=== PATIENT | female | born 1960 | race Caucasian/White ===

== ENCOUNTER 2017-10-31 16:35 | Emergency (ER) | payer BC, SELFPAY ==
[2017-10-31 16:35] VITALS: BP 159/87; PULSE 67; RESP 14; TEMP 36.4; O2SAT 95; BMI 31.0
--- NOTE | 2017-10-31 17:03 | EKG12_ITS ---
Test Reason : ILLNESS Blood Pressure : / mmHG Vent. Rate : 064 BPM Atrial Rate : 064 BPM P-R Int : 212 ms QRS Dur : 082 ms QT Int : 388 ms P-R-T Axes : 030 007 066 degrees QTc Int : 400 ms Sinus rhythm with 1st degree A-V block Otherwise normal ECG Confirmed by JODY MARTI ([id number]), editor sound TERE SMART ([id number]) on 11/02/2017 2:18:09 PM Referred By: FÉLIX Confirmed By:JODY MARTI
--- NOTE | 2017-10-31 17:06 | ED.VISSUMM ---
- ER Visit Summary Date of Service: 10/31/17 Chief Complaint: Abdominal pain and fatigue History of Present Illness: The patient is a 57 F is A. fib on Coumadin. Complaining of fatigue and abdominal discomfort. Denies vomiting or diarrhea. No constipation or dysuria. No fever. No chest pain shortness of breath. States it has been going on for approximate 4 days. Denies any melena or hematemesis. No dysuria. No bruising. Physical Examination: Well-appearing middle-age female. Vital signs are stable afebrile. Pulse ox 95% on room air no signs of hypoxia. H EENT exam unremarkable moist wheeze membranes. Neck nontender no lymphadenopathy. Lungs clear to auscultation bilaterally. Heart regular rate and rhythm no murmur. Abdomen is soft umbilical tenderness no rebound or guarding no rigidity. No hernias or masses. Test Results: CBC normal. BMP normal. Liver enzymes normal. Lipase 65 normal. INR is 1. UA negative. EKG sinus rhythm rate is 64 no acute signs of ID or ischemia. Emergency Department Course and Treatment: To undergo a abdominal pain workup. She has had recent CAT scan of the abdomen I do not feel she needs any imaging at this time. Treatment Plan: Repeat exam patient is doing well at 1930. Abdomen is benign. I did review to recent CAT scan of the abdomen pelvis that she had were basically unremarkable and incidental findings of possible gallstones. She will be discharged home with outpatient follow-up. Disposition: Discharge Impression: Acute abdominal pain and fatigue of uncertain etiology This note was generated with [employer] dictation software. It may contain incorrect words, spelling, and punctuation that were not noted in review of the chart prior to signing ED Disposition - Plan for ED Patient: Chief Complaint: Abd Pain Referrals: Addis Prather MD [Primary Care Provider] -
--- NOTE | 2017-10-31 17:12 | ED.DCSUM_ITS ---
- ER Visit Summary Date of Service: 10/31/17 Chief Complaint: Abdominal pain and fatigue History of Present Illness: The patient is a 57 F is A. fib on Coumadin. Complaining of fatigue and abdominal discomfort. Denies vomiting or diarrhea. No constipation or dysuria. No fever. No chest pain shortness of breath. States it has been going on for approximate 4 days. Denies any melena or hematemesis. No dysuria. No bruising. Physical Examination: Well-appearing middle-age female. Vital signs are stable afebrile. Pulse ox 95% on room air no signs of hypoxia. H EENT exam unremarkable moist wheeze membranes. Neck nontender no lymphadenopathy. Lungs clear to auscultation bilaterally. Heart regular rate and rhythm no murmur. Abdomen is soft umbilical tenderness no rebound or guarding no rigidity. No hernias or masses. Test Results: CBC normal. BMP normal. Liver enzymes normal. Lipase 65 normal. INR is 1. UA negative. EKG sinus rhythm rate is 64 no acute signs of DE or ischemia. Emergency Department Course and Treatment: To undergo a abdominal pain workup. She has had recent CAT scan of the abdomen I do not feel she needs any imaging at this time. Treatment Plan: Repeat exam patient is doing well at 1930. Abdomen is benign. I did review to recent CAT scan of the abdomen pelvis that she had were basically unremarkable and incidental findings of possible gallstones. She will be discharged home with outpatient follow-up. Disposition: Discharge Impression: Acute abdominal pain and fatigue of uncertain etiology This note was generated with [employer] dictation software. It may contain incorrect words, spelling, and punctuation that were not noted in review of the chart prior to signing ED Disposition - Plan for ED Patient: Chief Complaint: Abd Pain Referrals: Addis Prather MD [Primary Care Provider] -
[2017-10-31] MEDS: 0.9% Normal Saline 1,000 ML 1000 ML IV (17:23)
[2017-10-31 17:33] LABS: Mucous, Urine 0 SEEN /hpf (<or=2+); Red Blood Cells-Urine 0 SEEN /hpf (0-5)
[2017-10-31 17:37] LABS: Absolute Lymphocyte Count 2.34 X10^3/ul (0.83-4.51); Absolute Neutrophil Count 6.4 X10^3/uL (2.0-7.7); Basophil# 0.03 X10^3/uL; Basophil% 0.3 % (0-1); Hematocrit 47.7 % (37-47); Hemoglobin 15.5 g/dl (12.0-15.0); Lymphocyte # 2.34 X10^3/ul (4.0); Mean Corp Hgb Conc 32.5 g/gl (32-36); Mean Corpuscular Hgb 30.2 pg (27.0-32.0); Mean Platelet Vol. 13.3 fl (6.2-12.0); Monocyte# 0.82 X10^3/uL; Monocyte% 8.4 % (0-10); Neutrophil # 6.43 X10^3/uL (2.7-7.7); Neutrophil % 66.1 % (47-70); POSITIVE COUNT NO; POSITIVE DIFFERENTIAL NO; POSITIVE MORPHOLOGY NO; Platelet Count 166 K/mm3 (150-450); RBC Distribution Width SD 46.1 fl (35.1-43.9); Red Blood Count 5.13 M/mm3 (4.2-5.4); White Blood Count 9.7 K/mm3 (4.4-11.0)
[2017-10-31 17:39] LABS: Color, Urine Yellow (Yellow); Glucose, Dipstick Normal (Normal); Ketone-Dipstick Negative (Negative); Leukocyte Esterase-Dipstick 25 /ul (Negative); Nitrite-Dipstick Negative (Negative); Occult Blood-Urine Negative /ul (Negative); Protein-Dipstick Negative (Negative); Specific Gravity, Urine 1.015 (1.002-1.030); Urine Bilirubin Dipstick Negative (Negative); Urine Clarity Cloudy (Clear); Urine Urobilinogen 4 mg/dl (Normal)
[2017-10-31 17:51] LABS: Amorphous Sediment 1+; Squamous Epithelial Cells - UA 0-5 SEEN /hpf (5-10); White Blood Cells 0-5 SEEN /hpf (0-5)
[2017-10-31 17:51] LABS: Prothrombin Time (Protime)PT. 12.9 SECONDS (11.7-14.9)
[2017-10-31 17:52] LABS: Bacteria RARE /hpf (None Seen)
[2017-10-31 18:14] LABS: AST(SGOT) 17 U/L (15-37); Alanine Aminotransfer ALT/SGPT 39 U/L (13-56); Albumin, Serum 3.7 g/dL (3.2-5.0); Alkaline Phosphatase 112 U/L (45-117); Anion Gap 7 (5-15); BUN 16 mg/dL (7-18); BUN/Creat Ratio 20.5 RATIO (10-20); Bilirubin, Direct 0.09 mg/dL (0.00-0.30); Calcium,Total 9.3 mg/dL (8.5-10.1); Chloride 106 mmol/L (98-107); Creatinine, Serum 0.78 mg/dL (0.55-1.02); EST Glomerular Filtration Rate 80 mL/min (>60); Est Glom Filt Rate - Afr Amer 97 mL/min (>60); Estimated Creatinine Clearance 81.16 ml/min; Globulin 3.9 g/dL (2.2-4.2); Glucose 124 mg/dL (74-106); Lipase 65 U/L (73-393); Potassium 3.9 mmol/L (3.5-5.1); Protein, Total 7.6 g/dL (6.4-8.2); Sodium Level 143 mmol/L (136-145)
[2017-10-31 19:01] VITALS: BP 140/102; PULSE 61; RESP 18
--- NOTE | 2017-10-31 19:37 | ED.DEP ---
ED Disposition - Plan for ED Patient: Disposition: Home or Assisted Living Chief Complaint: Abd Pain Instructions: ED Abdominal Pain Unkn Cause Referrals: Addis Prather MD [Primary Care Provider] - 3-5 Days if not improving Additional Instructions: All your labs and EKG were unremarkable today. I did review your recent CAT scans and they show gallstones that may or may not be the cause your pain. Call follow-up your primary care physician for additional testing. Return to the ER if increasing pain, fever or intractable vomiting.
[2017-10-31 19:47] VITALS: BP 146/87; PULSE 83; RESP 18; O2SAT 95
== END 2017-10-31 19:47 | disposition home or self-care (01) ==
PROVIDERS: Emergency Provider Emergency Medicine; Family Provider Internal Medicine; PCP Internal Medicine
DX: R10.815 Periumbilic abdominal tenderness (principal); R53.83 Other fatigue; E11.9 Type 2 diabetes mellitus without complications; I48.91 Unspecified atrial fibrillation; Z90.710 Acquired absence of both cervix and uterus; Z79.84 Long term (current) use of oral hypoglycemic drugs; Z79.01 Long term (current) use of anticoagulants; Z79.899 Other long term (current) drug therapy
CPT/HCPCS: 80048; 80076; 81001; 83690; 85025; 85610; 93005; 96360; 96361; 99283; J7030; A4216

== ENCOUNTER 2018-05-21 12:04 | Emergency (ER) | payer BC, SELFPAY ==
[2018-05-21 12:05] VITALS: BP 146/77; PULSE 67; RESP 15; TEMP 36.4; O2SAT 95; BMI 35.7
--- NOTE | 2018-05-21 12:59 | CT_ITS ---
STUDY: CT ABDOMEN AND PELVIS WITH CONTRAST REASON FOR EXAM: Female, 57 years old. Right lower quadrant pain. The patient as a history of uterine carcinoma. RADIATION DOSAGE (If Supplied By Facility): CTDIvol = ( 18.72 ) mGy, DLP = ( 1397.22 ) mGycm TECHNIQUE: Transaxial images were obtained from the dome of the diaphragm to the symphysis pubis with oral contrast. 100 ml of Isovue 300 contrast was administered. Sagittal and coronal images were reconstructed. Individualized dose optimization techniques were used for this CT. COMPARISON: Comparison is made with prior examination dated July 26, 2016. FINDINGS: Stable mild increased markings at the lung bases suggestive of atelectasis and/or scarring. The visualized portions of the heart are within normal limits. There is decreased attenuation of the liver consistent with steatosis. Normal gallbladder and extrahepatic biliary system. Normal spleen. Normal pancreas. Normal bilateral adrenal glands. Normal right kidney. Normal left kidney. There is a small hiatal hernia. Normal small intestine. There are scattered colonic diverticula consistent with diverticulosis. The appendix is visualized and appears normal. There is scattered atherosclerotic calcification of the abdominal aorta, without a demonstrated aneurysm. Normal inferior vena cava. There is borderline retroperitoneal lymphadenopathy with enlarged nodes no greater than 10mm in the short axis diameter. Normal urinary bladder. There is absence of the uterus consistent with a prior hysterectomy. Normal abdominal wall. Normal osseous structures. CT/Abdomen/Pelvis WITH Contrast IMPRESSION: Scattered sigmoid diverticula. Fatty infiltration of the liver. Electronically Signed: Jerry Bunch MD at 15:24 EST Tel [phone], Service support ,
[2018-05-21 13:29] LABS: Absolute Lymphocyte Count 2.17 X10^3/ul (0.83-4.51); Absolute Neutrophil Count 4.9 X10^3/uL (2.0-7.7); Basophil# 0.02 X10^3/uL; Basophil% 0.3 % (0-1); Eosinophil# 0.08 X10^3/uL; Hematocrit 48.7 % (37-47); Hemoglobin 15.7 g/dl (12.0-15.0); Lymphocyte # 2.17 X10^3/ul (4.0); Lymphocyte % 27.6 % (19-41); Mean Corp Hgb Conc 32.2 g/gl (32-36); Mean Corpuscular Hgb 29.7 pg (27.0-32.0); Mean Corpuscular Volume 92.2 fL (81-99); Mean Platelet Vol. 13.8 fl (6.2-12.0); Monocyte% 8.9 % (0-10); Neutrophil # 4.88 X10^3/uL (2.7-7.7); Neutrophil % 62.1 % (47-70); Platelet Count 149 K/mm3 (150-450); RBC Distribution Width CV 14.1 % (11.6-14.6); RBC Distribution Width SD 46.8 fl (35.1-43.9); Red Blood Count 5.28 M/mm3 (4.2-5.4); White Blood Count 7.9 K/mm3 (4.4-11.0)
[2018-05-21 13:30] LABS: POSITIVE COUNT NO; POSITIVE DIFFERENTIAL NO; POSITIVE MORPHOLOGY NO
[2018-05-21] MEDS: Ondansetron 4 MG/2 ML Vial IV (13:39)
[2018-05-21] MEDS: 0.9% Normal Saline 1,000 ML 125 ML IV (13:39)
[2018-05-21] MEDS: Morphine 4 MG/ML Syringe IV (13:39)
[2018-05-21 13:42] LABS: Anion Gap 7 (5-15); BUN 14 mg/dL (7-18); BUN/Creat Ratio 23.1 RATIO (10-20); Calcium,Total 9.2 mg/dL (8.5-10.1); Chloride 108 mmol/L (98-107); EST Glomerular Filtration Rate 108 mL/min (>60); Est Glom Filt Rate - Afr Amer 130 mL/min (>60); Estimated Creatinine Clearance 105.51 ml/min; Glucose 115 mg/dL (74-106); Potassium 3.9 mmol/L (3.5-5.1); Sodium Level 141 mmol/L (136-145)
[2018-05-21 14:04] LABS: Lactic Acid 0.8 mmol/L (0.4-2.0)
--- NOTE | 2018-05-21 15:47 | ED.VISSUMM ---
- ER Visit Summary Date of Service: 05/21/18 Chief Complaint: [Abdominal pain] History of Present Illness: The patient is a 57 F [since the emergency department complaint of abdominal pain that started 3 days ago. Patient describes it as right lower quadrant to right lower pelvis. Patient had some sweats. Patient states pain worse with certain movements. She denies any fever. She denies any vomiting. She denies any blood in her stool or black tarry stool. She denies any urinary symptoms. Patient denies any trauma to her abdomen.] Physical Examination: [HEENT-PERRLA, EOMI. Cranial nerves II through XII grossly intact. TMs clear. Mucous membranes moist. No adenopathy. Cardiovascular-regular rate and rhythm without murmur or ectopy Lungs-clear to auscultation, chest wall stable without crepitus or subcu emphysema Abdomen-normoactive bowel sounds, soft. Patient does have some tenderness over the right lower suprapubic region lateral to the pubic mons with some subtle fullness noted. There is no rebound, rigidity, or perineal signs. There is no discoloration of the skin. Extremities-intact ?4, normal range of motion, normal pulses, atraumatic] Test Results: [CBC with differential obtained showed a white count 7.9, hemoglobin 15.7, hematocrit 49, platelets 149. Chemistries unremarkable. Lactate was normal at 0.8. CT scan of the abdomen pelvis with IV and p.o. contrast was unremarkable. No evidence of hernias. I discussed with radiologist also in he reiterates that he does not see any evidence for hernia. Analysis unremarkable.] Emergency Department Course and Treatment: [Patient was medicated with morphine and Zofran had good pain relief.] Treatment Plan: [Patient will be given a prescription for [place] for pain and will be given a referral to general surgeon for follow-up of her symptoms persist.] Disposition: Discharged home in stable condition [] Impression: [Abdominal pain-etiology uncertain] This note was generated with [employer] dictation software. It may contain incorrect words, spelling, and punctuation that were not noted in review of the chart prior to signing ED Disposition - Plan for ED Patient: Chief Complaint: Other, Pain/Inj Referrals: Addis Prather MD [Primary Care Provider] -
--- NOTE | 2018-05-21 15:50 | ED.DEP ---
ED Disposition - Plan for ED Patient: Chief Complaint: Other, Pain/Inj Instructions: ED Abdominal Pain Unkn Cause Prescriptions: Hydrocodone Bitart/Apap 5-325 [[place] 5MG-325MG] 1 tab PO Q4H PRN PRN 2 Days #10 tab PRN Reason: Pain Referrals: Addis Prather MD [Primary Care Provider] -
[2018-05-21 15:54] LABS: Bacteria 0 SEEN /hpf (None Seen); Mucous, Urine 0 SEEN /hpf (<or=2+); Red Blood Cells-Urine 0 SEEN /hpf (0-5); White Blood Cells 0 SEEN /hpf (0-5)
--- NOTE | 2018-05-21 15:54 | DCINST.ED_ITS ---
ED Disposition - Plan for ED Patient: Chief Complaint: Other, Pain/Inj Instructions: ED Abdominal Pain Unkn Cause Prescriptions: Hydrocodone Bitart/Apap 5-325 [[place] 5MG-325MG] 1 tab PO Q4H PRN PRN 2 Days #10 tab PRN Reason: Pain Referrals: Addis Prather MD [Primary Care Provider] -
[2018-05-21 15:58] LABS: Color, Urine Yellow (Yellow); Glucose, Dipstick Normal (Normal); Ketone-Dipstick Negative (Negative); Leukocyte Esterase-Dipstick Negative /ul (Negative); Nitrite-Dipstick Negative (Negative); Occult Blood-Urine Negative /ul (Negative); Protein-Dipstick Negative (Negative); Urine Bilirubin Dipstick Negative (Negative); Urine Clarity Clear (Clear); Urine Urobilinogen Normal (Normal); Urine pH 6.5 (5.0 - 8.0)
[2018-05-21 16:10] LABS: Squamous Epithelial Cells - UA 0-5 SEEN /hpf (5-10)
[2018-05-21 16:33] VITALS: BP 115/71; PULSE 63; RESP 18; O2SAT 90
== END 2018-05-21 16:38 | disposition home or self-care (01) ==
LOC: ED 13:01
PROVIDERS: Emergency Provider Emergency Medicine; Family Provider Internal Medicine; PCP Internal Medicine
DX: R10.31 Right lower quadrant pain (principal); R61 Generalized hyperhidrosis; I25.10 Atherosclerotic heart disease of native coronary artery without angina pectoris; E11.9 Type 2 diabetes mellitus without complications; E78.00 Pure hypercholesterolemia, unspecified; I48.91 Unspecified atrial fibrillation; Z79.01 Long term (current) use of anticoagulants; Z79.84 Long term (current) use of oral hypoglycemic drugs; Z79.899 Other long term (current) drug therapy
CPT/HCPCS: 74177; 80048; 81001; 83605; 85025; 90471; 96361; 96374; 96375; 99284; J7030; Q9967; A4216; J2405

== ENCOUNTER 2018-12-16 21:28 | Observation (INO) | payer BC, SELFPAY ==
[2018-12-16 21:29] VITALS: BP 162/111; PULSE 67; RESP 18; TEMP 36.6; O2SAT 98; BMI 36.0
--- NOTE | 2018-12-16 21:40 | EKG12_ITS ---
Test Reason : CP Blood Pressure : / mmHG Vent. Rate : 064 BPM Atrial Rate : 064 BPM P-R Int : 204 ms QRS Dur : 088 ms QT Int : 402 ms P-R-T Axes : 040 024 095 degrees QTc Int : 414 ms Normal sinus rhythm Low voltage QRS Cannot rule out Anterior infarct , age undetermined Abnormal ECG Confirmed by LALO HARMON, WILFREDO ([id number]), features editor TERE SMART ([id number]) on 12/17/2018 11:52:54 AM Referred By: AMY Confirmed By:WILFREDO MAY MD
--- NOTE | 2018-12-16 21:45 | RAD_ITS ---
STUDY: X-RAY CHEST REASON FOR EXAM: Female, 58 years old. Chest pain TECHNIQUE: Single frontal view COMPARISON: July 11, 2016 FINDINGS: The lungs are clear and expanded. There is no demonstrated pleural abnormality. Normal size heart. Normal mediastinum and dave. Normal visualized pulmonary arteries. Normal visualized aortic arch and descending thoracic aorta. Mild degenerative changes of the visualized thoracic spine. Normal visualized ribs, clavicles, and shoulders. There is no demonstrated abnormality of the visualized soft tissue structures of the upper abdomen. RAD/Chest 1 View (Portable) IMPRESSION: Normal x-ray examination of the chest. Electronically Signed: Kade Mcadams DO at 22:07 EDT Tel [phone], Service support ,
[2018-12-16] MEDS: Aspirin 81 MG TAB.CHEW 324 MG PO (21:50)
[2018-12-16] MEDS: Morphine 4 MG/ML Syringe IV (21:51)
[2018-12-16] MEDS: Ondansetron 4 MG/2 ML Vial IV (21:51)
[2018-12-16 21:57] LABS: Absolute Lymphocyte Count 2.94 X10^3/ul (0.83-4.51); Absolute Neutrophil Count 4.6 X10^3/uL (2.0-7.7); Basophil# 0.03 X10^3/uL; Basophil% 0.4 % (0-1); Eosinophil# 0.14 X10^3/uL; Eosinophils% 1.7 % (0-5); Hematocrit 48.4 % (37-47); Hemoglobin 16.1 g/dl (12.0-15.0); Lymphocyte # 2.94 X10^3/ul (4.0); Mean Corp Hgb Conc 33.3 g/gl (32-36); Mean Corpuscular Hgb 30.4 pg (27.0-32.0); Mean Corpuscular Volume 91.3 fL (81-99); Mean Platelet Vol. 14.4 fl (6.2-12.0); Monocyte# 0.46 X10^3/uL; Monocyte% 5.6 % (0-10); Neutrophil # 4.58 X10^3/uL (2.7-7.7); Neutrophil % 56.2 % (47-70); POSITIVE COUNT NO; POSITIVE DIFFERENTIAL NO; POSITIVE MORPHOLOGY NO; Platelet Count 143 K/mm3 (150-450); RBC Distribution Width CV 13.9 % (11.6-14.6); RBC Distribution Width SD 46.4 fl (35.1-43.9); White Blood Count 8.2 K/mm3 (4.4-11.0)
[2018-12-16 22:00] LABS: Prothrombin Time (Protime)PT. 36.5 SECONDS (11.7-14.9)
[2018-12-16 22:08] LABS: Anion Gap 6 (5-15); BUN 11 mg/dL (7-18); BUN/Creat Ratio 14.7 RATIO (10-20); Calcium,Total 8.5 mg/dL (8.5-10.1); Chloride 108 mmol/L (98-107); Creatinine, Serum 0.75 mg/dL (0.55-1.02); EST Glomerular Filtration Rate 84 mL/min (>60); Est Glom Filt Rate - Afr Amer 102 mL/min (>60); Estimated Creatinine Clearance 83.36 ml/min; Glucose 136 mg/dL (74-106); Potassium 3.6 mmol/L (3.5-5.1); Sodium Level 143 mmol/L (136-145)
[2018-12-16 22:17] LABS: International Normalized Ratio 3.6
[2018-12-16 22:30] VITALS: BP 129/71; PULSE 55; RESP 17; O2SAT 96
[2018-12-16 23:30] VITALS: BP 179/85; PULSE 65; RESP 19; O2SAT 98
--- NOTE | 2018-12-16 23:34 | ED.VISSUMM ---
- ER Visit Summary Date of Service: 12/16/18 Chief Complaint: Chest pain History of Present Illness: The patient is a 58 F presenting with intermittent chest pain. She states this started today. She has pain in her mid chest that radiates to her left arm. She has associated diaphoresis. She denies shortness of breath. Denies fever. She states this feels similar to her previous [place]. She has a history of CAD, diabetes, A. fib. She is on Coumadin. Physical Examination: Vitals are stable. Patient is afebrile. Alert no acute distress. HEENT exam is unremarkable. Neck is supple. Lungs are clear and equal bilaterally. Heart is regular rate and rhythm. Abdomen is soft nontender nondistended. Extremities are unremarkable. Skin is warm and dry. No focal neurologic deficit. Remainder of exam is unremarkable. Emergency Department Course and Treatment: EKG is sinus rate of 64 unchanged from previous. Chest x-ray shows no acute process. CBC unremarkable other than platelets 143. Chemistries normal except for glucose 136. INR 3.6. Troponin 0.026. Patient given aspirin, morphine, Zofran on arrival. On reevaluation her pain is resolved. Discussed with the hospitalist for observation. Disposition: Observation Impression: Chest pain This note was generated with [employer] dictation software. It may contain incorrect words, spelling, and punctuation that were not noted in review of the chart prior to signing ED Disposition - Plan for ED Patient: Referrals: Addis Prather MD [Primary Care Provider] -
--- NOTE | 2018-12-16 23:37 | ED.DCSUM_ITS ---
- ER Visit Summary Date of Service: 12/16/18 Chief Complaint: Chest pain History of Present Illness: The patient is a 58 F presenting with intermittent chest pain. She states this started today. She has pain in her mid chest that radiates to her left arm. She has associated diaphoresis. She denies shortness of breath. Denies fever. She states this feels similar to her previous [place]. She has a history of CAD, diabetes, A. fib. She is on Coumadin. Physical Examination: Vitals are stable. Patient is afebrile. Alert no acute distress. HEENT exam is unremarkable. Neck is supple. Lungs are clear and equal bilaterally. Heart is regular rate and rhythm. Abdomen is soft nontender nondistended. Extremities are unremarkable. Skin is warm and dry. No focal neurologic deficit. Remainder of exam is unremarkable. Emergency Department Course and Treatment: EKG is sinus rate of 64 unchanged from previous. Chest x-ray shows no acute process. CBC unremarkable other than platelets 143. Chemistries normal except for glucose 136. INR 3.6. Troponin 0.026. Patient given aspirin, morphine, Zofran on arrival. On reevaluation her pain is resolved. Discussed with the hospitalist for observation. Disposition: Observation Impression: Chest pain This note was generated with [employer] dictation software. It may contain incorrect words, spelling, and punctuation that were not noted in review of the chart prior to signing ED Disposition - Plan for ED Patient: Referrals: Addis Prather MD [Primary Care Provider] -
--- NOTE | 2018-12-16 23:40 | PCM.HP.STD ---
Problem List (1) Chest pain at rest Status: Acute (2) Diabetes Status: Chronic History of Present Illness Date of Admission: 12/16/18 Chief Complaint: chest pain The patient is a 58 year old F with a significant history of diabetes mellitus; atrial fibrillation; bilateral leg swelling who presented to the emergency department with 1 week history of progressively worsening left-sided excruciating sharp chest pain that radiated to her left. She describes her left arm pain as numbness and tingling. At the time of examination her left chest pain was about 6 out of 10 and she described it as heaviness. She denies any ameliorating or aggravating factors. On the day of presentation her chest pain actually woke her from her sleep. In the past week patient has had abdominal pain and diarrhea. She is taking Imodium which is helping her diarrhea. Further she reports of back pain that has been going on for about 1 week. Reportedly she was diagnosed with a kidney stones about an month ago. Also she reports of cyst at the right kidney. She reports that she had myocardial infarction about 3 years ago. Reportedly she was sent from doctor's office to emergency department where she was treated and discharged on the same day for her myocardial infarction. Past Medical History Past Medical History (Chronic Problems): Chronic Problems HTN (hypertension) (Chronic) Diabetes (Chronic) Allergies No Known Allergies Allergy (Verified 12/16/18 21:31) Home Medications: Ambulatory Orders Medication Instructions Recorded metFORMIN (XR) [Glucophage Xr] 1,000 mg PO BID 12/15/13 Sertraline HCl [Zoloft] 50 mg PO DAILY 05/31/15 Lisinopril [Zestril] 5 mg PO DAILY 02/04/16 Cholecalciferol (Vitamin D3) 2,000 unit PO DAILY 10/31/17 [Vitamin D3] Warfarin Sodium 10 mg PO SUTUTHSA 10/31/17 Warfarin Sodium 15 mg PO MOWEFR 10/31/17 Atorvastatin Calcium [Lipitor] 40 mg PO QHS 12/16/18 Furosemide [Lasix] 20 mg PO DAILY 12/16/18 Loperamide HCl [Anti-Diarrheal] 2 mg PO DAILY PRN 12/16/18 Surgical History: hysterectomy, - - Scar tissue was removed from her abdomen. Lives: Spouse/ Significant Other Smoking Status: Never smoker Tobacco Use: Non-smoker Alcohol: None - *Family History Maternal History Items: Heart Disease - Her grandmother had a heart attack. Patient does not know the age that her grandmother had the heart attack. Paternal History Items: Heart Disease - Her father had a heart attack when he was in his 60s to 70s. Review of Systems Constitutional: Reports: Chills. Denies: Fever, Weight Change HEENT: Denies: Head Aches, Sinus Congestion, Sinus Drainage Cardiovascular: Reports: Chest Pain, Heaviness, Palpitations Respiratory: Denies: Cough, Shortness of breath at rest, Sputum production Gastrointestinal: Denies: Abdominal Pain, Nausea, Vomiting Genitourinary: Denies: Dysuria Musculoskeletal: Denies: Joint Pain, Joint Tenderness Skin: Denies: Rash, Wounds Neurological: Denies: Numbness, Tingling, Focal weakness Psychiatric: Denies: Homicidal Ideations, Suicidal Ideations Hematologic/ Lymphatic: Denies: Easy Bruising, Easy Bleeding VTE Information - Inpt Only VTE Present on Admission: No VTE Mechan Device Prophylaxis: SCD's VTE Pharm Prophylaxis ordered?: No Patient Problems: Active and Suspected Problems Chest pain at rest (Acute) - Physical Exam General: Alert, Oriented x3, Cooperative HEENT: Atraumatic, PERRLA, EOMI, Normocephalic Neck: Supple, No JVD, Negative Carotid Bruits Lungs: Clear to auscultation, Normal air movement Cardiovascular: No murmurs, Bradycardic, - - Tender left-sided chest. Abdomen: Bowel Sounds Present, Soft, Non Tender Extremities: No edema, Capillary Refill Less than 3 Seconds Skin: No rashes, No breakdown Musculoskeletal: No Tenderness to Palpation of Joints or Extremities Neurological: Neuro grossly intact Psych/Mental Status: Normal Affect, Appropriate Vital Signs Temp Pulse Resp BP Pulse Ox 97.9 F 65 19 H 179/85 H 98 12/16/18 21:29 12/16/18 23:30 12/16/18 23:30 12/16/18 23:30 12/16/18 23:30 Oxygen Flow Rate (L/min) 2 Oxygen Delivery Method Nasal Cannula Weight: 110.6 kg Body Mass Index (BMI) 36.0 Laboratory Tests Past 24 Hrs 12/16/18 12/16/18 12/16/18 21:40 21:40 21:40 WBC 8.2 RBC 5.30 Hgb 16.1 H Hct 48.4 H MCV 91.3 MCH 30.4 MCHC 33.3 RDW 13.9 RDW Differential 46.4 H Plt Count 143 L MPV 14.4 H Immature Gran % (Auto) 0.100 Neut % (Auto) 56.2 Lymph % (Auto) 36.0 [place] % (Auto) 5.6 Eos % (Auto) 1.7 Baso % (Auto) 0.4 Absolute Neuts (auto) 4.6 Absolute Lymphs (auto) 2.94 Total Counted Not Reportable PT 36.5 H INR 3.6 H* Sodium 143 Potassium 3.6 Chloride 108 H Carbon Dioxide 29.0 Anion Gap 6 BUN 11 Creatinine 0.75 Estim Creat Clear Calc 83.36 Est GFR (MDRD) Af Amer 102 Est GFR (MDRD) Non-Af 84 BUN/Creatinine Ratio 14.7 Glucose 136 H Calcium 8.5 Troponin I 0.026 Assessment/Plan All Active Problems Chest pain at rest (Acute) The patient is a 58 year old F with a significant history of diabetes mellitus; atrial fibrillation; bilateral leg swelling who presented to the emergency department with 1 week history of progressively worsening left-sided excruciating sharp chest pain that radiated to her left arm and found to have rising troponin level consistent with probable non-ST elevation DE. Non-ST elevation DE Heart score of 4 points; moderate score. History is moderately suspicious; EKG normal; age 45-64; risk factors more equal to 3 risk factors (hypertension, diabetes mellitus, obesity) initial troponin normal limits. However her troponin began to rise. CHAVA score about 3 points (more equal to 3 cardiac risk factors; severe angina( more equal to 2 episodes in 24 hours); positive cardiac marker Admit to a monitored bed on PCU CXR independently reviewed confirms no acute cardiopulmonary process. EKG independently reviewed confirms sinus bradycardia with first-degree AV block Q WAVES IN leads III; V1 to V3. 31 October 2017: Old records reviewed showed unchanged EKG. ASA 81 mg p.o. daily Morphine as needed for pain We will check lipid panel. High intensity statin continued Serial cardiac enzymes Stat EKG as needed for chest pain Keep n.p.o. except meds for now. Lisinopril continued Since her troponin is trending up Cardiology will be consulted Diabetes mellitus On presentation her blood glucose was within goal Hold home metformin. Correction scale insulin ordered. Hypertension She takes home lisinopril but she denies hypertension. She denies know why she takes lisinopril.. It could be that she takes it renal protection and occasional diabetes. Indicates on presentation her blood pressure was not within goal. Lisinopril continued Trend blood pressure and adjust blood pressure medication. Acute gastroenteritis Imodium as needed continued. History of A. fib On presentation patient was sinus bradycardia. Hold Coumadin in the setting of elevated INR. Consider resuming home Coumadin at the lesser dose if no cardiac intervention is done. We will repeat INR in a.m. History of bilateral leg swelling Lasix continued. DVT prophylaxis Patient with subtherapeutic INR. In any case SCD was ordered. Code Visit OBSV E&M: 31897 Initial observation care L3
[2018-12-17] VITALS (17 sets, daily range): BP systolic 121–160; BP diastolic 66–87; PULSE 54–67; RESP 16–18; TEMP 36.4–36.7; O2SAT 90–96; BMI 35.3; BMI 35.4
[2018-12-17] MEDS: Morphine 4 MG/ML Syringe IV (00:52)
--- NOTE | 2018-12-17 01:14 | EKG12_ITS ---
Test Reason : CP ADMISSION Blood Pressure : / mmHG Vent. Rate : 056 BPM Atrial Rate : 056 BPM P-R Int : 220 ms QRS Dur : 090 ms QT Int : 420 ms P-R-T Axes : 046 026 073 degrees QTc Int : 405 ms Sinus bradycardia with 1st degree A-V block Low voltage QRS Cannot rule out Anterior infarct , age undetermined Abnormal ECG Confirmed by PAULA HARMON, TEODORA ([id number]), society editor TERE SMART ([id number]) on 12/21/2018 7:01:56 AM Referred By: VINNIE Confirmed By:TEODORA MITCHELL MD
[2018-12-17 02:16] LABS: Bedside Glucose 142 mg/dL (70-110)
[2018-12-17 05:50] LABS: Anion Gap 8 (5-15); BUN 10 mg/dL (7-18); BUN/Creat Ratio 16.2 RATIO (10-20); Calcium,Total 8.4 mg/dL (8.5-10.1); Chloride 109 mmol/L (98-107); Cholesterol 116 mg/dL (200); Creatinine, Serum 0.62 mg/dL (0.55-1.02); EST Glomerular Filtration Rate 105 mL/min (>60); Est Glom Filt Rate - Afr Amer 126 mL/min (>60); Estimated Creatinine Clearance 100.84 ml/min; Glucose 130 mg/dL (74-106); High Density Lipoprotein 39 mg/dL; Potassium 3.9 mmol/L (3.5-5.1); Sodium Level 144 mmol/L (136-145); Triglycerides 110 mg/dL; Very Low Density Lipoprotein 22 mg/dL (5-40)
[2018-12-17 05:53] LABS: Prothrombin Time (Protime)PT. 31.6 SECONDS (11.7-14.9)
[2018-12-17] MEDS: Morphine 2 MG/ML Syringe IV ×3 (05:53→22:13)
[2018-12-17 05:54] LABS: Partial Thromboplast Time 42.8 Seconds (24.1-36.2)
[2018-12-17] MEDS: 0.9% NaCl Peripheral Flush Adult/Peds IV ×3 (05:54→22:13)
[2018-12-17 05:57] LABS: Hematocrit 46.9 % (37-47); Hemoglobin 15.4 g/dl (12.0-15.0); Mean Corp Hgb Conc 32.8 g/gl (32-36); Mean Corpuscular Hgb 30.1 pg (27.0-32.0); Mean Corpuscular Volume 91.8 fL (81-99); Mean Platelet Vol. 14.2 fl (6.2-12.0); Platelet Count 132 K/mm3 (150-450); RBC Distribution Width CV 13.9 % (11.6-14.6); RBC Distribution Width SD 46.6 fl (35.1-43.9); Red Blood Count 5.11 M/mm3 (4.2-5.4)
[2018-12-17 06:00] LABS: Scan Indicated on CBC? Y/N NO
[2018-12-17 06:45] LABS: Bedside Glucose 133 mg/dL (70-110)
[2018-12-17] MEDS: Lisinopril 5 MG Tablet PO (09:09)
[2018-12-17] MEDS: Aspirin E.C. 81 MG Tablet PO (09:09)
[2018-12-17 12:36] LABS: Bedside Glucose 127 mg/dL (70-110)
[2018-12-17] MEDS: Furosemide 20 MG Tablet PO ×2 (13:19→18:41)
[2018-12-17] MEDS: Atorvastatin Calcium 40 MG Tablet PO (13:20)
[2018-12-17] MEDS: Sertraline 50 MG Tablet PO (13:20)
[2018-12-17] MEDS: Glucerna Shake 120 ML LIQUID PO (13:24)
--- NOTE | 2018-12-17 13:56 | EKG12_ITS ---
Test Reason : CP Blood Pressure : / mmHG Vent. Rate : 056 BPM Atrial Rate : 056 BPM P-R Int : 218 ms QRS Dur : 094 ms QT Int : 442 ms P-R-T Axes : 061 031 058 degrees QTc Int : 426 ms Sinus bradycardia with 1st degree A-V block Low voltage QRS Borderline ECG Confirmed by PAULA HARMON, TEODORA ([id number]), editor house organ TERE SMART ([id number]) on 12/21/2018 7:05:33 AM Referred By: LISETTE Confirmed By:TEODORA MITCHELL MD
--- NOTE | 2018-12-17 14:10 | PCM.PROGNOTE ---
Patient Problems: Active and Suspected Problems Chest pain at rest (Acute) Subjective: Pt has ongoing 7/10 chest heaviness with associated pain in the left arm, numbness in the left fingers, and some pain in her neck. Her initial chest pain was described as sharp in quality and was relieved with nitro, and later this AM when it recurred it was relieved with morphine. She has no LH/Dizziness. She is not SOB currently. She states that she had an MN 3 years ago and was treated by Dr. Vaughn, however that she never had a heart cath. - Physical Exam General: Alert, Oriented x3, Cooperative HEENT: Atraumatic, PERRLA, EOMI, Normocephalic Neck: Supple, No JVD, Negative Carotid Bruits Lungs: Clear to auscultation, Normal air movement Cardiovascular: Regular rate, No murmurs Abdomen: Bowel Sounds Present, Soft, Non Tender Extremities: No edema, Capillary Refill Less than 3 Seconds Skin: No rashes, No breakdown Musculoskeletal: No Tenderness to Palpation of Joints or Extremities Neurological: Cranial nerves II-XII grossly intact Psych/Mental Status: Normal Affect, Appropriate, Alert and oriented to time, place, person, mood and affect Vital Signs Temp Pulse Resp BP Pulse Ox 97.7 F L 56 L 16 131/73 H 92 12/17/18 08:56 12/17/18 11:05 12/17/18 08:56 12/17/18 08:56 12/17/18 08:57 Oxygen Flow Rate (L/min) 2 Oxygen Delivery Method Room Air Weight: 239 lb 6.752 oz Body Mass Index (BMI) 35.3 Laboratory Tests Past 24 Hrs 12/16/18 12/16/18 12/16/18 21:40 21:40 21:40 WBC 8.2 RBC 5.30 Hgb 16.1 H Hct 48.4 H MCV 91.3 MCH 30.4 MCHC 33.3 RDW 13.9 RDW Differential 46.4 H Plt Count 143 L MPV 14.4 H Immature Gran % (Auto) 0.100 Neut % (Auto) 56.2 Lymph % (Auto) 36.0 [place] % (Auto) 5.6 Eos % (Auto) 1.7 Baso % (Auto) 0.4 Absolute Neuts (auto) 4.6 Absolute Lymphs (auto) 2.94 Total Counted Not Reportable PT 36.5 H INR 3.6 H* APTT Sodium 143 Potassium 3.6 Chloride 108 H Carbon Dioxide 29.0 Anion Gap 6 BUN 11 Creatinine 0.75 Estim Creat Clear Calc 83.36 Est GFR (MDRD) Af Amer 102 Est GFR (MDRD) Non-Af 84 BUN/Creatinine Ratio 14.7 Glucose 136 H Calcium 8.5 Troponin I 0.026 Triglycerides Cholesterol LDL Cholesterol VLDL Cholesterol HDL Cholesterol 12/17/18 12/17/18 12/17/18 01:29 04:48 04:48 WBC RBC Hgb Hct MCV MCH MCHC RDW RDW Differential Plt Count MPV Immature Gran % (Auto) Neut % (Auto) Lymph % (Auto) [place] % (Auto) Eos % (Auto) Baso % (Auto) Absolute Neuts (auto) Absolute Lymphs (auto) Total Counted PT 31.6 H INR 3.0 APTT 42.8 H Sodium 144 Potassium 3.9 Chloride 109 H Carbon Dioxide 27.0 Anion Gap 8 BUN 10 Creatinine 0.62 Estim Creat Clear Calc 100.84 Est GFR (MDRD) Af Amer 126 Est GFR (MDRD) Non-Af 105 BUN/Creatinine Ratio 16.2 Glucose 130 H Calcium 8.4 L Troponin I 0.062 H 0.105 H Triglycerides 110 Cholesterol 116 LDL Cholesterol 55 VLDL Cholesterol 22 HDL Cholesterol 39 L 12/17/18 12/17/18 12/17/18 04:48 04:48 07:58 WBC 8.0 RBC 5.11 Hgb 15.4 H Hct 46.9 MCV 91.8 MCH 30.1 MCHC 32.8 RDW 13.9 RDW Differential 46.6 H Plt Count 132 L MPV 14.2 H Immature Gran % (Auto) Neut % (Auto) Lymph % (Auto) [place] % (Auto) Eos % (Auto) Baso % (Auto) Absolute Neuts (auto) Absolute Lymphs (auto) Total Counted PT INR APTT Sodium Potassium Chloride Carbon Dioxide Anion Gap BUN Creatinine Estim Creat Clear Calc Est GFR (MDRD) Af Amer Est GFR (MDRD) Non-Af BUN/Creatinine Ratio Glucose Calcium Troponin I 0.099 H Triglycerides Cancelled Cholesterol Cancelled LDL Cholesterol Cancelled VLDL Cholesterol Cancelled HDL Cholesterol Cancelled POC Glucose 12/17/18 12/17/18 12/17/18 12:30 05:57 02:08 POC Glucose 127 H 133 H 142 H Medical Necessity - Tobacco Use Smoking Status: Never smoker Tobacco Use: Non-smoker Assessment/Plan All Active Problems Chest pain at rest (Acute) 1. Chest pain - cardiology is consulted. Troponins initially went up then slightly down peaked at 0.105. She states she had an MN 3 years ago but was never cath'd. Followed with Dr. Vaughn. Currently still having chest heaviness 7/10 with left shoulder/neck/arm/hand sensations.Initially this was a sharp pain relieved with nitro. EKG with no acute change, 1st degree av block, mild sinus marco on the monitor. CXR negative. On asa/statin/johnathan. 2. T2DM with obesity - SSI, hold orals. 3. HTN - stable. 4. Gastroenteritis - prn immodium 5. pAfib - on coumadin - therapeutic INR at 3.0 hold tonights dose. 6. BL LE edema - on lasix. Denies overt CHF. 7. Depression - zoloft DVT ppx: inr 3.0, scds DC planning: pending plan for further cardiac intervention This patient was seen by Quincy Abraham PA-C under the supervision of Dr. Lacy
--- NOTE | 2018-12-17 14:32 | PCM.CONS.C ---
Reason for Consult Date of Consultation: 12/17/18 Reason for Consultation: Chest pain and abnormal cardiac enzymes History of Present Illness: The patient is a 58 year old F with a previous cardiac history consisting of hypertension as well as atrial fibrillation who presented to the emergency room over the weekend with chest discomfort. She describes this as sharp and going down her left arm. She had no dizziness or diaphoresis no near syncope or syncope. She has been compliant with all her medications. She was admitted through the telemetry unit. Her EKG did not demonstrate any changes at rest. Cardiac enzymes were however obtained and noted to be mildly abnormal. She has had intermittent chest discomfort while on admission. She is on Coumadin for atrial fibrillation. She denies any dizziness or diaphoresis near syncope or syncope. [] Past Medical History Allergies/Adverse Reactions: Allergies No Known Allergies Allergy (Verified 12/16/18 21:31) Home Medications: Ambulatory Orders Medication Instructions Recorded metFORMIN (XR) [Glucophage Xr] 1,000 mg PO BID 12/15/13 Sertraline HCl [Zoloft] 50 mg PO DAILY 05/31/15 Lisinopril [Zestril] 5 mg PO DAILY 02/04/16 Cholecalciferol (Vitamin D3) 2,000 unit PO DAILY 10/31/17 [Vitamin D3] Warfarin Sodium 10 mg PO SUTUTHSA 10/31/17 Warfarin Sodium 15 mg PO MOWEFR 10/31/17 Atorvastatin Calcium [Lipitor] 40 mg PO QHS 12/16/18 Furosemide [Lasix] 20 mg PO DAILY 12/16/18 Loperamide HCl [Anti-Diarrheal] 2 mg PO DAILY PRN 12/16/18 Past Medical History (Chronic Problems): Chronic Problems HTN (hypertension) (Chronic) Diabetes (Chronic) Surgical History: hysterectomy, - - Scar tissue was removed from her abdomen. - *Family History Maternal History Items: Heart Disease - Her grandmother had a heart attack. Patient does not know the age that her grandmother had the heart attack. Paternal History Items: Heart Disease - Her father had a heart attack when he was in his 60s to 70s. Lives: Spouse/ Significant Other Smoking Status: Never smoker Tobacco Use: Non-smoker Alcohol: None Drugs: None Review of Systems - Review of Systems General: Denies: Fever, Night Sweats, Fatigue HEENT: Denies: Vision Change Cardiovascular: Reports: Chest Discomfort, Chest Discomfort at Rest. Denies: Shortness of Breath, Orthopnea, PND, Peripheral Edema, Palpitations, Lightheadedness, Dizziness, Near Syncope, Syncope Respiratory: Denies: Cough, Sputum Production, Hemoptysis Gastrointestinal: Denies: Hematemesis, Hematochezia, Melena Genitourinary: Denies: Dysuria, Hematuria Muscoloskeletal: Denies: Myalgias Skin: Denies: Rash Neurological: Denies: Dizziness Psychiatric: Denies: Anxiety Endocrine: Denies: Unexplained Weight Loss Hematologic/ Lymphatic: Denies: Anemia Subjectve: Pleasant lady in no apparent distress Objective: Vital Signs Temp Pulse Resp BP Pulse Ox 97.7 F L 56 L 16 131/73 H 92 12/17/18 08:56 12/17/18 11:05 12/17/18 08:56 12/17/18 08:56 12/17/18 08:57 Oxygen Flow Rate (L/min) 2 Oxygen Delivery Method Room Air Weight: 239 lb 6.752 oz Body Mass Index (BMI) 35.3 General: Awake, Alert, Oriented x 3 HEENT: PERRL, EOMI, Sclera Non Icteric Neck: Supple, Good ROM, No Lymph Node Enlargement Lungs: Clear to auscultation Cardiovascular: Regular Rhythm, Normal S1, Normal S2, No Murmurs, No Rubs, No Gallops Vascular: No Carotid Bruits, Normal Femoral Pulses, Normal Radial Pulses, Normal Dorsalis Pedal Pulse, Normal Posterior Tibial Pulses Abdomen: Bowel Sounds Present, Soft, Non Tender, No HSM, No Organomegaly Extremities: No Cyanosis, No Clubbing, No edema Musculoskeletal: No Erythema Skin: No Rashes Lymphatic: No Lymph Node Enlargement Neurological: No Focal Motor or Sensory Deficit Psych/Mental Status: Appropriate 12/16/18 21:40: WBC 8.2, RBC 5.30, Hgb 16.1 H, Hct 48.4 H, MCV 91.3, MCH 30.4, MCHC 33.3, RDW 13.9, RDW Differential 46.4 H, Plt Count 143 L, MPV 14.4 H, Immature Gran % (Auto) 0.100, Neut % (Auto) 56.2, Lymph % (Auto) 36.0, [place] % (Auto) 5.6, Eos % (Auto) 1.7, Baso % (Auto) 0.4, Absolute Neuts (auto) 4.6, Total Counted Not Reportable 12/16/18 21:40: Sodium 143, Potassium 3.6, Chloride 108 H, Carbon Dioxide 29.0, Anion Gap 6, BUN 11, Creatinine 0.75, Est GFR (MDRD) Af Amer 102, Est GFR (MDRD) Non-Af 84, BUN/Creatinine Ratio 14.7, Glucose 136 H, Calcium 8.5, Troponin I 0.026 12/16/18 21:40: PT 36.5 H, INR 3.6 H* 12/17/18 01:29: Troponin I 0.062 H 12/17/18 04:48: PT 31.6 H, INR 3.0, APTT 42.8 H 12/17/18 04:48: Sodium 144, Potassium 3.9, Chloride 109 H, Carbon Dioxide 27.0, Anion Gap 8, BUN 10, Creatinine 0.62, Est GFR (MDRD) Af Amer 126, Est GFR (MDRD) Non-Af 105, BUN/Creatinine Ratio 16.2, Glucose 130 H, Calcium 8.4 L, Troponin I 0.105 H, Triglycerides 110, Cholesterol 116, LDL Cholesterol 55, VLDL Cholesterol 22, HDL Cholesterol 39 L 12/17/18 04:48: WBC 8.0, RBC 5.11, Hgb 15.4 H, Hct 46.9, MCV 91.8, MCH 30.1, MCHC 32.8, RDW 13.9, RDW Differential 46.6 H, Plt Count 132 L, MPV 14.2 H 12/17/18 04:48: Triglycerides Cancelled, Cholesterol Cancelled, LDL Cholesterol Cancelled, VLDL Cholesterol Cancelled, HDL Cholesterol Cancelled 12/17/18 07:58: Troponin I 0.099 H Rhythm: EKG: Normal sinus rhythm with no acute changes rate of 56 bpm. Assessment/Plan 1. Chest pain Patient presents with chest pain which is somewhat atypical. She however has mild cardiac enzyme abnormality noted. The etiology of the above is unclear. But due to her risk factors it may be prudent for us to proceed with a cardiac catheterization. At this time she is therapeutically anticoagulated and I will prefer to have her INR to drift downwards to below 2 before performing the cardiac catheterization. 2. Hypertension Blood pressure appears to be under good control on the current medical therapy no major changes will be made. 3. Paroxysmal atrial fibrillation Patient appears to have paroxysmal atrial fibrillation but currently is maintaining sinus rhythm. She has been therapeutically anticoagulated for the above. We will continue this after the invasive procedures have been performed. Thank you for allowing me to participate in the care of your patient. Please don't hesitate to call if any issues arise
--- NOTE | 2018-12-17 14:38 | CON.PCM_ITS ---
Reason for Consult Date of Consultation: 12/17/18 Reason for Consultation: Chest pain and abnormal cardiac enzymes History of Present Illness: The patient is a 58 year old F with a previous cardiac history consisting of hypertension as well as atrial fibrillation who presented to the emergency room over the weekend with chest discomfort. She describes this as sharp and going down her left arm. She had no dizziness or diaphoresis no near syncope or syncope. She has been compliant with all her medications. She was admitted through the telemetry unit. Her EKG did not demonstrate any changes at rest. Cardiac enzymes were however obtained and noted to be mildly abnormal. She has had intermittent chest discomfort while on admission. She is on Coumadin for atrial fibrillation. She denies any dizziness or diaphoresis near syncope or syncope. [] Past Medical History Allergies/Adverse Reactions: Allergies No Known Allergies Allergy (Verified 12/16/18 21:31) Home Medications: Ambulatory Orders Medication Instructions Recorded metFORMIN (XR) [Glucophage Xr] 1,000 mg PO BID 12/15/13 Sertraline HCl [Zoloft] 50 mg PO DAILY 05/31/15 Lisinopril [Zestril] 5 mg PO DAILY 02/04/16 Cholecalciferol (Vitamin D3) 2,000 unit PO DAILY 10/31/17 [Vitamin D3] Warfarin Sodium 10 mg PO SUTUTHSA 10/31/17 Warfarin Sodium 15 mg PO MOWEFR 10/31/17 Atorvastatin Calcium [Lipitor] 40 mg PO QHS 12/16/18 Furosemide [Lasix] 20 mg PO DAILY 12/16/18 Loperamide HCl [Anti-Diarrheal] 2 mg PO DAILY PRN 12/16/18 Past Medical History (Chronic Problems): Chronic Problems HTN (hypertension) (Chronic) Diabetes (Chronic) Surgical History: hysterectomy, - - Scar tissue was removed from her abdomen. - *Family History Maternal History Items: Heart Disease - Her grandmother had a heart attack. Patient does not know the age that her grandmother had the heart attack. Paternal History Items: Heart Disease - Her father had a heart attack when he was in his 60s to 70s. Lives: Spouse/ Significant Other Smoking Status: Never smoker Tobacco Use: Non-smoker Alcohol: None Drugs: None Review of Systems - Review of Systems General: Denies: Fever, Night Sweats, Fatigue HEENT: Denies: Vision Change Cardiovascular: Reports: Chest Discomfort, Chest Discomfort at Rest. Denies: Shortness of Breath, Orthopnea, PND, Peripheral Edema, Palpitations, Lightheadedness, Dizziness, Near Syncope, Syncope Respiratory: Denies: Cough, Sputum Production, Hemoptysis Gastrointestinal: Denies: Hematemesis, Hematochezia, Melena Genitourinary: Denies: Dysuria, Hematuria Muscoloskeletal: Denies: Myalgias Skin: Denies: Rash Neurological: Denies: Dizziness Psychiatric: Denies: Anxiety Endocrine: Denies: Unexplained Weight Loss Hematologic/ Lymphatic: Denies: Anemia Subjectve: Pleasant lady in no apparent distress Objective: Vital Signs Temp Pulse Resp BP Pulse Ox 97.7 F L 56 L 16 131/73 H 92 12/17/18 08:56 12/17/18 11:05 12/17/18 08:56 12/17/18 08:56 12/17/18 08:57 Oxygen Flow Rate (L/min) 2 Oxygen Delivery Method Room Air Weight: 239 lb 6.752 oz Body Mass Index (BMI) 35.3 General: Awake, Alert, Oriented x 3 HEENT: PERRL, EOMI, Sclera Non Icteric Neck: Supple, Good ROM, No Lymph Node Enlargement Lungs: Clear to auscultation Cardiovascular: Regular Rhythm, Normal S1, Normal S2, No Murmurs, No Rubs, No Gallops Vascular: No Carotid Bruits, Normal Femoral Pulses, Normal Radial Pulses, Normal Dorsalis Pedal Pulse, Normal Posterior Tibial Pulses Abdomen: Bowel Sounds Present, Soft, Non Tender, No HSM, No Organomegaly Extremities: No Cyanosis, No Clubbing, No edema Musculoskeletal: No Erythema Skin: No Rashes Lymphatic: No Lymph Node Enlargement Neurological: No Focal Motor or Sensory Deficit Psych/Mental Status: Appropriate 12/16/18 21:40: WBC 8.2, RBC 5.30, Hgb 16.1 H, Hct 48.4 H, MCV 91.3, MCH 30.4, MCHC 33.3, RDW 13.9, RDW Differential 46.4 H, Plt Count 143 L, MPV 14.4 H, Immature Gran % (Auto) 0.100, Neut % (Auto) 56.2, Lymph % (Auto) 36.0, [place] % (Auto) 5.6, Eos % (Auto) 1.7, Baso % (Auto) 0.4, Absolute Neuts (auto) 4.6, Total Counted Not Reportable 12/16/18 21:40: Sodium 143, Potassium 3.6, Chloride 108 H, Carbon Dioxide 29.0, Anion Gap 6, BUN 11, Creatinine 0.75, Est GFR (MDRD) Af Amer 102, Est GFR (MDRD) Non-Af 84, BUN/Creatinine Ratio 14.7, Glucose 136 H, Calcium 8.5, Troponin I 0.026 12/16/18 21:40: PT 36.5 H, INR 3.6 H* 12/17/18 01:29: Troponin I 0.062 H 12/17/18 04:48: PT 31.6 H, INR 3.0, APTT 42.8 H 12/17/18 04:48: Sodium 144, Potassium 3.9, Chloride 109 H, Carbon Dioxide 27.0, Anion Gap 8, BUN 10, Creatinine 0.62, Est GFR (MDRD) Af Amer 126, Est GFR (MDRD) Non-Af 105, BUN/Creatinine Ratio 16.2, Glucose 130 H, Calcium 8.4 L, Troponin I 0.105 H, Triglycerides 110, Cholesterol 116, LDL Cholesterol 55, VLDL Cholesterol 22, HDL Cholesterol 39 L 12/17/18 04:48: WBC 8.0, RBC 5.11, Hgb 15.4 H, Hct 46.9, MCV 91.8, MCH 30.1, MCHC 32.8, RDW 13.9, RDW Differential 46.6 H, Plt Count 132 L, MPV 14.2 H 12/17/18 04:48: Triglycerides Cancelled, Cholesterol Cancelled, LDL Cholesterol Cancelled, VLDL Cholesterol Cancelled, HDL Cholesterol Cancelled 12/17/18 07:58: Troponin I 0.099 H Rhythm: EKG: Normal sinus rhythm with no acute changes rate of 56 bpm. Assessment/Plan 1. Chest pain * Patient presents with chest pain which is somewhat atypical. She however has mild cardiac enzyme abnormality noted. The etiology of the above is unclear. But due to her risk factors it may be prudent for us to proceed with a cardiac catheterization. At this time she is therapeutically anticoagulated and I will prefer to have her INR to drift downwards to below 2 before performing the cardiac catheterization. * 2. Hypertension * Blood pressure appears to be under good control on the current medical therapy no major changes will be made. * 3. Paroxysmal atrial fibrillation * Patient appears to have paroxysmal atrial fibrillation but currently is maintaining sinus rhythm. She has been therapeutically anticoagulated for the above. We will continue this after the invasive procedures have been performed. * * Thank you for allowing me to participate in the care of your patient. Please don't hesitate to call if any issues arise
--- NOTE | 2018-12-17 14:42 | CHAPLAIN ---
Type of Pastoral Visit _x__ Initial Visit ___ Follow-up Visit ___ On-call Visit ___ General Patient Visit ___ Spiritual Assessment ___ Family Conference ___ Bereavement ___ Rapid Response ___ Code Blue ___ Other (describe below) Pastoral Care Referral From _x__ Patient ___ Family ___ Nurse ___ Physician ___ Perforator Typist ___ [employer] Advanced Operator Maintainer ___ Other (describe below) Sacrament/Intervention _x__ Active listening ___ Anointing ___ Yazdanism ___ Bereavement ___ Communion ___ Svetlana exploration ___ ___ Life review _x__ Prayer ___ Reconciliation ___ Sacrament of Sick _x__ Supportive presence ___ Wedding ___ Other (describe below) Pastoral Comments
--- NOTE | 2018-12-17 15:24 | CASEMGMT ---
Patient has a Healthcare Living Will and she is aware it is not on file. Patient does not have a Healthcare POA. Jackie HER MSW
--- NOTE | 2018-12-17 17:07 | ECHOD_ITS ---
Reason For Study: CHEST PAIN Procedure This was a 2D Doppler, Color Flow transthoracic echocardiogram. The exam was of adequate technical quality. Exam performed portable in patient room. Left Ventricle Normal LV size. Left ventricular systolic function is normal. The estimated ejection fraction is 65 %. No evidence for diastolic dysfunction. No regional wall motion abnormalities noted. Right Ventricle Normal RV size. Normal systolic function. Atria Normal left atrium. Normal right atrium. No doppler evidence for ASD. Mitral Valve There is no mitral annular calcification. Normal mitral valve. Trivial mitral valve insufficiency. Tricuspid Valve Normal tricuspid valve. Mild tricuspid valve insufficiency. Right ventricular systolic pressure estimated to be 25 mmHg. Aortic Valve The aortic valve is not well visualized. Pulmonic Valve The pulmonic valve is not well visualized. Trivial pulmonic valve insufficiency. Great Vessels Normal sized aortic root. Pericardium/Pleural No pericardial effusion. MMode/2D Measurements & Calculations LVIDd: 5.1 cm IVSd: 1.0 cm Ao root diam: 3.2 cm LVIDs: 3.2 cm LVPWd: 0.94 cm RVDd: 3.0 cm FS: 38.1 % LAV(MOD-bp): 41.9 ml LA A4 area: 14.4 cm2 LA dimension(2D): 3.2 cm LAV(MOD-bp) Indexed: 18.8 ml/m2 LAV(MOD-sp2): 39.4 ml LAV(MOD-sp4): 32.3 ml RA A4 area: 12.5 cm2 Time Measurements MV dec time: 0.26 sec Doppler Measurements & Calculations MV E max michael: 74.4 cm/sec Lat Peak E' Michael: 10.5 cm/sec Med Peak E' Michael: 8.3 cm/sec MV A max michael: 78.9 cm/sec E/E' lat: 7.1 E/E' med: 9.0 MV E/A: 0.94 Ao V2 max: 126.1 cm/sec LV V1 max: 99.4 cm/sec PA V2 max: 93.1 cm/sec Ao max P.4 mmHg LV V1 max P.0 mmHg TR max michael: 236.0 cm/sec TR max P.3 mmHg Interpretation Summary Left ventricular systolic function is normal. The estimated ejection fraction is 65 %. Trivial mitral valve insufficiency. Mild tricuspid valve insufficiency. Trivial pulmonic valve insufficiency. Right ventricular systolic pressure estimated to be 25 mmHg. No evidence for diastolic dysfunction. Ordering Physician: Alissa Lacy Referring Physician: Addis Prather Performed By: Danette Mcclendon, NITISH, RVT
[2018-12-17 17:10] LABS: Bedside Glucose 140 mg/dL (70-110)
[2018-12-17 18:17] LABS: Magnesium 1.8 mg/dL (1.6-2.6); Thyroid Stim Hormone (TSH) 3.36 uIU/mL (0.358-3.74)
[2018-12-17] MEDS: Insulin Lispro 100 UNIT/ML INSULN.PEN SQ (22:09)
[2018-12-17 22:56] LABS: Bedside Glucose 152 mg/dL (70-110)
[2018-12-18] VITALS (16 sets, daily range): BP systolic 111–147; BP diastolic 61–86; PULSE 48–70; RESP 16–20; TEMP 36.7–36.8; O2SAT 90–95
[2018-12-18 00:11] LABS: Bacteria 0 SEEN /hpf (None Seen); Mucous, Urine 0 SEEN /hpf (<or=2+); Red Blood Cells-Urine 0 SEEN /hpf (0-5); Squamous Epithelial Cells - UA 0 SEEN /hpf (5-10); White Blood Cells 0 SEEN /hpf (0-5)
[2018-12-18 00:33] LABS: Color, Urine Yellow (Yellow); Glucose, Dipstick Normal (Normal); Ketone-Dipstick Negative (Negative); Leukocyte Esterase-Dipstick Negative /ul (Negative); Nitrite-Dipstick Negative (Negative); Occult Blood-Urine Negative /ul (Negative); Protein-Dipstick Negative (Negative); Specific Gravity, Urine 1.015 (1.002-1.030); Urine Bilirubin Dipstick Negative (Negative); Urine Clarity Clear (Clear); Urine Urobilinogen Normal (Normal)
[2018-12-18 05:49] LABS: International Normalized Ratio 1.9; Prothrombin Time (Protime)PT. 22.1 SECONDS (11.7-14.9)
[2018-12-18 05:50] LABS: Partial Thromboplast Time 33.7 Seconds (24.1-36.2)
[2018-12-18 05:54] LABS: ALB/GLOB Ratio 0.9 RATIO (0.9-2.4); AST(SGOT) 35 U/L (15-37); Alanine Aminotransfer ALT/SGPT 59 U/L (13-56); Alkaline Phosphatase 103 U/L (45-117); Anion Gap 8 (5-15); BUN 17 mg/dL (7-18); BUN/Creat Ratio 24.5 RATIO (10-20); Calcium,Total 8.3 mg/dL (8.5-10.1); Chloride 104 mmol/L (98-107); EST Glomerular Filtration Rate 91 mL/min (>60); Est Glom Filt Rate - Afr Amer 111 mL/min (>60); Estimated Creatinine Clearance 89.32 ml/min; Globulin 3.4 g/dL (2.2-4.2); Glucose 128 mg/dL (74-106); Potassium 3.7 mmol/L (3.5-5.1); Protein, Total 6.4 g/dL (6.4-8.2); Sodium Level 141 mmol/L (136-145)
--- NOTE | 2018-12-18 05:55 | EKG12_ITS ---
Test Reason : AM EKG Blood Pressure : / mmHG Vent. Rate : 059 BPM Atrial Rate : 059 BPM P-R Int : 208 ms QRS Dur : 092 ms QT Int : 410 ms P-R-T Axes : 011 014 055 degrees QTc Int : 405 ms Sinus bradycardia Low voltage QRS Cannot rule out Anterior infarct , age undetermined Abnormal ECG Confirmed by PAULA HARMON, TEODORA ([id number]), multimedia editor TERE SMART ([id number]) on 12/21/2018 7:08:22 AM Referred By: DR KNOX Confirmed By:TEODORA MITCHELL MD
[2018-12-18 06:02] LABS: Absolute Lymphocyte Count 2.31 X10^3/ul (0.83-4.51); Absolute Neutrophil Count 3.9 X10^3/uL (2.0-7.7); Basophil# 0.01 X10^3/uL; Basophil% 0.1 % (0-1); Eosinophil# 0.07 X10^3/uL; Hemoglobin 14.9 g/dl (12.0-15.0); Lymphocyte # 2.31 X10^3/ul (4.0); Mean Corp Hgb Conc 32.4 g/gl (32-36); Mean Corpuscular Hgb 29.9 pg (27.0-32.0); Mean Corpuscular Volume 92.4 fL (81-99); Mean Platelet Vol. 13.7 fl (6.2-12.0); Monocyte# 0.49 X10^3/uL; Monocyte% 7.2 % (0-10); Neutrophil % 57.6 % (47-70); Platelet Count 125 K/mm3 (150-450); RBC Distribution Width CV 13.9 % (11.6-14.6); RBC Distribution Width SD 46.6 fl (35.1-43.9); Red Blood Count 4.98 M/mm3 (4.2-5.4); White Blood Count 6.8 K/mm3 (4.4-11.0)
[2018-12-18 06:07] LABS: POSITIVE COUNT NO; POSITIVE DIFFERENTIAL NO; POSITIVE MORPHOLOGY NO
[2018-12-18] MEDS: Lisinopril 5 MG Tablet PO (06:13)
[2018-12-18] MEDS: Aspirin E.C. 81 MG Tablet PO (06:13)
[2018-12-18 06:45] LABS: Bedside Glucose 128 mg/dL (70-110)
--- NOTE | 2018-12-18 07:40 | CASEMGMT ---
According to the [facility] website, the following are in-network tertiary facilities: [facility], [facility], [facility], [facility], [facility], [facility], [facility], [place], [facility], and . Stephanie BENNETT CM
--- NOTE | 2018-12-18 08:29 | CL.D_ITS ---
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 no other obstructive disease noted. RECOMMENDATIONS Medical therapy DESCRIPTION OF PROCEDURE The patient arrived to the procedure lab. The risks and benefits of the procedure as well as a full d escription of our services here and current unavailability of surgical backup were fully explained to the patient and/or their significant other prior to the catheterization. The Timeout was completed, verifying the correct patient and procedure. The patient's procedural site was prepped and draped in the usual fashion. Local anesthetic was given subcutaneously to right radial region with Lidocaine 2% . Using a modified Seldinger technique, arterial access was obtained via the right radial artery, a 6 Fr sheath was inserted. Left Coronary Artery selective angiography was performed in multiple views u sing a 5 Fr. 4.0 [place] catheter. Right Coronary Artery selective angiography was then performed in mu ltiple views using a 5 Fr. 4.0 [place] catheter. Left Ventriculography was performed in [place] projection using a 5 Fr. [place] catheter. LV to AO pullback pressures were then recorded.The arterial sheath was pulled and a TR Band was applied for hemostasis CORONARY ANGIOGRAPHY DOMINANCE: Right Dominant LEFT HEART ASSESSMENT Left Ventricular Ejection Fraction: by LV Gram 55 % Normal Left Ventricular systolic function LEFT MAIN: Angiographically normal LEFT ANTERIOR DESCENDING ARTERY: No significant disease noted DIAGONAL 1: Proximal - 70 small vessel % Stenosis CIRCUMFLEX ARTERY: No significant disease noted RIGHT CORONARY ARTERY: Angiographically normal OSTIAL RCA: Arises from left coronary cusp COMPLICATIONS No Complications PROCEDURE MEDICATIONS Fentanyl 50 mcg IV Versed 1 mg IV Oxygen: 2 L/min via nasal cannula Plavix 300 mg PO 12/18/2018 07:50:46 SUMMARY OF HEMODYNAMIC DATA Time AIR REST ECG 07:48:24 AO 107/66 (84) SA 08:08:16 LV 108/2, 6 08:19:15 LV 121/3, 9 08:19:23 LV 120/-6, 13 08:20:06 LV 124/-7, 13 08:20:13 LVp 120/-7, 13 08:20:19 AOp 117/55 (80) 08:20:24 Signed By David Eli MD On 12/18/2018 8:28:23 AM David Eli MD
--- NOTE | 2018-12-18 08:35 | PN.CARD_ITS ---
Subjectve: Patient underwent cardiac catheterization today. Objective: Vital Signs Temp Pulse Resp BP Pulse Ox 98.1 F 65 16 125/63 H 95 12/18/18 06:10 12/18/18 07:13 12/18/18 06:10 12/18/18 06:10 12/18/18 06:10 Oxygen Flow Rate (L/min) 0 Oxygen Delivery Method Room Air Weight: 239 lb 6.752 oz Body Mass Index (BMI) 35.3 Intake and Output for Last 24 Hours 12/16/18 12/17/18 12/18/18 23:59 23:59 23:59 Intake Total 490 / 490 Balance 490 / 490 General: Awake, Alert, Oriented x 3 HEENT: PERRL, EOMI, Sclera Non Icteric Neck: Supple, Good ROM, No Lymph Node Enlargement Lungs: Clear to auscultation Cardiovascular: Regular Rhythm, Normal S1, Normal S2, No Murmurs, No Rubs, No Gallops Vascular: No Carotid Bruits, Normal Femoral Pulses, Normal Radial Pulses, Normal Dorsalis Pedal Pulse, Normal Posterior Tibial Pulses Abdomen: Bowel Sounds Present, Soft, Non Tender, No HSM, No Organomegaly Extremities: No Cyanosis, No Clubbing, No edema Neurological: No Focal Motor or Sensory Deficit Psych/Mental Status: Appropriate 12/17/18 07:58: Troponin I 0.099 H 12/17/18 07:58: Magnesium 1.8 12/18/18 00:03: Urine Color Yellow, Urine Clarity Clear, Urine pH 6.0, Ur Specific [place] 1.015, Urine Protein Negative, Urine Glucose (UA) Normal, Urine Ketones Negative, Urine Occult Blood Negative, Urine Nitrite Negative, Urine Bilirubin Negative, Urine Urobilinogen Normal, Ur Leukocyte Esterase Negative, Urine RBC 0 SEEN, Urine WBC 0 SEEN 12/18/18 05:10: PT 22.1 H, INR 1.9, APTT 33.7 12/18/18 05:10: Sodium 141, Potassium 3.7, Chloride 104, Carbon Dioxide 29.0, Anion Gap 8, BUN 17, Creatinine 0.70, Est GFR (MDRD) Af Amer 111, Est GFR (MDRD) Non-Af 91, BUN/Creatinine Ratio 24.5 H, Glucose 128 H, Calcium 8.3 L, Total Bilirubin 1.20 H 12/18/18 05:10: WBC 6.8, RBC 4.98, Hgb 14.9, Hct 46.0, MCV 92.4, MCH 29.9, MCHC 32.4, RDW 13.9, RDW Differential 46.6 H, Plt Count 125 L, MPV 13.7 H, Immature Gran % (Auto) 0.100, Neut % (Auto) 57.6, Lymph % (Auto) 34.0, [place] % (Auto) 7.2, Eos % (Auto) 1.0, Baso % (Auto) 0.1, Absolute Neuts (auto) 3.9, Total Counted Not Reportable Rhythm: EKG: Normal sinus rhythm Medical Necessity - Tobacco Use Smoking Status: Never smoker Tobacco Use: Non-smoker Assessment/Plan 1. Chest pain * Patient presents with chest pain which is somewhat atypical. Cardiac catheterization today demonstrated no significant obstructive coronary artery other than a small diagonal vessel with mild disease. She had abnormal takeoff of the right coronary artery from the left coronary cusp. This however would not explain any of her chest discomfort symptoms. 2. Hypertension * Blood pressure appears to be under good control on the current medical therapy no major changes will be made. * 3. Paroxysmal atrial fibrillation * Patient appears to have paroxysmal atrial fibrillation but currently is maintaining sinus rhythm. She has been therapeutically anticoagulated for the above. * Thank you for allowing me to participate in the care of your patient. Please don't hesitate to call if any issues arise * Patient can be discharged for outpatient follow-up.
[2018-12-18] MEDS: Furosemide 20 MG Tablet PO (10:55)
[2018-12-18] MEDS: Sertraline 50 MG Tablet PO (10:55)
[2018-12-18] MEDS: Atorvastatin Calcium 40 MG Tablet PO (10:55)
--- NOTE | 2018-12-18 11:51 | DCINST_ITS ---
- Discharge Diagnoses Current Active Problems: Current Active and Chronic Problems Chest pain at rest (Acute) HTN (hypertension) (Chronic) Diabetes (Chronic) You will use the following diet at home:: Cardiac - 2500 mg sodium daily Your food should be the consistency of: Regular Your liquids should be the consistency of: Regular/Thin Discharge Activity: Return to Normal Activity Allergies/Adverse Reactions: Allergies No Known Allergies Allergy (Verified 12/16/18 21:31) Medications to take at Discharge metFORMIN (XR) [Glucophage Xr] 1,000 mg PO BID 12/15/13 Sertraline HCl [Zoloft] 50 mg PO DAILY 05/31/15 Lisinopril [Zestril] 5 mg PO DAILY 02/04/16 Cholecalciferol (Vitamin D3) [Vitamin D3] 2,000 unit PO DAILY 10/31/17 Warfarin Sodium 10 mg PO SUTUTHSA 10/31/17 Warfarin Sodium 15 mg PO MOWEFR 10/31/17 Atorvastatin Calcium [Lipitor] 40 mg PO QHS 12/16/18 Loperamide HCl [Anti-Diarrheal] 2 mg PO DAILY PRN 12/16/18 Acetaminophen [Tylenol Tablet] 650 mg PO Q6H PRN PRN tablet 12/18/18 Aspirin E.C. [Ecotrin] 81 mg PO DAILY@0800 tablet 12/18/18 Furosemide [Lasix] 20 mg PO BIDLX #60 tab 12/18/18 The following prescriptions were given: Furosemide [Lasix] 20 mg PO BIDLX #60 tab Primary Care Physician: Addis Prather MD [Primary Care Provider] - Please follow up with your Primary Care Physician in: 1-2 weeks Test Results: Test results from this visit will be discussed in further detail at your follow- up appointment, if applicable. Please Follow Up With: David Eli MD When: as directed Proposed Discharge Date: 12/18/18
--- NOTE | 2018-12-18 13:30 | CASEMGMT ---
Addendum entered by Maribel Oro 12/18/18 14:42: F2[facility] faxed at this time. Stephanie BENNETT CM Original Note: Addendum entered by Maribel Oro 12/18/18 13:44: [place] [facility] [place] voices understanding. Stephanie BENNETT CM Original Note: Pt qualified for nocturnal home oxygen from trending pulse ox last pm. Pt states no preference for DME company at this time and [place] [facility] [place] along with qualifying documentation. [place] [facility] [place], voices understanding. Pt awaiting dispo. Stephanie BENNETT CM
--- NOTE | 2018-12-18 14:22 | DS.PCM_ITS ---
Discharge Date and Diagnosis - Problem List Patient Problems: Active and Suspected Problems Chest pain at rest (Acute) Date of Admission: 12/16/18 Date of Discharge: 12/18/18 - Primary Discharge Diagnosis Active and Suspected Problems Chest pain - musculoskeletal Mild CAD Chronic diastolic CHF pAfib T2DM with obesity Sleep disordered breathing, suspect RYAN Gastroenteritis, unclear etiology, resolved. Depression - Secondary Discharge Diagnosis Chronic Problems HTN (hypertension) (Chronic) Diabetes (Chronic) Hospital Course and Treatment Imaging Results: RAD/Chest 1 View (Portable) IMPRESSION: Normal x-ray examination of the chest. Echo: Interpretation Summary Left ventricular systolic function is normal. The estimated ejection fraction is 65 %. Trivial mitral valve insufficiency. Mild tricuspid valve insufficiency. Trivial pulmonic valve insufficiency. Right ventricular systolic pressure estimated to be 25 mmHg. No evidence for diastolic dysfunction. Left Heart cath: CONCLUSIONS Disease noted in a small diagonal vessel and RCA arising from Left cusp. no other obstructive disease noted. RECOMMENDATIONS Medical therapy Consults: Sreedhar/Siria - Cardiology Operations: None Procedures: Cardiac catheterization Summary of Care Provided: Hospital Course: The patient is a 58 year old F with pmhx of DMt2, HTN, pAfib on warfarin, depresstion, and reportedly that she had an [place] 3 years prior that no cath was done for at the time, who presented to the ER with c/o chest pain. EKG showed mild marco with 1st degree AV block, first troponin was normal, and CXR was without acute process, INR was supratherapeutic. She was admitted to the PCU for chest pain work up. 2nd troponin went up and her CP continued. She also had increased LE edema - was placed on IV lasix. Cardiology evaluated the patient and decided to take her for a heart cath once her INR drifted down. She was taken for a heart cath and found to have minor CAD with a small diagonal vessel with mild disease. She required no intervention. It was felt that her chest pain was not due to cardiac etiology, rather a musculoskeltal etiology. She was discharged on lasix, lisinopril, lipitor, and aspirin in stable condition to home. She will need follow up with her PCP in 1-2 weeks and to follow with cardiology as directed. She will need to resume coumadin and routine INR checks. Lastly, as she has multiple risk factors for sleep apnea, an overnight trending pulse ox was performed and she was found to have multiple apneic episodes and about 19 minutes of sleep where she was <88% O2. She qualified for home O2 at night and this was arranged for her. I recommend follow up with pulmonology in 2 weeks and for a sleep study as an outpatient. This patient was seen by Quincy Abraham PA-C under the supervision of Dr. Lacy. [] Patient Problems: Active and Suspected Problems Chest pain at rest (Acute) - Physical Exam General: Alert, Oriented x3, Cooperative HEENT: Atraumatic, PERRLA, EOMI, Normocephalic Neck: Supple, No JVD, Negative Carotid Bruits Lungs: Clear to auscultation, Normal air movement Cardiovascular: Regular rate, No murmurs Abdomen: Bowel Sounds Present, Soft, Non Tender, Obese Extremities: Capillary Refill Less than 3 Seconds, Edema - trace Skin: No rashes, No breakdown Musculoskeletal: No Tenderness to Palpation of Joints or Extremities Neurological: Cranial nerves II-XII grossly intact Psych/Mental Status: Normal Affect, Appropriate, Alert and oriented to time, place, person, mood and affect Vital Signs Temp Pulse Resp BP Pulse Ox 98.1 F 60 18 120/70 95 12/18/18 10:55 12/18/18 10:55 12/18/18 10:55 12/18/18 10:55 12/18/18 13:26 Oxygen Flow Rate (L/min) 1 Oxygen Delivery Method Room Air Weight: 239 lb 6.752 oz Body Mass Index (BMI) 35.3 Intake and Output for Last 24 Hours 12/16/18 12/17/18 12/18/18 23:59 23:59 23:59 Intake Total 490 / 490 480 / 480 Balance 490 / 490 480 / 480 Laboratory Tests Past 24 Hrs 12/17/18 12/18/18 12/18/18 07:58 00:03 05:10 WBC RBC Hgb Hct MCV MCH MCHC RDW RDW Differential Plt Count MPV Immature Gran % (Auto) Neut % (Auto) Lymph % (Auto) [place] % (Auto) Eos % (Auto) Baso % (Auto) Absolute Neuts (auto) Absolute Lymphs (auto) Total Counted PT 22.1 H INR 1.9 APTT 33.7 Sodium Potassium Chloride Carbon Dioxide Anion Gap BUN Creatinine Estim Creat Clear Calc Est GFR (MDRD) Af Amer Est GFR (MDRD) Non-Af BUN/Creatinine Ratio Glucose Calcium Magnesium 1.8 Total Bilirubin AST ALT Alkaline Phosphatase Total Protein Albumin Globulin Albumin/Globulin Ratio TSH 3.36 Urine Color Yellow Urine Clarity Clear Urine pH 6.0 Ur Specific [place] 1.015 Urine Protein Negative Urine Glucose (UA) Normal Urine Ketones Negative Urine Occult Blood Negative Urine Nitrite Negative Urine Bilirubin Negative Urine Urobilinogen Normal Ur Leukocyte Esterase Negative Urine RBC 0 SEEN Urine WBC 0 SEEN Ur Squamous Epith Cells 0 SEEN Urine Bacteria 0 SEEN Urine Mucus 0 SEEN 12/18/18 12/18/18 05:10 05:10 WBC 6.8 RBC 4.98 Hgb 14.9 Hct 46.0 MCV 92.4 MCH 29.9 MCHC 32.4 RDW 13.9 RDW Differential 46.6 H Plt Count 125 L MPV 13.7 H Immature Gran % (Auto) 0.100 Neut % (Auto) 57.6 Lymph % (Auto) 34.0 [place] % (Auto) 7.2 Eos % (Auto) 1.0 Baso % (Auto) 0.1 Absolute Neuts (auto) 3.9 Absolute Lymphs (auto) 2.31 Total Counted Not Reportable PT INR APTT Sodium 141 Potassium 3.7 Chloride 104 Carbon Dioxide 29.0 Anion Gap 8 BUN 17 Creatinine 0.70 Estim Creat Clear Calc 89.32 Est GFR (MDRD) Af Amer 111 Est GFR (MDRD) Non-Af 91 BUN/Creatinine Ratio 24.5 H Glucose 128 H Calcium 8.3 L Magnesium Total Bilirubin 1.20 H AST 35 ALT 59 H Alkaline Phosphatase 103 Total Protein 6.4 Albumin 3.0 L Globulin 3.4 Albumin/Globulin Ratio 0.9 TSH Urine Color Urine Clarity Urine pH Ur Specific [place] Urine Protein Urine Glucose (UA) Urine Ketones Urine Occult Blood Urine Nitrite Urine Bilirubin Urine Urobilinogen Ur Leukocyte Esterase Urine RBC Urine WBC Ur Squamous Epith Cells Urine Bacteria Urine Mucus POC Glucose 12/18/18 12/17/18 12/17/18 06:12 21:15 16:33 POC Glucose 128 H 152 H 140 H Discharge Diet: Low fat/ Low Cholesterol, 2000 mg Sodium Diet Discharge Activity: Return to Normal Activity Home Medications: Medications to take at Discharge metFORMIN (XR) [Glucophage Xr] 1,000 mg PO BID 12/15/13 Sertraline HCl [Zoloft] 50 mg PO DAILY 05/31/15 Lisinopril [Zestril] 5 mg PO DAILY 02/04/16 Cholecalciferol (Vitamin D3) [Vitamin D3] 2,000 unit PO DAILY 10/31/17 Warfarin Sodium 10 mg PO SUTUTHSA 10/31/17 Warfarin Sodium 15 mg PO MOWEFR 10/31/17 Atorvastatin Calcium [Lipitor] 40 mg PO QHS 12/16/18 Loperamide HCl [Anti-Diarrheal] 2 mg PO DAILY PRN 12/16/18 Acetaminophen [Tylenol Tablet] 650 mg PO Q6H PRN PRN tablet 12/18/18 Aspirin E.C. [Ecotrin] 81 mg PO DAILY@0800 tablet 12/18/18 Furosemide [Lasix] 20 mg PO BIDLX #60 tab 12/18/18 Following Prescrptions Were Given to Patient: Furosemide [Lasix] 20 mg PO BIDLX #60 tab Primary Care Physician: Addis Prather MD [Primary Care Provider] - Please follow up with your Primary Care Physician in: 1-2 weeks Please Follow Up With: David Eli MD When: as directed Please Follow Up With: Donnell Chamberlain DO When: 2 weeks Disposition: Home Minutes spent on discharge:: 35 Patient Condition:: Stable Medical Necessity - Tobacco Use Smoking Status: Never smoker Tobacco Use: Non-smoker Meaningful Use Info Meaningful Use Diagnoses (Choose all that apply): None applicable
== END 2018-12-18 11:50 | disposition home or self-care (01) ==
LOC: ED 21:52 → PCU 12-17 00:51
PROVIDERS: Physician Assistant; Admitting Provider Hospitalist; Emergency Provider Emergency Medicine; Family Provider Internal Medicine; PCP Internal Medicine; Visit Provider Internal Medicine
DX: R07.89 Other chest pain (principal); I25.10 Atherosclerotic heart disease of native coronary artery without angina pectoris; E11.9 Type 2 diabetes mellitus without complications; Z79.01 Long term (current) use of anticoagulants; I25.2 Old myocardial infarction; Z79.84 Long term (current) use of oral hypoglycemic drugs; Z79.899 Other long term (current) drug therapy; E66.01 Morbid (severe) obesity due to excess calories; Z68.35 Body mass index [BMI] 35.0-35.9, adult; Z71.3 Dietary counseling and surveillance; F32.9 Major depressive disorder, single episode, unspecified; R60.0 Localized edema; I48.0 Paroxysmal atrial fibrillation; I11.0 Hypertensive heart disease with heart failure; I50.32 Chronic diastolic (congestive) heart failure; I08.1 Rheumatic disorders of both mitral and tricuspid valves
CPT/HCPCS: 36415; 71045; 80048; 80053; 80061; 81001; 82962; 83735; 84443; 84484; 85025; 85027; 85610; 85730; 93005; 93306; 93458; 94762; 96374; 96375; 96376; 97161; 97165; 97802; 99152; 99153; 99218; 99285; A4216; C1769; C1894; G0378; J2405; Q9967

== ENCOUNTER → 2018-12-31 | Outpatient (CLI) | payer BC, SELFPAY ==
[2018-12-24 11:03] VITALS: BMI 35.0
[2018-12-31 13:28] LABS: International Normalized Ratio 2.9; Prothrombin Time (Protime)PT. 30.1 SECONDS (11.7-14.9)
== END | disposition home or self-care (01) ==
LOC: LABSPEC 12:56
PROVIDERS: Family Provider Internal Medicine; PCP Internal Medicine; Referring Provider Internal Medicine; Visit Provider Internal Medicine
DX: I48.2 Chronic atrial fibrillation (principal)
CPT/HCPCS: 85610

== ENCOUNTER 2019-01-04 12:54 | Emergency (ER) | payer BC, SELFPAY ==
[2018-12-24 11:03] VITALS: BMI 35.0
[2019-01-04 12:55] VITALS: BP 158/88; PULSE 65; RESP 16; TEMP 36.6; O2SAT 96; BMI 33.7
[2019-01-04 13:24] VITALS: BP 150/90; PULSE 85; RESP 18; O2SAT 97
--- NOTE | 2019-01-04 13:42 | EKG12_ITS ---
Test Reason : CP Blood Pressure : / mmHG Vent. Rate : 061 BPM Atrial Rate : 061 BPM P-R Int : 208 ms QRS Dur : 094 ms QT Int : 404 ms P-R-T Axes : 056 050 062 degrees QTc Int : 406 ms Normal sinus rhythm Low voltage QRS Borderline ECG Confirmed by JODY MARTI ([id number]), offline editor TUTU SHERIDAN ([id number]) on 01/09/2019 2:10:59 PM Referred By: Confirmed By:JODY MARTI
[2019-01-04 13:44] VITALS: O2SAT 96
--- NOTE | 2019-01-04 13:45 | RAD_ITS ---
STUDY: X-RAY CHEST REASON FOR EXAM: Female, 58 years old. TECHNIQUE: 1 view portable AP upright COMPARISON: December 16, 2018 FINDINGS: The heart is not enlarged the lung hinton and costophrenic angles are clear the visualized bony structures are intact. The trachea is in the midline. RAD/Chest 1 View (Portable) IMPRESSION: Negative chest unchanged since December 16, 2018. Electronically Signed: Bolivar Cisse, at 14:48 EDT Tel , Service support ,
[2019-01-04 14:13] LABS: Absolute Lymphocyte Count 2.21 X10^3/ul (0.83-4.51); Absolute Neutrophil Count 4.6 X10^3/uL (2.0-7.7); Basophil# 0.02 X10^3/uL; Basophil% 0.3 % (0-1); Eosinophil# 0.09 X10^3/uL; Eosinophils% 1.2 % (0-5); Hematocrit 47.8 % (37-47); Hemoglobin 15.8 g/dl (12.0-15.0); Lymphocyte # 2.21 X10^3/ul (4.0); Lymphocyte % 29.2 % (19-41); Mean Corp Hgb Conc 33.1 g/gl (32-36); Mean Corpuscular Hgb 30.2 pg (27.0-32.0); Mean Corpuscular Volume 91.2 fL (81-99); Monocyte# 0.67 X10^3/uL; Monocyte% 8.9 % (0-10); Neutrophil # 4.57 X10^3/uL (2.7-7.7); Neutrophil % 60.3 % (47-70); Platelet Count 140 K/mm3 (150-450); RBC Distribution Width CV 13.7 % (11.6-14.6); RBC Distribution Width SD 45.4 fl (35.1-43.9); Red Blood Count 5.24 M/mm3 (4.2-5.4); White Blood Count 7.6 K/mm3 (4.4-11.0)
[2019-01-04 14:14] LABS: Differential Indicated SCAN CRITERIA MET; POSITIVE COUNT NO; POSITIVE DIFFERENTIAL NO; POSITIVE MORPHOLOGY YES
[2019-01-04 14:18] LABS: Anion Gap 5 (5-15); BUN 18 mg/dL (7-18); BUN/Creat Ratio 22.8 RATIO (10-20); Calcium,Total 9.5 mg/dL (8.5-10.1); Chloride 108 mmol/L (98-107); Creatinine, Serum 0.79 mg/dL (0.55-1.02); EST Glomerular Filtration Rate 79 mL/min (>60); Est Glom Filt Rate - Afr Amer 96 mL/min (>60); Estimated Creatinine Clearance 81.89 ml/min; Glucose 118 mg/dL (74-106); Potassium 3.9 mmol/L (3.5-5.1); Sodium Level 141 mmol/L (136-145)
[2019-01-04 14:34] VITALS: BP 130/78; PULSE 63; RESP 20; O2SAT 96
--- NOTE | 2019-01-04 15:32 | ED.VISSUMM ---
- ER Visit Summary Date of Service: 01/04/19 Chief Complaint: Chest pain History of Present Illness: The patient is a 58 F who presents with left-sided chest pain going into her left arm. Patient states that she is intimately had any symptoms since the beginning a month. Patient was admitted to the hospital the beginning of December and had indeterminant cardiac enzymes around 0.1. Patient ended having a heart catheterization that showed a 70% proximal diagonal vessel that was very small off the LAD. Patient states that since being discharged she is continued to have the pain intermittently. She states she feels very weak. She saw her primary care physician this week on Monday. She did not want to take disability so she tried to work on Monday but could not. Patient also has a history of paroxysmal atrial fibrillation (on Coumadin) as well as diabetes hypertension high cholesterol. Physical Examination: Afebrile vital signs stable heart rate in the low 60s Gen: Well-nourished well-developed Head: Normocephalic atraumatic Eyes: Perrl EOMI ENT: TMs clear no rhinorrhea moist mucous membranes Neck: Supple no lymphadenopathy no JVD nontender CVS: Regular rate rhythm no murmurs normal S1-S2 Respiratory: No distress clear to auscultation bilaterally chest nontender Abdomen: Soft nontender nondistended normal bowel sounds no masses Back: Nontender Extremity: Nontender no edema Skin: Normal color no rash Neuro: alert orientated ?3 CN II-XII intact normal strength sensation reflexes gait cerebellar Psych: Tearful at times and anxious appearing Test Results: EKG shows sinus rhythm at a rate of 61 troponin 0 0.026. INR therapeutic at 3. Glucose 118. Normal creatinine chest x-ray negative for acute Emergency Department Course and Treatment: Patient's troponin is within the normal range which is important as the patient has had constant symptoms since yesterday. I spoke with cardiology place her on Imdur 30 mg once a day. She has an appointment in [address] Eli from cardiology. She will return if worsening Impression: 1. Chest pain This note was generated with [email or web address] dictation software. It may contain incorrect words, spelling, and punctuation that were not noted in review of the chart prior to signing ED Disposition - Plan for ED Patient: Disposition: Home or Assisted Living Instructions: CHEST PAIN, Uncertain Cause Prescriptions: Isosorbide Mononitrate [Imdur] 30 mg PO DAILY #30 tab Prescription Printed Referrals: David Eli MD [STAFF PHYSICIAN] - 1 Week
[2019-01-04 15:33] VITALS: BP 119/62; PULSE 59; RESP 17; O2SAT 94
[2019-01-04 16:05] VITALS: PULSE 61; RESP 17; O2SAT 95
== END 2019-01-04 16:05 | disposition home or self-care (01) ==
PROVIDERS: Emergency Provider Emergency Medicine; Family Provider Internal Medicine; PCP Internal Medicine
DX: R07.9 Chest pain, unspecified (principal); I48.0 Paroxysmal atrial fibrillation; E11.9 Type 2 diabetes mellitus without complications; I11.0 Hypertensive heart disease with heart failure; I50.9 Heart failure, unspecified; E78.00 Pure hypercholesterolemia, unspecified; E66.9 Obesity, unspecified; Z79.01 Long term (current) use of anticoagulants; Z79.82 Long term (current) use of aspirin; Z79.84 Long term (current) use of oral hypoglycemic drugs; Z79.899 Other long term (current) drug therapy
CPT/HCPCS: 71045; 80048; 84484; 85025; 85610; 93005; 99285; A4216

== ENCOUNTER → 2019-01-21 | Outpatient (CLI) | payer BC, SELFPAY ==
[2018-12-24 11:03] VITALS: BMI 35.0
== END | disposition home or self-care (01) ==
LOC: SL 20:07
PROVIDERS: Family Provider Internal Medicine; PCP Internal Medicine; Referring Provider Nurse Practitioner Acute Care; Visit Provider Nurse Practitioner Acute Care
DX: G47.30 Sleep apnea, unspecified (principal)
CPT/HCPCS: 95811

== ENCOUNTER → 2019-01-21 | Outpatient (CLI) | payer BC, SELFPAY ==
[2019-01-11 13:45] VITALS: BMI 34.7
[2019-01-21 11:57] LABS: International Normalized Ratio 2.9; Prothrombin Time (Protime)PT. 30.8 SECONDS (11.7-14.9)
== END | disposition home or self-care (01) ==
LOC: LABSPEC 11:22
PROVIDERS: Family Provider Internal Medicine; PCP Internal Medicine; Referring Provider Nurse Practitioner Primary Care; Visit Provider Nurse Practitioner Primary Care
DX: I48.2 Chronic atrial fibrillation (principal); Z79.01 Long term (current) use of anticoagulants
CPT/HCPCS: 85610

== ENCOUNTER → 2019-02-04 | Outpatient (CLI) | payer BC, SELFPAY ==
[2019-01-11 13:45] VITALS: BMI 34.7
[2019-02-04 16:02] LABS: International Normalized Ratio 1.2; Prothrombin Time (Protime)PT. 15.2 SECONDS (11.7-14.9)
== END | disposition home or self-care (01) ==
PROVIDERS: Family Provider Internal Medicine; PCP Internal Medicine; Referring Provider Nurse Practitioner Primary Care; Visit Provider Nurse Practitioner Primary Care
DX: I48.2 Chronic atrial fibrillation (principal); Z79.01 Long term (current) use of anticoagulants
CPT/HCPCS: 85610

== ENCOUNTER → 2019-02-18 | Outpatient (CLI) | payer BC, SELFPAY ==
[2019-01-11 13:45] VITALS: BMI 34.7
[2019-02-18 13:35] LABS: International Normalized Ratio 1.5; Prothrombin Time (Protime)PT. 18.1 SECONDS (11.7-14.9)
== END | disposition home or self-care (01) ==
PROVIDERS: Family Provider Internal Medicine; PCP Internal Medicine; Referring Provider Nurse Practitioner Acute Care; Visit Provider Nurse Practitioner Acute Care
DX: I48.2 Chronic atrial fibrillation (principal)
CPT/HCPCS: 85610

== ENCOUNTER → 2019-02-26 | Outpatient (CLI) | payer MEDICAID, SELFPAY ==
[2019-01-11 13:45] VITALS: BMI 34.7
[2019-02-26 13:08] LABS: International Normalized Ratio 1.5
== END | disposition home or self-care (01) ==
LOC: LABSPEC 12:58
PROVIDERS: Family Provider Internal Medicine; PCP Internal Medicine; Referring Provider Internal Medicine; Visit Provider Internal Medicine
DX: I48.2 Chronic atrial fibrillation (principal)
CPT/HCPCS: 85610

== ENCOUNTER → 2019-03-26 12:35 | Outpatient (CLI) | payer MEDICAID, SELFPAY ==
[2019-01-11 13:45] VITALS: BMI 34.7
[2019-03-26 12:59] LABS: International Normalized Ratio 1.2; Prothrombin Time (Protime)PT. 14.7 SECONDS (11.7-14.9)
== END ==
PROVIDERS: Family Provider Internal Medicine; PCP Internal Medicine; Referring Provider Internal Medicine; Visit Provider Internal Medicine
DX: I48.2 Chronic atrial fibrillation (principal)
CPT/HCPCS: 85610

== ENCOUNTER → 2019-04-01 14:12 | Outpatient (CLI) | payer MEDICAID, SELFPAY ==
[2019-01-11 13:45] VITALS: BMI 34.7
[2019-04-01 14:34] LABS: International Normalized Ratio 1.5; Prothrombin Time (Protime)PT. 18.4 SECONDS (11.7-14.9)
== END ==
PROVIDERS: Family Provider Internal Medicine; PCP Internal Medicine; Referring Provider Family Medicine; Visit Provider Family Medicine
DX: I48.2 Chronic atrial fibrillation (principal)
CPT/HCPCS: 85610

== ENCOUNTER → 2019-04-08 10:47 | Outpatient (CLI) | payer MEDICAID, SELFPAY ==
[2018-12-24 11:03] VITALS: BMI 35.0
[2019-01-11 13:45] VITALS: BMI 34.7
[2019-04-08 11:05] VITALS: PULSE 66; PULSE 69; PULSE 82; PULSE 83; PULSE 84; PULSE 86; PULSE 95; O2SAT 95; O2SAT 96; O2SAT 97
--- NOTE | 2019-04-09 10:55 | PCM.PSN.6M ---
PSN 6 Minute Walk Test - 6 Minute Walk Test 6 Minute Walk Test: 6 Minute Walk Test PSN:6-Minute Walk Test Start: 04/08/19 11:05 Freq: Status: Active Protocol: [id number].6MINW Document 04/08/19 11:05 SMAlley (Rec: 04/08/19 11:07 B [id number]) 6 Minute Walk Test Date Performed 04/08/19 Time Performed 10:53 Height 5 ft 9 in Weight: 214 lb Weight in Pounds 214.[address]: Shiela Mendoza Assistive device used: None Pre-test Oxygen Delivery Method Room Air Pulse Ox (%) 96 Pulse Rate (60-100 beats/min) 66 Dyspnea Елена Scale (0-10) 0 Exertion Елена Scale (6-20) 12 1st minute Oxygen Delivery Method Room Air Pulse Ox (%) 96 Pulse Rate (60-100 beats/min) 86 2nd minute Oxygen Delivery Method Room Air Pulse Ox (%) 96 Pulse Rate (60-100 beats/min) 82 3rd minute Oxygen Delivery Method Room Air Pulse Ox (%) 95 Pulse Rate (60-100 beats/min) 95 4th minute Oxygen Delivery Method Room Air Pulse Ox (%) 96 Pulse Rate (60-100 beats/min) 86 5th minute Oxygen Delivery Method Room Air Pulse Ox (%) 95 Pulse Rate (60-100 beats/min) 83 6th minute Oxygen Delivery Method Room Air Pulse Ox (%) 95 Pulse Rate (60-100 beats/min) 84 Post-test Oxygen Delivery Method Room Air Pulse Ox (%) 97 Pulse Rate (60-100 beats/min) 69 Dyspnea Елена Scale (0-10) 0 Exertion Елена Scale (6-20) 14 Full Laps Walked 18 Partial Lap, Number of Tiles Walked 18 Total Distance Walked (ft) 1080 - Interpretation Interpretation: The patient ambulated 1080 feet over the course of 6 minutes beginning on room air without assistive devices or breaks. Pretesting oxygen saturation was noted to be 96% on room air. With ambulation, the milli oxygen saturation was 95%. There was no significant exertional oxygen desaturation. - Recommendations Recommendations: There is no indication for the use of supplemental oxygen at this time.
== END ==
PROVIDERS: Family Provider Internal Medicine; PCP Internal Medicine; Referring Provider Nurse Practitioner Acute Care; Visit Provider Nurse Practitioner Acute Care
DX: R06.09 Other forms of dyspnea (principal)
CPT/HCPCS: 94618

== ENCOUNTER → 2019-04-09 08:52 | Outpatient (CLI) | payer MEDICAID, SELFPAY ==
[2018-12-24 11:03] VITALS: BMI 35.0
[2019-01-11 13:45] VITALS: BMI 34.7
--- NOTE | 2019-04-09 17:17 | PFT ---
INTRODUCTION: The patient is a 58-year-old female that presents for pulmonary function studies secondary to a diagnosis of dyspnea. Respiratory therapy reports that DLCO maneuvers were attempted on several occasions on 2 different machines but were exceedingly inaccurate due to patient effort. INTERPRETATION: Forced expiration spirometry demonstrates no evidence of a large airways obstructive ventilatory defect. The perceived bronchodilator response appears to be due to discrepancies in patient effort. Spirograms are of poor quality and terminate prior to 6 seconds, likely underestimating FVC. Body plethysmography was performed and reveals a total lung capacity at the lower limits of normal. Diffusing capacity results are not able to be accurately interpreted. IMPRESSION: Suboptimal pulmonary function studies. Results should be reviewed with caution. Spirometry and lung volumes show a nonspecific pattern with spirometry suggestive of restriction with a normal total lung capacity.
== END ==
PROVIDERS: Family Provider Internal Medicine; PCP Internal Medicine; Referring Provider Nurse Practitioner Acute Care; Visit Provider Nurse Practitioner Acute Care
DX: R06.09 Other forms of dyspnea (principal)
CPT/HCPCS: 94060; 94726; 94729

== ENCOUNTER → 2019-07-08 12:31 | Outpatient (CLI) | payer MEDICAID, SELFPAY ==
[2019-04-15 11:34] VITALS: BMI 34.7
[2019-07-08 12:59] LABS: International Normalized Ratio 2.3; Prothrombin Time (Protime)PT. 25.4 SECONDS (11.7-14.9)
== END ==
PROVIDERS: Family Provider Internal Medicine; PCP Internal Medicine; Referring Provider Internal Medicine; Visit Provider Internal Medicine
DX: I48.20 Chronic atrial fibrillation, unspecified (principal)
CPT/HCPCS: 85610

== ENCOUNTER → 2019-09-02 | Outpatient (CLI) | payer MEDICAID, SELFPAY ==
[2019-08-09 11:07] VITALS: BMI 35.9
[2019-09-02 16:01] LABS: International Normalized Ratio 2.5; Prothrombin Time (Protime)PT. 27.2 SECONDS (11.7-14.9)
== END | disposition home or self-care (01) ==
PROVIDERS: PCP Internal Medicine; Referring Provider Internal Medicine; Visit Provider Internal Medicine
DX: I48.20 Chronic atrial fibrillation, unspecified (principal)
CPT/HCPCS: 85610

== ENCOUNTER → 2019-09-17 14:59 | Outpatient (CLI) | payer MEDICAID, SELFPAY ==
[2019-08-09 11:07] VITALS: BMI 35.9
[2019-09-17 15:23] LABS: International Normalized Ratio 1.4; Prothrombin Time (Protime)PT. 16.6 SECONDS (11.7-14.9)
== END ==
PROVIDERS: PCP Internal Medicine; Referring Provider Internal Medicine; Visit Provider Internal Medicine
DX: I48.20 Chronic atrial fibrillation, unspecified (principal)
CPT/HCPCS: 85610

== ENCOUNTER → 2019-10-01 16:02 | Outpatient (CLI) | payer MEDICAID, SELFPAY ==
[2019-08-09 11:07] VITALS: BMI 35.9
[2019-10-01 16:43] LABS: Prothrombin Time (Protime)PT. 13.1 SECONDS (11.7-14.9)
== END ==
PROVIDERS: PCP Internal Medicine; Referring Provider Internal Medicine; Visit Provider Internal Medicine
DX: I48.20 Chronic atrial fibrillation, unspecified (principal)
CPT/HCPCS: 85610

== ENCOUNTER → 2019-10-24 | Outpatient (CLI) | payer MEDICAID, SELFPAY ==
[2019-08-09 11:07] VITALS: BMI 35.9
[2019-10-24 15:27] LABS: International Normalized Ratio 2.2; Prothrombin Time (Protime)PT. 23.5 SECONDS (11.7-14.9)
== END | disposition home or self-care (01) ==
LOC: LABSPEC 15:09
PROVIDERS: PCP Internal Medicine; Referring Provider Internal Medicine; Visit Provider Internal Medicine
DX: I48.20 Chronic atrial fibrillation, unspecified (principal)
CPT/HCPCS: 85610

== ENCOUNTER 2019-11-10 17:00 | Emergency (ER) | payer MEDICAID, SELFPAY ==
[2019-08-09 11:07] VITALS: BMI 35.9
[2019-11-10 17:01] VITALS: BP 153/95; PULSE 81; RESP 15; TEMP 36.6; O2SAT 94; BMI 36.0
--- NOTE | 2019-11-10 17:13 | ED.VIS.GI ---
History of Present Illness Chief Complaint: Abd Pain Narrative: Patient presenting for evaluation secondary to dysuria. Patient reports that she has had a 3-day history of dysuria and suprapubic pain. She reports that occasionally she has some pain in the lower portion of the middle of her back, but no flank pain. She denies any fevers nausea vomiting or diarrhea. She states that she has had symptoms similar to this in the past, and it was a urinary tract infection in the past. Patient denies any other symptoms at this time. Past Medical History - Allergies and Home Meds Allergies/Adverse Reactions: Allergies potassium chloride Allergy (Verified 11/10/19 17:05) diarrhea diarrhea Primary Care Physician: Addis Prather MD [Primary Care Provider] - Surgical History: hysterectomy, - - Scar tissue was removed from her abdomen. - Family History Maternal Family History: Family History (Last Reviewed 08/09/19 @ 11:23 by DONNELL Mast) Grandmother Diabetes Breast cancer Sister Breast cancer Family History: Reports: Heart Disease - Her grandmother had a heart attack. Patient does not know the age that her grandmother had the heart attack. Paternal Family History: Family History (Last Reviewed 08/09/19 @ 11:23 by DONNELL Mast) Grandmother Diabetes Breast cancer Sister Breast cancer Family History: Reports: Heart Disease - Her father had a heart attack when he was in his 60s to 70s. Review of Systems All systems negative except as indicated General: Denies: Chills, Fever, Sweats Eyes: Denies: Visual changes - bilaterally, Diplopia ENT: Denies: Rhinorrhea, Sore throat Cardiovascular: Denies: Chest pain, Palpitations Respiratory: Denies: Dyspnea, Cough, Dyspnea on exertion Gastrointestinal: Denies: Abdominal pain, Nausea, Vomiting, Diarrhea, Melena, Hematochezia Genitourinary: Reports: Dysuria Musculoskeletal: Denies: Back pain, Extremity Pain Skin: Denies: Rash, Wounds Neurological: Denies: Headache, Weakness, Numbness Physical Exam Vital Signs/Narrative: Vital Signs Temp Pulse Resp BP Pulse Ox 11/10/19 17:01 97.8 F 81 15 153/95 H 94 General: Well nourished, Well developed, Obese Head: Normocephalic, Atraumatic Eyes: Perrl, EOMI ENT: Moist mucous membranes, No rhinorrhea Neck: Supple, Nontender Cardiovascular: Regular rate, Regular rhythm, No murmurs Respiratory: No distress, CTA bilaterally, Chest nontender Abdomen: Soft, Nondistended, Normal bowel sounds, Tender - Minimal suprapubic tenderness to palpation. Negative for: Guarding, Rebound tenderness Back: Nontender, Normal Inspection Extremities: Nontender, No edema Skin: Normal color, No rash Neurological: Alert, Oriented x3, Cranial nerves II-XII grossly intact, Normal Strength, Normal Sensation Psychological: Normal affect, Normal Mood Diagnostic/Tx/Re-eval Laboratory Data 11/10/19 17:10 Urine Color Yellow Urine Clarity Sl. Cloudy Urine pH 6.5 Ur Specific [place] 1.015 Urine Protein 30 H Urine Glucose (UA) Normal Urine Ketones Negative Urine Occult Blood 150 H Urine Nitrite Positive H Urine Bilirubin Negative Urine Urobilinogen Normal Ur Leukocyte Esterase 500 H Urine RBC 0-5 SEEN Urine WBC >100 SEEN Ur Squamous Epith Cells 0-5 SEEN Urine Bacteria 1+ Urine Mucus 0 SEEN - Medical Decision Making Patient presented secondary to dysuria. She is benign physical exam, no abdominal rigidity or any evidence of surgical abdomen I do not feel that imaging is indicated. She has stable vital signs I do not feel that IV is indicated. Urinalysis confirms urinary tract infection. Culture was sent, patient will be placed on a course of Keflex. She will follow-up with primary care. Disposition: Home ED Disposition - Plan for ED Patient: Disposition: Home or Assisted Living Diagnosis: Cystitis Instructions: ED CYSTITIS Female Adult Prescriptions: Cephalexin [Keflex] 500 mg PO Q12 #13 cap Prescription Printed Referrals: Addis Prather MD [Primary Care Provider] - 1 Week
[2019-11-10 17:22] LABS: Mucous, Urine 0 SEEN /hpf (<or=2+)
[2019-11-10 17:32] LABS: Color, Urine Yellow (Yellow); Glucose, Dipstick Normal (Normal); Ketone-Dipstick Negative (Negative); Leukocyte Esterase-Dipstick 500 /ul (Negative); Nitrite-Dipstick Positive (Negative); Occult Blood-Urine 150 /ul (Negative); Protein-Dipstick 30 mg/dl (Negative); Specific Gravity, Urine 1.015 (1.002-1.030); Urine Bilirubin Dipstick Negative (Negative); Urine Clarity Sl. Cloudy (Clear); Urine Urobilinogen Normal (Normal); Urine pH 6.5 (5.0 - 8.0)
[2019-11-10 17:45] LABS: Bacteria 1+ /hpf (None Seen); Red Blood Cells-Urine 0-5 SEEN /hpf (0-5); Squamous Epithelial Cells - UA 0-5 SEEN /hpf (5-10); White Blood Cells >100 SEEN /hpf (0-5)
[2019-11-10] MEDS: Cephalexin 250 MG Capsule 500 MG PO (18:07)
[2019-11-10 18:08] VITALS: RESP 15
== END 2019-11-10 18:09 | disposition home or self-care (01) ==
PROVIDERS: Emergency Provider Emergency Medicine; PCP Internal Medicine
DX: N30.90 Cystitis, unspecified without hematuria (principal); E66.9 Obesity, unspecified; Z79.01 Long term (current) use of anticoagulants; Z79.899 Other long term (current) drug therapy; Z87.440 Personal history of urinary (tract) infections; Z90.710 Acquired absence of both cervix and uterus
CPT/HCPCS: 81001; 87077; 87086; 87088; 87186; 99282

== ENCOUNTER → 2019-11-15 | Outpatient (CLI) | payer MEDICAID, SELFPAY ==
[2019-11-10 17:01] VITALS: BMI 36.0
[2019-11-15 13:44] LABS: International Normalized Ratio 1.2; Prothrombin Time (Protime)PT. 14.3 SECONDS (11.7-14.9)
== END | disposition home or self-care (01) ==
PROVIDERS: PCP Internal Medicine; Referring Provider Internal Medicine; Visit Provider Internal Medicine
DX: I48.20 Chronic atrial fibrillation, unspecified (principal)
CPT/HCPCS: 85610

== ENCOUNTER → 2019-11-25 15:27 | Outpatient (CLI) | payer MEDICAID, SELFPAY ==
[2019-11-10 17:01] VITALS: BMI 36.0
[2019-11-25 16:09] LABS: International Normalized Ratio 2.1; Prothrombin Time (Protime)PT. 22.8 SECONDS (11.7-14.9)
== END ==
PROVIDERS: PCP Internal Medicine; Referring Provider Nurse Practitioner Primary Care; Visit Provider Nurse Practitioner Primary Care
DX: I48.20 Chronic atrial fibrillation, unspecified (principal)
CPT/HCPCS: 85610

== ENCOUNTER → 2019-12-03 | Outpatient (CLI) | payer MEDICAID, SELFPAY ==
[2019-11-10 17:01] VITALS: BMI 36.0
[2019-12-03 13:18] LABS: Prothrombin Time (Protime)PT. 12.7 SECONDS (11.7-14.9)
== END | disposition home or self-care (01) ==
PROVIDERS: PCP Internal Medicine; Referring Provider Internal Medicine; Visit Provider Internal Medicine
DX: I48.20 Chronic atrial fibrillation, unspecified (principal)
CPT/HCPCS: 85610

== ENCOUNTER → 2019-12-23 17:20 | Outpatient (CLI) | payer MEDICAID, SELFPAY ==
[2019-12-23 17:48] LABS: International Normalized Ratio 1.7; Prothrombin Time (Protime)PT. 19.7 SECONDS (11.7-14.9)
== END ==
PROVIDERS: PCP Internal Medicine; Referring Provider Internal Medicine; Visit Provider Internal Medicine
DX: I48.20 Chronic atrial fibrillation, unspecified (principal)
CPT/HCPCS: 85610

== ENCOUNTER → 2020-01-20 | Outpatient (CLI) | payer MEDICAID, SELFPAY ==
[2020-01-20 11:51] LABS: International Normalized Ratio 1.6; Prothrombin Time (Protime)PT. 18.4 SECONDS (11.7-14.9)
== END | disposition home or self-care (01) ==
LOC: LABSPEC 11:25
PROVIDERS: PCP Internal Medicine; Referring Provider Internal Medicine; Visit Provider Internal Medicine
DX: I48.20 Chronic atrial fibrillation, unspecified (principal)
CPT/HCPCS: 85610

== ENCOUNTER → 2020-01-28 | Outpatient (CLI) | payer MEDICAID, SELFPAY ==
[2020-01-28 12:05] LABS: Prothrombin Time (Protime)PT. 12.8 SECONDS (11.7-14.9)
== END | disposition home or self-care (01) ==
LOC: LABSPEC 11:10
PROVIDERS: PCP Internal Medicine; Referring Provider Internal Medicine; Visit Provider Internal Medicine
DX: I48.20 Chronic atrial fibrillation, unspecified (principal)
CPT/HCPCS: 85610

== ENCOUNTER 2020-02-02 12:32 | Emergency (ER) | payer MEDICAID, SELFPAY ==
[2020-02-02 12:33] VITALS: BP 140/76; PULSE 63; RESP 18; TEMP 36.6; O2SAT 96; BMI 35.4
--- NOTE | 2020-02-02 12:41 | RAD_ITS ---
STUDY: X-RAY CHEST REASON FOR EXAM: Female, 59 years old. chest pain started yesterday, left arm numbness TECHNIQUE: Single AP portable view of the chest. COMPARISON: January 04, 2019. FINDINGS: There are monitoring devices. There is left lower lung linear scarring or atelectasis. There is no demonstrated pleural abnormality. Normal size heart. Normal mediastinum and dave. Normal visualized pulmonary arteries. Normal visualized aortic arch and descending thoracic aorta. There is demineralization of the osseous structures. Normal visualized ribs, clavicles, and shoulders. There is no demonstrated abnormality of the visualized soft tissue structures of the upper abdomen. RAD/Chest 1 View (Portable) IMPRESSION: Degenerative changes, as described above. No demonstrated acute cardiopulmonary process. Electronically Signed: John Jerome MD at 13:52 EDT , Service support ,
--- NOTE | 2020-02-02 12:41 | EKG12_ITS ---
Test Reason : Blood Pressure : / mmHG Vent. Rate : 060 BPM Atrial Rate : 060 BPM P-R Int : 216 ms QRS Dur : 086 ms QT Int : 416 ms P-R-T Axes : 048 011 056 degrees QTc Int : 416 ms Sinus rhythm with 1st degree A-V block Possible Anterior infarct , age undetermined Abnormal ECG Confirmed by LALO HARMON, WILFREDO ([id number]), editor in chief MIRI HERRERA ([id number]) on 02/05/2020 9:03:30 AM Referred By: JUDITH Confirmed By:WILFREDO MAY MD
--- NOTE | 2020-02-02 12:50 | ED.DCSUM_ITS ---
- ER Visit Summary Date of Service: 02/02/20 Chief Complaint: Chest pain History of Present Illness: The patient is a [address] of A. fib, ID without any stents or bypass., Noncemented diabetes and prior cervical cancer with hysterectomy. Her last heart cath was December of last year. Heart cath was report edly unremarkable. With no need for any stents. No significant coronary artery disease nor stenosis. She is on Coumadin due to A. fib. Patient states she has had chest discomfort which started yesterday. Can like a pressure. It is been constant. Nothing particular makes it better or worse. She denies dyspnea. No history of DVT or PE. No hemoptysis. No leg pain or swelling. Physical Examination: Older female no acute distress vital signs are stable afebrile. Pulse ox 96% on room air no signs hypoxia. HEENT exam unremarkable. Neck nontender no JVD. Lungs clear to auscultation bilaterally. Heart regular rate and rhythm rate about 60 no murmur. Chest wall nontender. Abdomen soft nontender. Normal bowel sounds no peritoneal signs. Patient moving all 4 e xtremities. Calves are nontender without edema or cords. Equal symmetrical radial pulses. Normal communications agent strength. Neurologically she is awake and alert with no focal motor deficits. Test Results: EKG shows sinus rhythm rate of 60 with a first-degree AV block with a DC interval of 216. This EKG today is unchanged from 1 from last year in December 2018. No acute signs of ID or ischemia. CBC white count of 7. Hemoglobin 15. Chemistries normal normal creatinine gap. INR 1.8 subtherapeutic with her being on Coumadin. Chest x-ray portable 1 view shows no acute abnormality normal cardiac silhouette mediastinum read by myself and the radiologist. Troponin slightly elevated 0.048. She is had elevated troponins before. Since she is had 24 hours of pain I will do a 3-hour troponin if it is going up she will need to be admitted. If it is normalized I will send her home. Patient be turned over to the afternoon physician coming in. Emergency Department Course and Treatment: Patient with atypical chest pain. Will undergo cardiac work-up. I did review her old records she had a cardiac catheterization 1 year ago in 2019 which is basically unremarkable. No significant coronary disease. Treatment Plan: Repeat exam patient is doing well at 1530 p.m. Repeat troponin is being drawn. She has been checked out to the afternoon physician Dr. Manjit Falcon. Following the patient check her 3-hour troponin. If it is decreasing and she is doing well discharged home. If it is elevated she will be admitted for further evaluation. Disposition: Impression: Acute chest pain of uncertain etiology Abnormal troponin History of prior ID History of [id number] diabetes. History of A. fib on Coumadin This note was generated with [employer] dictation software. It may contain incorrect words, spelling, and punctuation that were not noted in review of the chart prior to signing ED Disposition - Plan for ED Patient: Referrals: Addis Prather MD [Primary Care Provider] -
[2020-02-02 12:51] LABS: Absolute Lymphocyte Count 2.12 X10^3/uL (0.83-4.51); Absolute Neutrophil Count 4.5 X10^3/uL (2.0-7.7); Basophil# 0.03 X10^3/uL; Basophil% 0.4 % (0-1); Eosinophil# 0.06 X10^3/uL; Eosinophils% 0.8 % (0-5); Hematocrit 48.8 % (37-47); Hemoglobin 15.6 g/dL (12.0-15.0); Lymphocyte # 2.12 X10^3/ul (4.0); Lymphocyte % 29.2 % (19-41); Mean Corpuscular Hgb 30.1 pg (27.0-32.0); Mean Corpuscular Volume 94.2 fL (81-99); Mean Platelet Vol. 13.1 fl (6.2-12.0); Monocyte# 0.55 X10^3/uL; Monocyte% 7.6 % (0-10); NRBC Flagged by Analyzer 0 % (0-5); Neutrophil % 61.9 % (47-70); Platelet Count 179 K/mm3 (150-450); RBC Distribution Width CV 13.4 % (11.6-14.6); RBC Distribution Width SD 46.6 fl (35.1-43.9); Red Blood Count 5.18 M/mm3 (4.2-5.4); White Blood Count 7.3 K/mm3 (4.4-11.0)
[2020-02-02 12:55] LABS: International Normalized Ratio 1.8; Prothrombin Time (Protime)PT. 20.7 SECONDS (11.7-14.9)
[2020-02-02 13:04] LABS: Anion Gap 5 (5-15); BUN 18 mg/dL (7-18); BUN/Creat Ratio 22.4 RATIO (10-20); Calcium,Total 9.2 mg/dL (8.5-10.1); Chloride 107 mmol/L (98-107); EST Glomerular Filtration Rate 77 mL/min (>60); Est Glom Filt Rate - Afr Amer 93 mL/min (>60); Estimated Creatinine Clearance 77.18 ml/min; Glucose 131 mg/dL (74-106); Potassium 4.1 mmol/L (3.5-5.1); Sodium Level 142 mmol/L (136-145)
[2020-02-02 14:34] VITALS: BP 151/81; PULSE 55; RESP 17; O2SAT 94
[2020-02-02 16:01] VITALS: BP 135/65; PULSE 54; RESP 14; O2SAT 96
[2020-02-02] MEDS: Mag Hydrox/Al Hydrox/Simeth 30 ML UDC PO (16:25)
--- NOTE | 2020-02-02 16:49 | ED.DEP ---
ED Disposition - Plan for ED Patient: Disposition: Home or Assisted Living Diagnosis: Chest pain, unspecified, Chronic atrial fibrillation, Fatigue Instructions: ED Chest Pain NonCardiac, ED Weakness [facility] Referrals: Addis Prather MD [Primary Care Provider] - Keep Daryn appointment
[2020-02-02 17:02] VITALS: BP 126/81; PULSE 59; RESP 17; O2SAT 94
== END 2020-02-02 17:03 | disposition home or self-care (01) ==
PROVIDERS: Emergency Provider Emergency Medicine; PCP Internal Medicine
DX: R07.89 Other chest pain (principal); R79.89 Other specified abnormal findings of blood chemistry; I48.91 Unspecified atrial fibrillation; E11.9 Type 2 diabetes mellitus without complications; Z79.01 Long term (current) use of anticoagulants; Z79.84 Long term (current) use of oral hypoglycemic drugs; Z79.899 Other long term (current) drug therapy; I25.2 Old myocardial infarction; Z85.41 Personal history of malignant neoplasm of cervix uteri
CPT/HCPCS: 71045; 80048; 84484; 85025; 85610; 93005; 99285; A4216

== ENCOUNTER → 2020-02-12 | Outpatient (CLI) | payer MEDICAID, SELFPAY ==
[2020-02-02 12:33] VITALS: BMI 35.4
[2020-02-12 17:27] LABS: Prothrombin Time (Protime)PT. 42.2 SECONDS (11.7-14.9)
[2020-02-12 20:13] LABS: International Normalized Ratio 4.4
== END | disposition home or self-care (01) ==
LOC: LABSPEC 16:48
PROVIDERS: PCP Internal Medicine; Referring Provider Internal Medicine; Visit Provider Internal Medicine
DX: I48.20 Chronic atrial fibrillation, unspecified (principal)
CPT/HCPCS: 85610

== ENCOUNTER → 2020-02-17 | Outpatient (CLI) | payer MEDICAID, SELFPAY ==
[2020-02-02 12:33] VITALS: BMI 35.4
[2020-02-17 12:35] LABS: International Normalized Ratio 1.3; Prothrombin Time (Protime)PT. 15.3 SECONDS (11.7-14.9)
== END | disposition home or self-care (01) ==
LOC: LABSPEC 12:04
PROVIDERS: PCP Internal Medicine; Referring Provider Internal Medicine; Visit Provider Internal Medicine
DX: I48.20 Chronic atrial fibrillation, unspecified (principal)
CPT/HCPCS: 85610

== ENCOUNTER 2020-03-31 12:26 | Emergency (ER) | payer MEDICAID, SELFPAY ==
[2020-03-09 09:21] VITALS: BMI 36.7
[2020-03-31 12:27] VITALS: BP 154/78; PULSE 65; RESP 18; TEMP 36.6; O2SAT 98; BMI 35.4
--- NOTE | 2020-03-31 12:46 | CT_ITS ---
STUDY: CT ABDOMEN AND PELVIS WITHOUT CONTRAST REASON FOR EXAM: Female, 59 years old. DIFFUSE ABD PAIN/TENDER UPPER ABD PAIN AND MCBURNEY RADIATION DOSAGE (If Supplied By Facility): CTDIvol = ( 21.66 ) mGy, DLP = ( 1498.14 ) mGycm TECHNIQUE: Transaxial images were obtained from the dome of the diaphragm to the symphysis pubis without oral contrast, and without intravenous contrast. Sagittal and coronal images were reconstructed. Individualized dose optimization techniques were used for this CT. COMPARISON: Comparison is made with prior study dated 05/21/2018. FINDINGS: Stable minimal increased markings at the lung bases suggestive of atelectasis/scarring. The visualized portions of the heart are within normal limits. There is decreased attenuation of the liver consistent with steatosis. Normal gallbladder and extrahepatic biliary system. Normal spleen. Normal pancreas. Normal bilateral adrenal glands. 8 mm cyst in the anterior aspect of the right kidney. Tiny cyst in the medial posterior aspect of the right kidney. 1 cm cyst in the posterior aspect of the left kidney. Normal left kidney. Normal visualized stomach. Normal small intestine. There are scattered colonic diverticula consistent with diverticulosis. There is non-visualization of the appendix. Normal abdominal aorta. Normal inferior vena cava. Normal retroperitoneum. Normal urinary bladder. There is absence of the uterus consistent with a prior hysterectomy. Normal abdominal wall. Normal osseous structures. CT/Abdomen/Pelvis W IV Cont ONLY IMPRESSION: Scattered sigmoid diverticula. Stable small bilateral renal cysts. Electronically Signed: Jerry Bunch, at 14:19 EDT , Service support ,
--- NOTE | 2020-03-31 12:47 | EKG12_ITS ---
Test Reason : ABD PAIN Blood Pressure : / mmHG Vent. Rate : 058 BPM Atrial Rate : 058 BPM P-R Int : 224 ms QRS Dur : 094 ms QT Int : 434 ms P-R-T Axes : 043 036 069 degrees QTc Int : 426 ms Sinus bradycardia with 1st degree A-V block Low voltage QRS Borderline ECG Confirmed by JEFFERSON HARMON, ZULAY ([id number]), editor house organ MIRI HERRERA ([id number]) on 04/06/2020 1:14:36 PM Referred By: ED PHYS Confirmed By:EJ PAULINO MD
--- NOTE | 2020-03-31 12:47 | ED.VIS.GI ---
History of Present Illness Chief Complaint: Abd Pain Informant: Patient - Abdominal Pain/Flank Pain Onset: Days - 2-3 Context: Gradual Onset Timing: Continuous, Waxes and wanes Quality: Aching Location: - - Periumbilical Current Severity: Mild Maximum Severity: Moderate Worsened by: Nothing. Not Worsened By: Food Relieved by: Nothing - Nausea/Vomiting/Emesis GI Symptom: Nausea. Negative for: Vomiting - Diarrhea/Melena/Hematochezia GI Symptom: Diarrhea - 2-3 days ago, but since resolved. Negative for: Melena, Hematochezia Associated Symptoms: Negative for: Dysuria, Frequency, Hematuria, Urgency Narrative: Decreased appetite. Patient presenting with diffuse abdominal aching, fatigue, chills, malaise. No definite fevers but she did not measure her temperature. She denies any cough, shortness of breath, chest discomfort but yesterday she had palpitations for 10 or 15 minutes that felt like her heart was racing and skipping, consistent with episodes of paroxysmal atrial fibrillation for which he takes Eliquis. None of that today. This was not associated with any lightheadedness or syncope. Patient presents during the national coronavirus emergency declaration/pandemic. She denies any known contact with anyone infected with COVID-19. She denies traveling out of the immediate area recently. 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 (3) Atherosclerosis of coronary artery of [place] heart without angina pectoris Status: Chronic (4) Chronic diastolic CHF (congestive heart failure) Status: Chronic (5) Depression Status: Chronic (6) Essential (primary) hypertension Status: Chronic (7) Hyperlipidemia Status: Chronic (8) Paroxysmal A-fib Status: Chronic (9) Sleep apnea Status: Chronic (10) Type 2 diabetes mellitus Status: Chronic Past Medical History - Allergies and Home Meds Allergies/Adverse Reactions: Allergies potassium chloride Adverse Reaction (Verified 03/31/20 12:30) diarrhea diarrhea Primary Care Physician: Addis Prather MD [Primary Care Provider] - Surgical History: hysterectomy, - - Scar tissue was removed from her abdomen. Smoking Status: Never smoker Alcohol: None - Family History Maternal Family History: Family History (Last Reviewed 08/09/19 @ 11:23 by Shiela Mendoza FAMILY WELFARE SOCIAL WORK PROFESSOR, FAMILY WELFARE SOCIAL WORK PROFESSOR-C) Grandmother Diabetes Breast cancer Sister Breast cancer Family History: Reports: Heart Disease - Her grandmother had a heart attack. Patient does not know the age that her grandmother had the heart attack. Paternal Family History: Family History (Last Reviewed 08/09/19 @ 11:23 by Shiela Mendoza NP, FAMILY WELFARE SOCIAL WORK PROFESSOR-C) Grandmother Diabetes Breast cancer Sister Breast cancer Family History: Reports: Heart Disease - Her father had a heart attack when he was in his 60s to 70s. Review of Systems General: Reports: Chills, Malaise. Denies: Fever, Sweats Eyes: Denies: Visual changes - bilaterally, Diplopia ENT: Denies: Bilateral ear pain, Rhinorrhea, Sore throat Cardiovascular: Reports: Palpitations - Yesterday. Resolved.. Denies: Chest pain Respiratory: Denies: Dyspnea, Cough, Dyspnea on exertion Gastrointestinal: Reports: Abdominal pain, Nausea, Diarrhea - Resolved.. Denies: Vomiting, Melena, Hematochezia Genitourinary: Denies: Dysuria, Hematuria, Frequency Musculoskeletal: Reports: Swelling - Chronic in both feet, waxes and wanes, improved today compared with usual since she has been laying around. Denies: Neck pain, Back pain, Extremity Pain Skin: Denies: Rash, Wounds Neurological: Denies: Headache, Weakness, Numbness Physical Exam Vital Signs/Narrative: Vital Signs Temp Pulse Resp BP Pulse Ox 03/31/20 12:27 97.9 F 65 18 154/78 H 98 General: Well nourished, Well developed, Obese, No Acute Distress Head: Normocephalic, Atraumatic Eyes: Perrl, EOMI ENT: Moist mucous membranes, No rhinorrhea Neck: Supple, Nontender Cardiovascular: Regular rate, Regular rhythm, No murmurs. Negative for: Tachycardia Respiratory: No distress, CTA bilaterally, Chest nontender Abdomen: Soft, Nondistended, Normal bowel sounds, Tender - Mild periumbilical, right upper quadrant, epigastric, right lower quadrant McBurney's point. Otherwise, nontender.. Negative for: Guarding, Rebound tenderness, Pulsatile mass Back: Nontender, Normal Inspection Extremities: Nontender, No edema. Negative for: Calf Tenderness Skin: Normal color, No rash, No Trauma Neurological: Alert, Oriented x3, Cranial nerves II-XII grossly intact, Normal Strength, Normal Sensation, Normal Gait Psychological: Normal affect, Normal Mood Diagnostic/Tx/Re-eval Impressions Abdomen/Pelvis CT 03/31/20 12:46 IMPRESSION: Scattered sigmoid diverticula. Stable small bilateral renal cysts. Electronically Signed: Jerry Bunch, at 14:19 EDT , Service support , 03/31/20 12:46 Abdomen/Pelvis W IV Cont ONLY [CT] Stat Laboratory Results 03/31/20 03/31/20 03/31/20 12:40 12:40 14:10 WBC 7.2 RBC 4.85 Hgb 14.7 Hct 44.7 MCV 92.2 MCH 30.3 MCHC 32.9 RDW Std Deviation 43.5 RDW Coeff of Shae 12.8 Plt Count 171 MPV 13.0 H Immature Gran % (Auto) 0.300 Neut % (Auto) 62.4 Lymph % (Auto) 28.8 [place] % (Auto) 7.1 Eos % (Auto) 1.1 Baso % (Auto) 0.3 Absolute Neuts (auto) 4.5 Absolute Lymphs (auto) 2.08 Nucleated RBC % 0 Sodium 141 Potassium 3.5 Chloride 107 Carbon Dioxide 30.0 Anion Gap 4 L BUN 9 Creatinine 0.71 Estim Creat Clear Calc 86.96 Est GFR (MDRD) Af Amer 108 Est GFR (MDRD) Non-Af 89 BUN/Creatinine Ratio 12.7 Glucose 125 H Calcium 8.9 Total Bilirubin 0.70 AST 12 L ALT 21 Alkaline Phosphatase 107 Troponin I 0.054 H Total Protein 7.1 Albumin 3.3 Globulin 3.8 Albumin/Globulin Ratio 0.9 Lipase 26 L Urine Color Straw Urine Clarity Sl. Cloudy Urine pH 6.5 Ur Specific [place] 1.010 Urine Protein Negative Urine Glucose (UA) Normal Urine Ketones Negative Urine Occult Blood Negative Urine Nitrite Negative Urine Bilirubin Negative Urine Urobilinogen Normal Ur Leukocyte Esterase Negative - Rhythm Strip Rhythm Strip: Sinus Rhythm Rate: 60 Ectopy: None - EKG Initial EKG Interpretation: Sinus Rhythm, No Acute Injury Pattern, AV Block - 1st deg Prior: Unchanged - Medical Decision Making Patient was treated with IV fluids, Zofran, Bentyl orally. She feels better. All of her basic labs are normal, urinalysis shows no infection, CT of the abdomen and pelvis shows no appendicitis and nothing acute going on. Differential includes viral syndrome, dyspepsia, other functional GI disorders. Her troponin is just a little abnormal, nonspecifically elevated. She has had this multiple times in the past. I am at a low suspicion that she is having a cardiac process acutely manifesting as abdominal discomfort and fatigue. Mainly, this is because her EKG is normal and unchanged without signs of acute ischemia. Also she is been having no chest symptoms except for the palpitations she had yesterday which she has had in the past consistent with paroxysmal atrial fibrillation, which she is anticoagulated for. I am repeating her troponin, it will be a 2-hour repeat level. If trending up, I think it would be reasonable to admit her to observation, she does have a documented history of coronary disease in a diagonal. If trending down I think it would be reasonable to send her home to follow-up closely as an outpatient with prescriptions for dicyclomine/Zofran to use as needed; she is already on a PPI. Discussed with patient and she is comfortable with that plan. Repeat troponin checked out to oncoming emergency physician. ED Disposition - Plan for ED Patient: Disposition: Home or Assisted Living Diagnosis: Diffuse abdominal pain Instructions: ED Abdominal Pain Unkn Cause Fem Prescriptions: Dicyclomine HCl 20 mg PO Q6H PRN #16 tab PRN Reason: abdominal pain [facility] Ondansetron [Zofran Odt] 8 mg PO Q8H PRN PRN #20 tab PRN Reason: Nausea Transmission Status: [facility] Referrals: Addis Prather MD [Primary Care Provider] - 3-5 Days if not improving
[2020-03-31 13:07] LABS: Absolute Lymphocyte Count 2.08 X10^3/uL (0.83-4.51); Absolute Neutrophil Count 4.5 X10^3/uL (2.0-7.7); Basophil# 0.02 X10^3/uL; Basophil% 0.3 % (0-1); Eosinophil# 0.08 X10^3/uL; Eosinophils% 1.1 % (0-5); Hematocrit 44.7 % (37-47); Hemoglobin 14.7 g/dL (12.0-15.0); Lymphocyte # 2.08 X10^3/ul (4.0); Lymphocyte % 28.8 % (19-41); Mean Corp Hgb Conc 32.9 g/dL (32-36); Mean Corpuscular Hgb 30.3 pg (27.0-32.0); Mean Corpuscular Volume 92.2 fL (81-99); Monocyte# 0.51 X10^3/uL; Monocyte% 7.1 % (0-10); NRBC Flagged by Analyzer 0 % (0-5); Neutrophil # 4.51 X10^3/uL (2.7-7.7); Neutrophil % 62.4 % (47-70); Platelet Count 171 K/mm3 (150-450); RBC Distribution Width CV 12.8 % (11.6-14.6); RBC Distribution Width SD 43.5 fl (35.1-43.9); Red Blood Count 4.85 M/mm3 (4.2-5.4); White Blood Count 7.2 K/mm3 (4.4-11.0)
[2020-03-31] MEDS: Dicyclomine 10 MG Capsule 20 MG PO (13:24)
[2020-03-31] MEDS: Ondansetron 4 MG/2 ML Vial IV (13:24)
[2020-03-31] MEDS: 0.9% Normal Saline 1,000 ML 125 ML IV (13:25)
[2020-03-31 13:37] LABS: ALB/GLOB Ratio 0.9 RATIO (0.9-2.4); AST(SGOT) 12 U/L (15-37); Alanine Aminotransfer ALT/SGPT 21 U/L (13-56); Albumin, Serum 3.3 g/dL (3.2-5.0); Alkaline Phosphatase 107 U/L (45-117); Anion Gap 4 (5-15); BUN 9 mg/dL (7-18); BUN/Creat Ratio 12.7 RATIO (10-20); Calcium,Total 8.9 mg/dL (8.5-10.1); Chloride 107 mmol/L (98-107); Creatinine, Serum 0.71 mg/dL (0.55-1.02); EST Glomerular Filtration Rate 89 mL/min (>60); Est Glom Filt Rate - Afr Amer 108 mL/min (>60); Estimated Creatinine Clearance 86.96 ml/min; Globulin 3.8 g/dL (2.2-4.2); Glucose 125 mg/dL (74-106); Lipase 26 U/L (73-393); Potassium 3.5 mmol/L (3.5-5.1); Protein, Total 7.1 g/dL (6.4-8.2); Sodium Level 141 mmol/L (136-145)
[2020-03-31 14:17] LABS: Mucous, Urine 0 SEEN /hpf (<or=2+); Red Blood Cells-Urine 0 SEEN /hpf (0-5); Squamous Epithelial Cells - UA 0 SEEN /hpf (5-10); White Blood Cells 0 SEEN /hpf (0-5)
[2020-03-31 14:25] LABS: Color, Urine Straw (Yellow); Glucose, Dipstick Normal (Normal); Ketone-Dipstick Negative (Negative); Leukocyte Esterase-Dipstick Negative /ul (Negative); Nitrite-Dipstick Negative (Negative); Occult Blood-Urine Negative /ul (Negative); Protein-Dipstick Negative (Negative); Urine Bilirubin Dipstick Negative (Negative); Urine Clarity Sl. Cloudy (Clear); Urine Urobilinogen Normal (Normal); Urine pH 6.5 (5.0 - 8.0)
[2020-03-31 14:39] VITALS: RESP 18
[2020-03-31 14:46] LABS: Calcium Oxalate Crystals Ur 1+ /hpf (<or=2+)
[2020-03-31 14:47] LABS: Bacteria RARE /hpf (None Seen)
[2020-03-31 16:31] VITALS: BP 126/73; PULSE 58; RESP 15; O2SAT 98
== END 2020-03-31 16:37 | disposition home or self-care (01) ==
PROVIDERS: Emergency Provider Emergency Medicine; PCP Internal Medicine
DX: R10.84 Generalized abdominal pain (principal); R11.0 Nausea; I48.0 Paroxysmal atrial fibrillation; I25.10 Atherosclerotic heart disease of native coronary artery without angina pectoris; I11.0 Hypertensive heart disease with heart failure; I50.32 Chronic diastolic (congestive) heart failure; E11.9 Type 2 diabetes mellitus without complications; E78.5 Hyperlipidemia, unspecified; G47.30 Sleep apnea, unspecified; F32.9 Major depressive disorder, single episode, unspecified; E66.9 Obesity, unspecified; Z79.01 Long term (current) use of anticoagulants; Z79.899 Other long term (current) drug therapy
CPT/HCPCS: 74177; 80053; 81001; 83690; 84484; 85025; 93005; 96361; 96374; 99283; J7030; Q9967; A4216; J2405

== ENCOUNTER 2020-06-11 15:00 | Inpatient (IN) | payer MEDICAID, SELFPAY ==
[2020-06-11 15:04] VITALS: BP 179/90; PULSE 68; RESP 20; TEMP 36.5; O2SAT 97; BMI 38.1
--- NOTE | 2020-06-11 15:19 | EKG12_ITS ---
Test Reason : CP Blood Pressure : / mmHG Vent. Rate : 063 BPM Atrial Rate : 063 BPM P-R Int : 216 ms QRS Dur : 082 ms QT Int : 410 ms P-R-T Axes : 078 033 095 degrees QTc Int : 419 ms Sinus rhythm with 1st degree A-V block Low voltage QRS Cannot rule out Anterior infarct , age undetermined Abnormal ECG Confirmed by LALO HARMON, WILFREDO ([id number]), newspaper or periodical editor MIRI HERRERA ([id number]) on 06/12/2020 11:19:57 AM Referred By: BB Confirmed By:WILFREDO MAY MD
--- NOTE | 2020-06-11 15:21 | ED.VIS.CHEST ---
History of Present Illness Chief Complaint: Chest Pain Informant: Patient Onset: Days - 3 Activity at onset: Unknown Timing: Continuous Quality: Aching Location: Substernal Current Severity: Moderate Maximum Severity: Moderate Worsened By: Movement of Torso, Breathing - sometimes. Not Worsened By: Exertion, Eating Relieved By: Rest, Remaining Still Associated Symptoms: Palpitations - beating fast. Negative for: Nausea, Vomiting, Diaphoresis, Dyspnea, Cough, Fever, Lightheadedness Narrative: Patient presenting with 3 days of constant symptoms, discomfort in her chest, mid back, and periumbilical abdominal area. Some diarrhea, cold chills, severe malaise, myalgias. No cough or dyspnea. She states when she changes positions sometimes she feels her heart race, but with resting it resolves. She cannot tell if this is recurrence of her atrial fibrillation or not, she is chronically anticoagulated with Eliquis for that. The tachycardia does not coincide with any other symptoms such as lightheadedness, dyspnea, changes in her chest discomfort. 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 - Past Medical History (1) Atherosclerosis of coronary artery of [place] heart without angina pectoris Status: Chronic (2) Chronic diastolic CHF (congestive heart failure) Status: Chronic (3) Depression Status: Chronic (4) Essential (primary) hypertension Status: Chronic (5) Hyperlipidemia Status: Chronic (6) Paroxysmal A-fib Status: Chronic (7) Sleep apnea Status: Chronic (8) Type 2 diabetes mellitus Status: Chronic Past Medical History - Allergies and Home Meds Allergies/Adverse Reactions: Allergies potassium chloride Adverse Reaction (Verified 06/11/20 15:21) diarrhea diarrhea Primary Care Physician: Addis Prather MD [Primary Care Provider] - Surgical History: hysterectomy, - - Scar tissue was removed from her abdomen. Lives: Spouse/ Significant Other Smoking Status: Never smoker - Family History Maternal Family History: Family History (Last Reviewed 08/09/19 @ 11:23 by Shiela Mendoza INTERVENTIONAL NEURORADIOLOGIST, INTERVENTIONAL NEURORADIOLOGIST-C) Grandmother Diabetes Breast cancer Sister Breast cancer Family History: Reports: Heart Disease - Her grandmother had a heart attack. Patient does not know the age that her grandmother had the heart attack. Paternal Family History: Family History (Last Reviewed 08/09/19 @ 11:23 by Shiela Mendoza NP, INTERVENTIONAL NEURORADIOLOGIST-C) Grandmother Diabetes Breast cancer Sister Breast cancer Family History: Reports: Heart Disease - Her father had a heart attack when he was in his 60s to 70s. Review of Systems General: Reports: Chills, Malaise, Subjective. Denies: Fever, Sweats Eyes: Denies: Visual changes - bilaterally, Diplopia ENT: Denies: Bilateral ear pain, Rhinorrhea, Sore throat Cardiovascular: Reports: Chest pain, Palpitations Respiratory: Denies: Dyspnea, Cough, Dyspnea on exertion, Orthopnea Gastrointestinal: Reports: Abdominal pain, Diarrhea. Denies: Nausea, Vomiting, Melena, Hematochezia Genitourinary: Denies: Dysuria, Hematuria, Frequency Musculoskeletal: Reports: Myalgias, Back pain, Swelling - BLE chronic, unchanged. Denies: Neck pain, Extremity Pain Skin: Denies: Rash, Wounds Neurological: Reports: Headache - mild, off and on. Denies: Weakness, Numbness Physical Exam Vital Signs/Narrative: Vital Signs Temp Pulse Resp BP Pulse Ox 06/11/20 15:04 97.7 F L 68 20 H 179/90 H 97 Inital Vital Signs reviewed: Yes General: Well nourished, Well developed, Obese, No Acute Distress Head: Normocephalic, Atraumatic Eyes: Perrl, EOMI ENT: Moist mucous membranes, No rhinorrhea Neck: Supple, Nontender, No lymphadenopathy Cardiovascular: Regular rate, Regular rhythm, No murmurs. Negative for: Tachycardia Respiratory: No distress, CTA bilaterally, Chest tenderness - mild, central Abdomen: Soft, Nontender, Nondistended, Normal bowel sounds Back: Nontender, Normal Inspection. Negative for: CVA tenderness Extremities: Nontender, Edema - 1+ BLE symmetric mid-shins. Negative for: Calf Tenderness Skin: Normal color, No rash, No Trauma Neurological: Alert, Oriented x3, Cranial nerves II-XII grossly intact, Normal Strength, Normal Sensation, Normal Gait Psychological: Normal affect, Normal Mood Diagnostic/Tx/Re-eval Impressions Chest X-Ray 06/11/20 15:47 IMPRESSION: Stable, nonacute portable x-ray examination of the chest. Electronically Signed: Reji Barcenas MD ([place]) at 16:12 EST , Service support , 06/11/20 15:47 Chest 1 View (Portable) [RAD] Stat 06/11/20 17:15 Mucosa - Nose SARS-CoV-2 Antigen (Rapid) - Final Laboratory Results 06/11/20 06/11/20 06/11/20 15:20 15:20 15:29 WBC 7.3 RBC 5.12 Hgb 15.2 H Hct 48.4 H MCV 94.5 MCH 29.7 MCHC 31.4 L RDW Std Deviation 45.5 H RDW Coeff of Shae 13.0 Plt Count 172 MPV 13.0 H Immature Gran % (Auto) 0.100 Neut % (Auto) 61.0 Lymph % (Auto) 29.7 [place] % (Auto) 7.6 Eos % (Auto) 1.2 Baso % (Auto) 0.4 Absolute Neuts (auto) 4.5 Absolute Lymphs (auto) 2.18 Nucleated RBC % 0 Sodium 142 Potassium 3.8 Chloride 109 H Carbon Dioxide 31.0 Anion Gap 2 L BUN 17 Creatinine 0.88 Estim Creat Clear Calc 70.16 Est GFR (MDRD) Af Amer 84 Est GFR (MDRD) Non-Af 70 BUN/Creatinine Ratio 19.4 Glucose 149 H Calcium 9.5 Troponin I 0.065 H Urine Color Urine Clarity Urine pH Ur Specific [place] Urine Protein Urine Glucose (UA) Urine Ketones Urine Occult Blood Urine Nitrite Urine Bilirubin Urine Urobilinogen Ur Leukocyte Esterase Urine RBC Urine WBC Ur Squamous Epith Cells Urine Bacteria Urine Mucus COVID-19 (LORENZO) Cancelled 06/11/20 06/11/20 15:41 18:20 WBC RBC Hgb Hct MCV MCH MCHC RDW Std Deviation RDW Coeff of Shae Plt Count MPV Immature Gran % (Auto) Neut % (Auto) Lymph % (Auto) [place] % (Auto) Eos % (Auto) Baso % (Auto) Absolute Neuts (auto) Absolute Lymphs (auto) Nucleated RBC % Sodium Potassium Chloride Carbon Dioxide Anion Gap BUN Creatinine Estim Creat Clear Calc Est GFR (MDRD) Af Amer Est GFR (MDRD) Non-Af BUN/Creatinine Ratio Glucose Calcium Troponin I 0.075 H Urine Color Straw Urine Clarity Cloudy Urine pH 7.0 Ur Specific [place] 1.015 Urine Protein 15 H Urine Glucose (UA) Normal Urine Ketones Negative Urine Occult Blood 250 H Urine Nitrite Negative Urine Bilirubin Negative Urine Urobilinogen 1 H Ur Leukocyte Esterase 25 H Urine RBC 25-50 SEEN Urine WBC 0-5 SEEN Ur Squamous Epith Cells 0-5 SEEN Urine Bacteria 3+ Urine Mucus 0 SEEN COVID-19 (LORENZO) - Rhythm Strip Rhythm Strip: Sinus Rhythm Rate: 65 Ectopy: None - EKG Initial EKG Interpretation: Sinus Rhythm, No Acute Injury Pattern, AV Block - 1st deg Prior: Unchanged Treatment: GI Cocktail - With improvement in abdominal pain - Medical Decision Making Patient troponin is nonspecifically elevated in context of normal renal function. Her x-ray is unremarkable, she is not hypoxic, she does have a history of coronary disease and congestive heart failure, and given all this I think it would be most reasonable to admit her for further evaluation and possible treatment. Therefore I am changing her outpatient COVID-19 test to a stat antigen test. Her antigen test returned negative. However my pretest probability is extremely high. We will place her in isolation, her troponin came back elevated still when we repeated it, and after discussion with hospitalist will place her in the cohort unit. ED Disposition - Plan for ED Patient: Disposition: Acute Care Hospital [facility] Diagnosis: Chest pain, Elevated troponin, Suspected COVID-19 virus infection Referrals: Addis Prather MD [Primary Care Provider] -
[2020-06-11] MEDS: Mag Hydrox/Al Hydrox/Simeth 30 ML UDC PO (15:33)
[2020-06-11] MEDS: Acetaminophen 500 MG Tablet 1000 MG PO (15:33)
[2020-06-11 15:39] LABS: Absolute Lymphocyte Count 2.18 X10^3/uL (0.83-4.51); Absolute Neutrophil Count 4.5 X10^3/uL (2.0-7.7); Basophil# 0.03 X10^3/uL; Basophil% 0.4 % (0-1); Eosinophil# 0.09 X10^3/uL; Eosinophils% 1.2 % (0-5); Hematocrit 48.4 % (37-47); Hemoglobin 15.2 g/dL (12.0-15.0); Lymphocyte # 2.18 X10^3/ul (4.0); Lymphocyte % 29.7 % (19-41); Mean Corp Hgb Conc 31.4 g/dL (32-36); Mean Corpuscular Hgb 29.7 pg (27.0-32.0); Mean Corpuscular Volume 94.5 fL (81-99); Monocyte# 0.56 X10^3/uL; Monocyte% 7.6 % (0-10); NRBC Flagged by Analyzer 0 % (0-5); Neutrophil # 4.47 X10^3/uL (2.7-7.7); Platelet Count 172 K/mm3 (150-450); RBC Distribution Width SD 45.5 fl (35.1-43.9); Red Blood Count 5.12 M/mm3 (4.2-5.4); White Blood Count 7.3 K/mm3 (4.4-11.0)
--- NOTE | 2020-06-11 15:47 | RAD_ITS ---
STUDY: X-RAY CHEST REASON FOR EXAM: Female, 59 years old. CHEST PAIN, PALPITATIONS, DIARRHEA AND CHILLS x3 DAYS TECHNIQUE: AP COMPARISON: 02/02/2020 FINDINGS: EKG leads project over the chest. Linear fibrotic scarring in the left lung base is stable. No acute airspace disease. There is no demonstrated pleural abnormality. Normal size heart. Normal mediastinum and dave. Normal visualized pulmonary arteries. Normal visualized aortic arch and descending thoracic aorta. There is a dextroscoliosis of the thoracic spine. Normal visualized ribs, clavicles, and shoulders. There is no demonstrated abnormality of the visualized soft tissue structures of the upper abdomen. RAD/Chest 1 View (Portable) IMPRESSION: Stable, nonacute portable x-ray examination of the chest. Electronically Signed: Reji Barcenas MD (Brooks) at 16:12 EST , Service support ,
[2020-06-11 15:50] LABS: Mucous, Urine 0 SEEN /hpf (<or=2+)
[2020-06-11 15:50] LABS: Anion Gap 2 (5-15); BUN 17 mg/dL (7-18); BUN/Creat Ratio 19.4 RATIO (10-20); Calcium,Total 9.5 mg/dL (8.5-10.1); Chloride 109 mmol/L (98-107); Creatinine, Serum 0.88 mg/dL (0.55-1.02); EST Glomerular Filtration Rate 70 mL/min (>60); Est Glom Filt Rate - Afr Amer 84 mL/min (>60); Estimated Creatinine Clearance 70.16 ml/min; Glucose 149 mg/dL (74-106); Potassium 3.8 mmol/L (3.5-5.1); Sodium Level 142 mmol/L (136-145)
[2020-06-11 15:52] LABS: Color, Urine Straw (Yellow); Glucose, Dipstick Normal (Normal); Ketone-Dipstick Negative (Negative); Leukocyte Esterase-Dipstick 25 /ul (Negative); Nitrite-Dipstick Negative (Negative); Occult Blood-Urine 250 /ul (Negative); Protein-Dipstick 15 mg/dl (Negative); Specific Gravity, Urine 1.015 (1.002-1.030); Urine Bilirubin Dipstick Negative (Negative); Urine Clarity Cloudy (Clear); Urine Urobilinogen 1 mg/dl (Normal)
[2020-06-11 15:58] LABS: Red Blood Cells-Urine 25-50 SEEN /hpf (0-5); Squamous Epithelial Cells - UA 0-5 SEEN /hpf (5-10); White Blood Cells 0-5 SEEN /hpf (0-5)
[2020-06-11 15:59] LABS: Bacteria 3+ /hpf (None Seen)
[2020-06-11 17:28] VITALS: BP 158/71; PULSE 76; RESP 16; O2SAT 96
[2020-06-11 18:20] VITALS: BP 149/81; PULSE 63; RESP 18; O2SAT 94
[2020-06-11 19:43] VITALS: BP 132/63; PULSE 65; RESP 14; O2SAT 97
--- NOTE | 2020-06-11 19:53 | HP.PCM_ITS ---
History of Present Illness Date of Admission: 06/11/20 Chief Complaint: Chest pain, diarrhea and chills The patient is a 59 year old F with PMH as below who presents to the hospital with 3-day history of chills, diarrhea, chest pain. She states that the chest pain is similar to the pain she had about a year ago when she had a heart cath. She says at that time she was found to have a small vessel that was occluded and they could not stent. She denies any lightheadedness or dizziness though she does have chills as well as diarrhea for the last 3 days. 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 In the ER the EKG was unremarkable however she had a troponin of 0.065 which elevated to 0.075. She is not requiring any oxygen and denies any cough or fevers at this time, and the initial antigen test was negative however given the fact that symptom onset was 1 to 3 days ago this is not necessarily unremarkable therefore will admit to the Covid cohort unit and obtain PCR. Past Medical History Past Medical History (Chronic Problems): Chronic Problems (Last Reviewed 08/09/19 @ 11:23 by Shiela Mendoza SMOKING TOBACCO PACKER HAND, SMOKING TOBACCO PACKER HAND-C) Type 2 diabetes mellitus (Chronic) Depression (Chronic) History of lipoma (Chronic) Obesity (BMI 30-39.9) (Chronic) Essential (primary) hypertension (Chronic) Atherosclerosis of coronary artery of lummi heart without angina pectoris (Chronic) Anomalous coronary artery origin (Chronic) Paroxysmal A-fib (Chronic) Chronic diastolic CHF (congestive heart failure) (Chronic) Essential (primary) hypertension (Chronic) Hyperlipidemia (Chronic) Sleep apnea (Chronic) Chronic anticoagulation (Chronic) Sleep disorder breathing (Chronic) Medical History: Medical History (Last Reviewed 08/09/19 @ 11:23 by Shiela Mendoza SMOKING TOBACCO PACKER HAND, SMOKING TOBACCO PACKER HAND-C) Type 2 diabetes mellitus (Chronic) E11.9 Depression (Chronic) F32.9 History of lipoma (Chronic) Z86.018 Obesity (BMI 30-39.9) (Chronic) E66.9 Essential (primary) hypertension (Chronic) I10 Atherosclerosis of coronary artery of lummi heart without angina pectoris (Chronic) I25.10 Anomalous coronary artery origin (Chronic) Q24.5 Paroxysmal A-fib (Chronic) I48.0 Chronic diastolic CHF (congestive heart failure) (Chronic) I50.32 Essential (primary) hypertension (Chronic) I10 Hyperlipidemia (Chronic) E78.5 Sleep apnea (Chronic) G47.30 Chronic anticoagulation (Chronic) Z79.01 Sleep disorder breathing (Chronic) G47.30 Allergies potassium chloride Adverse Reaction (Verified 06/11/20 15:21) diarrhea diarrhea Home Medications: Ambulatory Orders Medication Instructions Recorded metFORMIN (XR) [Glucophage Xr] 1,000 mg PO BID 12/15/13 Sertraline HCl [Zoloft] 100 mg PO DAILY 05/31/15 Lisinopril [Zestril] 5 mg PO DAILY 02/04/16 Atorvastatin Calcium [Lipitor] 40 mg PO QHS 12/16/18 Furosemide [Lasix] 20 mg PO BID 11/10/19 amlodipine 5 mg tablet 5 mg PO DAILY #90 tab 01/29/20 apixaban 5 mg tablet 5 mg PO BID 03/09/20 metoprolol succinate 50 mg 25 mg PO DAILY tab 03/09/20 tablet,extended release 24 hr Lactobacillus Acidophilus 2 ea PO DAILY 03/31/20 [Acidophilus] Pantoprazole Sodium 20 mg PO DAILY 03/31/20 Surgical History: Surgical History (Last Reviewed 08/09/19 @ 11:23 by Shiela Mendoza SMOKING TOBACCO PACKER HAND, SMOKING TOBACCO PACKER HAND-C) H/O: hysterectomy (Resolved) Z90.710 History of tonsillectomy (Resolved) Z90.89 H/O right heart catheterization (Resolved) Z98.890 12/18/2018 Dr. Eli History of left heart catheterization (Resolved) Onset Date: 12/18/18 Z98.890 Surgical History: hysterectomy, - - Scar tissue was removed from her abdomen. Lives: Spouse/ Significant Other Smoking Status: Never smoker Alcohol: None Drugs: None - *Family History Maternal Family History: Family History (Last Reviewed 08/09/19 @ 11:23 by Shiela Mendoza NP, SMOKING TOBACCO PACKER HAND-C) Grandmother Diabetes Breast cancer Sister Breast cancer History Items: Heart Disease - Her grandmother had a heart attack. Patient does not know the age that her grandmother had the heart attack. Paternal Family History: Family History (Last Reviewed 08/09/19 @ 11:23 by Shiela Mendoza NP, SMOKING TOBACCO PACKER HAND-C) Grandmother Diabetes Breast cancer Sister Breast cancer History Items: Heart Disease - Her father had a heart attack when he was in his 60s to 70s. Review of Systems Constitutional: Reports: Chills. Denies: Fever HEENT: Denies: Head Aches, Sinus Congestion, Sinus Drainage Cardiovascular: Reports: Chest Pain. Denies: Palpitations Respiratory: Denies: Cough, Shortness of breath at rest, Sputum production Gastrointestinal: Reports: Diarrhea. Denies: Abdominal Pain, Nausea, Vomiting Genitourinary: Denies: Dysuria Musculoskeletal: Denies: Joint Pain, Joint Tenderness Skin: Denies: Rash, Wounds Neurological: Denies: Numbness, Tingling, Focal weakness Psychiatric: Denies: Anxiety, Depression Hematologic/ Lymphatic: Denies: Easy Bruising, Easy Bleeding VTE Information - Inpt Only VTE Present on Admission: No Patient Problems: Active and Suspected Problems (Last Reviewed 08/09/19 @ 11:23 by Shiela Mendoza SMOKING TOBACCO PACKER HAND, SMOKING TOBACCO PACKER HAND-C) Chest pain (Acute) Elevated troponin (Acute) Suspected COVID-19 virus infection (Acute) - Physical Exam Vitals/I&O's: Vital Signs Temp Pulse Resp BP Pulse Ox 97.7 F L 65 14 132/63 H 97 06/11/20 15:04 06/11/20 19:43 06/11/20 19:43 06/11/20 19:43 06/11/20 19:43 Oxygen Delivery Method Room Air Weight: 258 lb 2.581 oz Body Mass Index (BMI) 38.1 General: Alert, Oriented x3, Cooperative, No apparent distress HEENT: Atraumatic, PERRLA, EOMI, Normocephalic Oral: Moist Mucosa Neck: Supple, No JVD Lungs: Clear to auscultation, Normal air movement, No rhonchi, No wheeze, No rales Cardiovascular: Regular rate, Regular Rhythm, Normal S1, Normal S2, No murmurs Abdomen: Soft, Non Tender, Non-Distended, No Hepato-splenomegaly Extremities: No edema, Capillary Refill Less than 3 Seconds Skin: No rashes, No breakdown Neurological: Neuro grossly intact, Sensory exam intact to light touch and pain Psych/Mental Status: Normal Affect, Appropriate Microbiology Past 72 Hours 06/11/20 17:15 Mucosa - Nose SARS-CoV-2 Antigen (Rapid) - Final Laboratory Results 06/11/20 15:20: WBC 7.3, RBC 5.12, Hgb 15.2 H, Hct 48.4 H, MCV 94.5, MCH 29.7, MCHC 31.4 L, RDW Std Deviation 45.5 H, RDW Coeff of Shae 13.0, Plt Count 172, MPV 13.0 H, Immature Gran % (Auto) 0.100, Neut % (Auto) 61.0, Lymph % (Auto) 29.7, [place] % (Auto) 7.6, Eos % (Auto) 1.2, Baso % (Auto) 0.4, Absolute Neuts (auto) 4.5, Absolute Lymphs (auto) 2.18, Nucleated RBC % 0 06/11/20 15:20: Sodium 142, Potassium 3.8, Chloride 109 H, Carbon Dioxide 31.0, Anion Gap 2 L, BUN 17, Creatinine 0.88, Estim Creat Clear Calc 70.16, Est GFR (MDRD) Af Amer 84, Est GFR (MDRD) Non-Af 70, BUN/Creatinine Ratio 19.4, Glucose 149 H, Calcium 9.5, Troponin I 0.065 H 06/11/20 15:29: COVID-19 (LORENZO) Cancelled 06/11/20 15:29: COVID-19 (LORENZO) Pending 06/11/20 15:41: Urine Color Straw, Urine Clarity Cloudy, Urine pH 7.0, Ur Specific [place] 1.015, Urine Protein 15 H, Urine Glucose (UA) Normal, Urine Ketones Negative, Urine Occult Blood 250 H, Urine Nitrite Negative, Urine Bilirubin Negative, Urine Urobilinogen 1 H, Ur Leukocyte Esterase 25 H, Urine RBC 25-50 SEEN, Urine WBC 0-5 SEEN, Ur Squamous Epith Cells 0-5 SEEN, Urine Bacteria 3+, Urine Mucus 0 SEEN 06/11/20 18:20: Troponin I 0.075 H Assessment/Plan All Active Problems (Last Reviewed 08/09/19 @ 11:23 by Shiela Mendoza SMOKING TOBACCO PACKER HAND, SMOKING TOBACCO PACKER HAND- C) Chest pain (Acute) Elevated troponin (Acute) Suspected COVID-19 virus infection (Acute) H/O: hysterectomy (Resolved) History of tonsillectomy (Resolved) H/O right heart catheterization (Resolved) History of left heart catheterization (Resolved 12/18/18) Rapid palpitations (Acute) 1. Chest pain/CAD status post cath 2019/chronic diastolic CHF/HTN/HLD/pa roxysmal A. fib/possible Covid/diarrhea -We will obtain serial troponins given the rise in her troponin -We will give her dose of full dose aspirin and start her on a heparin drip and discontinue her Eliquis -We will consult cardiology given her possible Covid status unlikely that any direct intervention will be done however would appreciate an opinion on medical optimization. She does have chest wall pain however she denies any trauma, or increased activity or coughing and she states it is a similar pain she had the last time she underwent a heart cath. -We will continue with her metoprolol, lisinopril, Lipitor, Norvasc -Given her issues with diarrhea we will hold her Lasix and provide her a little bit of IV fluids -Her antigen test was negative how however symptoms are concerning for COVID-19 infection secondary to diarrhea and chills given the fact that she does work in [facility] and interacts with people on a daily basis at the [employer], PCR test is pending 2. DM 2 -We will hold her metformin and place her on a sliding scale insulin -Accu-Cheks AC at bedtime 3. GERD -Stable -Continue PPI 4. Anxiety/depression -Stable -Continue Zoloft DVT: Heparin drip, resume Eliquis on discharge OBSV E&M: [id number] Initial observation care L3
[2020-06-11 21:12] LABS: Cholesterol 230 mg/dL (200); High Density Lipoprotein 39 mg/dL; Triglycerides 168 mg/dL; Very Low Density Lipoprotein 34 mg/dL (5-40)
[2020-06-11 21:40] VITALS: BMI 37.0
[2020-06-11 21:43] VITALS: BMI 37.1
[2020-06-11] MEDS: Aspirin 325 MG Tablet PO (21:53)
[2020-06-11] MEDS: 0.9% Normal Saline 1,000 ML 75 ML IV (21:53)
[2020-06-11 22:01] VITALS: BP 159/60; PULSE 66; RESP 20; TEMP 36.6; O2SAT 95
[2020-06-11 22:33] LABS: International Normalized Ratio 1.1; Prothrombin Time (Protime)PT. 13.6 SECONDS (11.7-14.9)
[2020-06-11 22:34] LABS: Partial Thromboplast Time 29.9 Seconds (24.1-36.2)
[2020-06-11 22:36] VITALS: PULSE 73
[2020-06-12] VITALS (16 sets, daily range): BP systolic 120–152; BP diastolic 71–81; PULSE 61–70; RESP 16–18; TEMP 36.4–36.7; O2SAT 92–97
[2020-06-12] MEDS: HEPARIN/D5w 25,000 UNITS 25,000 UNITS/250 ML IV.SOLN. 10 UNITS IV (00:06)
[2020-06-12] MEDS: Heparin Injection (Vial) 5,000 UNIT/ML VIAL 4000 UNIT IV (00:07)
--- NOTE | 2020-06-12 00:17 | NURSING ---
HEPARIN DRIP HUNG AND VERIFIED WITH SABRINA LANG
--- NOTE | 2020-06-12 06:35 | NURSING ---
CALLED LAB TO REMIND THEM THAT PTT WAS ORDERD FOR 605 FOR HEPARIN DRIP
[2020-06-12 07:34] LABS: Absolute Lymphocyte Count 2.52 X10^3/uL (0.83-4.51); Absolute Neutrophil Count 4.6 X10^3/uL (2.0-7.7); Basophil# 0.03 X10^3/uL; Basophil% 0.4 % (0-1); Eosinophil# 0.09 X10^3/uL; Eosinophils% 1.1 % (0-5); Hematocrit 46.3 % (37-47); Hemoglobin 14.7 g/dL (12.0-15.0); Lymphocyte # 2.52 X10^3/ul (4.0); Lymphocyte % 32.1 % (19-41); Mean Corp Hgb Conc 31.7 g/dL (32-36); Mean Corpuscular Hgb 30.3 pg (27.0-32.0); Mean Corpuscular Volume 95.5 fL (81-99); Mean Platelet Vol. 13.1 fl (6.2-12.0); Monocyte# 0.57 X10^3/uL; Monocyte% 7.3 % (0-10); NRBC Flagged by Analyzer 0 % (0-5); Neutrophil # 4.61 X10^3/uL (2.7-7.7); Neutrophil % 58.8 % (47-70); Platelet Count 144 K/mm3 (150-450); RBC Distribution Width CV 13.1 % (11.6-14.6); RBC Distribution Width SD 46.1 fl (35.1-43.9); Red Blood Count 4.85 M/mm3 (4.2-5.4); White Blood Count 7.8 K/mm3 (4.4-11.0)
[2020-06-12 07:57] LABS: Anion Gap 3 (5-15); BUN 16 mg/dL (7-18); BUN/Creat Ratio 21.4 RATIO (10-20); Calcium,Total 8.7 mg/dL (8.5-10.1); Chloride 109 mmol/L (98-107); Creatinine, Serum 0.75 mg/dL (0.55-1.02); EST Glomerular Filtration Rate 84 mL/min (>60); Est Glom Filt Rate - Afr Amer 101 mL/min (>60); Estimated Creatinine Clearance 82.32 ml/min; Glucose 129 mg/dL (74-106); Sodium Level 141 mmol/L (136-145)
[2020-06-12] MEDS: Nystatin Powder 15gm Bottle 1 APPLIC TOPICAL ×2 (08:29→21:09)
[2020-06-12 09:05] LABS: Partial Thromboplast Time 50.9 Seconds (24.1-36.2)
--- NOTE | 2020-06-12 09:10 | CT_ITS ---
STUDY: CT ABDOMEN AND PELVIS WITH CONTRAST REASON FOR EXAM: Female, 59 years old. Right lower quadrant pain. HTN, A-FIB, CHF. NV, DB, prior hysterectomy for uterine carcinoma. RADIATION DOSAGE (If Supplied By Facility): CTDIvol = ( 17.06 ) mGy, DLP = ( 1350.74 ) mGycm TECHNIQUE: Transaxial images were obtained from the dome of the diaphragm to the symphysis pubis with oral contrast. 100 mL of IV ISOVUE-300 was administered. Sagittal and coronal images were reconstructed. Individualized dose optimization techniques were used for this CT. COMPARISON: CT abdomen and pelvis with intravenous contrast 03/31/2020. FINDINGS: The visualized lung bases are unremarkable. The visualized portions of the heart are within normal limits. Normal liver. Normal gallbladder and extrahepatic biliary system. Normal spleen. Normal pancreas. Normal bilateral adrenal glands. Right kidney: Small nonenhancing hypodense cyst. No stones or hydronephrosis. Left kidney: 2 small nonenhancing renal cysts. No stones or hydronephrosis. Normal visualized stomach. Normal small intestine. A few small diverticula in the sigmoid colon without diverticulitis. The appendix is not visualized. Normal abdominal aorta. Normal inferior vena cava. Normal retroperitoneum. Normal urinary bladder. Postsurgical absence of the uterus. Normal abdominal wall. Prominent posterior annular bulging disc at L4-L5 disc space level with suspicious pronounced central canal stenosis. The AP canal diameter is 4.5 mm. No acute osseous abnormality. CT/Abdomen/Pelvis WITH Contrast IMPRESSION: 1. Nonvisualization of the appendix but no inflammatory changes of the fat around the cecum and terminal ileum. This is unchanged. 2. A few small diverticula in the sigmoid colon without diverticulitis. 3. No suspicious mass or lymphadenopathy in the abdomen and pelvis. 4. Small nonenhancing hypodense cyst in the right kidney and 2 small nonenhancing hypodense cysts in the left kidney. 5. Prominent L4-L5 posterior annular bulging disc with suspicious pronounced central canal stenosis. The AP canal diameter is 4.5 mm. 6. No interval change when compared to 03/31/2020. Electronically Signed: Joao Owen MD at 12:59 EST , Service support ,
[2020-06-12] MEDS: 0.9% Normal Saline 1,000 ML 75 ML IV (11:09)
--- NOTE | 2020-06-12 12:24 | PCM.PN.HOSP ---
Patient Problems: Active and Suspected Problems (Last Reviewed 08/09/19 @ 11:23 by Shiela Mendoza GRADUATE NURSE, GRADUATE NURSE-C) Chest pain (Acute) Elevated troponin (Acute) Suspected COVID-19 virus infection (Acute) Reason for Visit: chest pain Subjective: No further chest pain. Still with RUQ abdominal pain. Vitals/I&O's: Vital Signs Temp Pulse Resp BP Pulse Ox 36.6 C 64 18 131/77 H 97 06/12/20 08:32 06/12/20 09:20 06/12/20 08:32 06/12/20 08:32 06/12/20 08:32 Oxygen Delivery Method Room Air Weight: 113.852 kg Body Mass Index (BMI) 37.0 Intake and Output for Last 24 Hours 06/10/20 06/11/20 06/12/20 23:59 23:59 23:59 Intake Total 2318 / 2318 Output Total 200 / 200 Balance 8 / 2118 General: Alert, No apparent distress HEENT: Atraumatic, Normocephalic Oral: Moist Mucosa, No Gingival or Mucosal Lesions/ Ulcerations Neck: No Nodes, Thyroid Normal Size and Texture Lungs: Clear to auscultation, Normal air movement, No rhonchi, No wheeze Cardiovascular: Regular rate, Regular Rhythm, Normal S1, Normal S2, No murmurs Abdomen: Bowel Sounds Present, Soft, Non Tender, Non-Distended Psych/Mental Status: Normal Affect, Appropriate Microbiology Past 72 Hours 06/12/20 09:15 Stool C. difficile DNA Amplification - Final 06/12/20 09:15 Stool Stool Lactoferrin - Final 06/11/20 17:15 Mucosa - Nose SARS-CoV-2 Antigen (Rapid) - Final Laboratory Results 06/11/20 15:20: WBC 7.3, RBC 5.12, Hgb 15.2 H, Hct 48.4 H, MCV 94.5, MCH 29.7, MCHC 31.4 L, RDW Std Deviation 45.5 H, RDW Coeff of Shae 13.0, Plt Count 172, MPV 13.0 H, Immature Gran % (Auto) 0.100, Neut % (Auto) 61.0, Lymph % (Auto) 29.7, [place] % (Auto) 7.6, Eos % (Auto) 1.2, Baso % (Auto) 0.4, Absolute Neuts (auto) 4.5, Absolute Lymphs (auto) 2.18, Nucleated RBC % 0 06/11/20 15:20: Sodium 142, Potassium 3.8, Chloride 109 H, Carbon Dioxide 31.0, Anion Gap 2 L, BUN 17, Creatinine 0.88, Estim Creat Clear Calc 70.16, Est GFR (MDRD) Af Amer 84, Est GFR (MDRD) Non-Af 70, BUN/Creatinine Ratio 19.4, Glucose 149 H, Calcium 9.5, Troponin I 0.065 H 06/11/20 15:29: COVID-19 (LORENZO) Cancelled 06/11/20 15:29: COVID-19 (LORENZO) Not Detected 06/11/20 15:41: Urine Color Straw, Urine Clarity Cloudy, Urine pH 7.0, Ur Specific [place] 1.015, Urine Protein 15 H, Urine Glucose (UA) Normal, Urine Ketones Negative, Urine Occult Blood 250 H, Urine Nitrite Negative, Urine Bilirubin Negative, Urine Urobilinogen 1 H, Ur Leukocyte Esterase 25 H, Urine RBC 25-50 SEEN, Urine WBC 0-5 SEEN, Ur Squamous Epith Cells 0-5 SEEN, Urine Bacteria 3+, Urine Mucus 0 SEEN 06/11/20 18:20: Troponin I 0.075 H 06/11/20 18:20: Triglycerides 168, Cholesterol 230 H, LDL Cholesterol 157 H, VLDL Cholesterol 34, HDL Cholesterol 39 L 06/11/20 22:04: Troponin I 0.073 H 06/11/20 22:04: PT 13.6, INR 1.1, APTT 29.9 06/12/20 07:10: WBC 7.8, RBC 4.85, Hgb 14.7, Hct 46.3, MCV 95.5, MCH 30.3, MCHC 31.7 L, RDW Std Deviation 46.1 H, RDW Coeff of Shae 13.1, Plt Count 144 L, MPV 13.1 H, Immature Gran % (Auto) 0.300, Neut % (Auto) 58.8, Lymph % (Auto) 32.1, [place] % (Auto) 7.3, Eos % (Auto) 1.1, Baso % (Auto) 0.4, Absolute Neuts (auto) 4.6, Absolute Lymphs (auto) 2.52, Nucleated RBC % 0 06/12/20 07:10: Sodium 141, Potassium 4.0, Chloride 109 H, Carbon Dioxide 29.0, Anion Gap 3 L, BUN 16, Creatinine 0.75, Estim Creat Clear Calc 82.32, Est GFR (MDRD) Af Amer 101, Est GFR (MDRD) Non-Af 84, BUN/Creatinine Ratio 21.4 H, Glucose 129 H, Calcium 8.7 06/12/20 07:10: APTT 50.9 H Current Medications Acetaminophen (Acetaminophen 325 Mg Tablet) 650 mg PO Q6H PRN PRN PRN Reason: Pain Score 1-10/Temp > 100.7 F Heparin Sodium (Porcine) (Heparin Injection (Vial) 5,000 Unit/Ml Vial) 0 unit IV UD PRN; Protocol PRN Reason: dose adjustment Sodium Chloride () 1,000 mls @ 75 mls/hr IV .[id number] [facility] Last Admin: 06/12/20 11:09 Dose: 75 mls/hr Documented by: Heparin Sodium/Dextrose () 25,000 units in 250 mls @ 10 mls/hr IV .Q25H [facility]; Protocol Last Titration: 06/12/20 09:06 Dose: 1,100 units/hr, 11 mls/hr Documented by: Sodium Chloride () 250 mls @ 15 mls/hr IV .[id number] PRN PRN Reason: Saline Flush Melatonin (Melatonin 3 Mg Tablet) 3 mg PO QHS PRN PRN PRN Reason: INSOMNIA Nitroglycerin (Nitroglycerin (Inpatient Use) 0.4 Mg Tab.Subl) 0.4 mg SUBLINGUAL Q5M PRN PRN Reason: CARDIAC/CHEST PAIN Nystatin (Nystatin Powder 15gm Bottle) 1 applic TOPICAL BID [facility]; Protocol Last Admin: 06/12/20 08:29 Dose: 1 applicatio Documented by: Ondansetron HCl (Ondansetron 4 Mg/2 Ml Vial) 4 mg IV Q8H PRN PRN PRN Reason: NAUSEA/VOMITING Sodium Chloride (0.9% Saline Lock 10 Ml Syringe) 10 - 40 ml IV UD PRN PRN Reason: SALINE FLUSH STROKE Vital Signs/Narrative: Vital Signs Temp Pulse Resp BP Pulse Ox 06/12/20 09:20 64 06/12/20 08:32 36.6 C 61 18 131/77 H 97 Medical Necessity - Tobacco Use Smoking Status: Never smoker Assessment/Plan All Active Problems (Last Reviewed 08/09/19 @ 11:23 by Shiela Mendoza GRADUATE NURSE, GRADUATE NURSE-C) Chest pain (Acute) Elevated troponin (Acute) Suspected COVID-19 virus infection (Acute) H/O: hysterectomy (Resolved) History of tonsillectomy (Resolved) H/O right heart catheterization (Resolved) History of left heart catheterization (Resolved 12/18/18) Rapid palpitations (Acute) 1. chest pain: minimal elevation of troponin. on heparin gtt. cardiology on consult 2. RLQ abdominal pain: CT ab/pelvis 3. VTE proph: anticoagulated Inpatient E&M: 04124 Subs Hosp L2
--- NOTE | 2020-06-12 13:23 | CON.PCM_ITS ---
Problem List (1) Elevated troponin Status: Acute Reason for Consult Date of Consultation: 06/12/20 Reason for Consultation: Non-STEMI History of Present Illness: The patient is a 59 year old F for the last 3 days has been having exertional chest discomfort relieved by resting. This could also triggered by tachycardia of the heart. Also at the meantime patient had lower abdominal cramps with diarrhea. The chest pain admission was similar that the pain he had in December 2018. December of last year, patient had a non-STEMI, cardiac catheterization showed ostial diagonal disease and diffusely diseased small right coronary artery. She was treated medically. She is known to have hypertension, type 2 diabetes and hyperlipidemia. Her LDL on admission was 159. She is a non-smoker nondrinker. Enzymes were elevated. EKG shows sinus rhythm with ST depression seen in anterolateral leads suggestive of ischemia. Since admission, IV heparin was started and the patient's chest pain has not returned. [] Past Medical History Allergies/Adverse Reactions: Allergies potassium chloride Adverse Reaction (Verified 06/11/20 15:21) diarrhea diarrhea Home Medications: Ambulatory Orders Medication Instructions Recorded metFORMIN (XR) [Glucophage Xr] 1,000 mg PO BID 12/15/13 Sertraline HCl [Zoloft] 100 mg PO DAILY 05/31/15 Lisinopril [Zestril] 5 mg PO DAILY 02/04/16 Atorvastatin Calcium [Lipitor] 40 mg PO QHS 12/16/18 Furosemide [Lasix] 20 mg PO BID 11/10/19 amlodipine 5 mg tablet 5 mg PO DAILY #90 tab 01/29/20 apixaban 5 mg tablet 5 mg PO BID 03/09/20 metoprolol succinate 50 mg 25 mg PO DAILY tab 03/09/20 tablet,extended release 24 hr Lactobacillus Acidophilus 2 ea PO DAILY 03/31/20 [Acidophilus] Pantoprazole Sodium 20 mg PO DAILY 03/31/20 Past Medical History (Chronic Problems): Chronic Problems (Last Reviewed 08/09/19 @ 11:23 by Shiela Mendoza EQUAL EMPLOYMENT OPPORTUNITY OFFICER, EQUAL EMPLOYMENT OPPORTUNITY OFFICER-C) Type 2 diabetes mellitus (Chronic) Depression (Chronic) History of lipoma (Chronic) Obesity (BMI 30-39.9) (Chronic) Essential (primary) hypertension (Chronic) Atherosclerosis of coronary artery of [place] heart without angina pectoris (Chronic) Anomalous coronary artery origin (Chronic) Paroxysmal A-fib (Chronic) Chronic diastolic CHF (congestive heart failure) (Chronic) Essential (primary) hypertension (Chronic) Hyperlipidemia (Chronic) Sleep apnea (Chronic) Chronic anticoagulation (Chronic) Sleep disorder breathing (Chronic) Surgical History: hysterectomy, - - Scar tissue was removed from her abdomen. - *Family History Maternal Family History: Family History (Last Reviewed 08/09/19 @ 11:23 by Shiela Mendoza NP, EQUAL EMPLOYMENT OPPORTUNITY OFFICER-C) Grandmother Diabetes Breast cancer Sister Breast cancer History Items: Heart Disease - Her grandmother had a heart attack. Patient does not know the age that her grandmother had the heart attack. Paternal Family History: Family History (Last Reviewed 08/09/19 @ 11:23 by Shiela Mendoza NP, EQUAL EMPLOYMENT OPPORTUNITY OFFICER-C) Grandmother Diabetes Breast cancer Sister Breast cancer History Items: Heart Disease - Her father had a heart attack when he was in his 60s to 70s. Lives: Spouse/ Significant Other Smoking Status: Never smoker Alcohol: None Drugs: None Review of Systems - Review of Systems General: Reports: Fatigue, Weakness Cardiovascular: Reports: Chest Discomfort, Shortness of Breath Gastrointestinal: Reports: Abdominal Discomfort, Diarrhea Genitourinary: Denies: Dysuria, Hematuria Neurological: Reports: Weakness Objective: Vital Signs Temp Pulse Resp BP Pulse Ox 97.8 F 64 18 131/77 H 97 06/12/20 08:32 06/12/20 09:20 06/12/20 08:32 06/12/20 08:32 06/12/20 08:32 Oxygen Delivery Method Room Air Weight: 251 lb Body Mass Index (BMI) 37.0 Intake and Output for Last 24 Hours 06/10/20 06/11/20 06/12/20 23:59 23:59 23:59 Intake Total 2318 / 2318 Output Total 200 / 200 Balance 2117 / 2117 General: Awake, Alert, Oriented x 3, Cooperative Neck: Supple Lungs: Clear to auscultation Cardiovascular: Regular Rhythm, Normal S1, Normal S2, No Murmurs, No Rubs, No Gallops Vascular: No Carotid Bruits, Normal Femoral Pulses, Normal Radial Pulses, Normal Dorsalis Pedal Pulse, Normal Posterior Tibial Pulses Abdomen: Bowel Sounds Present, Soft, Non Tender - Tenderness on palpation of the right lower quadrant, No HSM, No Organomegaly Psych/Mental Status: Appropriate, Normal Affect 06/11/20 15:20: WBC 7.3, RBC 5.12, Hgb 15.2 H, Hct 48.4 H, MCV 94.5, MCH 29.7, MCHC 31.4 L, Plt Count 172, MPV 13.0 H, Immature Gran % (Auto) 0.100, Neut % (Auto) 61.0, Lymph % (Auto) 29.7, [place] % (Auto) 7.6, Eos % (Auto) 1.2, Baso % (Auto) 0.4, Absolute Neuts (auto) 4.5, Nucleated RBC % 0 06/11/20 15:20: Sodium 142, Potassium 3.8, Chloride 109 H, Carbon Dioxide 31.0, Anion Gap 2 L, BUN 17, Creatinine 0.88, Est GFR (MDRD) Af Amer 84, Est GFR (MDRD) Non-Af 70, BUN/Creatinine Ratio 19.4, Glucose 149 H, Calcium 9.5, Troponin I 0.065 H 06/11/20 15:41: Urine Color Straw, Urine Clarity Cloudy, Urine pH 7.0, Ur Specific [place] 1.015, Urine Protein 15 H, Urine Glucose (UA) Normal, Urine Ketones Negative, Urine Occult Blood 250 H, Urine Nitrite Negative, Urine Bilirubin Negative, Urine Urobilinogen 1 H, Ur Leukocyte Esterase 25 H, Urine RBC 25-50 SEEN, Urine WBC 0-5 SEEN 06/11/20 18:20: Troponin I 0.075 H 06/11/20 18:20: Triglycerides 168, Cholesterol 230 H, LDL Cholesterol 157 H, VLDL Cholesterol 34, HDL Cholesterol 39 L 06/11/20 22:04: Troponin I 0.073 H 06/11/20 22:04: PT 13.6, INR 1.1, APTT 29.9 06/12/20 07:10: WBC 7.8, RBC 4.85, Hgb 14.7, Hct 46.3, MCV 95.5, MCH 30.3, MCHC 31.7 L, Plt Count 144 L, MPV 13.1 H, Immature Gran % (Auto) 0.300, Neut % (Auto) 58.8, Lymph % (Auto) 32.1, [place] % (Auto) 7.3, Eos % (Auto) 1.1, Baso % (Auto) 0.4, Absolute Neuts (auto) 4.6, Nucleated RBC % 0 06/12/20 07:10: Sodium 141, Potassium 4.0, Chloride 109 H, Carbon Dioxide 29.0, Anion Gap 3 L, BUN 16, Creatinine 0.75, Est GFR (MDRD) Af Amer 101, Est GFR (MDRD) Non-Af 84, BUN/Creatinine Ratio 21.4 H, Glucose 129 H, Calcium 8.7 06/12/20 07:10: APTT 50.9 H Rhythm: EKG: ECHO: Stress Test: Cardiac Cath: PCI: CT Surgery: Holter monitor: EPS: PPM: CXR: Chest CT Scan: Assessment/Plan #1 non-STEMI with functional class III angina. Troponin was elevated. EKG showed ST depression seen in anterolateral leads. We will proceed with cardiac catheterization. Patient has given the consent #2 colitis with low abdominal pain and diarrhea. C. difficile test was negative 3 known history of diagonal branch disease and small diseased right coronary artery which, all of the left coronary cusp #4 hypertension, diabetes and hyperlipidemia
--- NOTE | 2020-06-12 13:49 | CASEMGMT ---
Insurance review for hospitals In-network with [facility] Insurance if transfer is recommended is as follows: [facility], [facility], [facility], [facility], [facility], [facility], [facility] ([facility]), and . Anne BOOKERN RN CM
[2020-06-12] MEDS: Aspirin 81 MG TAB.CHEW PO (13:56)
--- NOTE | 2020-06-12 14:07 | NURSING ---
Gave report to Porter BENNETT in [employer]
--- NOTE | 2020-06-12 14:30 | CASEMGMT ---
RN CM NOTE: To room to complete initial RN CM assessment. Pt is out of room at this time. RN CM to attempt at a later time. Anne BSN RN CM
--- NOTE | 2020-06-12 14:58 | PCM.OP.PRO ---
Problem List (1) Elevated troponin Status: Acute Comment: 59-year-old white female with exertional angina and elevated troponin Procedure Report Date of Procedure: 06/12/20 Procedure: Left heart cardiac catheterization and coronary arteriography Clinical history: 59-year-old white female with severe hyperlipidemia, exertional angina and elevated enzymes Indication: Angina and elevated enzymes Heart failure: None Stress/imaging: None CAD presentation: As stated above Summary: #1 50% proximal diagonal branch stenoses #2 patient is chest pain is unlikely due to cardiac ischemia and can be treated medically #3 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 Lipitor will be increased to 80 mg daily together with Zetia 10 mg daily Procedure Details The risks, benefits, complications, treatment options, and expected outcomes were discussed with the patient. The patient and/or family concurred with the proposed plan, giving informed consent. Patient was brought to the pharmaceutical laboratory technician after IV hydration . Patient was further sedated with IV conscious sedation. Subject was prepped and draped in the usual manner. Using the modified Seldinger access technique, a 6 [place] sheath was placed in the right radial. Standard diagnostic catheters were used. Exchanges were performed over J-wire. At the end of the procedures, all catheters and sheaths were removed and bleeding was stopped with closure device using TR band Findings: Left ventriculogram: Not performed Moderate Sedation: Conscious sedation was administered under my supervision with cardiorespiratory monitoring performed by independent and qualified nursing personnel. Medications and dosages are recorded separately in the electronic medical record. Hemodynamics: 80 bpm, 140/70 Coronary Anatomy: Right dominant Left Main : Normal LAD: Left anterior descending was normal in caliber, wraps around the apex and free of significant disease Diagonals : The first major diagonal branch is narrowed 50% proximally over a short segment otherwise it was free of significant disease Circumflex : Left circumflex was normal sized vessel and supplied to obtuse marginal branches. They were normal Major Obtuse Marginals : As stated above Right Coronary Artery: Right coronary artery arises from the left coronary cusp and free of significant disease Estimated Blood Loss: Minimal} Complications: None Disposition condition: Stable
[2020-06-12] MEDS: Atorvastatin Calcium 80 MG Tablet PO (21:08)
[2020-06-12] MEDS: 0.9% Normal Saline 1,000 ML 100 ML IV (23:41)
[2020-06-13 03:00] VITALS: PULSE 65
[2020-06-13 03:15] VITALS: BP 138/81; PULSE 65; RESP 16; TEMP 37.2; O2SAT 93
[2020-06-13 07:00] VITALS: PULSE 66
[2020-06-13] MEDS: Aspirin 81 MG TAB.CHEW PO (08:21)
[2020-06-13] MEDS: Nystatin Powder 15gm Bottle 1 APPLIC TOPICAL (08:22)
[2020-06-13] MEDS: Ezetimibe 10 MG Tablet PO (08:22)
[2020-06-13] MEDS: 0.9% Normal Saline 1,000 ML 100 ML IV (08:25)
[2020-06-13 08:27] VITALS: BP 116/66; PULSE 68; RESP 18; TEMP 36.4; O2SAT 95
--- NOTE | 2020-06-13 09:09 | PCM.DC ---
- Discharge Diagnoses Current Active Problems: Current Active and Chronic Problems (Last Reviewed 08/09/19 @ 11:23 by Shiela Mendoza AGRONOMY RESEARCH MANAGER, AGRONOMY RESEARCH MANAGER-C) Chest pain (Acute) Elevated troponin (Acute) 59-year-old white female with exertional angina and elevated troponin Suspected COVID-19 virus infection (Acute) Type 2 diabetes mellitus (Chronic) Depression (Chronic) Essential (primary) hypertension (Chronic) Atherosclerosis of coronary artery of [place] heart without angina pectoris (Chronic) Paroxysmal A-fib (Chronic) Chronic diastolic CHF (congestive heart failure) (Chronic) Hyperlipidemia (Chronic) Sleep apnea (Chronic) You will use the following diet at home:: Calorie/Carbohydrate Controlled (specify 1200, 1400, etc) - 1800 kcal/day, Cardiac Your food should be the consistency of: Regular Your liquids should be the consistency of: Regular/Thin Call your doctor if you observe: Fever of 101 or Higher, Shortness of breath, - - worsening abdominal pain Allergies/Adverse Reactions: Allergies potassium chloride Adverse Reaction (Verified 06/11/20 15:21) diarrhea diarrhea Medications to take at Discharge Sertraline HCl [Zoloft] 100 mg PO DAILY 05/31/15 Lisinopril [Zestril] 5 mg PO DAILY 02/04/16 Furosemide [Lasix] 20 mg PO BID 11/10/19 amlodipine 5 mg tablet 5 mg PO DAILY #90 tab 01/29/20 apixaban 5 mg tablet 5 mg PO BID 03/09/20 metoprolol succinate 50 mg tablet,extended release 24 hr 25 mg PO DAILY tab 03/09/20 Lactobacillus Acidophilus [Acidophilus] 2 ea PO DAILY 03/31/20 Pantoprazole Sodium 20 mg PO DAILY 03/31/20 Aspirin [Aspirin, Baby] 81 mg PO DAILY@0800 tab.chew 06/13/20 Atorvastatin Calcium [Lipitor] 80 mg PO QHS #30 tab 06/13/20 Ezetimibe [Zetia] 10 mg PO DAILY #30 tab 06/13/20 metFORMIN (XR) [Glucophage Xr] 1,000 mg PO BID #0 06/13/20 The following prescriptions were given: Atorvastatin Calcium [Lipitor] 80 mg PO QHS #30 tab Transmission Status: Pending to [facility] Ezetimibe [Zetia] 10 mg PO DAILY #30 tab Transmission Status: Pending to [facility] Primary Care Physician: Addis Prather MD [Primary Care Provider] - Within 2 Weeks Test Results: Test results from this visit will be discussed in further detail at your follow-up appointment, if applicable. Please Follow Up With: David Eli MD When: 1-2 months Proposed Discharge Date: 06/13/20
--- NOTE | 2020-06-13 09:11 | PCM.DC.SUM ---
Discharge Date and Diagnosis - Problem List Patient Problems: Active and Suspected Problems (Last Reviewed 08/09/19 @ 11:23 by Shiela Mendoza CONTINUOUS MINING OPERATOR, CONTINUOUS MINING OPERATOR-C) Chest pain (Acute) Elevated troponin (Acute) 59-year-old white female with exertional angina and elevated troponin Date of Admission: 06/11/20 Date of Discharge: 06/13/20 - Primary Discharge Diagnosis Acute Problems: Active Problems (Last Reviewed 08/09/19 @ 11:23 by Shiela Mendoza CONTINUOUS MINING OPERATOR, CONTINUOUS MINING OPERATOR-C) Chest pain (Acute) Elevated troponin (Acute) 59-year-old white female with exertional angina and elevated troponin Suspected COVID-19 virus infection (Acute) - Secondary Discharge Diagnosis Chronic Problems: Chronic Problems (Last Reviewed 08/09/19 @ 11:23 by Shiela Mendoza CONTINUOUS MINING OPERATOR, CONTINUOUS MINING OPERATOR-C) Type 2 diabetes mellitus (Chronic) Depression (Chronic) History of lipoma (Chronic) Obesity (BMI 30-39.9) (Chronic) Essential (primary) hypertension (Chronic) Atherosclerosis of coronary artery of [place] heart without angina pectoris (Chronic) Anomalous coronary artery origin (Chronic) Paroxysmal A-fib (Chronic) Chronic diastolic CHF (congestive heart failure) (Chronic) Essential (primary) hypertension (Chronic) Hyperlipidemia (Chronic) Sleep apnea (Chronic) Chronic anticoagulation (Chronic) Sleep disorder breathing (Chronic) Hospital Course and Treatment Imaging Results: Clinical Impression(s) from Imaging Studies Chest X-Ray 06/11/20 15:47 IMPRESSION: Stable, nonacute portable x-ray examination of the chest. Electronically Signed: Reji Barcenas MD (Bro[place]) at 16:12 EST , Service support , Abdomen/Pelvis CT 06/12/20 09:10 IMPRESSION: 1. Nonvisualization of the appendix but no inflammatory changes of the fat around the cecum and terminal ileum. This is unchanged. 2. A few small diverticula in the sigmoid colon without diverticulitis. 3. No suspicious mass or lymphadenopathy in the abdomen and pelvis. 4. Small nonenhancing hypodense cyst in the right kidney and 2 small nonenhancing hypodense cysts in the left kidney. 5. Prominent L4-L5 posterior annular bulging disc with suspicious pronounced central canal stenosis. The AP canal diameter is 4.5 mm. 6. No interval change when compared to 03/31/2020. 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 Lipitor will be increased to 80 mg daily together with Zetia 10 mg daily Ty Lo: cardiology Operations: None Procedures: Cardiac catheterization Summary of Care Provided: The patient is a 59 year old F presents with chest pain, diarrhea and chills. Patient had some minimal elevation in troponins and was seen by cardiology who performed a left heart catheterization. Patient was found to have 50% proximal diagonal branch stenosis but no obvious etiology of chest pain from a cardiac standpoint was identified. Patient did have abdominal pain and it was in the right lower quadrant. Patient did have a CAT scan of her abdomen pelvis. CAT scan was unremarkable. Patient did have stool studies for enteric pathogen's as well as C. difficile which were negative. Patient may have had a gastroenteritis that may have precipitated her symptoms. With the fevers, patient was checked for Covid antigen which was negative. To confirm is true negative a PCR was performed and that itself was negative. Today, the patient is feeling much better. Cardiology made recommendation of increasing the patient's atorvastatin to 80mg and also adding Zetia. Patient will be discharged home in stable condition. [] Patient Problems: Active and Suspected Problems (Last Reviewed 08/09/19 @ 11:23 by Shiela Mendoza CONTINUOUS MINING OPERATOR, CONTINUOUS MINING OPERATOR-C) Chest pain (Acute) Elevated troponin (Acute) 59-year-old white female with exertional angina and elevated troponin - Physical Exam Vitals/I&O's: Vital Signs Temp Pulse Resp BP Pulse Ox 36.4 C L 68 18 116/66 95 06/13/20 08:27 06/13/20 08:27 06/13/20 08:27 06/13/20 08:27 06/13/20 08:27 Oxygen Delivery Method Room Air Weight: 113.852 kg Body Mass Index (BMI) 37.0 Intake and Output for Last 24 Hours 06/11/20 06/12/20 06/13/20 23:59 23:59 23:59 Intake Total 3588.42 / 3888.42 1273.33 / 1273.33 Output Total 200 / 200 Balance 3388.42 / 3688.42 1273.33 / 1273.33 General: Alert, No apparent distress HEENT: Atraumatic, Normocephalic Oral: Moist Mucosa, No Gingival or Mucosal Lesions/ Ulcerations Neck: No Nodes, Thyroid Normal Size and Texture Lungs: Clear to auscultation, Normal air movement, No rhonchi, No wheeze Cardiovascular: Regular rate, Regular Rhythm, Normal S1, Normal S2 Abdomen: Bowel Sounds Present, Soft, Non Tender, Non-Distended, No Hepato-splenomegaly Microbiology Past 72 Hours 06/12/20 09:15 Stool Stool Lactoferrin - Final 06/12/20 09:15 Stool Enteric Bacteriology - Final 06/12/20 09:15 Stool C. difficile DNA Amplification - Final 06/11/20 17:15 Mucosa - Nose SARS-CoV-2 Antigen (Rapid) - Final Laboratory Results 06/12/20 15:17: APTT 76.0 H Current Medications Acetaminophen (Acetaminophen 325 Mg Tablet) 650 mg PO Q6H PRN PRN PRN Reason: Pain Score 1-10/Temp > 100.7 F Aspirin (Aspirin 81 Mg Tab.Chew) 81 mg PO DAILY@0800 [facility] Last Admin: 06/13/20 08:21 Dose: 81 mg Documented by: Atorvastatin Calcium (Atorvastatin Calcium 80 Mg Tablet) 80 mg PO QHS [facility] Last Admin: 06/12/20 21:08 Dose: 80 mg Documented by: Ezetimibe (Ezetimibe 10 Mg Tablet) 10 mg PO DAILY [facility] Last Admin: 06/13/20 08:22 Dose: 10 mg Documented by: Sodium Chloride () 1,000 mls @ 100 mls/hr IV .Q10H [facility] Last Admin: 06/13/20 08:25 Dose: 100 mls/hr Documented by: Heparin Sodium/Dextrose () 25,000 units in 250 mls @ 10 mls/hr IV .Q25H [facility]; Protocol Last Admin: 06/12/20 16:23 Dose: Not Given Documented by: Sodium Chloride () 250 mls @ 15 mls/hr IV .[id number] PRN PRN Reason: Saline Flush Sodium Chloride () 1,000 mls @ 0 mls/hr IV .Q0M CYRIL Melatonin (Melatonin 3 Mg Tablet) 3 mg PO QHS PRN PRN PRN Reason: INSOMNIA Nitroglycerin (Nitroglycerin (Inpatient Use) 0.4 Mg Tab.Subl) 0.4 mg SUBLINGUAL Q5M PRN PRN Reason: CARDIAC/CHEST PAIN Nystatin (Nystatin Powder 15gm Bottle) 1 applic TOPICAL BID [facility]; Protocol Last Admin: 06/13/20 08:22 Dose: 1 applicatio Documented by: Ondansetron HCl (Ondansetron 4 Mg/2 Ml Vial) 4 mg IV Q8H PRN PRN PRN Reason: NAUSEA/VOMITING Sodium Chloride (0.9% Saline Lock 10 Ml Syringe) 10 - 40 ml IV UD PRN PRN Reason: SALINE FLUSH Discharge Diet: Low fat/ Low Cholesterol, 1999 Calorie Control Diet Discharge Activity: Return to Normal Activity Call your doctor if you observe: Fever of 101 or Higher, Shortness of breath, - - worsening abdominal pain Home Medications: Medications to take at Discharge Sertraline HCl [Zoloft] 100 mg PO DAILY 05/31/15 Lisinopril [Zestril] 5 mg PO DAILY 02/04/16 Furosemide [Lasix] 20 mg PO BID 11/10/19 amlodipine 5 mg tablet 5 mg PO DAILY #90 tab 01/29/20 apixaban 5 mg tablet 5 mg PO BID 03/09/20 metoprolol succinate 50 mg tablet,extended release 24 hr 25 mg PO DAILY tab 03/09/20 Lactobacillus Acidophilus [Acidophilus] 2 ea PO DAILY 03/31/20 Pantoprazole Sodium 20 mg PO DAILY 03/31/20 Aspirin [Aspirin, Baby] 81 mg PO DAILY@0800 tab.chew 06/13/20 Atorvastatin Calcium [Lipitor] 80 mg PO QHS #30 tab 06/13/20 Ezetimibe [Zetia] 10 mg PO DAILY #30 tab 06/13/20 metFORMIN (XR) [Glucophage Xr] 1,000 mg PO BID #0 06/13/20 Following Prescriptions Were Given to Patient: Atorvastatin Calcium [Lipitor] 80 mg PO QHS #30 tab Transmission Status: Pending to [facility] Ezetimibe [Zetia] 10 mg PO DAILY #30 tab Transmission Status: Pending to [facility] Primary Care Physician: Addis Prather MD [Primary Care Provider] - Within 2 Weeks Please Follow Up With: David Eli MD When: 1-2 months Disposition: Home Minutes spent on discharge:: 32 Patient Condition:: Good Medical Necessity - Tobacco Use Smoking Status: Never smoker Meaningful Use Info Meaningful Use Diagnoses (Choose all that apply): None applicable Inpatient E&M: [id number] [facility]
--- NOTE | 2020-06-13 10:00 | CASEMGMT ---
RN CM Face to Face with patient for initial transition planning/care coordination assessment. RN CM introduced self and role at [facility]. Patient lying in bed, alert and oriented. Patient willing to participate in assessment and is able to answer all questions appropriately. Care providers, pharmacy, and demographics verified. Patient wishes to discharge home, denies need for home health at this time. Patient states he has no further needs or concerns at this time. CM to follow for discharge planning needs that may arise. PCP: [facility] Specialists: [employer] 1 thru 5 teacher [facility]erred [facility] Insurance: [employer] Prescription Benefit: yes Living Will/HPOA: none LNOK: Living Arrangements: Patient lives with in a first floor apartment with no steps. Patient states she is independent at home. Transportation: self/ DME/HHC: patient has cpap and home oxygen 2lpm at through [employer]. Patient denies previous HHC Disposition Plan: Patient to discharge home with family support and follow-up plans in place. Maribel BOOKERN, RN, CM
--- NOTE | 2020-06-13 10:04 | PCM.PN.CARD ---
Subjectve: No recurrence of chest pain. Abdominal cramping has improved. No diarrhea today. Cardiac catheterization done yesterday showed only 50% stenosis of the proximal major diagonal branch. There was preserved left ventricular systolic wall motion. Objective: Vital Signs Temp Pulse Resp BP Pulse Ox 97.5 F L 68 18 116/66 95 06/13/20 08:27 06/13/20 08:27 06/13/20 08:27 06/13/20 08:27 06/13/20 08:27 Oxygen Delivery Method Room Air Weight: 251 lb Body Mass Index (BMI) 37.0 Intake and Output for Last 24 Hours 06/11/20 06/12/20 06/13/20 23:59 23:59 23:59 Intake Total 3588.42 / 3888.42 1273.33 / 1273.33 Output Total 200 / 200 Balance 3388.42 / 3688.42 1273.33 / 1273.33 General: Healthy Appearing, No Acute Distress Neck: Supple Lungs: Clear to auscultation Cardiovascular: Regular Rhythm, Normal S1, Normal S2, No Murmurs, No Rubs, No Gallops Vascular: - - Right radial pulse is normal Abdomen: Bowel Sounds Present, Soft, Non Tender, No HSM, No Organomegaly Neurological: No Focal Motor or Sensory Deficit 06/12/20 15:17: APTT 76.0 H Rhythm: EKG: ECHO: Stress Test: Cardiac Cath: PCI: CT Surgery: Holter monitor: EPS: PPM: CXR: Chest CT Scan: Medical Necessity - Tobacco Use Smoking Status: Never smoker Assessment/Plan #1 Despite blood work suggestive of non-STEMI with functional class III angina, cardiac catheterization showed insignificant coronary artery disease. Hemodynamically stable. From cardiac standpoint patient can be discharged and to be followed with Dr Eli in 1 month #2 colitis with low abdominal pain and diarrhea. C. difficile test was negative 3 known history of diagonal branch disease and small diseased right coronary artery which, all of the left coronary cusp #4 hypertension, diabetes and hyperlipidemia
--- NOTE | 2020-06-15 13:40 | CASEMGMT ---
[facility] DC PHONE CALL DC DATE: 06/13/2020 DC DISPOSITION: Home DC DIAGNOSIS: Chest pain, elevated troponin LACE/STRATA: 05/19 F/U APPTS MADE PRIOR TO DC: no (weekend dc) Attempted call to phone. No answer and no messaging with name identifier. Aldo BOOKERN RN AC
== END 2020-06-13 11:15 | disposition home or self-care (01) | DRG 190 ==
LOC: ED 19:18 → MS2 19:54 → PCU 06-12 09:51
PROVIDERS: Admitting Provider Family Medicine; Emergency Provider Emergency Medicine; PCP Internal Medicine
DX: I21.4 Non-ST elevation (NSTEMI) myocardial infarction (principal); I25.118 Atherosclerotic heart disease of native coronary artery with other forms of angina pectoris; I48.0 Paroxysmal atrial fibrillation; I25.2 Old myocardial infarction; I11.0 Hypertensive heart disease with heart failure; I50.32 Chronic diastolic (congestive) heart failure; F32.9 Major depressive disorder, single episode, unspecified; F41.9 Anxiety disorder, unspecified; E11.9 Type 2 diabetes mellitus without complications; E78.49 Other hyperlipidemia; E66.9 Obesity, unspecified; G47.30 Sleep apnea, unspecified; K52.9 Noninfective gastroenteritis and colitis, unspecified; K21.9 Gastro-esophageal reflux disease without esophagitis; Z68.38 Body mass index [BMI] 38.0-38.9, adult; Z90.710 Acquired absence of both cervix and uterus; Z79.84 Long term (current) use of oral hypoglycemic drugs; Z79.01 Long term (current) use of anticoagulants; Z79.899 Other long term (current) drug therapy
CPT/HCPCS: 36415; 71045; 74177; 80048; 80061; 81001; 83630; 84484; 85025; 85610; 85730; 87426; 87493; 87506; 87635; 93005; 93454; 99283; J7030; Q9967; A4216; C1769; C1894; U0002; U0003

== ENCOUNTER 2020-07-06 16:29 | Emergency (ER) | payer MEDICAID, SELFPAY ==
[2020-07-06 16:30] VITALS: BP 131/79; PULSE 90; RESP 16; TEMP 37.3; O2SAT 96; BMI 36.1
--- NOTE | 2020-07-06 17:24 | ED.VIS.GEN ---
History of Present Illness Chief Complaint: General Illness Informant: Patient Onset: Days Context: Gradual Onset Timing: Continuous Current Severity: Moderate Maximum Severity: Moderate Narrative: The patient is a 59-year-old female who presents to the emergency department with multiple complaints. She states for the past 2 days, she has had chills, myalgias, scant cough, and diarrhea. She states she is had some diffuse abdominal cramping. She is also been nauseated and has had lack of appetite. She is unsure if she is had fever. She denies orthopnea. She denies any exertional dyspnea. She states that she just feels generally weak. She has been compliant with her medications. She denies any blood in the emesis or in her diarrhea. She denies any recent sick contacts. She states that she was tested for Covid last month and was negative. Prior similar symptoms: No Recent Illness/Hospitalization: No Past Medical History - Allergies and Home Meds Allergies/Adverse Reactions: Allergies potassium chloride Adverse Reaction (Verified 06/11/20 15:21) diarrhea diarrhea Primary Care Physician: Addis Prather MD [Primary Care Provider] - Prior records reviewed: Yes Past Medical History: - - Hypertension, hyperlipidemia Surgical History: hysterectomy, - - Scar tissue was removed from her abdomen. Smoking Status: Never smoker - Family History Maternal Family History: Family History (Last Reviewed 08/09/19 @ 11:23 by Shiela Mendoza NP, TECHNICAL MAINTENANCE SPECIALIST-C) Grandmother Diabetes Breast cancer Sister Breast cancer Family History: Reports: Heart Disease - Her grandmother had a heart attack. Patient does not know the age that her grandmother had the heart attack. Paternal Family History: Family History (Last Reviewed 08/09/19 @ 11:23 by Shiela Mendoza NP, TECHNICAL MAINTENANCE SPECIALIST-C) Grandmother Diabetes Breast cancer Sister Breast cancer Family History: Reports: Heart Disease - Her father had a heart attack when he was in his 60s to 70s. Review of Systems General: Reports: Malaise. Denies: Chills, Fever, Sweats Eyes: Denies: Visual changes - bilaterally, Diplopia ENT: Denies: Rhinorrhea, Sore throat Cardiovascular: Denies: Chest pain, Palpitations Respiratory: Denies: Dyspnea, Cough, Dyspnea on exertion Gastrointestinal: Reports: Nausea, Vomiting, Diarrhea. Denies: Abdominal pain, Melena, Hematochezia Genitourinary: Denies: Dysuria, Hematuria, Frequency Musculoskeletal: Denies: Back pain, Extremity Pain Skin: Denies: Rash, Wounds Neurological: Denies: Headache, Weakness, Numbness Physical Exam Vital Signs/Narrative: Vital Signs Temp Pulse Resp BP Pulse Ox 07/06/20 16:30 99.1 F 90 16 131/79 H 96 Inital Vital Signs reviewed: Yes General: Well nourished, Well developed, No Acute Distress Head: Normocephalic, Atraumatic Eyes: Perrl, EOMI ENT: Moist mucous membranes, No rhinorrhea Neck: Supple, Nontender Cardiovascular: Regular rate, Regular rhythm, No murmurs Respiratory: No distress, CTA bilaterally, Chest nontender Abdomen: Soft, Nontender, Nondistended, Normal bowel sounds Back: Nontender, Normal Inspection Extremities: Nontender, No edema Skin: Normal color, No rash Neurological: Alert, Oriented x3, Cranial nerves II-XII grossly intact, Normal Strength, Normal Sensation Psychological: Normal affect, Normal Mood Diagnostic/Tx/Re-eval Clinical Impression(s) from Imaging Studies Chest X-Ray 07/06/20 18:25 IMPRESSION: Left midlung zone opacity, possibly pneumonia. Refer to confirmatory imaging. Electronically Signed: Davide Vaishnaviary, at 19:12 EST Tel , Service support , Abnormal Lab Results 07/06/20 07/06/20 17:50 17:50 WBC 6.1 RBC 4.96 Hgb 15.8 H Hct 45.4 MCV 91.5 MCH 31.9 MCHC 34.8 RDW Std Deviation 43.3 RDW Coeff of Shae 13.2 Plt Count 116 L MPV 13.5 H Immature Gran % (Auto) 0.300 Neut % (Auto) 74.6 H Lymph % (Auto) 16.2 L [place] % (Auto) 8.6 Eos % (Auto) 0.0 Baso % (Auto) 0.3 Absolute Neuts (auto) 4.5 Absolute Lymphs (auto) 0.98 Nucleated RBC % 0 Sodium 137 Potassium 3.0 L Chloride 104 Carbon Dioxide 28.0 Anion Gap 5 BUN 14 Creatinine 0.81 Estim Creat Clear Calc 76.22 Est GFR (MDRD) Af Amer 92 Est GFR (MDRD) Non-Af 76 BUN/Creatinine Ratio 17.2 Glucose 170 H Calcium 9.0 Total Bilirubin 0.50 AST 26 ALT 48 Alkaline Phosphatase 108 Total Protein 7.1 Albumin 3.4 Globulin 3.7 Albumin/Globulin Ratio 0.9 - Medical Decision Making Patient presents with nausea and generalized malaise. She is not hypoxic or tachypneic. Her symptoms do seem consistent with Covid. Metabolic work-up was pursued. She is hypokalemic, but refuses replacement because she states gives me diarrhea. X-ray reviewed by myself and the radiologist demonstrates patchy infiltrate in the left side consistent with Covid pneumonia. There is no effusion or pneumothorax. Patient's Covid test was positive. Again, she has not been hypoxic. Her symptoms are controlled. I do feel that she is safe for outpatient follow-up. I will start her on Decadron and Zofran. She will be discharged home. Impression 1. COVID-19 2. Hypokalemia ED Disposition - Plan for ED Patient: Instructions: Coronavirus Disease 2019 (COVID-19): Overview Prescriptions: Dexamethasone [Decadron] 6 mg PO DAILY 5 Days #5 tab Prescription Printed Ondansetron [Zofran Odt] 4 mg PO Q8H PRN PRN #10 tab PRN Reason: Nausea Prescription Printed Referrals: Addis Prather MD [Primary Care Provider] -
[2020-07-06] MEDS: 0.9% Normal Saline 1,000 ML 125 ML IV (18:09)
[2020-07-06] MEDS: Ondansetron 4 MG/2 ML Vial IV (18:09)
[2020-07-06 18:13] VITALS: BP 134/66; PULSE 78; RESP 16; O2SAT 91
[2020-07-06 18:19] LABS: Absolute Lymphocyte Count 0.98 X10^3/uL (0.83-4.51); Absolute Neutrophil Count 4.5 X10^3/uL (2.0-7.7); Basophil# 0.02 X10^3/uL; Basophil% 0.3 % (0-1); Hematocrit 45.4 % (37-47); Hemoglobin 15.8 g/dL (12.0-15.0); Lymphocyte # 0.98 X10^3/ul (4.0); Lymphocyte % 16.2 % (19-41); Mean Corp Hgb Conc 34.8 g/dL (32-36); Mean Corpuscular Hgb 31.9 pg (27.0-32.0); Mean Corpuscular Volume 91.5 fL (81-99); Mean Platelet Vol. 13.5 fl (6.2-12.0); Monocyte# 0.52 X10^3/uL; Monocyte% 8.6 % (0-10); NRBC Flagged by Analyzer 0 % (0-5); Neutrophil # 4.52 X10^3/uL (2.7-7.7); Neutrophil % 74.6 % (47-70); Platelet Count 116 K/mm3 (150-450); RBC Distribution Width CV 13.2 % (11.6-14.6); RBC Distribution Width SD 43.3 fl (35.1-43.9); Red Blood Count 4.96 M/mm3 (4.2-5.4); White Blood Count 6.1 K/mm3 (4.4-11.0)
--- NOTE | 2020-07-06 18:25 | RAD_ITS ---
STUDY: X-RAY CHEST REASON FOR EXAM: Female, 59 years old. BODY ACHES AND DIZZINESS X 3 DAYS. HEADACHE. CHILLS. TECHNIQUE: Frontal view of the chest COMPARISON: 11 June 2020 FINDINGS: There is an ill-defined left perihilar and mid lung zone opacity. There is no pneumothorax, pulmonary edema, cardiac megaly or pleural effusions. Osseous structures are intact. RAD/Chest 1 View (Portable) IMPRESSION: Left midlung zone opacity, possibly pneumonia. Refer to confirmatory imaging. Electronically Signed: Davide You, at 19:12 EST Tel , Service support ,
[2020-07-06 18:27] LABS: ALB/GLOB Ratio 0.9 RATIO (0.9-2.4); AST(SGOT) 26 U/L (15-37); Alanine Aminotransfer ALT/SGPT 48 U/L (13-56); Albumin, Serum 3.4 g/dL (3.2-5.0); Alkaline Phosphatase 108 U/L (45-117); Anion Gap 5 (5-15); BUN 14 mg/dL (7-18); BUN/Creat Ratio 17.2 RATIO (10-20); Chloride 104 mmol/L (98-107); Creatinine, Serum 0.81 mg/dL (0.55-1.02); EST Glomerular Filtration Rate 76 mL/min (>60); Est Glom Filt Rate - Afr Amer 92 mL/min (>60); Estimated Creatinine Clearance 76.22 ml/min; Globulin 3.7 g/dL (2.2-4.2); Glucose 170 mg/dL (74-106); Protein, Total 7.1 g/dL (6.4-8.2); Sodium Level 137 mmol/L (136-145)
[2020-07-06 19:00] VITALS: BP 142/68; PULSE 81; RESP 21; TEMP 36.9; O2SAT 93
[2020-07-06 19:50] VITALS: BP 142/68; PULSE 83; RESP 21; O2SAT 94
== END 2020-07-06 19:51 | disposition home or self-care (01) ==
LOC: ED 17:27
PROVIDERS: Emergency Provider Emergency Medicine; PCP Internal Medicine
DX: U07.1 COVID-19 (principal); E87.6 Hypokalemia; R10.9 Unspecified abdominal pain; R11.2 Nausea with vomiting, unspecified; R19.7 Diarrhea, unspecified; I10 Essential (primary) hypertension; E78.5 Hyperlipidemia, unspecified; Z79.01 Long term (current) use of anticoagulants; Z79.84 Long term (current) use of oral hypoglycemic drugs; Z79.82 Long term (current) use of aspirin; Z79.899 Other long term (current) drug therapy
CPT/HCPCS: 71045; 80053; 85025; 87040; 87426; 96361; 96374; 99285; J7030; J2405

== ENCOUNTER 2020-07-11 13:40 | Emergency (ER) | payer MEDICAID, SELFPAY ==
[2020-07-11 13:41] VITALS: BP 133/79; PULSE 87; RESP 16; TEMP 35.8; O2SAT 97; BMI 36.1
[2020-07-11 13:43] VITALS: BP 133/79; PULSE 87; RESP 16; TEMP 35.8; O2SAT 97
--- NOTE | 2020-07-11 14:01 | RAD_ITS ---
STUDY: X-RAY CHEST REASON FOR EXAM: Female, 59 years old. DX COVID 07/06, COUGH TECHNIQUE: Single AP portable view of the chest. COMPARISON: Chest x-ray 5 days prior FINDINGS: Again noted is subtle patchy airspace disease in both lung bases, not definitely changed since prior exam. There is no demonstrated pleural abnormality. Normal size heart. Normal mediastinum and dave. Normal visualized pulmonary arteries. Normal visualized aortic arch and descending thoracic aorta. Normal visualized thoracic spine. Normal visualized ribs, clavicles, and shoulders. There is no demonstrated abnormality of the visualized soft tissue structures of the upper abdomen. RAD/Chest 1 View (Portable) IMPRESSION: Unchanged subtle patchy infiltrate in both lung bases. Electronically Signed: Adrian Chavis DO at 15:18 EST Tel , Service support ,
--- NOTE | 2020-07-11 14:26 | EKG12_ITS ---
Test Reason : Blood Pressure : / mmHG Vent. Rate : 075 BPM Atrial Rate : 075 BPM P-R Int : 176 ms QRS Dur : 094 ms QT Int : 390 ms P-R-T Axes : 018 009 057 degrees QTc Int : 435 ms Normal sinus rhythm Cannot rule out Anterior infarct , age undetermined Abnormal ECG Confirmed by JEFFERSON HARMON, ZULAY ([id number]), sports editor MIRI HERRERA ([id number]) on 07/16/2020 10:11:33 AM Referred By: SITA Confirmed By:EJ PAULINO MD
[2020-07-11] MEDS: 0.9% Normal Saline 1,000 ML 999 ML IV (14:31)
[2020-07-11] MEDS: Ondansetron 4 MG/2 ML Vial IV (14:31)
[2020-07-11 14:52] LABS: Basophil# 0.01 X10^3/uL; Basophil% 0.2 % (0-1); Hematocrit 47.1 % (37-47); Hemoglobin 15.4 g/dL (12.0-15.0); Mean Corp Hgb Conc 32.7 g/dL (32-36); Mean Corpuscular Hgb 28.9 pg (27.0-32.0); Mean Corpuscular Volume 88.4 fL (81-99); Mean Platelet Vol. 13.2 fl (6.2-12.0); Monocyte# 0.41 X10^3/uL; NRBC Flagged by Analyzer 0 % (0-5); Neutrophil # 3.04 X10^3/uL (2.7-7.7); Neutrophil % 66.4 % (47-70); Platelet Count 124 K/mm3 (150-450); RBC Distribution Width CV 12.6 % (11.6-14.6); RBC Distribution Width SD 40.8 fl (35.1-43.9); Red Blood Count 5.33 M/mm3 (4.2-5.4); White Blood Count 4.6 K/mm3 (4.4-11.0)
[2020-07-11 15:39] LABS: ALB/GLOB Ratio 0.9 RATIO (0.9-2.4); AST(SGOT) 38 U/L (15-37); Alanine Aminotransfer ALT/SGPT 50 U/L (13-56); Alkaline Phosphatase 83 U/L (45-117); Anion Gap 7 (5-15); BUN 18 mg/dL (7-18); BUN/Creat Ratio 25.2 RATIO (10-20); Calcium,Total 8.3 mg/dL (8.5-10.1); Chloride 99 mmol/L (98-107); Creatinine, Serum 0.71 mg/dL (0.55-1.02); EST Glomerular Filtration Rate 88 mL/min (>60); Est Glom Filt Rate - Afr Amer 107 mL/min (>60); Estimated Creatinine Clearance 86.96 ml/min; Globulin 3.5 g/dL (2.2-4.2); Glucose 117 mg/dL (74-106); Lipase 48 U/L (73-393); Potassium 3.1 mmol/L (3.5-5.1); Protein, Total 6.5 g/dL (6.4-8.2); Sodium Level 134 mmol/L (136-145)
--- NOTE | 2020-07-11 15:46 | ED.VIS.GEN ---
History of Present Illness Informant: Patient Onset: Weeks - 1 week Context: Gradual Onset Timing: Continuous Quality: fatigue Location: generalized Current Severity: Severe Maximum Severity: Severe Worsened by: movement Relieved by: nothing Associated Symptoms: diarrhea, cough, fever, myalgias Narrative: 59-year-old female history of hypertension hyperlipidemia type 2 diabetes and sleep apnea presents to the emergency department with weakness and fatigue. She had a positive test for COVID-19 5 days ago. Her symptoms began 7 days ago. She feels tired she has not had much of an appetite she has not been eating or drinking very much. She has a nonproductive cough. She has not had a fever for 2 days. She has no vomiting but has 2-3 episodes of loose stools per day. No chest pain or shortness of breath. She is not lightheaded or dizzy. No leg pain or swelling. No hemoptysis. Prior similar symptoms: Yes Recent Illness/Hospitalization: Yes <Hayden Patel - Last Filed: 07/11/20 16:08> <Ty Guerin - Last Filed: 07/11/20 17:08> Chief Complaint: General Illness Past Medical History Prior records reviewed: Yes Past Medical History: - - Hypertension hyperlipidemia type 2 diabetes mellitus sleep apnea Surgical History: hysterectomy, - - Scar tissue was removed from her abdomen. Lives: With Family Smoking Status: Never smoker Alcohol: None Drugs: None - Family History Maternal Family History: Family History (Last Reviewed 08/09/19 @ 11:23 by Shiela Mendoza NP, DIRECTOR HOME-C) Grandmother Diabetes Breast cancer Sister Breast cancer Family History: Reports: Heart Disease - Her grandmother had a heart attack. Patient does not know the age that her grandmother had the heart attack. Paternal Family History: Family History (Last Reviewed 08/09/19 @ 11:23 by Shiela Mendoza NP, DIRECTOR HOME-C) Grandmother Diabetes Breast cancer Sister Breast cancer Family History: Reports: Heart Disease - Her father had a heart attack when he was in his 60s to 70s. <Hayden Patel - Last Filed: 07/11/20 16:08> - Family History Maternal Family History: Family History (Last Reviewed 08/09/19 @ 11:23 by Shiela Mendoza NP, DIRECTOR HOME-C) Grandmother Diabetes Breast cancer Sister Breast cancer Paternal Family History: Family History (Last Reviewed 08/09/19 @ 11:23 by Shiela Mendoza DIRECTOR HOME, DIRECTOR HOME-C) Grandmother Diabetes Breast cancer Sister Breast cancer <Ty Guerin - Last Filed: 07/11/20 17:08> - Allergies and Home Meds Allergies/Adverse Reactions: Allergies potassium chloride Adverse Reaction (Verified 07/11/20 13:40) diarrhea diarrhea Primary Care Physician: Addis Prather MD [Primary Care Provider] - 2 Days Review of Systems All systems negative except as indicated General: Reports: Malaise. Denies: Chills, Fever, Sweats Eyes: Denies: Visual changes - bilaterally, Diplopia ENT: Denies: Rhinorrhea, Sore throat Cardiovascular: Denies: Chest pain, Palpitations, Heart racing Respiratory: Reports: Cough. Denies: Dyspnea, Sputum, Dyspnea on exertion, Orthopnea, Paroxysmal nocturnal dyspnea Gastrointestinal: Reports: Diarrhea. Denies: Abdominal pain, Nausea, Vomiting, Constipation, Melena, Hematochezia Genitourinary: Denies: Dysuria, Hematuria, Frequency Musculoskeletal: Reports: Myalgias. Denies: Back pain, Extremity Pain Skin: Denies: Rash, Abscess, Abrasions, Wounds Neurological: Denies: Headache, Weakness, Numbness <Hayden Patel - Last Filed: 07/11/20 16:08> Physical Exam Vital Signs/Narrative: Vital Signs Temp Pulse Resp BP Pulse Ox 07/11/20 13:43 96.5 F L 87 16 133/79 H 97 07/11/20 13:41 96.5 F L 87 16 133/79 H 97 Inital Vital Signs reviewed: Yes General: Well nourished, Well developed, No Acute Distress Head: Normocephalic, Atraumatic Eyes: Perrl, EOMI ENT: Moist mucous membranes, No rhinorrhea Neck: Supple, Nontender Cardiovascular: Regular rate, Regular rhythm, No murmurs Respiratory: No distress, CTA bilaterally, Chest nontender Abdomen: Soft, Nontender, Nondistended, Normal bowel sounds Back: Nontender, Normal Inspection Extremities: Nontender, No edema Skin: Normal color, No rash Neurological: Alert, Oriented x3, Cranial nerves II-XII grossly intact, Normal Strength, Normal Sensation Psychological: Normal affect, Normal Mood <Hayden Patel - Last Filed: 07/11/20 16:08> Vital Signs/Narrative: Vital Signs Temp Pulse Resp BP Pulse Ox 07/11/20 13:43 96.5 F L 87 16 133/79 H 97 07/11/20 13:41 96.5 F L 87 16 133/79 H 97 <Ty Guerin - Last Filed: 07/11/20 17:08> Diagnostic/Tx/Re-eval Chest X-Ray - ED: 1 View, Read by ED Physician, Read by Radiologist, Right Infiltrate, Left Infiltrate Impressions Chest X-Ray 07/11/20 14:01 IMPRESSION: Unchanged subtle patchy infiltrate in both lung bases. Electronically Signed: Adrian DO Partha at 15:18 EST Tel , Service support , 07/11/20 14:01 Chest 1 View (Portable) [RAD] Stat Laboratory Results 07/11/20 07/11/20 14:30 14:30 WBC 4.6 RBC 5.33 Hgb 15.4 H Hct 47.1 H MCV 88.4 MCH 28.9 MCHC 32.7 D RDW Std Deviation 40.8 RDW Coeff of Shae 12.6 Plt Count 124 L MPV 13.2 H Immature Gran % (Auto) 0.400 Neut % (Auto) 66.4 Lymph % (Auto) 24.0 [place] % (Auto) 9.0 Eos % (Auto) 0.0 Baso % (Auto) 0.2 Absolute Neuts (auto) 3.0 Absolute Lymphs (auto) 1.10 Nucleated RBC % 0 Sodium 134 L Potassium 3.1 L Chloride 99 Carbon Dioxide 28.0 Anion Gap 7 BUN 18 Creatinine 0.71 Estim Creat Clear Calc 86.96 Est GFR (MDRD) Af Amer 107 Est GFR (MDRD) Non-Af 88 BUN/Creatinine Ratio 25.2 H Glucose 117 H Calcium 8.3 L Total Bilirubin 0.60 AST 38 H ALT 50 Alkaline Phosphatase 83 Troponin I 0.122 H Total Protein 6.5 Albumin 3.0 L Globulin 3.5 Albumin/Globulin Ratio 0.9 Lipase 48 L - Rhythm Strip Rhythm Strip: Sinus Rhythm Rate: 75 Ectopy: None - EKG Initial EKG Interpretation: Sinus Rhythm, No Acute Injury Pattern Prior: Unchanged - Medical Decision Making Patient presents with symptoms related to COVID-19. On arrival her vital signs are stable. Her pulse ox is 97%. Blood pressure and heart rate were within normal limits. She was given a liter of IV fluids and IV Zofran. Chest x-ray was obtained which showed chronic changes bilaterally from Covid unchanged from her x-ray 5 days ago. EKG was sinus rhythm rate of 75 bpm. No acute ischemic changes. Unchanged from previous EKG. Patient's laboratory work-up was unremarkable. Her troponin was 0.1. She has had elevated troponins in the past. In addition last month she was admitted for chest pain and had a cardiac catheterization that did not require intervention. After fluids and Zofran the patient feels improved. Vital signs remained stable. She is tolerating by mouth. She is comfortable with discharge home. Zofran was prescribed. <Hayden Patel PA - Last Filed: 07/11/20 16:08> - Medical Decision Making Patient was seen with me. I did a dnbt-de-gils examination with the patient. Patient presents with general weakness and diarrhea. Patient states she was recently tested for COVID-19 and was positive. Patient states she feels weak all over. Patient denies any nausea or vomiting but admits to the diarrhea. Patient denies any melena or hematochezia. Patient denies any recent fevers or chills. Vital signs are stable. Patient is afebrile. Patient is in no acute distress. Oral mucosa is pink and moist. Neck is supple. Trachea is midline. There is no JVD. Heart was regular rate and rhythm. Lungs are clear and equal bilaterally. Abdomen is soft. Bowel sounds are normal. There is no tenderness. There is no guarding. Cranial nerves II through XII are intact. There are no focal motor or sensory deficits noted. EKG was obtained. There is a normal sinus rhythm with a rate of 75. There are no acute ST or T wave changes. This was interpreted by the emergency physician. Portable 1 view chest x-ray was obtained. On my interpretation, lung hinton are unchanged from previous x-ray. There is some left lower lobe atelectasis or infiltrate. There is also a questionable subtle patchy infiltrate in the right lower lung. There is normal cardiac silhouette. Bony thorax is normal. There is no acute process noted. Patient was advised that this is all consistent with COVID-19. Patient was instructed to follow-up with her primary care physician in 5 to 7 days. Patient was instructed return if worse in any way. Patient understood and was agreeable with the plan. All questions were answered. <Ty Guerin - Last Filed: 07/11/20 17:08> ED Disposition <Hayden Patel - Last Filed: 07/11/20 16:08> <Ty Guerin - Last Filed: 07/11/20 17:08> - Plan for ED Patient: Disposition: Home or Assisted Living Diagnosis: COVID-19, Diarrhea, Elevated troponin, Depression, Paroxysmal A-fib, Type 2 diabetes mellitus, Sleep apnea, Obesity (BMI 30-39.9), Hyperlipidemia, Essential (primary) hypertension Instructions: Coronavirus Disease 2019 (COVID-19): Overview Prescriptions: Ondansetron [Zofran Odt] 8 mg PO Q8H PRN PRN #20 tab PRN Reason: Nausea Transmission Status: Received by [id number] Referrals: Addis Prather MD [Primary Care Provider] - 2 Days
== END 2020-07-11 16:23 | disposition home or self-care (01) ==
PROVIDERS: Emergency Provider Physician Assistant Medical; PCP Internal Medicine
DX: U07.1 COVID-19 (principal); I48.0 Paroxysmal atrial fibrillation; E11.9 Type 2 diabetes mellitus without complications; I10 Essential (primary) hypertension; E78.5 Hyperlipidemia, unspecified; G47.30 Sleep apnea, unspecified; E66.9 Obesity, unspecified; F32.9 Major depressive disorder, single episode, unspecified; Z79.82 Long term (current) use of aspirin; Z79.01 Long term (current) use of anticoagulants; Z79.84 Long term (current) use of oral hypoglycemic drugs; Z79.899 Other long term (current) drug therapy
CPT/HCPCS: 71045; 80053; 83690; 84484; 85025; 93005; 96361; 96374; 99283; J7030; J2405

== ENCOUNTER 2020-11-25 11:31 | Emergency (ER) | payer MEDICAID, SELFPAY ==
[2020-08-24 13:01] VITALS: BMI 34.7
[2020-11-25 11:32] VITALS: BP 179/84; PULSE 95; RESP 18; TEMP 37; O2SAT 96; BMI 35.0
--- NOTE | 2020-11-25 11:45 | CT_ITS ---
STUDY: CT ABDOMEN AND PELVIS WITHOUT CONTRAST REASON FOR EXAM: Female, 60 years old. Diffuse abdominal pain with nausea and vomiting. RADIATION DOSAGE (If Supplied By Facility): CTDIvol = ( 21.25 ) mGy, DLP = ( 1162.62 ) mGycm TECHNIQUE: Transaxial images were obtained from the dome of the diaphragm to the symphysis pubis without oral contrast, and without intravenous contrast. Sagittal and coronal images were reconstructed. Individualized dose optimization techniques were used for this CT. COMPARISON: Comparison is made with prior examination dated 06/12/2020. FINDINGS: Minimal degree of increased markings at the lung bases suggestive of dependent basilar atelectasis. The visualized portions of the heart are within normal limits. There is decreased attenuation of the liver consistent with steatosis. Normal gallbladder and extrahepatic biliary system. Normal spleen. Normal pancreas. Normal bilateral adrenal glands. 1 scan, there is a 1 cm fat-containing nodule in the upper medial portion of the right breast suggestive of a small angiomyolipoma. Punctate calculus in the anterior midpole calyx of the left kidney. Normal visualized stomach. Normal small intestine. There are scattered colonic diverticula consistent with diverticulosis. The appendix is visualized and appears normal. There is scattered atherosclerotic calcification of the abdominal aorta, without a demonstrated aneurysm. Normal inferior vena cava. There is borderline retroperitoneal lymphadenopathy with enlarged nodes no greater than 10mm in the short axis diameter. Normal urinary bladder. There is absence of the uterus consistent with a prior hysterectomy. Normal abdominal wall. Normal osseous structures. CT/Abdomen/Pelvis without Cont IMPRESSION: Scattered sigmoid diverticula. Fatty infiltration of the liver. Findings suggestive of a small angiomyolipoma in the upper pole of the right kidney. Electronically Signed: Jerry Bunch MD at 12:53 EDT , Service support ,
--- NOTE | 2020-11-25 11:47 | EDS_ITS ---
HPI HPI - GI History of Present Illness Chief Complaint: Abd Pain Detail of Chief Complaint: Abdominal pain, vomiting, and diarrhea since 4 AM Informant: patient Abdominal Pain/Flank Pain Timing: Continuous Current Severity: 10 Nausea/Vomiting/Emesis GI Symptom: Positive for Nausea and Vomiting Quality: Negative for Blood streaks, Coffee ground and Hematemesis Diarrhea/Melena/Hematochezia GI Symptom: Positive for Diarrhea Associated Symptoms Associated Symptoms: Negative for Dysuria, Frequency and Hematuria Narrative Narrative: Patient presents with vomiting and diarrhea that started around 4 AM. Patient states that she actually has been having loose stools for about a week. She initially was seen at an urgent care and treated for left ear infection and sore throat with antibiotics for 7 days. Patient also states that she had Covid in June and has been fully immunized since that time. Patient rates her pain as a 10 out of 10 is somewhat diffuse. Patient is unsure if she has her appendix and states that she had a hysterectomy and she has been told that it is taken out and that it was not taken out. Prior similar symptoms: No PFSH PFSH Medical History (Updated 11/25/20 @ 13:[address] Adalberto Jolley, DO) Anomalous coronary artery origin Atherosclerosis of coronary artery of [place] heart without angina pectoris Chronic anticoagulation Chronic diastolic CHF (congestive heart failure) Depression Essential (primary) hypertension Essential (primary) hypertension History of lipoma Hyperlipidemia Obesity (BMI 30-39.9) Paroxysmal A-fib Sleep apnea Sleep disorder breathing Type 2 diabetes mellitus Home Medications sertraline 100 mg PO DAILY 05/31/15 [History Last Taken 12/16/18 09:00] lisinopril 5 mg PO DAILY 02/04/16 [History Last Taken 12/16/18 09:00] furosemide 20 mg PO BID 11/10/19 [History Last Taken Unknown] amlodipine 5 mg tablet 5 mg PO DAILY #90 tab 01/29/20 [Rx Last Taken Unknown] apixaban 5 mg tablet 5 mg PO BID 03/09/20 [History Last Taken Unknown] pantoprazole 20 mg PO DAILY 03/31/20 [History Last Taken Unknown] aspirin 81 mg PO DAILY@0800 tab.chew 06/13/20 [Rx Last Taken Unknown] metformin 1,000 mg PO BID #0 06/13/20 [Rx Last Taken 12/16/18 09:00] Cholecalciferol (Vitamin D3) [Vitamin D3] 5,000 unit PO DAILY 07/06/20 [History Last Taken Unknown] atorvastatin 40 mg tablet 40 mg PO QHS #90 tab 08/24/20 [Rx Last Taken Unknown] nitroglycerin 0.4 mg sublingual tablet 0.4 mg SUBLINGUAL Q5M PRN #25 tab 08/24/20 [Rx Last Taken Unknown] hydrocodone-acetaminophen 1 tab PO Q4H PRN PRN 2 Days #10 tablet 11/25/20 [Rx Last Taken Unknown] ondansetron 4 mg PO Q8H PRN PRN #10 tab 11/25/20 [Rx Last Taken Unknown] Allergy/AdvReac Type Severity Reaction Status Date / Time potassium chloride AdvReac diarrhea Verified 08/24/20 13:00 Family History Grandmother Diabetes Breast cancer Sister Breast cancer Surgical History H/O right heart catheterization H/O: hysterectomy History of left heart catheterization (12/18/18) History of tonsillectomy Social History (Updated 11/25/20 @ 12:04 by Jacinta Mcintyre) household members: spouse housing: house number of children: 4 (adults) current occupational status: disabled Smoking Status: Never smoker alcohol intake: never ROS ROS ED Constitutional Constitutional ED: Reports systems reviewed and no addt'l complaints, except as documented; Denies body ache(s), change in weight or chills Eyes Eyes: Denies acute decrease in peripheral vision, change in vision, double vision or loss of vision ENT ENT ED: Reports none, ear pain and sore throat; Denies lip swelling, loss taste/smell, neck pain or otalgia Cardiovascular Cardiovascular: Reports none; Denies abdominal pain, chest pain with activity, leg edema, lightheadedness, palpitations, rapid heart rate or syncope Respiratory/Chest Respiratory/Chest: Reports none; Denies change in mental status, dry cough, dyspnea, hemoptysis, shortness of breath at rest or shortness of breath with exertion Gastrointestinal Gastrointestinal: Reports none, abdominal pain, diarrhea and vomiting; Denies change in stool character, hematemesis, hematochezia, melena or rectal bleeding Genitourinary Genitourinary ED: Reports none; Denies abdominal discomfort, anuria, dysuria, genital pain, hematuria, polyuria or urinary frequency Musculoskeletal Musculoskeletal: Reports none; Denies arthralgias, back pain, difficulty walking, extremity pain, muscle weakness or myalgias Integumentary Reports none; Denies abscess or rash Neurologic Neurologic: Reports none; Denies abnormal gait, confusion, focal weakness, frequent falls, headache(s), loss of vision, numbness, paresthesias, radicular pain, vertigo or weakness Psychiatric Psychiatric: Reports systems reviewed and no addt'l complaints, except as documented and none; Denies behavioral changes, confusion, difficulty concentrating, hallucinations, suicidal ideation, tactile hallucinations or visual hallucinations Endocrine Endocrinology: Denies none, cold intolerance, excessive sweating, fatigue or heat intolerance Hematologic/Lymphatic Hematologic/Lymphatic: Reports none; Denies anemia, easy bleeding or easy bruising Allergic/Immunologic Allergic/Immunologic ED: Denies as per HPI, none, lip swelling, mouth swelling, throat swelling, tongue swelling or hives EXAM Physical Exam Const Vital Signs: 11/25/20 11:32 Temperature 98.6 F Temperature Source Temporal Pulse Rate 95 Respiratory Rate 18 Blood Pressure 179/84 H Blood Pressure Mean 115 Pulse Ox 96 Oxygen Delivery Method Room Air Positive well nourished and well developed General Appearance ED: well developed and NAD HEENT Reports TM's clear and moist mucous membranes normocephalic and atraumatic; Negative for trauma or tenderness Tympanic Membrane ED: Yes TM's clear Eyes PERRL and EOMs intact bilaterally General Eye ED: Negative for pale conjunctiva or scleral icterus Neck no lymphadenopathy, supple and no JVD General: Negative for tenderness Chest Wall inspection of chest normal and palpation of chest normal Chest: Negative for tenderness Resp normal respiratory effort and clear to auscultation bilaterally Effort and Inspection: Negative for respiratory distress or pain with movement Auscultation: Negative for rhonchi, wheezes or diminished lung sounds Cardio regular rate, regular rhythm, S1 normal heart sound, S2 normal heart sound and no murmurs Peripheral Pulses: pulses 2+ throughout GI normal to inspection, nondistended, normoactive bowel sounds, soft to palpation, non-distended and no masses Palpation: tender LLQ, RLQ, LUQ and RUQ and guarding; Negative for rigid or rebound tenderness present Back/Spine no CVA tenderness and no thoracic nor lumbar tenderness Extremity normal to inspection General Extremety ED: Negative for edema General Extremity: Negative for edema Neuro oriented x3, CN's II-XII intact bilaterally, no sensory deficits noted and gait normal Sensorium / Orientation: awake, alert, oriented to person, oriented to place and oriented to time Motor Exam: strength 5/5 throughout and strength abnormal Psych mental status grossly normal Skin no rashes or lesions noted and no wounds MDM MDM MDM Narrative Medical decision making narrative: Patient's lab work-up unremarkable here. Her CT scan was unremarkable. Patient had no further vomiting while in the department. She is not had any diarrhea. At this point etiology of her abdominal pain is unclear. She will be given a prescription for Zofran and a few [place] for severe pain. She is advised to follow-up with her primary care physician within next 3 to 5 days. Patient advised to return if worsening pain, fever, persistent vomiting, dehydration, bloody stools, or condition should worsen anyway. Lab Data Attestation: I reviewed the patient's lab results. Labs: Laboratory Results - last 24 hr 11/25/20 11/25/20 11/25/20 11:58 11:58 11:58 WBC 10.7 RBC 5.13 Hgb 15.3 H Hct 47.0 MCV 91.6 MCH 29.8 MCHC 32.6 RDW Std Deviation 42.2 RDW Coeff of Shae 12.6 Plt Count 146 L MPV 13.4 H Immature Gran % (Auto) 0.300 Neut % (Auto) 85.9 H Lymph % (Auto) 8.6 L [place] % (Auto) 4.7 Eos % (Auto) 0.1 Baso % (Auto) 0.4 Absolute Neuts (auto) 9.2 H Absolute Lymphs (auto) 0.92 Nucleated RBC % 0 Sodium 136 Potassium 4.0 Chloride 102 Carbon Dioxide 31.0 Anion Gap 3 L BUN 12 Creatinine 0.76 Estim Creat Clear Calc 80.21 Est GFR (MDRD) Af Amer 99 Est GFR (MDRD) Non-Af 82 BUN/Creatinine Ratio 15.8 Glucose 134 H Lactic Acid 0.8 Calcium 9.5 Total Bilirubin 0.70 AST 12 L ALT 26 Alkaline Phosphatase 111 Total Protein 7.5 Albumin 3.6 Globulin 3.9 Albumin/Globulin Ratio 0.9 Lipase 26 L Urine Color Urine Clarity Urine pH Ur Specific [place] Urine Protein Urine Glucose (UA) Urine Ketones Urine Occult Blood Urine Nitrite Urine Bilirubin Urine Urobilinogen Ur Leukocyte Esterase Urine RBC Urine WBC Ur Squamous Epith Cells Urine Bacteria Urine Mucus 11/25/20 12:58 WBC RBC Hgb Hct MCV MCH MCHC RDW Std Deviation RDW Coeff of Shae Plt Count MPV Immature Gran % (Auto) Neut % (Auto) Lymph % (Auto) [place] % (Auto) Eos % (Auto) Baso % (Auto) Absolute Neuts (auto) Absolute Lymphs (auto) Nucleated RBC % Sodium Potassium Chloride Carbon Dioxide Anion Gap BUN Creatinine Estim Creat Clear Calc Est GFR (MDRD) Af Amer Est GFR (MDRD) Non-Af BUN/Creatinine Ratio Glucose Lactic Acid Calcium Total Bilirubin AST ALT Alkaline Phosphatase Total Protein Albumin Globulin Albumin/Globulin Ratio Lipase Urine Color Yellow Urine Clarity Sl. Cloudy Urine pH 7.0 Ur Specific [place] 1.010 Urine Protein Negative Urine Glucose (UA) Normal Urine Ketones Negative Urine Occult Blood Negative Urine Nitrite Negative Urine Bilirubin Negative Urine Urobilinogen Normal Ur Leukocyte Esterase Negative Urine RBC 0 SEEN Urine WBC 0-5 SEEN Ur Squamous Epith Cells 0-5 SEEN Urine Bacteria RARE Urine Mucus 0 SEEN Radiography Diagnostic Testing: Radiology Impression Abdomen/Pelvis CT 11/25/20 11:45 IMPRESSION: Scattered sigmoid diverticula. Fatty infiltration of the liver. Findings suggestive of a small angiomyolipoma in the upper pole of the right kidney. Electronically Signed: Jerry Bunch MD at 12:53 EDT , Service support , Discharge Plan Triage Chief Complaint: Abd Pain ED Provider: Adalberto Jolley Dx/Rx/DC Orders Clinical Impression: Abdominal pain Instructions: ED Abdominal Pain Unkn Cause Fem Prescriptions: New hydrocodone-acetaminophen [hydrocodone-acetaminophen] 1 TABLET tablet 1 tab PO Q4H PRN PRN (Reason: Pain) 2 Days Qty: 10 RF: 0 ondansetron [ondansetron] 4 MG tablet 4 mg PO Q8H PRN PRN (Reason: Nausea) Qty: 10 RF: 0 No Action Eliquis 5 mg tablet 5 mg PO BID RF: 0 nitroglycerin 0.4 mg tablet, sublingual 0.4 mg SUBLINGUAL Q5M PRN (Reason: chest pain) Qty: 25 RF: 0 atorvastatin 40 mg tablet 40 mg PO QHS Qty: 90 RF: 3 sertraline 25 MG tablet 100 mg PO DAILY RF: 0 lisinopril 5 MG tablet 5 mg PO DAILY RF: 0 furosemide 20 MG tablet 20 mg PO BID RF: 0 pantoprazole 20 MG tablet,delayed release (DR/EC) 20 mg PO DAILY RF: 0 aspirin 81 MG tablet,chewable 81 mg PO DAILY@0800 RF: 0 metformin 500 MG tablet 1,000 mg PO BID Qty: 0 RF: 0 Cholecalciferol (Vitamin D3) [Vitamin D3] 5,000 UNIT capsule 5,000 unit PO DAILY RF: 0 amlodipine 5 mg tablet 5 mg PO DAILY Qty: 90 RF: 6 Primary Care Provider: Addis Prather Referrals: Addis Prather MD [Primary Care Provider] - Disposition Disposition: Home, self care
[2020-11-25] MEDS: Morphine 4 MG/ML Syringe IV (11:57)
[2020-11-25] MEDS: 0.9% Normal Saline 1,000 ML 125 ML IV (11:57)
[2020-11-25] MEDS: Ondansetron 4 MG/2 ML Vial IV (11:58)
[2020-11-25 12:21] LABS: Absolute Lymphocyte Count 0.92 X10^3/uL (0.83-4.51); Absolute Neutrophil Count 9.2 X10^3/uL (2.0-7.7); Basophil# 0.04 X10^3/uL; Basophil% 0.4 % (0-1); Eosinophil# 0.01 X10^3/uL; Eosinophils% 0.1 % (0-5); Hemoglobin 15.3 g/dL (12.0-15.0); Lymphocyte # 0.92 X10^3/ul (0.83-4.51); Lymphocyte % 8.6 % (19-41); Mean Corp Hgb Conc 32.6 g/dL (32-36); Mean Corpuscular Hgb 29.8 pg (27.0-32.0); Mean Corpuscular Volume 91.6 fL (81-99); Mean Platelet Vol. 13.4 fl (6.2-12.0); Monocyte% 4.7 % (0-10); NRBC Flagged by Analyzer 0 % (0-5); Neutrophil % 85.9 % (47-70); Platelet Count 146 K/mm3 (150-450); RBC Distribution Width CV 12.6 % (11.6-14.6); RBC Distribution Width SD 42.2 fl (35.1-43.9); Red Blood Count 5.13 M/mm3 (4.2-5.4); White Blood Count 10.7 K/mm3 (4.4-11.0)
[2020-11-25 12:31] LABS: ALB/GLOB Ratio 0.9 RATIO (0.9-2.4); AST(SGOT) 12 U/L (15-37); Alanine Aminotransfer ALT/SGPT 26 U/L (13-56); Albumin, Serum 3.6 g/dL (3.2-5.0); Alkaline Phosphatase 111 U/L (45-117); Anion Gap 3 (5-15); BUN 12 mg/dL (7-18); BUN/Creat Ratio 15.8 RATIO (10-20); Calcium,Total 9.5 mg/dL (8.5-10.1); Chloride 102 mmol/L (98-107); Creatinine, Serum 0.76 mg/dL (0.55-1.02); EST Glomerular Filtration Rate 82 mL/min (>60); Est Glom Filt Rate - Afr Amer 99 mL/min (>60); Estimated Creatinine Clearance 80.21 ml/min; Globulin 3.9 g/dL (2.2-4.2); Glucose 134 mg/dL (74-106); Lipase 26 U/L (73-393); Protein, Total 7.5 g/dL (6.4-8.2); Sodium Level 136 mmol/L (136-145)
[2020-11-25 12:41] LABS: Lactic Acid 0.8 mmol/L (0.4-1.9)
[2020-11-25 13:04] LABS: Mucous, Urine 0 SEEN /hpf (<or=2+); Red Blood Cells-Urine 0 SEEN /hpf (0-5)
[2020-11-25 13:05] LABS: Color, Urine Yellow (Yellow); Glucose, Dipstick Normal (Normal); Ketone-Dipstick Negative (Negative); Leukocyte Esterase-Dipstick Negative /ul (Negative); Nitrite-Dipstick Negative (Negative); Occult Blood-Urine Negative /ul (Negative); Protein-Dipstick Negative (Negative); Urine Bilirubin Dipstick Negative (Negative); Urine Clarity Sl. Cloudy (Clear); Urine Urobilinogen Normal (Normal)
[2020-11-25 13:14] LABS: Bacteria RARE /hpf (None Seen); Squamous Epithelial Cells - UA 0-5 SEEN /hpf (5-10); White Blood Cells 0-5 SEEN /hpf (0-5)
[2020-11-25 13:45] VITALS: PULSE 80; RESP 16
== END 2020-11-25 13:46 | disposition home or self-care (01) ==
PROVIDERS: Emergency Provider Emergency Medicine; PCP Internal Medicine
DX: R10.9 Unspecified abdominal pain (principal); R11.2 Nausea with vomiting, unspecified; R19.7 Diarrhea, unspecified; K57.30 Diverticulosis of large intestine without perforation or abscess without bleeding; I11.0 Hypertensive heart disease with heart failure; I50.32 Chronic diastolic (congestive) heart failure; I25.10 Atherosclerotic heart disease of native coronary artery without angina pectoris; I48.0 Paroxysmal atrial fibrillation; E11.9 Type 2 diabetes mellitus without complications; E78.5 Hyperlipidemia, unspecified; G47.30 Sleep apnea, unspecified; F32.9 Major depressive disorder, single episode, unspecified; E66.9 Obesity, unspecified; Z79.01 Long term (current) use of anticoagulants; Z79.82 Long term (current) use of aspirin; Z79.84 Long term (current) use of oral hypoglycemic drugs; Z79.899 Other long term (current) drug therapy; Z86.16 Personal history of COVID-19
CPT/HCPCS: 74176; 80053; 81001; 83605; 83690; 85025; 96361; 96374; 96375; 99282; J7030; J2405

== ENCOUNTER 2021-05-21 14:27 | Inpatient (IN) | payer MEDICAID, SELFPAY ==
[2021-05-21] VITALS (10 sets, daily range): BP systolic 91–166; BP diastolic 75–100; PULSE 61–85; RESP 18; TEMP 36.4–36.9; O2SAT 95–98; BMI 29.5; BMI 32.5; BMI 37.0
--- NOTE | 2021-05-21 14:56 | EKG12_ITS ---
Test Reason : AM EKG Blood Pressure : / mmHG Vent. Rate : 061 BPM Atrial Rate : 061 BPM P-R Int : 202 ms QRS Dur : 092 ms QT Int : 400 ms P-R-T Axes : 008 -10 128 degrees QTc Int : 402 ms Normal sinus rhythm Nonspecific T wave abnormality Abnormal ECG Confirmed by PAULA HARMON, TEODORA ([id number]), editor school photograph MIRI HERRERA ([id number]) on 05/25/2021 8:58:33 AM Referred By: FADY Confirmed By:TEODORA MITCHELL MD
[2021-05-21] MEDS: Aspirin 81 MG TAB.CHEW 324 MG PO (15:02)
[2021-05-21 15:06] LABS: Absolute Lymphocyte Count 1.75 X10^3/uL (0.83-4.51); Absolute Neutrophil Count 5.1 X10^3/uL (2.0-7.7); Basophil# 0.02 X10^3/uL; Basophil% 0.3 % (0-1); Eosinophils% 1.3 % (0-5); Hematocrit 49.4 % (37-47); Lymphocyte # 1.75 X10^3/ul (0.83-4.51); Lymphocyte % 22.7 % (19-41); Mean Corp Hgb Conc 32.4 g/dL (32-36); Mean Corpuscular Hgb 29.9 pg (27.0-32.0); Mean Corpuscular Volume 92.3 fL (81-99); Mean Platelet Vol. 12.9 fl (6.2-12.0); Monocyte# 0.74 X10^3/uL; Monocyte% 9.6 % (0-10); NRBC Flagged by Analyzer 0 % (0-5); Neutrophil # 5.07 X10^3/uL (2.7-7.7); Neutrophil % 65.8 % (47-70); Platelet Count 167 K/mm3 (150-450); RBC Distribution Width CV 13.2 % (11.6-14.6); RBC Distribution Width SD 44.8 fl (35.1-43.9); Red Blood Count 5.35 M/mm3 (4.2-5.4); White Blood Count 7.7 K/mm3 (4.4-11.0)
--- NOTE | 2021-05-21 15:10 | RAD_ITS ---
STUDY: X-RAY CHEST REASON FOR EXAM: Female, 60 years old. Chest pain TECHNIQUE: Single AP portable view of the chest. COMPARISON: Comparison is made with prior study dated 07/11/2020. FINDINGS: EKG electrodes are seen. Mild residual increased markings are seen at the lung bases although has been improvement as compared to prior study. This may represent either mild residual atelectasis versus scarring. There is no demonstrated pleural abnormality. There is mild cardiac enlargement. Normal mediastinum and dave. Normal visualized pulmonary arteries. Normal visualized aortic arch and descending thoracic aorta. There are diffuse degenerative changes of the visualized thoracic spine. Normal visualized ribs, clavicles, and shoulders. There is no demonstrated abnormality of the visualized soft tissue structures of the upper abdomen. RAD/Chest 1 View (Portable) IMPRESSION: Mild residual linear markings at the lung bases slightly more prominent on the left side suggestive of linear atelectasis and/or scarring. These have improved as compared to prior study. Electronically Signed: Jerry Bunch MD at 15:20 EDT , Service support ,
[2021-05-21 15:30] LABS: Anion Gap 4 (5-15); BUN 17 mg/dL (7-18); BUN/Creat Ratio 18.4 RATIO (10-20); Calcium,Total 9.5 mg/dL (8.5-10.1); Chloride 106 mmol/L (98-107); Creatinine, Serum 0.92 mg/dL (0.55-1.02); EST Glomerular Filtration Rate 65 mL/min (>60); Est Glom Filt Rate - Afr Amer 79 mL/min (>60); Estimated Creatinine Clearance 66.26 ml/min; Glucose 126 mg/dL (74-106); Sodium Level 139 mmol/L (136-145)
[2021-05-21 15:34] LABS: Troponin-I HS 185 pg/mL (3.0-54.0)
--- NOTE | 2021-05-21 15:59 | EDS_ITS ---
HPI History of Present Illness Chief Complaint: Chest Pain Narrative Narrative: Patient presents with chest pain over the past 2 to 3 days it was intermittent for the past few days however its been constant all day today. She describes retrosternal pain similar to her prior MIs. No fever or chills. The pain does not radiate. There is no pleuritic component there is no back pain or tearing sensation. No DVT or PE risk factors. [facility] Medical History (Updated 05/21/21 @ 16:[address] Robert Vann MD) Anomalous coronary artery origin Atherosclerosis of coronary artery of [place] heart without angina pectoris Chronic anticoagulation Chronic diastolic CHF (congestive heart failure) Depression Essential (primary) hypertension Essential (primary) hypertension History of lipoma Hyperlipidemia Obesity (BMI 30-39.9) Paroxysmal A-fib Sleep apnea Sleep disorder breathing Type 2 diabetes mellitus Home Medications sertraline 100 mg PO DAILY 05/31/15 [History Last Taken 12/16/18 09:00] lisinopril 5 mg PO DAILY 02/04/16 [History Last Taken 12/16/18 09:00] furosemide 20 mg PO BID 11/10/19 [History Last Taken Unknown] amlodipine 5 mg tablet 5 mg PO DAILY #90 tab 01/29/20 [Rx Last Taken Unknown] apixaban 5 mg tablet 5 mg PO BID 03/09/20 [History Last Taken Unknown] aspirin 81 mg PO DAILY@0800 tab.chew 06/13/20 [Rx Last Taken Unknown] metformin 1,000 mg PO BID #0 06/13/20 [Rx Last Taken 12/16/18 09:00] Cholecalciferol (Vitamin D3) [Vitamin D3] 5,000 unit PO DAILY 07/06/20 [History Last Taken Unknown] nitroglycerin 0.4 mg sublingual tablet 0.4 mg SUBLINGUAL Q5M PRN #25 tab 08/24/20 [Rx Last Taken Unknown] atorvastatin 80 mg PO QHS 05/21/21 [History Last Taken Unknown] Allergy/AdvReac Type Severity Reaction Status Date / Time potassium chloride AdvReac diarrhea Verified 05/21/21 14:39 Family History Grandmother Diabetes Breast cancer Sister Breast cancer Surgical History H/O right heart catheterization H/O: hysterectomy History of left heart catheterization (12/18/18) History of tonsillectomy Social History household members: spouse housing: house number of children: 4 (adults) current occupational status: disabled Smoking Status: Never smoker alcohol intake: never ROS ROS ED ROS Narrative Past medical history: Reviewed Medications: Reviewed Social history: Noncontributory Review of systems: All systems negative except as indicated General: No fever Eyes: No visual changes ENT: No upper airway congestion, normal voice Neck: No neck pain Cardiovascular: Chest pain as in HPI Respiratory: No shortness of breath or cough Gastrointestinal: No abdominal pain, nausea vomiting or diarrhea Genitourinary: No dysuria Musculoskeletal: Denies myalgias no difficulty with ambulation Skin: No rash Neurological: No memory loss, confusion or any focal weakness Psych: No recent behavioral changes Hematologic: No easy bleeding or easy bruising EXAM Physical Exam Narrative Exam Narrative: Physical exam General: Well nourished, Well developed, No Acute Distress Head: Normocephalic, Atraumatic Eyes: Conjunctiva not pale ENT: Moist mucous membranes Neck: Supple, Nontender, No lymphadenopathy Cardiovascular: Regular rate, Regular rhythm Respiratory: No distress, CTA bilaterally Abdomen: Soft, Nontender, Nondistended Back: Nontender, Normal Inspection. Negative for: CVA tenderness Extremities: Nontender, No edema Skin: Normal color, No rash Neurological: Alert, Normal Strength, Normal Sensation Psychological: Normal affect Const Vital Signs: 05/21/21 14:29 05/21/21 14:31 05/21/21 14:42 Temperature 98 F 98 F Temperature Source Temporal Temporal Pulse Rate 75 85 Respiratory Rate 18 18 Respiratory Effort Normal Blood Pressure 138/100 H 138/100 H Blood Pressure Mean 112 112 Pulse Ox 98 98 Oxygen Delivery Method Room Air Room Air MDM MDM MDM Narrative Medical decision making narrative: Patient has an elevated troponin, EKG is nonspecific. I will admit her. Lab Data Labs: Laboratory Results - last 24 hr 05/21/21 05/21/21 14:10 14:10 WBC 7.7 RBC 5.35 Hgb 16.0 H Hct 49.4 H MCV 92.3 MCH 29.9 MCHC 32.4 RDW Std Deviation 44.8 H RDW Coeff of Shae 13.2 Plt Count 167 MPV 12.9 H Immature Gran % (Auto) 0.300 Neut % (Auto) 65.8 Lymph % (Auto) 22.7 [place] % (Auto) 9.6 Eos % (Auto) 1.3 Baso % (Auto) 0.3 Absolute Neuts (auto) 5.1 Absolute Lymphs (auto) 1.75 Nucleated RBC % 0 Sodium 139 Potassium 4.0 Chloride 106 Carbon Dioxide 29.0 Anion Gap 4 L BUN 17 Creatinine 0.92 Estim Creat Clear Calc 66.26 Est GFR (MDRD) Af Amer 79 Est GFR (MDRD) Non-Af 65 BUN/Creatinine Ratio 18.4 Glucose 126 H Calcium 9.5 Troponin I High Sens 185 H* Radiography Diagnostic Testing: Clinical Impression(s) from Imaging Studies Chest X-Ray 05/21/21 15:10 IMPRESSION: Mild residual linear markings at the lung bases slightly more prominent on the left side suggestive of linear atelectasis and/or scarring. These have improved as compared to prior study. Electronically Signed: Jerry Bunch MD at 15:20 EDT , Service support , EKG Initial EKG: Comments: Sinus rhythm with a rate of 69. Normal [place] and QTc intervals. Nonspecific changes throughout. Interpreted by emergency doctor Discharge Plan Triage Chief Complaint: Chest Pain ED Provider: Robert Vann Dx/Rx/DC Orders Clinical Impression: Elevated troponin Prescriptions: No Action Eliquis 5 mg tablet 5 mg PO BID RF: 0 nitroglycerin 0.4 mg tablet, sublingual 0.4 mg SUBLINGUAL Q5M PRN (Reason: chest pain) Qty: 25 RF: 0 sertraline 25 MG tablet 100 mg PO DAILY RF: 0 lisinopril 5 MG tablet 5 mg PO DAILY RF: 0 furosemide 20 MG tablet 20 mg PO BID RF: 0 aspirin 81 MG tablet,chewable 81 mg PO DAILY@0800 RF: 0 metformin 500 MG tablet 1,000 mg PO BID Qty: 0 RF: 0 Cholecalciferol (Vitamin D3) [Vitamin D3] 5,000 UNIT capsule 5,000 unit PO DAILY RF: 0 atorvastatin 40 mg tablet 80 mg PO QHS RF: 0 amlodipine 5 mg tablet 5 mg PO DAILY Qty: 90 RF: 6 Primary Care Provider: Addis Prather Referrals: Addis Prather MD [Primary Care Provider] - Disposition Disposition: Acute Care Hospital [facility]
--- NOTE | 2021-05-21 16:40 | HP.PCM.HOS_ITS ---
HPI - General General Date of Admission: 05/21/21 Date of Service: 05/21/21 Chief Complaint: Chest pain HPI Narrative The patient is a 60 y/o F w/ PMHx: Obesity, Chronic Diastolic CHF, HTN, HLD, PAF, RYAN, Diabetes mellitus type II, Depression and Anxiety, CAD who presents to the [facility] ED on 05/21/21 with history of 2 to 3 days of intermittent chest discomfort however has been more constant on day of presentation, described as similar to her prior presentations with myocardial infarctions, retrosternal with no radiation, described as heavy with intermittent knife stabbing, 10 out of 10 at its worst, currently down to 6 out of 10 with associated shortness of breath and some mild flushing/diaphoresis noting that the pain when it was at its worst caused her to even cry. Patient does report also being very fatigued work-up in the ED included T 98, heart rate 75, BP 138/100, respiratory rate 18, 98% on room air, CBC with WBC 7.7, hemoglobin 16, platelet 167 without marked shift, BMP with glucose 126, high-sensitivity troponin 185, chest x-ray with mild linear residual markings at the lung bases slightly more prominent left side suggestive of linear atelectasis and/or scarring, improved from prior study, EKG SR with nonspecific changes without acute evidence of ischemia. In the ED patient ministered aspirin 324 mg p.o. x1. ED did discuss case with Cardiology. [facility] Medical History (Updated 05/21/21 @ 16:[address] Paulina Ludwig MD) Anomalous coronary artery origin Atherosclerosis of coronary artery of [place] heart without angina pectoris Chronic anticoagulation Chronic diastolic CHF (congestive heart failure) Depression Essential (primary) hypertension Essential (primary) hypertension History of lipoma Hyperlipidemia Obesity (BMI 30-39.9) Paroxysmal A-fib Sleep apnea Sleep disorder breathing Type 2 diabetes mellitus Home Medications lisinopril 5 mg PO DAILY 02/04/16 [History Last Taken 05/21/21] furosemide 20 mg PO DAILY 11/10/19 [History Last Taken 05/21/21] amlodipine 5 mg tablet 5 mg PO DAILY #90 tab 01/29/20 [Rx Last Taken 05/21/21] apixaban 5 mg tablet 5 mg PO BID 03/09/20 [History Last Taken 05/21/21] aspirin 81 mg PO DAILY@0800 tab.chew 06/13/20 [Rx Last Taken 05/20/21] nitroglycerin 0.4 mg sublingual tablet 0.4 mg SUBLINGUAL Q5M PRN #25 tab 08/24/20 [Rx Last Taken 05/19/21] atorvastatin 80 mg PO DAILY 05/21/21 [History Last Taken 05/21/21] cholecalciferol (vitamin D3) 5,000 unit PO DAILY 05/21/21 [History Last Taken 05/21/21] sertraline 100 mg PO DAILY 05/21/21 [History Last Taken 05/21/21] Allergy/AdvReac Type Severity Reaction Status Date / Time potassium chloride AdvReac diarrhea Verified 05/21/21 14:39 Family History (Updated 05/21/21 @ 16:[address] Paulina Ludwig MD) Grandmother Diabetes Breast cancer Sister Breast cancer Mother Heart disease Hypertension other (Patient denies any knowledge of her paternal history.) Surgical History H/O right heart catheterization H/O: hysterectomy History of left heart catheterization (12/18/18) History of tonsillectomy Social History household members: spouse housing: house number of children: 4 (adults) current occupational status: disabled Smoking Status: Never smoker alcohol intake: never ROS ROS Narrative Admission Review of Systems: CONSTITUTIONAL: No weight loss, fever, chills, + weakness or fatigue. HEENT: + Congestion/rhinorrhea. Eyes: No visual loss, blurred vision, double vision or yellow sclerae. Ears, Nose, Throat: No hearing loss, sneezing or sore throat. SKIN: No rash or itching, lesions, wounds. CARDIOVASCULAR: + chest pain, chest pressure or chest discomfort, No palpitations, edema, orthopnea, syncopal events. RESPIRATORY: + shortness of breath, No cough or sputum, wheezing, hemoptysis. GASTROINTESTINAL: No anorexia, nausea, vomiting or diarrhea, abdominal pain, melena, BRBPR. GENITOURINARY: No dysuria, frequency, urgency or retention. NEUROLOGICAL: No headache, dizziness, syncope, paralysis, ataxia, numbness or tingling in the extremities, focal weakness, change in bowel or bladder control, seizure. MUSCULOSKELETAL: + muscle, back pain, joint pain or stiffness. HEMATOLOGIC: + anemia, bleeding or bruising. LYMPHATICS: No enlarged nodes. No history of splenectomy. PSYCHIATRIC: No history of depression or anxiety. ENDOCRINOLOGIC: + reports of sweating, cold or heat intolerance. No polyuria or polydipsia. ALLERGIES: No history of asthma, hives, eczema or rhinitis. Vital Signs Vital Signs Vital Signs: 05/21/21 14:29 05/21/21 14:31 05/21/21 14:42 Temperature 98 F 98 F Temperature Source Temporal Temporal Pulse Rate 75 85 Respiratory Rate 18 18 Respiratory Effort Normal Blood Pressure 138/100 H 138/100 H Blood Pressure Mean 112 112 Pulse Ox 98 98 Oxygen Delivery Method Room Air Room Air 05/21/21 16:21 Temperature Temperature Source Pulse Rate Respiratory Rate Respiratory Effort Blood Pressure 91/77 Blood Pressure Mean Pulse Ox Oxygen Delivery Method Weight Weight: 220 lb Body Mass Index (BMI) 32.5 Physical Exam Narrative Physical Examination: General: Awake, alert, oriented x 3 and cooperative, seated upright in the ED bed, fatigued appearing, notes chest discomfort is improving, currently 6 out of 10 Skin: Normal color, normal turgor, no icterus, no cyanosis. HEENT: AT/NC, EOMI, PERRLA, mildly dry MM, no carotid bruits or JVD noted; however, thickened neck makes examination difficult. Lungs: CTA bilaterally, moderate effort, mild decrease BL bases, no rales, ronchi or wheezing. Heart: Regular rate and rhythm; no gallop, rub audible. Abdomen: Soft, obese, NTTP, ND, distant normal BS, no obvious evidence of HSM. Extremities: No cyanosis, clubbing, or edema. Neurological: Patient awake, alert, oriented as noted, cognitive function intact; pupils equally reactive to light and accommodation, cranial nerves II- XII grossly normal, moving all 4 extremities, no focal deficits, strength moderately global decrease secondary to acute presentation and complaints. Psychiatric: Affect appears fatigued otherwise normal, no acute evidence of depressive or anxiety feelings. Results Lab / Micro Data Result Diagrams: 05/21/21 14:10 05/21/21 14:10 Labs: Laboratory Results - last 24 hr 05/21/21 14:10: WBC 7.7, RBC 5.35, Hgb 16.0 H, Hct 49.4 H, MCV 92.3, MCH 29.9, MCHC 32.4, RDW Std Deviation 44.8 H, RDW Coeff of Shae 13.2, Plt Count 167, MPV 12.9 H, Immature Gran % (Auto) 0.300, Neut % (Auto) 65.8, Lymph % (Auto) 22.7, [place] % (Auto) 9.6, Eos % (Auto) 1.3, Baso % (Auto) 0.3, Absolute Neuts (auto) 5.1, Absolute Lymphs (auto) 1.75, Nucleated RBC % 0 05/21/21 14:10: Sodium 139, Potassium 4.0, Chloride 106, Carbon Dioxide 29.0, Anion Gap 4 L, BUN 17, Creatinine 0.92, Estim Creat Clear Calc 66.26, Est GFR (MDRD) Af Amer 79, Est GFR (MDRD) Non-Af 65, BUN/Creatinine Ratio 18.4, Glucose 126 H, Calcium 9.5, Troponin I High Sens 185 H* Radiology Impression Chest X-Ray 05/21/21 15:10 IMPRESSION: Mild residual linear markings at the lung bases slightly more prominent on the left side suggestive of linear atelectasis and/or scarring. These have improved as compared to prior study. Electronically Signed: Jerry Bunch MD at 15:20 EDT , Service support , Assessment & Plan Assessment/Plan (1) Chest pain: QUALIFIERS: Chest pain type: unspecified Qualified Code(s): R07.9 - Chest pain, unspecified (2) Elevated troponin: (3) Unstable angina: PLAN: The patient is a 60 y/o F w/ PMHx: Obesity, Chronic Diastolic CHF, HTN, HLD, PAF, RYAN, Diabetes mellitus type II, Depression and Anxiety, CAD who presents to the [facility] ED on 05/21/21 with history of 2 to 3 days of intermittent chest discomfort however has been more constant on day of presentation, described as similar to her prior presentations with myocardial infarctions, retrosternal with no radiation. 1. Chest Pain concerning for Unstable Angina with indeterminate cardiac enzyme, possible early NSTEMI: ED evaluation with high-sensitivity troponin 185, chest x-ray with mild linear residual markings at the lung bases slightly more promi nent left side suggestive of linear atelectasis and/or scarring, improved from prior study, EKG SR with nonspecific changes without acute evidence of ischemia. Will admit to PCU, place on a monitored bed to assure no acute myocardial infarction with serial cardiac enzymes and EKGs. We will continue to trend cardiac enzymes and repeat EKGs. We will initiate therapeutic Lovenox in case continue to trend upward of cardiac troponins to be cautious. Magnesium level requested. FLP in AM. Will request echocardiogram as well as cardiology evaluation. Cardiology consulted, aware. ASA, NG, morphine. 2. Chronic diastolic CHF: Chest x-ray without acute cardiopulmonary findings, compensated, will continue aspirin, holding apixaban as noted, continue lisinopril, Lasix, not on beta-litzy therapy, continue statin. Judiciously hydrate given history. 3. Nonobstructive CAD: Prior cardiac catheterization 12/18/2018 with nonobstructive coronary disease except small diagonal vessel of the LAD with an ostial 70% proximal lesion felt too small to pursue any angioplasty at that time with medical therapy recommendation, we will continue patient aspirin, holding apixaban with transition to therapeutic Lovenox at next dose given presentation in case of cardiac intervention evaluation needs, continue lisinopril, not on beta-litzy therapy, continue statin. 4. PAF: As noted temporarily holding patient Eliquis given presentation, transition to therapeutic Lovenox at next dose due, not on beta-litzy therapy. 5. Diabetes mellitus type II: Noted in history, not on regimen, will obtain hemoglobin A1c to be cautious and in the interim continue hold ADA diet, accu checks w/ ISS. 6. Hypertension: Continue home regimen including amlodipine, Lasix, lisinopril with hold parameters as needed, PRN hydralazine. 7. Hyperlipidemia: Continue home statin regimen. AM FLP. 8. Anxiety and depression: We will continue patient home sertraline regimen. 9. Obesity: Weight loss and lifestyle changes encouraged. 10. RYAN: CPAP q HS. 11. DVT prophylaxis: SCDs, will hold patient home apixaban and transition to therapeutic Lovenox at next dose due given presentation as noted #1. 12. CODE status: Patient does not have healthcare power of patent prosecution attorney however living will is in place and she notes her son Octavio has it. Discussed CODE status at length including difference between FULL code, DNR-CCA and DNR-CC status. Following discussions about the differences in these status, requested Full Code status. Advanced Care Planning Face to Face Time: 16 minutes. Charges/Coding Visit Charges Inpatient E&M: 39150 Init Hosp L3 Procedures Hospitalists Procedures: 33259 Advncd Care Plan 30 Min
[2021-05-21 17:16] LABS: Magnesium 2.5 mg/dL (1.6-2.6)
--- NOTE | 2021-05-21 17:29 | ECHOD_ITS ---
Reason For Study: Chest Pain, Elevated Troponin Procedure This was a 2D Doppler, Color Flow transthoracic echocardiogram. The study was technically difficult. Exam performed portable in patient room. Left Ventricle Normal LV size. Left ventricular systolic function is normal. The estimated ejection fraction is 55 %. No evidence for diastolic dysfunction. No regional wall motion abnormalities noted. Right Ventricle Normal RV size. Normal systolic function. Atria Normal left atrium. Normal right atrium. No doppler evidence for ASD. Mitral Valve There is no mitral annular calcification. Normal mitral valve. Mild (1+) mitral valve insufficiency. Tricuspid Valve Normal tricuspid valve. Mild tricuspid valve insufficiency. Right ventricular systolic pressure estimated to be 27 mmHg. Aortic Valve Trisinus/trileaflet aortic valve. Normal aortic valve. Pulmonic Valve The pulmonic valve is not well visualized. Trivial pulmonic valve insufficiency. Great Vessels Normal sized aortic root. Pericardium/Pleural No pericardial effusion. MMode/2D Measurements & Calculations LVIDd: 5.3 cm IVSd: 1.3 cm Ao root diam: 3.0 cm LVIDs: 3.6 cm LVPWd: 0.92 cm RVDd: 3.7 cm FS: 31.7 % LAV(MOD-bp): 28.6 ml LVAd ap4: 25.4 cm2 SV(MOD-sp4): 39.3 ml LAV(MOD-bp) Indexed: 12.6 ml/m2 LVLd ap4: 8.3 cm LAV(MOD-sp2): 26.7 ml EDV(MOD-sp4): 65.0 ml LAV(MOD-sp4): 21.4 ml EDV(sp4-el): 65.5 ml LVAs ap4: 14.1 cm2 LVLs ap4: 6.7 cm ESV(MOD-sp4): 25.7 ml ESV(sp4-el): 25.2 ml EF(MOD-sp4): 60.5 % EF(sp4-el): 61.6 % SV(sp4-el): 40.3 ml LA A4 area: 11.4 cm2 LA dimension(2D): 2.7 cm RA A4 area: 10.9 cm2 Doppler Measurements & Calculations MV E max michael: 56.7 cm/sec Lat Peak E' Michael: 5.2 cm/sec Med Peak E' Michael: 4.1 cm/sec MV A max michael: 93.5 cm/sec E/E' lat: 11.0 E/E' med: 13.7 MV E/A: 0.61 Ao V2 max: 119.9 cm/sec LV V1 max: 95.8 cm/sec PA V2 max: 71.8 cm/sec Ao max P.8 mmHg LV V1 max P.7 mmHg Ao V2 mean: 79.1 cm/sec Ao mean P.8 mmHg Ao V2 VTI: 25.8 cm TR max michael: 244.4 cm/sec TR max P.9 mmHg ECHO/Echo Complete Interpretation Summary The study was technically difficult. Left ventricular systolic function is normal. The estimated ejection fraction is 55 %. Mild (1+) mitral valve insufficiency. Mild tricuspid valve insufficiency. Trivial pulmonic valve insufficiency. Right ventricular systolic pressure estimated to be 27 mmHg. No evidence for diastolic dysfunction. Ordering Physician: Paulina Ludwig Referring Physician: Addis Prather Performed By: Jyotsna Skaggs, NITISH, RVT
[2021-05-21 18:06] LABS: Bedside Glucose 107 mg/dL (70-110)
[2021-05-21] MEDS: 0.9% Normal Saline 1,000 ML 100 ML IV (18:30)
[2021-05-21] MEDS: Enoxaparin 100 MG/ML Syringe SC (18:30)
[2021-05-21 18:41] LABS: Troponin-I HS 170 pg/mL (3.0-54.0)
--- NOTE | 2021-05-21 19:53 | CON.PCM.CA_ITS ---
Assessment & Plan Assessment/Plan (1) Elevated troponin: PLAN: The patient has an elevated troponin I level. This appears compatible with non-STEMI. It is unclear at this time whether this is a true type I event from her underlying CAD process versus being a type II event being brought out from her paroxysmal atrial fibrillation. At the present time she will continue to be followed with respect to cardiac enzymes, telemetry monitoring, and ECGs. She'll be asked to have a follow-up echocardiogram to reassess her left ventricular wall motion and systolic function. She'll be considered for future evaluation with diagnostic cardiac catheterization once her anticoagulation status is appropriate. In the interim she will continue medical therapy. (2) Atherosclerosis of coronary artery of [place] heart without angina pectoris: QUALIFIERS: Coronary Disease-Associated Artery/Lesion type: [place] artery Qualified Code(s): I25.10 - Atherosclerotic heart disease of [place] coronary artery without angina pectoris PLAN: Her previous CAD history was reviewed. Again at the present time she will continue her noninvasive evaluation. Once her anticoagulation status is appropriate she'll be considered for further evaluation with diagnostic cardiac catheterization. This procedure and risks were discussed with her and she was agreeable to the approach. In the interim she will continue medical therapy. (3) Paroxysmal A-fib: PLAN: She does have a history of paroxysmal atrial fibrillation. Is unclear as to whether this was the source of her symptoms and subsequent cardiac enzyme level. She will continue to be monitored with her medicines adjusted accordingly. Her anticoagulation is being placed on hold so that she can be prepared for future diagnostic cardiac catheterization. She can receive temporary anticoagulation in the interim with agents such as enoxaparin/Lovenox and/or IV heparin. (4) Hyperlipidemia: QUALIFIERS: Hyperlipidemia type: unspecified Qualified Code(s): E78.5 - Hyperlipidemia, unspecified PLAN: She should continue risk factor evaluation and care. (5) Essential (primary) hypertension: PLAN: Her blood pressure will be followed and she'll continue medical therapy. Addt'l Comments The patient's case was discussed and reviewed with the patient and the [facility] emergency department staff. This note was generated using a voice recognition system and there may be incorrect words, spelling or punctuation that were not noted when reviewing the office note prior to saving. HPI Consult Data Date of Consult: 05/21/21 HPI Narrative HPI Narrative: MATILDA MAGDALENO, is a 60 year old white female who presents for cardiovascular consultation based upon concerns of palpitations, chest discomfort, objective findings compatible with a non-ST segment elevation [place], superimposed upon a history of CAD-diagonal branch disease, atrial fibrillation, hyperlipidemia, hypertension, diabetes mellitus, and RYAN. She has previously been followed by David Eli MD of the [facility] for the aforementioned cardiovascular concerns. Since her last outpatient cardiovascular visit which appears to been on 08-24-2020 she believes she is done reasonably well until this past Monday evening. She states she began to note palpitations again and centralized chest discomfort that radiated down her left upper extremity. She did not have any acute nausea, emesis, or diaphoresis. She did not note any acute respiratory changes. She does states she becomes more short of breath and dyspneic when she bends over. She states it was too late to present to the emergency department that day as her cannot drive at night and she did not want to summon EMS. Thus she took nitroglycerin sublingual and states her symptoms abated. She had recurrent symptoms yesterday and today. As she had recurrent symptoms today she elected to have herself brought to the emergency department for further evaluation. In the emergency department she was evaluated and had an ECG that demonstrated sinus rhythm with the appearance of an anteroseptal WV pattern of indeterminate age, and inferior [place]V pattern of indeterminate age, and a T wave change potentially compatible with myocardial ischemia. She had an abnormal troponin I level which has subsequently been repeated and is remained abnormal. Her chest x-ray findings are as noted below. She was subsequently placed in the PCU for further evaluation and care. At the present time she states she is resting comfortably. She has denied orthopnea or PND or peripheral pitting edema. She has denied any near-syncope or syncope. She states she takes her medications as prescribed. She also notes that she and her experienced COVID-19 earlier this year. She states she believes she recovered from that. She has since gone on to receive a 2 dose COVID-19 vaccination. [facility] Medical History (Updated 05/21/21 @ 16:[address] Paulina Ludwig MD) Anomalous coronary artery origin Atherosclerosis of coronary artery of [place] heart without angina pectoris Chronic anticoagulation Chronic diastolic CHF (congestive heart failure) Depression Essential (primary) hypertension Essential (primary) hypertension History of lipoma Hyperlipidemia Obesity (BMI 30-39.9) Paroxysmal A-fib Sleep apnea Sleep disorder breathing Type 2 diabetes mellitus Home Medications lisinopril 5 mg PO DAILY 02/04/16 [History Last Taken 05/21/21] furosemide 20 mg PO DAILY 11/10/19 [History Last Taken 05/21/21] amlodipine 5 mg tablet 5 mg PO DAILY #90 tab 01/29/20 [Rx Last Taken 05/21/21] apixaban 5 mg tablet 5 mg PO BID 03/09/20 [History Last Taken 05/21/21] aspirin 81 mg PO DAILY@0800 tab.chew 06/13/20 [Rx Last Taken 05/20/21] nitroglycerin 0.4 mg sublingual tablet 0.4 mg SUBLINGUAL Q5M PRN #25 tab 08/24/20 [Rx Last Taken 05/19/21] atorvastatin 80 mg PO DAILY 05/21/21 [History Last Taken 05/21/21] cholecalciferol (vitamin D3) 5,000 unit PO DAILY 05/21/21 [History Last Taken 05/21/21] sertraline 100 mg PO DAILY 05/21/21 [History Last Taken 05/21/21] Allergy/AdvReac Type Severity Reaction Status Date / Time potassium chloride AdvReac diarrhea Verified 05/21/21 14:39 Family History (Updated 05/21/21 @ 16:[address] Paulina Ludwig MD) Grandmother Diabetes Breast cancer Sister Breast cancer Mother Heart disease Hypertension Family History other Surgical History H/O right heart catheterization H/O: hysterectomy History of left heart catheterization (12/18/18) History of tonsillectomy Social History household members: spouse housing: house number of children: 4 (adults) current occupational status: disabled Smoking Status: Never smoker alcohol intake: never ROS Constitutional Constitutional: Reports as per HPI Eyes Eyes: Reports as per HPI ENT HEENT: Reports as per HPI Cardiovascular Cardiovascular: Reports chest pain, chest pain at rest and palpitations Respiratory/Chest Respiratory/Chest: Reports as per HPI Gastrointestinal Gastrointestinal: Reports as per HPI Genitourinary Genitourinary: Reports as per HPI Musculoskeletal Musculoskeletal: Reports as per HPI Integumentary Integumentary: Reports as per HPI Neurologic Neurologic: Reports as per HPI Physical Exam Const alert, oriented x3 and no apparent distress Orientation / Consciousness: awake HEENT normocephalic, head/scalp atraumatic and hearing grossly normal bilaterally Eyes PERRL, EOMs intact bilaterally and conjunctivae normal Neck full ROM, supple and no JVD Resp clear to auscultation bilaterally Cardio regular rate, regular rhythm, S1 normal heart sound and S2 normal heart sound GI normal to inspection, nondistended, normoactive bowel sounds Extremity no pedal edema Skin no rashes or lesions noted Neuro oriented x3, no focal motor deficits and no sensory deficits noted Psych mental status grossly normal Risk Stratification Risk Stratification Applicable: Yes Age >/= 65: No >/= 3 CAD Risk Factors (HTN, HLD, DM, family hx of CAD, or current smoker): Yes Aspirin Use in the Past 7 Days: Yes Severe Angina (>/= episodes in 24 hours): Yes EKG ST Changes >/= 0.5mm: No Positive Cardiac Marker: Yes CHAVA Risk Stratification Score: 4 CHAVA % Risk: 20% Risk Objective Data Vital Signs: Vital Signs Temp Pulse Resp BP Pulse Ox 97.6 F L 66 18 154/79 H 98 05/21/21 17:58 05/21/21 17:58 05/21/21 17:58 05/21/21 17:58 05/21/21 17:58 Oxygen Delivery Method Room Air Weight: 250 lb 8 oz Body Mass Index (BMI) 37.0 Lab / Micro Data Result Diagrams: 05/21/21 14:10 05/21/21 14:10 Labs: Laboratory Results - last 24 hr 05/21/21 14:10: WBC 7.7, RBC 5.35, Hgb 16.0 H, Hct 49.4 H, MCV 92.3, MCH 29.9, MCHC 32.4, RDW Std Deviation 44.8 H, RDW Coeff of Shae 13.2, Plt Count 167, MPV 12.9 H, Immature Gran % (Auto) 0.300, Neut % (Auto) 65.8, Lymph % (Auto) 22.7, [place] % (Auto) 9.6, Eos % (Auto) 1.3, Baso % (Auto) 0.3, Absolute Neuts (auto) 5.1, Absolute Lymphs (auto) 1.75, Nucleated RBC % 0 05/21/21 14:10: Sodium 139, Potassium 4.0, Chloride 106, Carbon Dioxide 29.0, Anion Gap 4 L, BUN 17, Creatinine 0.92, Estim Creat Clear Calc 66.26, Est GFR (MDRD) Af Amer 79, Est GFR (MDRD) Non-Af 65, BUN/Creatinine Ratio 18.4, Glucose 126 H, Calcium 9.5, Troponin I High Sens 185 H* 05/21/21 14:10: Magnesium 2.5 05/21/21 17:50: Troponin I High Sens 170 H* 05/21/21 18:00: POC Glucose 107 Micro: Microbiology 05/21/21 18:20 Nasal Secretion SARS-CoV-2 Antigen (Rapid) - Final Cardiology Labs/Tests 05/21/21 14:10: WBC 7.7, RBC 5.35, Hgb 16.0 H, Hct 49.4 H, MCV 92.3, MCH 29.9, MCHC 32.4, Plt Count 167, MPV 12.9 H, Immature Gran % (Auto) 0.300, Neut % (Auto) 65.8, Lymph % (Auto) 22.7, [place] % (Auto) 9.6, Eos % (Auto) 1.3, Baso % (Auto) 0.3, Absolute Neuts (auto) 5.1, Nucleated RBC % 0 05/21/21 14:10: Sodium 139, Potassium 4.0, Chloride 106, Carbon Dioxide 29.0, Anion Gap 4 L, BUN 17, Creatinine 0.92, Est GFR (MDRD) Af Amer 79, Est GFR (MDRD) Non-Af 65, BUN/Creatinine Ratio 18.4, Glucose 126 H, Calcium 9.5 05/21/21 14:10: Magnesium 2.5 Rhythm: Sinus rhythm; brief episode appearing compatible with ectopic atrial tac hycardia/PAF EKG: Sinus rhythm; anteroseptal WV pattern of indeterminate age cannot be excluded; inferior my pattern of indeterminate age cannot be excluded; T wave abnormality-consider myocardial ischemia-lateral ECHO: 12-17-18 Interpretation Summary Left ventricular systolic function is normal. The estimated ejection fraction is 65 %. Trivial mitral valve insufficiency. Mild tricuspid valve insufficiency. Trivial pulmonic valve insufficiency. Right ventricular systolic pressure estimated to be 25 mmHg. No evidence for diastolic dysfunction. Cardiac Cath: 12-18-2018 CONCLUSIONS Disease noted in a small diagonal vessel and RCA arising from Left cusp. no other obstructive disease noted. RECOMMENDATIONS Medical therapy DESCRIPTION OF PROCEDURE The patient arrived to the procedure lab. The risks and benefits of the procedure as well as a full description of our services here and current unavailability of surgical backup were fully explained to the patient and/or their significant other prior to the catheterization. The Timeout was completed, verifying the correct patient and procedure. The patient's procedural site was prepped and draped in the usual fashion. Local anesthetic was given subcutaneously to right radial region with Lidocaine 2%. Using a modified Seldinger technique, arterial access was obtained via the right radial artery, a 6Fr sheath was inserted. Left Coronary Artery selective angiography was performed in multiple views using a 5 Fr. 4.0 [place] catheter. Right Coronary Artery selective angiography was then performed in multiple views using a 5 Fr. 4.0 [place] catheter. Left Ventriculography was performed in [place]ON projection using a 5 Fr. [place] catheter. LV to AO pullback pressures were then recorded.The arterial sheath was pulled and a TR Band was applied for hemostasis CORONARY ANGIOGRAPHY DOMINANCE: Right Dominant LEFT HEART ASSESSMENT Left Ventricular Ejection Fraction: by LV Gram 55 % Normal Left Ventricular systolic function LEFT MAIN: Angiographically normal LEFT ANTERIOR DESCENDING ARTERY: No significant disease noted DIAGONAL 1: Proximal - 70 small vessel % Stenosis CIRCUMFLEX ARTERY: No significant disease noted RIGHT CORONARY ARTERY: Angiographically normal OSTIAL RCA: Arises from left coronary cusp Radiography Diagnostic Testing: Radiology Impression Chest X-Ray 05/21/21 15:10 IMPRESSION: Mild residual linear markings at the lung bases slightly more prominent on the left side suggestive of linear atelectasis and/or scarring. These have improved as compared to prior study. Electronically Signed: Jerry Bunch MD at 15:20 EDT , Service support ,
[2021-05-21] MEDS: Clopidogrel Bisulfate 300 MG Tablet PO (21:27)
[2021-05-21] MEDS: Metoprolol Tartrate 25 MG Tablet PO (21:30)
[2021-05-21 22:13] LABS: Troponin-I HS 175 pg/mL (3.0-54.0)
[2021-05-21 23:26] LABS: Bedside Glucose 128 mg/dL (70-110)
[2021-05-22] VITALS (20 sets, daily range): BP systolic 124–173; BP diastolic 59–92; PULSE 58–73; RESP 16–20; TEMP 36.3–36.7; O2SAT 93–98
--- NOTE | 2021-05-22 00:14 | EKG12_ITS ---
Test Reason : CP Blood Pressure : / mmHG Vent. Rate : 069 BPM Atrial Rate : 069 BPM P-R Int : 194 ms QRS Dur : 084 ms QT Int : 384 ms P-R-T Axes : 006 -10 134 degrees QTc Int : 411 ms Normal sinus rhythm Septal infarct , age undetermined Inferior infarct , age undetermined , cannot be excluded T wave abnormality, consider lateral ischemia Abnormal ECG Confirmed by PAULA HARMON, TEODORA ([id number]), market editor MIRI HERRERA ([id number]) on 05/25/2021 8:20:22 AM Referred By: Confirmed By:TEODORA MITCHELL MD
[2021-05-22] MEDS: Nitroglycerin (INPATIENT USE) 0.4 MG TAB.SUBL SL ×2 (00:21→00:29)
[2021-05-22] MEDS: Morphine 2 MG/ML Syringe IV (00:45)
[2021-05-22] MEDS: 0.9% Saline Lock 10 ML Syringe IV ×3 (00:46→13:55)
[2021-05-22] MEDS: Nitroglycerin Oint 1 INCH PACKET TD ×4 (00:52→17:33)
[2021-05-22] MEDS: Acetaminophen 325 MG Tablet 650 MG PO (04:52)
--- NOTE | 2021-05-22 05:55 | EKG12_ITS ---
Test Reason : AM EKG Blood Pressure : / mmHG Vent. Rate : 065 BPM Atrial Rate : 065 BPM P-R Int : 202 ms QRS Dur : 096 ms QT Int : 394 ms P-R-T Axes : 000 -14 135 degrees QTc Int : 409 ms Normal sinus rhythm T wave abnormality, consider lateral ischemia Abnormal ECG Confirmed by PAULA HARMON, TEODORA ([id number]), pictures editor MIRI HERRERA ([id number]) on 05/25/2021 8:59:05 AM Referred By: DR SHRESTHA Confirmed By:TEODORA MITCHELL MD
--- NOTE | 2021-05-22 06:28 | CPS ---
PT DECLINED USE OF OUR CPAP. NON COMPLIANT WITH HOME UNIT. RN AWARE
[2021-05-22 07:25] LABS: Bedside Glucose 123 mg/dL (70-110)
--- NOTE | 2021-05-22 07:31 | PCS.PANDOC ---
PANDEMIC DOCUMENTATION INITIATED: Date: 03/01/2021 Time: 190
[2021-05-22] MEDS: Enoxaparin 100 MG/ML Syringe SC ×2 (07:52→17:32)
[2021-05-22 07:53] LABS: Absolute Lymphocyte Count 1.32 X10^3/uL (0.83-4.51); Absolute Neutrophil Count 5.4 X10^3/uL (2.0-7.7); Basophil# 0.03 X10^3/uL; Basophil% 0.4 % (0-1); Eosinophil# 0.04 X10^3/uL; Eosinophils% 0.5 % (0-5); Hematocrit 45.5 % (37-47); Hemoglobin 14.9 g/dL (12.0-15.0); Lymphocyte # 1.32 X10^3/ul (0.83-4.51); Lymphocyte % 17.5 % (19-41); Mean Corp Hgb Conc 32.7 g/dL (32-36); Mean Corpuscular Hgb 30.2 pg (27.0-32.0); Mean Corpuscular Volume 92.1 fL (81-99); Mean Platelet Vol. 13.6 fl (6.2-12.0); Monocyte# 0.69 X10^3/uL; Monocyte% 9.2 % (0-10); NRBC Flagged by Analyzer 0 % (0-5); Neutrophil # 5.43 X10^3/uL (2.7-7.7); Neutrophil % 72.1 % (47-70); Platelet Count 147 K/mm3 (150-450); RBC Distribution Width CV 13.1 % (11.6-14.6); RBC Distribution Width SD 44.3 fl (35.1-43.9); Red Blood Count 4.94 M/mm3 (4.2-5.4); White Blood Count 7.5 K/mm3 (4.4-11.0)
[2021-05-22 08:25] LABS: ALB/GLOB Ratio 0.8 RATIO (0.9-2.4); AST(SGOT) 12 U/L (15-37); Alanine Aminotransfer ALT/SGPT 22 U/L (13-56); Albumin, Serum 2.8 g/dL (3.2-5.0); Alkaline Phosphatase 100 U/L (45-117); Anion Gap 5 (5-15); BUN 17 mg/dL (7-18); BUN/Creat Ratio 21.5 RATIO (10-20); Calcium,Total 8.9 mg/dL (8.5-10.1); Chloride 107 mmol/L (98-107); Cholesterol 200 mg/dL (200); Creatinine, Serum 0.79 mg/dL (0.55-1.02); EST Glomerular Filtration Rate 78 mL/min (>60); Est Glom Filt Rate - Afr Amer 94 mL/min (>60); Estimated Creatinine Clearance 77.16 ml/min; Globulin 3.7 g/dL (2.2-4.2); Glucose 124 mg/dL (74-106); High Density Lipoprotein 40 mg/dL; Protein, Total 6.5 g/dL (6.4-8.2); Sodium Level 137 mmol/L (136-145); Triglycerides 126 mg/dL; Very Low Density Lipoprotein 25 mg/dL (5-40)
[2021-05-22 08:33] LABS: Partial Thromboplast Time 32.1 Seconds (24.1-36.2)
[2021-05-22] MEDS: Aspirin 81 MG TAB.CHEW PO (09:26)
[2021-05-22] MEDS: Furosemide 20 MG Tablet PO (09:26)
[2021-05-22] MEDS: Metoprolol Tartrate 25 MG Tablet PO ×2 (09:26→20:56)
[2021-05-22] MEDS: Clopidogrel Bisulfate 75 MG Tablet PO (09:26)
[2021-05-22] MEDS: Sertraline 100 MG Tablet PO (09:26)
[2021-05-22] MEDS: Cholecalciferol (VIT D3) 25 MCG TABLET (1,000 UNITS) 125 MCG PO (09:27)
[2021-05-22] MEDS: amLODIPine 5 MG Tablet PO (09:27)
[2021-05-22] MEDS: Lisinopril 5 MG Tablet PO (09:27)
[2021-05-22 09:58] LABS: Hemoglobin A1c 6.5 % (3.8-5.6)
--- NOTE | 2021-05-22 10:20 | PN.CARD_ITS ---
Subjective Subjective The patient complained of an episode late last night/early this morning, after getting up to use the restroom, where she felt chest heaviness as if a brick were sitting on her chest with some radiation to the left arm area. She was evaluated by the [facility] nursing staff. She was treated with nitroglycerin sublingual. She notes subsequently she developed a headache and became somewhat diaphoretic. She does note that the medication assisted with relieving her discomfort. It has not returned since that time. During that time she did have an ECG that demonstrated sinus rhythm with first- degree AV block with a septal MS pattern of indeterminate age cannot be excluded and an inferior MS pattern of indeterminate age cannot be excluded and T wave change potentially compatible with myocardial ischemia-lateral. This was repeated this morning and her T waves appear to be somewhat less prominent. Objective Data Vital Signs: Vital Signs Temp Pulse Resp BP Pulse Ox 97.7 F L 60 16 124/75 H 96 05/22/21 09:25 05/22/21 09:26 05/22/21 09:25 05/22/21 09:25 05/22/21 09:25 Oxygen Flow Rate (L/min) 2 Oxygen Delivery Method Room Air Weight: 250 lb 14.177 oz Body Mass Index (BMI) 37.0 Intake & Output: Intake and Output for Last 24 Hours 05/20/21 05/21/21 05/22/21 23:59 23:59 23:59 Intake Total 1150 / 1150 Output Total 150 / 150 Balance 1000 / 1000 Lab / Micro Data Result Diagrams: 05/22/21 06:20 05/22/21 06:20 Labs: Laboratory Results - last 24 hr 05/21/21 14:10: WBC 7.7, RBC 5.35, Hgb 16.0 H, Hct 49.4 H, MCV 92.3, MCH 29.9, MCHC 32.4, RDW Std Deviation 44.8 H, RDW Coeff of Shae 13.2, Plt Count 167, MPV 1 2.9 H, Immature Gran % (Auto) 0.300, Neut % (Auto) 65.8, Lymph % (Auto) 22.7, [place] % (Auto) 9.6, Eos % (Auto) 1.3, Baso % (Auto) 0.3, Absolute Neuts (auto) 5.1, Absolute Lymphs (auto) 1.75, Nucleated RBC % 0 05/21/21 14:10: Sodium 139, Potassium 4.0, Chloride 106, Carbon Dioxide 29.0, Anion Gap 4 L, BUN 17, Creatinine 0.92, Estim Creat Clear Calc 66.26, Est GFR (MDRD) Af Amer 79, Est GFR (MDRD) Non-Af 65, BUN/Creatinine Ratio 18.4, Glucose 126 H, Calcium 9.5, Troponin I High Sens 185 H* 05/21/21 14:10: Magnesium 2.5 05/21/21 17:50: Troponin I High Sens 170 H* 05/21/21 18:00: POC Glucose 107 05/21/21 21:30: Troponin I High Sens 175 H* 05/21/21 21:35: POC Glucose 128 H 05/22/21 06:20: WBC 7.5, RBC 4.94, Hgb 14.9, Hct 45.5, MCV 92.1, MCH 30.2, MCHC 32.7, RDW Std Deviation 44.3 H, RDW Coeff of Shae 13.1, Plt Count 147 L, MPV 13.6 H, Immature Gran % (Auto) 0.300, Neut % (Auto) 72.1 H, Lymph % (Auto) 17.5 L, [place] % (Auto) 9.2, Eos % (Auto) 0.5, Baso % (Auto) 0.4, Absolute Neuts (auto) 5.4, Absolute Lymphs (auto) 1.32, Nucleated RBC % 0 05/22/21 06:20: PT 13.0, INR 1.0, APTT 32.1 05/22/21 06:20: Sodium 137, Potassium 4.0, Chloride 107, Carbon Dioxide 25.0, Anion Gap 5, BUN 17, Creatinine 0.79, Estim Creat Clear Calc 77.16, Est GFR (MDRD) Af Amer 94, Est GFR (MDRD) Non-Af 78, BUN/Creatinine Ratio 21.5 H, Glucose 124 H, Calcium 8.9, Total Bilirubin 0.70, AST 12 L, ALT 22, Alkaline Phosphatase 100, Total Protein 6.5, Albumin 2.8 L, Globulin 3.7, Albumin/Globulin Ratio 0.8 L, Triglycerides 126, Cholesterol 200, LDL Cholesterol 135 H, VLDL Cholesterol 25, HDL Cholesterol 40 11/06/21 06:20: Hemoglobin A1c 6.5 H 05/22/21 07:20: POC Glucose 123 H Micro: Microbiology 05/21/21 18:20 Nasal Secretion SARS-CoV-2 Antigen (Rapid) - Final Cardiology Labs/Tests 05/21/21 14:10: WBC 7.7, RBC 5.35, Hgb 16.0 H, Hct 49.4 H, MCV 92.3, MCH 29.9, MCHC 32.4, Plt Count 167, MPV 12.9 H, Immature Gran % (Auto) 0.300, Neut % (Auto) 65.8, Lymph % (Auto) 22.7, [place] % (Auto) 9.6, Eos % (Auto) 1.3, Baso % (Auto) 0.3, Absolute Neuts (auto) 5.1, Nucleated RBC % 0 05/21/21 14:10: Sodium 139, Potassium 4.0, Chloride 106, Carbon Dioxide 29.0, Anion Gap 4 L, BUN 17, Creatinine 0.92, Est GFR (MDRD) Af Amer 79, Est GFR (MDRD) Non-Af 65, BUN/Creatinine Ratio 18.4, Glucose 126 H, Calcium 9.5 05/21/21 14:10: Magnesium 2.5 05/22/21 06:20: WBC 7.5, RBC 4.94, Hgb 14.9, Hct 45.5, MCV 92.1, MCH 30.2, MCHC 32.7, Plt Count 147 L, MPV 13.6 H, Immature Gran % (Auto) 0.300, Neut % (Auto) 72.1 H, Lymph % (Auto) 17.5 L, [place] % (Auto) 9.2, Eos % (Auto) 0.5, Baso % (Auto) 0.4, Absolute Neuts (auto) 5.4, Nucleated RBC % 0 05/22/21 06:20: PT 13.0, INR 1.0, APTT 32.1 05/22/21 06:20: Sodium 137, Potassium 4.0, Chloride 107, Carbon Dioxide 25.0, Anion Gap 5, BUN 17, Creatinine 0.79, Est GFR (MDRD) Af Amer 94, Est GFR (MDRD) Non-Af 78, BUN/Creatinine Ratio 21.5 H, Glucose 124 H, Calcium 8.9, Total Bilirubin 0.70, Triglycerides 126, Cholesterol 200, LDL Cholesterol 135 H, VLDL Cholesterol 25, HDL Cholesterol 40 05/22/21 06:20: Hemoglobin A1c 6.5 H Rhythm: Sinus rhythm EKG: As noted above ECHO: Pending Radiography Diagnostic Testing: Radiology Impression Chest X-Ray 05/21/21 15:10 IMPRESSION: Mild residual linear markings at the lung bases slightly more prominent on the left side suggestive of linear atelectasis and/or scarring. These have improved as compared to prior study. Electronically Signed: Jerry Bunch MD at 15:20 EDT , Service support , Physical Exam Const alert, oriented x3 and no apparent distress Orientation / Consciousness: awake HEENT normocephalic, head/scalp atraumatic and hearing grossly normal bilaterally Eyes PERRL, EOMs intact bilaterally and conjunctivae normal Neck full ROM, supple and no JVD Resp clear to auscultation bilaterally Cardio regular rate, regular rhythm, S1 normal heart sound and S2 normal heart sound GI normal to inspection, nondistended, normoactive bowel sounds Extremity no pedal edema Skin no rashes or lesions noted Neuro oriented x3, no focal motor deficits and no sensory deficits noted Psych mental status grossly normal Assessment & Plan Assessment/Plan (1) Elevated troponin: PLAN: The patient has an elevated troponin I level. This appears compatible with non-STEMI. It is unclear at this time whether this is a true type I event from her underlying CAD process versus being a type II event being brought out from her paroxysmal atrial fibrillation. Her cardiac enzymes have been followed without significant change. Her ECG changes are as noted above. An echocardiogram is pending to evaluate her left ventricular wall motion and systolic function. She'll be considered for future evaluation with diagnostic cardiac catheterizati on once her anticoagulation status is appropriate. In the interim she will continue medical therapy. (2) Atherosclerosis of coronary artery of [place] heart without angina pectoris: QUALIFIERS: Coronary Disease-Associated Artery/Lesion type: [place] artery Qualified Code(s): I25.10 - Atherosclerotic heart disease of [place] coronary artery without angina pectoris PLAN: Her previous CAD history was reviewed. Again at the present time she will continue her noninvasive evaluation. Once her anticoagulation status is appropriate she'll be considered for further evaluation with diagnostic cardiac catheterization. This procedure and risks were discussed with her and she was agreeable to the approach. In the interim she will continue medical therapy. (3) Paroxysmal A-fib: PLAN: She does have a history of paroxysmal atrial fibrillation. Is unclear as to whether this was the source of her symptoms and subsequent cardiac enzyme level. She will continue to be monitored with her medicines adjusted accordingly. Her anticoagulation is being placed on hold so that she can be prepared for future diagnostic cardiac catheterization. She can receive temporary anticoagulation in the interim with agents such as enoxaparin/Lovenox and/or IV heparin. (4) Hyperlipidemia: QUALIFIERS: Hyperlipidemia type: unspecified Qualified Code(s): E78.5 - Hyperlipidemia, unspecified PLAN: She should continue risk factor evaluation and care. (5) Essential (primary) hypertension: PLAN: Her blood pressure will be followed and she'll continue medical therapy. Addt'l Comments The patient's case was discussed and reviewed with the patient. This note was generated using a voice recognition system and there may be incorrect words, spelling or punctuation that were not noted when reviewing the office note prior to saving.
[2021-05-22] MEDS: oxyCODONE 5 MG Tablet PO (11:23)
[2021-05-22] MEDS: Insulin Lispro 100 UNIT/ML INSULN.PEN SC ×2 (11:29→17:32)
[2021-05-22 11:40] LABS: Bedside Glucose 162 mg/dL (70-110)
[2021-05-22] MEDS: Ondansetron 4 MG/2 ML Vial IV (12:46)
--- NOTE | 2021-05-22 13:44 | PCM.PN.HOSP ---
Subjective Subjective Patient was admitted with constant chest pain midsternal with radiation to left arm, medial side. Currently chest pain resolved. Patient feels very severe weakness, no energy. Denies associated shortness of breath. EKG normal sinus rhythm. troponin elevated Objective Data Objective Data Vital Signs: Vital Signs Temp Pulse Resp BP Pulse Ox 97.3 F L 60 16 141/79 H 97 05/22/21 11:29 05/22/21 11:29 05/22/21 11:29 05/22/21 11:29 05/22/21 11:29 Oxygen Flow Rate (L/min) 2 Oxygen Delivery Method Room Air Weight: 250 lb 14.177 oz Body Mass Index (BMI) 37.0 Intake & Output: Intake and Output for Last 24 Hours 05/20/21 05/21/21 05/22/21 23:59 23:59 23:59 Intake Total 1630 / 1630 Output Total 150 / 150 Balance 1480 / 1480 Lab / Micro Data Result Diagrams: 05/22/21 06:20 05/22/21 06:20 Labs: Laboratory Results - last 24 hr 05/21/21 14:10: WBC 7.7, RBC 5.35, Hgb 16.0 H, Hct 49.4 H, MCV 92.3, MCH 29.9, MCHC 32.4, RDW Std Deviation 44.8 H, RDW Coeff of Shae 13.2, Plt Count 167, MPV 12.9 H, Immature Gran % (Auto) 0.300, Neut % (Auto) 65.8, Lymph % (Auto) 22.7, [place]ac % (Auto) 9.6, Eos % (Auto) 1.3, Baso % (Auto) 0.3, Absolute Neuts (auto) 5.1, Absolute Lymphs (auto) 1.75, Nucleated RBC % 0 05/21/21 14:10: Sodium 139, Potassium 4.0, Chloride 106, Carbon Dioxide 29.0, Anion Gap 4 L, BUN 17, Creatinine 0.92, Estim Creat Clear Calc 66.26, Est GFR (MDRD) Af Amer 79, Est GFR (MDRD) Non-Af 65, BUN/Creatinine Ratio 18.4, Glucose 126 H, Calcium 9.5, Troponin I High Sens 185 H* 05/21/21 14:10: Magnesium 2.5 05/21/21 17:50: Troponin I High Sens 170 H* 05/21/21 18:00: POC Glucose 107 05/21/21 21:30: Troponin I High Sens 175 H* 05/21/21 21:35: POC Glucose 128 H 05/22/21 06:20: WBC 7.5, RBC 4.94, Hgb 14.9, Hct 45.5, MCV 92.1, MCH 30.2, MCHC 32.7, RDW Std Deviation 44.3 H, RDW Coeff of Shae 13.1, Plt Count 147 L, MPV 13.6 H, Immature Gran % (Auto) 0.300, Neut % (Auto) 72.1 H, Lymph % (Auto) 17.5 L, [place]ac % (Auto) 9.2, Eos % (Auto) 0.5, Baso % (Auto) 0.4, Absolute Neuts (auto) 5.4, Absolute Lymphs (auto) 1.32, Nucleated RBC % 0 05/22/21 06:20: PT 13.0, INR 1.0, APTT 32.1 05/22/21 06:20: Sodium 137, Potassium 4.0, Chloride 107, Carbon Dioxide 25.0, Anion Gap 5, BUN 17, Creatinine 0.79, Estim Creat Clear Calc 77.16, Est GFR (MDRD) Af Amer 94, Est GFR (MDRD) Non-Af 78, BUN/Creatinine Ratio 21.5 H, Glucose 124 H, Calcium 8.9, Total Bilirubin 0.70, AST 12 L, ALT 22, Alkaline Phosphatase 100, Total Protein 6.5, Albumin 2.8 L, Globulin 3.7, Albumin/Globulin Ratio 0.8 L, Triglycerides 126, Cholesterol 200, LDL Cholesterol 135 H, VLDL Cholesterol 25, HDL Cholesterol 40 05/22/21 06:20: Hemoglobin A1c 6.5 H 05/22/21 07:20: POC Glucose 123 H 05/22/21 11:26: POC Glucose 162 H Micro: Microbiology 05/21/21 18:20 Nasal Secretion SARS-CoV-2 Antigen (Rapid) - Final Radiography Diagnostic Testing: Radiology Impression Chest X-Ray 05/21/21 15:10 IMPRESSION: Mild residual linear markings at the lung bases slightly more prominent on the left side suggestive of linear atelectasis and/or scarring. These have improved as compared to prior study. Electronically Signed: Jerry Bunch MD at 15:20 EDT , Service support , Echocardiogram 05/21/21 17:29 Interpretation Summary The study was technically difficult. Left ventricular systolic function is normal. The estimated ejection fraction is 55 %. Mild (1+) mitral valve insufficiency. Mild tricuspid valve insufficiency. Trivial pulmonic valve insufficiency. Right ventricular systolic pressure estimated to be 27 mmHg. No evidence for diastolic dysfunction. Ordering Physician: Paulina Ludwig Referring Physician: Addis Prather Performed By: Jyotsna Skaggs, RDCS, RVT Physical Exam Narrative General: Alert, Oriented x3, Cooperative, morbid obesity BMI 37 kg/m? HEENT: Atraumatic, PERRLA, EOMI, Normocephalic Oral: No Gingival or Mucosal Lesions/ Ulcerations Neck: Supple, No JVD, Negative Carotid Bruits Lungs: Air entry diminished in bilateral lung bases. No crepitation/rhonchi Cardiovascular: Sinus rhythm, Normal S1, Normal S2, No murmurs Abdomen: Bowel Sounds Present, Soft, Non Tender, Non-Distended : No renal angle tenderness. No suprapubic tenderness. Extremities: No edema, Capillary Refill Less than 3 Seconds Skin: No rashes, No breakdown Musculoskeletal: No Tenderness to Palpation of Joints or Extremities Neurological: Cranial nerves II-XII grossly intact, DTR 2+/4 and Symmetrical, Neuro grossly intact Psych/Mental Status: Normal Affect, Appropriate. Assessment & Plan Assessment/Plan (1) Chest pain: QUALIFIERS: Chest pain type: unspecified Qualified Code(s): R07.9 - Chest pain, unspecified (2) Elevated troponin: (3) Unstable angina: PLAN: The patient is a 60 y/o F being admitted with chest pain 1. NSTEMI, unclear primary event or type II [place]: Patient is admitted in ICU. Was evaluated by powertrain calibration engineer. Plan for cardiac cath tomorrow a.m. EKG sinus rhythm with no diagnostic ST-T changes. High-sensitivity troponins are elevated. Fasting grandsons LDL 135, HDL 40. LDL not at goal therefore ezetemib added on atorvastatin 80 mg daily on aspirin, nitroglycerin and morphine. It will need outpatient ultrasound for PSKD9 inhibitor as LDL goal is more than 30%. 2. Chronic diastolic CHF: Chest x-ray without acute cardiopulmonary findings, compensated, will continue aspirin, holding apixaban as noted, continue lisinopril, Lasix, not on beta-litzy therapy, continue statin. Judiciously hydrate given history. 2D echo shows preserved EF with mild TR and MR. 3. Nonobstructive CAD: Prior cardiac catheterization 12/18/2018 with nonobstructive coronary disease except small diagonal vessel of the LAD with an ostial 70% proximal lesion felt too small to pursue any angioplasty at that time with medical therapy recommendation, continue medical therapy. 4. PAF: Started on metoprolol 25 mg p.o. twice daily. On therapeutic dose of Lovenox 100 mg subcu twice daily. 5. Diabetes mellitus type II: A1c 6.5. Accu-Cheks insulin coverage block sliding scale. On ADA diet 6. Hypertension: Continue home regimen including amlodipine, Lasix, lisinopril with hold parameters as needed, PRN hydralazine. 7. Hyperlipidemia: As mentioned above 8. Anxiety and depression: We will continue patient home sertraline regimen. 9. Obesity: Weight loss and lifestyle changes encouraged. 10. RYAN: CPAP q HS. 11. DVT prophylaxis: SCDs, on atorvastatin 80 mg nightly. 12. CODE status: Patient does not have healthcare power of patent attorney however living will is in place and she notes her son Octavio has it. Discussed CODE status at length including difference between FULL code, DNR-CCA and DNR-CC status. Following discussions about the differences in these status, requested Full Code status. Advanced Care Planning Face to Face Time: 16 minutes. Charges/Coding Visit Charges Inpatient E&M: 89648 Subs Hosp L2
[2021-05-22] MEDS: proCHLORPERazine 10 MG/2 ML Vial 5 MG IV (13:55)
[2021-05-22] MEDS: Ezetimibe 10 MG Tablet PO (15:34)
--- NOTE | 2021-05-22 15:38 | CASEMGMT ---
SABRINA CM NOTE: Insurance review for hospitals In-network with [facility] Insurance if transfer is recommended is as follows: [facility], Alex, [facility], [facility], [facility], [facility], [facility] ([facility]), and . Anne CHANDLER RN CM
[2021-05-22 16:56] LABS: Bedside Glucose 159 mg/dL (70-110)
--- NOTE | 2021-05-22 17:10 | CASEMGMT ---
SABRINA RIOS FOOD AND BEVERAGE ASSISTANT BLANCA to room to meet with patient for initial transition planning/care coordination assessment. SABRINA RIOS introduced self and role at [facility]. Pt voices understanding and consents to assessment at this time. Pt sitting up on edge of bed in no distress at this time. Pt is A/O at this time and answers all questions appropriately. Care providers, pharmacy, and demographics verified/updated at this time. PCP: Dr Prather Specialists: Dr Eli, hand sole sewer [facility] [place] [facility] [place] Benef[place]: yes Living Will/HPOA: Pt does not have either. Provided information on AD. Pt is interested in talking w/SW to complete. SW, Jose, made aware. Pt made aware, if SW unable to meet w/her prior to discharge, that she can meet w/SW as an out-pt to have these completed. Pt voices understanding. LNOK: , [place]. 4 adult children Living Arrangements: Patient lives with in a first floor apartment with no steps to enter through back entrance, 2 thru front. Patient states she is independent at home. w/ADL's and IADL's. uses a walker and unable to assist pt. Son lives in upstairs apt above them and does the yard work and 2 dtr's live w/in walking distance. Transportation: self/. She denies transportation concerns. DME: Has cpap at home but does not use it. Pt has functioning glucometer w/supplies. Denies need for further DME at this time. HHC/SNF: No history of either. Denies need for HHC. Pt wishes to return home and states has no concerns with going home at time of discharge. Plan: Home w/family support and discharge plans in place. Anne CHANDLER RN, CM
--- NOTE | 2021-05-22 19:30 | CASEMGMT ---
SOCIAL WORK Referral Source: CM Reason for Consult: Advanced Directives Met with patient in room. Introduced role and reason for referral. Patient requested to review forms. SW to follow up Monday for possible completion. Liz Patel, SHIPFITTERS SUPERVISOR, IP ARCHITECT
[2021-05-22] MEDS: Atorvastatin Calcium 80 MG Tablet PO (20:56)
[2021-05-22 21:30] LABS: Bedside Glucose 128 mg/dL (70-110)
[2021-05-23] VITALS (17 sets, daily range): BP systolic 114–140; BP diastolic 53–79; PULSE 59–85; RESP 14–18; TEMP 36.3–37.3; O2SAT 91–98
[2021-05-23] MEDS: Nitroglycerin Oint 1 INCH PACKET TD ×5 (05:50→23:59)
[2021-05-23] MEDS: Enoxaparin 100 MG/ML Syringe SC ×2 (05:51→17:29)
[2021-05-23 07:06] LABS: Bedside Glucose 142 mg/dL (70-110)
[2021-05-23] MEDS: Furosemide 20 MG Tablet PO (09:54)
[2021-05-23] MEDS: Cholecalciferol (VIT D3) 25 MCG TABLET (1,000 UNITS) 125 MCG PO (09:54)
[2021-05-23] MEDS: amLODIPine 5 MG Tablet PO (09:54)
[2021-05-23] MEDS: Metoprolol Tartrate 25 MG Tablet PO ×2 (09:54→21:43)
[2021-05-23] MEDS: Aspirin 81 MG TAB.CHEW PO (09:54)
[2021-05-23] MEDS: Clopidogrel Bisulfate 75 MG Tablet PO (09:54)
[2021-05-23] MEDS: Ezetimibe 10 MG Tablet PO (09:54)
[2021-05-23] MEDS: Sertraline 100 MG Tablet PO (09:54)
[2021-05-23] MEDS: Lisinopril 5 MG Tablet PO (09:54)
--- NOTE | 2021-05-23 09:54 | NURSING ---
Scanner in room would not work. Verified patient and all medications given at this time with Tarsha Sow RN
[2021-05-23 11:36] LABS: Bedside Glucose 164 mg/dL (70-110)
[2021-05-23] MEDS: Insulin Lispro 100 UNIT/ML INSULN.PEN SC (11:38)
--- NOTE | 2021-05-23 12:28 | PCM.PN.HOSP ---
Subjective Subjective Patient not any chest pain or shortness of breath. Complain of lower abdominal pain yesterday night and his rash in between abdominal skin fold. No alteration of bowel movement. Abdominal pain resolved. Objective Data Objective Data Vital Signs: Vital Signs Temp Pulse Resp BP Pulse Ox 97.5 F L 59 L 16 119/64 96 05/23/21 11:40 05/23/21 11:40 05/23/21 11:40 05/23/21 11:40 05/23/21 11:40 Oxygen Flow Rate (L/min) 2 Oxygen Delivery Method Room Air Weight: 248 lb 7.375 oz Body Mass Index (BMI) 37.0 Intake & Output: Intake and Output for Last 24 Hours 05/21/21 05/22/21 05/23/21 23:59 23:59 22:59 Intake Total 1870 / 1870 480 / 480 Output Total 150 / 150 Balance 1720 / 1720 480 / 480 Lab / Micro Data Result Diagrams: 05/22/21 06:20 05/22/21 06:20 Labs: Laboratory Results - last 24 hr 05/22/21 16:50: POC Glucose 159 H 05/22/21 20:55: POC Glucose 128 H 05/23/21 06:46: POC Glucose 142 H 05/23/21 11:31: POC Glucose 164 H Micro: Microbiology 05/21/21 18:20 Nasal Secretion SARS-CoV-2 Antigen (Rapid) - Final Physical Exam Narrative General: Alert, Oriented x3, Cooperative, morbid obesity BMI 37 kg/m? HEENT: Atraumatic, PERRLA, EOMI, Normocephalic Oral: No Gingival or Mucosal Lesions/ Ulcerations Neck: Supple, No JVD, Negative Carotid Bruits Lungs: Air entry diminished in bilateral lung bases. No crepitation/rhonchi Cardiovascular: Sinus rhythm, Normal S1, Normal S2, No murmurs Abdomen: Bowel Sounds Present, Soft, Non Tender, Non-Distended : No renal angle tenderness. No suprapubic tenderness. Extremities: No edema, Capillary Refill Less than 3 Seconds Skin: Mild erythematous rash, yeast in between abdominal folds. Musculoskeletal: No Tenderness to Palpation of Joints or Extremities Neurological: Cranial nerves II-XII grossly intact, DTR 2+/4 and Symmetrical, Neuro grossly intact Psych/Mental Status: Normal Affect, Appropriate. Assessment & Plan Assessment/Plan (1) Chest pain: QUALIFIERS: Chest pain type: unspecified Qualified Code(s): R07.9 - Chest pain, unspecified (2) Elevated troponin: (3) Unstable angina: PLAN: The patient is a 60 y/o F being admitted with chest pain 1. NSTEMI, unclear primary event or type II MO: Patient is admitted in ICU. Was evaluated by supervisor tan room. Plan for cardiac cath tomorrow a.m. EKG sinus rhythm with no diagnostic ST-T changes. High-sensitivity troponins are elevated. Fasting grandsons LDL 135, HDL 40. LDL not at goal therefore ezetemib added on atorvastatin 80 mg daily on aspirin, nitroglycerin and morphine. It will need outpatient ultrasound for PSKD9 inhibitor as LDL goal is more than 30%. 05/23: No further chest pain. Heart rate and blood pressure controlled. One isolated heart rate is 59/min. Plan for cardiac cath tomorrow. 2. Chronic diastolic CHF: Chest x-ray without acute cardiopulmonary findings, compensated, will continue aspirin, holding apixaban as noted, continue lisinopril, Lasix, not on beta-litzy therapy, continue statin. Judiciously hydrate given history. 2D echo shows preserved EF with mild TR and MR. 3. Nonobstructive CAD: Prior cardiac catheterization 12/18/2018 with nonobstructive coronary disease except small diagonal vessel of the LAD with an ostial 70% proximal lesion felt too small to pursue any angioplasty at that time with medical therapy recommendation, continue medical therapy. 4. PAF: Started on metoprolol 25 mg p.o. twice daily. On therapeutic dose of Lovenox 100 mg subcu twice daily. 5. Diabetes mellitus type II: A1c 6.5. Accu-Cheks insulin coverage block sliding scale. On ADA diet 6. Hypertension: Continue home regimen including amlodipine, Lasix, lisinopril with hold parameters as needed, PRN hydralazine. 7. Hyperlipidemia: As mentioned above 8. Anxiety and depression: We will continue patient home sertraline regimen. 9. Obesity: Weight loss and lifestyle changes encouraged. Candidal rash in between the skin folds. Nystatin ordered. The patient had umbilical surgery and liposuction during that surgery. 10. RYAN: CPAP q HS. 11. DVT prophylaxis: SCDs, on atorvastatin 80 mg nightly. 12. CODE status: Patient does not have healthcare power of senior attorney however living will is in place and she notes her son Octavio has it. Discussed CODE status at length including difference between FULL code, DNR-CCA and DNR-CC status. Following discussions about the differences in these status, requested Full Code status. Advanced Care Planning Face to Face Time: 16 minutes. Charges/Coding Visit Charges Inpatient E&M: 40007 Subs Hosp L2
--- NOTE | 2021-05-23 12:59 | PN.CARD_ITS ---
Subjective Subjective The patient denies any additional chest discomfort. She states she had an episode of nausea/emesis yesterday which was treated with antiemetic therapy. It has not recurred. Objective Data Vital Signs: Vital Signs Temp Pulse Resp BP Pulse Ox 97.5 F L 59 L 16 119/64 96 05/23/21 11:40 05/23/21 11:40 05/23/21 11:40 05/23/21 11:40 05/23/21 11:40 Oxygen Flow Rate (L/min) 2 Oxygen Delivery Method Room Air Weight: 248 lb 7.375 oz Body Mass Index (BMI) 37.0 Intake & Output: Intake and Output for Last 24 Hours 05/21/21 05/22/21 05/23/21 23:59 23:59 22:59 Intake Total 1870 / 1870 480 / 480 Output Total 150 / 150 Balance 1720 / 1720 480 / 480 Lab / Micro Data Result Diagrams: 05/22/21 06:20 05/22/21 06:20 Labs: Laboratory Results - last 24 hr 05/22/21 16:50: POC Glucose 159 H 05/22/21 20:55: POC Glucose 128 H 05/23/21 06:46: POC Glucose 142 H 05/23/21 11:31: POC Glucose 164 H Cardiology Labs/Tests Rhythm: Sinus rhythm Echocardiogram: Interpretation Summary The study was technically difficult. Left ventricular systolic function is normal. The estimated ejection fraction is 55 %. Mild (1+) mitral valve insufficiency. Mild tricuspid valve insufficiency. Trivial pulmonic valve insufficiency. Right ventricular systolic pressure estimated to be 27 mmHg. No evidence for diastolic dysfunction. Physical Exam Const alert, oriented x3 and no apparent distress Orientation / Consciousness: awake HEENT normocephalic, head/scalp atraumatic and hearing grossly normal bilaterally Eyes PERRL, EOMs intact bilaterally and conjunctivae normal Neck full ROM, supple and no JVD Resp clear to auscultation bilaterally Cardio regular rate, regular rhythm, S1 normal heart sound and S2 normal heart sound GI normal to inspection, nondistended, normoactive bowel sounds Extremity no pedal edema Skin no rashes or lesions noted Neuro oriented x3, no focal motor deficits and no sensory deficits noted Psych mental status grossly normal Assessment & Plan Assessment/Plan (1) Elevated troponin: PLAN: The patient has an elevated troponin I level. This appears compatible with non-STEMI. It is unclear at this time whether this is a true type I event from her underlying CAD process versus being a type II event being brought out from her paroxysmal atrial fibrillation. Her cardiac enzymes have been followed without significant change. Her ECG changes are as noted above. An echocardiogram was performed with the results as noted. She'll be considered for future evaluation with diagnostic cardiac catheterization once her anticoagulation status is appropriate. In the interim she will continue medical therapy. (2) Atherosclerosis of coronary artery of [place] heart without angina pectoris: QUALIFIERS: Coronary Disease-Associated Artery/Lesion type: [place] artery Qualified Code(s): I25.10 - Atherosclerotic heart disease of [place] coronary artery without angina pectoris PLAN: Her previous CAD history was reviewed. Once her anticoagulation status is appropriate she'll be considered for further evaluation with diagnostic cardiac catheterization. This procedure and risks were discussed with her and she was agreeable to the approach. In the interim she will continue medical therapy. (3) Paroxysmal A-fib: PLAN: She does have a history of paroxysmal atrial fibrillation. Is unclear as to whether this was the source of her symptoms and subsequent cardiac enzyme level. She will continue to be monitored with her medicines adjusted accordingly. Her anticoagulation is being placed on hold so that she can be prepared for future diagnostic cardiac catheterization. She can receive temporary anticoagu lation in the interim with agents such as enoxaparin/Lovenox and/or IV heparin. (4) Hyperlipidemia: QUALIFIERS: Hyperlipidemia type: unspecified Qualified Code(s): E78.5 - Hyperlipidemia, unspecified PLAN: She should continue risk factor evaluation and care. (5) Essential (primary) hypertension: PLAN: Her blood pressure will be followed and she'll continue medical therapy. Addt'l Comments This note was generated using a voice recognition system and there may be incorrect words, spelling or punctuation that were not noted when reviewing the office note prior to saving. Procedure Criteria Type of Procedure Procedure Type: Elective Elective Risks - COVID COVID Risk Discussion: The surgeon/proceduralist and patient have discussed in d etail the risk of exposure to and/or potential harm posed by the COVID-19 virus with having a surgery/procedure at this time versus the risk of delaying the surgery/procedure. It is not possible to know either the risk of delaying the surgery or procedure or chance of getting an infection with perfect accuracy, but a joint decision was made between the patient and the surgeon/proceduralist to proceed at this time with the scheduled surgery/procedure as indicated on the consent form.
[2021-05-23] MEDS: Nystatin Powder 15gm Bottle 1 APPLIC TOPICAL ×2 (13:39→21:43)
[2021-05-23 16:51] LABS: Bedside Glucose 135 mg/dL (70-110)
[2021-05-23] MEDS: Atorvastatin Calcium 80 MG Tablet PO (21:44)
[2021-05-24] VITALS (16 sets, daily range): BP systolic 101–125; BP diastolic 56–68; PULSE 50–85; RESP 16–18; TEMP 36.3–36.8; O2SAT 92–96
[2021-05-24 01:31] LABS: Bedside Glucose 127 mg/dL (70-110)
--- NOTE | 2021-05-24 05:55 | EKG12_ITS ---
Test Reason : CP Blood Pressure : / mmHG Vent. Rate : 067 BPM Atrial Rate : 067 BPM P-R Int : 212 ms QRS Dur : 088 ms QT Int : 388 ms P-R-T Axes : 017 -13 145 degrees QTc Int : 409 ms Sinus rhythm with 1st degree A-V block with Fusion complexes Septal infarct , age undetermined, cannot be excluded T wave abnormality, consider lateral ischemia Abnormal ECG Confirmed by PAULA HARMON, TEODORA ([id number]), editor & co founder MIRI HERRERA ([id number]) on 05/25/2021 8:53:47 AM Referred By: DR LARSEN Confirmed By:TEODORA MITCHELL MD
[2021-05-24] MEDS: Aspirin 81 MG TAB.CHEW PO (06:25)
[2021-05-24] MEDS: Clopidogrel Bisulfate 75 MG Tablet PO (06:25)
[2021-05-24] MEDS: Lisinopril 5 MG Tablet PO (06:26)
[2021-05-24] MEDS: Metoprolol Tartrate 25 MG Tablet PO (06:26)
[2021-05-24] MEDS: amLODIPine 5 MG Tablet PO (06:26)
[2021-05-24] MEDS: Nitroglycerin Oint 1 INCH PACKET TD (06:28)
[2021-05-24 06:51] LABS: Bedside Glucose 126 mg/dL (70-110)
[2021-05-24 08:18] LABS: Anion Gap 7 (5-15); BUN 23 mg/dL (7-18); BUN/Creat Ratio 30.4 RATIO (10-20); Calcium,Total 9.4 mg/dL (8.5-10.1); Chloride 105 mmol/L (98-107); Creatinine, Serum 0.76 mg/dL (0.55-1.02); EST Glomerular Filtration Rate 82 mL/min (>60); Est Glom Filt Rate - Afr Amer 100 mL/min (>60); Estimated Creatinine Clearance 80.21 ml/min; Glucose 123 mg/dL (74-106); Potassium 3.9 mmol/L (3.5-5.1); Sodium Level 137 mmol/L (136-145)
--- NOTE | 2021-05-24 08:49 | CL.D_ITS ---
Patient Name: MATILDA MAGDALENO Study Date: 05/24/2021 Performing: Robert Beverly MD Ht: 69 inches 175 cm : 1960 Wt: 247.2 lbs 112 kg Age: 60 Gender: female BSA: 2.26 PROCEDURE(S) PERFORMED JP94-JLE/COR/LV CLINICAL PROFILE AND INDICATIONS Indications: Worsening Angina, Suspected CAD Heart Failure: None Stress/Imaging Stress/Image Study Performed: No Angina Classification Anginal Classification w/in 2 Weeks: CCS IV CAD Presentations: Non-STEMI. 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 The risks and benefits of the procedure as well as a full d escription of our services here and current unavailability of surgical backup were fully explained to the patient and/or their significant other prior to the catheterization. The Timeout was completed, verifying the correct patient and procedure. The patient's procedural site was prepped and draped in the usual fashion. Local anesthetic was given subcutaneously to right radial region with Lidocaine 2% . Using a modified Seldinger technique, arterial access was obtained via the right radial artery, a 6 Fr sheath was inserted. Left Coronary Artery selective angiography was performed in multiple views u sing a 5 Fr. 4.0 Mulberry catheter. Right Coronary Artery selective angiography was then performed in mu ltiple views using a 5 Fr. 4.0 Mulberry catheter. Left Ventriculography was performed in NIXON projection using a 5 Fr. Pigtail catheter. LV to AO pullback pressures were then recorded.The arterial sheath was pulled and a TR Band was applied for hemostasis. 10cc of air applied CORONARY ANGIOGRAPHY DOMINANCE: Right Dominant LEFT HEART ASSESSMENT Left Ventricular Ejection Fraction: by LV Gram 55 % Normal LV wall motion Elevated Left Ventricular End Diastolic Pressure LVEDP: 18 mmHg LEFT MAIN: Angiographically normal LEFT ANTERIOR DESCENDING ARTERY: Angiographically normal DIAGONAL 1: Proximal - small caliber short vessel: 75 % Stenosis CIRCUMFLEX ARTERY: Angiographically normal RIGHT CORONARY ARTERY: arises from the left coronary cusp Angiographically normal AORTIC ROOT: Angiographically normal COMPLICATIONS No Complications PROCEDURE MEDICATIONS Fentanyl 50 mcg IV Versed 1 mg IV Oxygen: 2 L/min via nasal cannula Heparin given IA 05/24/2021 08:13:39 Verapamil 2.5mg, Ntg 100mcgs, 3000 units of Heparin given IA 05/24/2021 08:13:39 SUMMARY OF HEMODYNAMIC DATA Time AIR REST ECG 07:46:28 Art 125/64 (86) 08:03:54 AO 104/63 (80) SA 08:17:31 LV 127/-1, 16 08:26:58 LV 127/0, 18 08:27:05 LV 118/9, 20 08:28:51 LVp 118/9, 0 08:28:55 AOp 121/63 (86) 08:29:00 Signed By Robert Beverly MD On 05/24/2021 08:48:27 Robert Beverly MD
[2021-05-24] MEDS: 0.9% Normal Saline 1,000 ML 75 ML IV (09:04)
[2021-05-24] MEDS: 0.9% Saline Lock 10 ML Syringe IV (09:05)
[2021-05-24] MEDS: Isosorbide Mononitrate 30 MG Tablet PO (09:15)
[2021-05-24] MEDS: Sertraline 100 MG Tablet PO (09:16)
[2021-05-24] MEDS: Cholecalciferol (VIT D3) 25 MCG TABLET (1,000 UNITS) 125 MCG PO (09:16)
[2021-05-24] MEDS: Furosemide 20 MG Tablet PO (09:16)
[2021-05-24] MEDS: Ezetimibe 10 MG Tablet PO (09:16)
--- NOTE | 2021-05-24 10:23 | PN.CARD_ITS ---
Subjective Subjective The patient is status post diagnostic cardiac catheterization. She has no new acute complaints. Objective Data Vital Signs: Vital Signs Temp Pulse Resp BP Pulse Ox 97.4 F L 59 L 18 113/57 L 94 05/24/21 09:30 05/24/21 10:00 05/24/21 10:00 05/24/21 10:00 05/24/21 10:00 Oxygen Flow Rate (L/min) 2 Oxygen Delivery Method Room Air Weight: 246 lb 7.629 oz Body Mass Index (BMI) 37.0 Intake & Output: Intake and Output for Last 24 Hours 05/23/21 05/23/21 05/24/21 00:59 23:59 23:59 Intake Total Output Total Balance Lab / Micro Data Result Diagrams: 05/22/21 06:20 05/24/21 06:50 Labs: Laboratory Results - last 24 hr 05/23/21 11:31: POC Glucose 164 H 05/23/21 16:30: POC Glucose 135 H 05/23/21 21:41: POC Glucose 127 H 05/24/21 06:37: POC Glucose 126 H 05/24/21 06:50: Sodium 137, Potassium 3.9, Chloride 105, Carbon Dioxide 25.0, A nion Gap 7, BUN 23 H, Creatinine 0.76, Estim Creat Clear Calc 80.21, Est GFR (MDRD) Af Amer 100, Est GFR (MDRD) Non-Af 82, BUN/Creatinine Ratio 30.4 H, Glucose 123 H, Calcium 9.4 Cardiology Labs/Tests 05/24/21 06:50: Sodium 137, Potassium 3.9, Chloride 105, Carbon Dioxide 25.0, Anion Gap 7, BUN 23 H, Creatinine 0.76, Est GFR (MDRD) Af Amer 100, Est GFR (MDRD) Non-Af 82, BUN/Creatinine Ratio 30.4 H, Glucose 123 H, Calcium 9.4 Rhythm: Sinus rhythm EKG: Sinus rhythm; nonspecific T wave abnormality Cardiac Cath: CONCLUSIONS Elevated Left Ventricular End Diastolic Pressure Normal Left Ventricular systolic function LVEF: by LV gram 55 % Single vessel CAD of the DX1: small caliber short vessel 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 The risks and benefits of the procedure as well as a full description of our services here and current unavailability of surgical backup were fully explained to the patient and/or their significant other prior to the catheterization. The Timeout was completed, verifying the correct patient and procedure. The patient's procedural site was prepped and draped in the usual fashion. Local anesthetic was given subcutaneously to right radial region with Lidocaine 2%. Using a modified Seldinger technique, arterial access was obtained via the right radial artery, a 6Fr sheath was inserted. Left Coronary Artery selective angiography was performed in multiple views using a 5 Fr. 4.0 [place] catheter. Right Coronary Artery selective angiography was then performed in multiple views using a 5 Fr. 4.0 [place] catheter. Left Ventriculography was performed in [place] projection using a 5 Fr. Pigtail catheter. LV to AO pullback pressures were then recorded.The arterial sheath was pulled and a TR Band was applied for hemostasis. 10cc of air applied CORONARY ANGIOGRAPHY DOMINANCE: Right Dominant LEFT HEART ASSESSMENT Left Ventricular Ejection Fraction: by LV Gram 55 % Normal LV wall motion Elevated Left Ventricular End Diastolic Pressure LVEDP: 18 mmHg LEFT MAIN: Angiographically normal LEFT ANTERIOR DESCENDING ARTERY: Angiographically normal DIAGONAL 1: Proximal - small caliber short vessel: 75 % Stenosis CIRCUMFLEX ARTERY: Angiographically normal RIGHT CORONARY ARTERY: arises from the left coronary cusp Angiographically normal AORTIC ROOT: Angiographically normal Physical Exam Const alert, oriented x3 and no apparent distress Orientation / Consciousness: awake HEENT normocephalic, head/scalp atraumatic and hearing grossly normal bilaterally Eyes PERRL, EOMs intact bilaterally and conjunctivae normal Neck full ROM, supple and no JVD Resp clear to auscultation bilaterally Cardio regular rate, regular rhythm, S1 normal heart sound and S2 normal heart sound GI normal to inspection, nondistended, normoactive bowel sounds Extremity no pedal edema Peripheral Pulses: Yes radial pulses present right (No obvious bruits: No obvious hematoma) 2+ Skin no rashes or lesions noted Neuro oriented x3, no focal motor deficits and no sensory deficits noted Psych mental status grossly normal Assessment & Plan Assessment/Plan (1) Elevated troponin: PLAN: The patient has undergone evaluation with diagnostic cardiac catheterization. The cardiac catheterization findings are as noted. At the present time she will continue medical management. 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 (2) Atherosclerosis of coronary artery of [place] heart without angina pectoris: QUALIFIERS: Coronary Disease-Associated Artery/Lesion type: [place] artery Qualified Code(s): I25.10 - Atherosclerotic heart disease of [place] coronary artery without angina pectoris PLAN: Her previous CAD history was reviewed. She will continue medical management. (3) Paroxysmal A-fib: PLAN: She does have a history of paroxysmal atrial fibrillation. Is unclear as to whether this was the source of her symptoms and subsequent cardiac enzyme level. She will continue to be monitored with her medicines adjusted accordingly. She will reinitiate anticoagulant therapy as her cardiac catheterization site is deemed stable. (4) Hyperlipidemia: QUALIFIERS: Hyperlipidemia type: unspecified Qualified Code(s): E78.5 - Hyperlipidemia, unspecified PLAN: She should continue risk factor evaluation and care. (5) Essential (primary) hypertension: PLAN: Her blood pressure will be followed and she'll continue medical therapy. Addt'l Comments The patient's case has been discussed and reviewed with the patient and Dr. Vann. This note was generated using a voice recognition system and there may be incorrect words, spelling or punctuation that were not noted when reviewing the office note prior to saving.
[2021-05-24] MEDS: Insulin Lispro 100 UNIT/ML INSULN.PEN SC (11:18)
[2021-05-24 11:26] LABS: Bedside Glucose 163 mg/dL (70-110)
--- NOTE | 2021-05-24 11:46 | PCM.DC ---
Discharge Instructions Diet Discharge Diet: Low fat / Low cholesterol, 1800 Calorie Control Diet and 2000 mg Sodium Diet Activity Discharge Activity: Return to Normal Activity and May Not Drive (for 2-3 days) Weight Bearing Status: Weight bearing as tolerated Lifting Restrictions: Don't use right hand for heavy lifting for 3 days Dressing / Incision Call your doctor if you observe: Fever of 101 or Higher, Coldness, Increased Pain, Numbness or Tingling, Change in Color, Inability to urinate, Inability to have a bowel movement, Using more than 1 pad per hour, Shortness of breath, Dizziness, Fainting spells, Swelling in the ankles, Chest pain, Prolonged hiccupping, Increased palpitations (irregular heartbeat) and Calf discomfort Follow Up Care Test Results: Test results from this visit will be discussed in further detail at your follow-up appointment, if applicable. Discharge Plan Admission Admit Date/Time: 05/21/21 16:32 Primary Reason for Your Visit: Atypical chest pain. Attending Provider: Jaziel Vann Primary Care Provider: Addis Prather Consulting Providers: Robert Beverly Discharge Orders/Prescriptions Prescriptions: New ezetimibe 10 mg Tablet 10 mg PO DAILY Qty: 30 RF: 0 Continued nitroglycerin 0.4 mg tablet, sublingual 0.4 mg SUBLINGUAL Q5M PRN (Reason: chest pain) Qty: 25 RF: 0 lisinopril 5 MG tablet 5 mg PO DAILY RF: 0 furosemide 20 MG tablet 20 mg PO DAILY RF: 0 aspirin 81 MG tablet,chewable 81 mg PO DAILY@0800 RF: 0 atorvastatin 80 mg tablet 80 mg PO DAILY RF: 0 sertraline 100 mg tablet 100 mg PO DAILY RF: 0 cholecalciferol (vitamin D3) 125 mcg (5,000 unit) capsule 5,000 unit PO DAILY RF: 0 Eliquis 5 mg tablet 5 mg PO BID Qty: 0 RF: 0 amlodipine 5 mg tablet 5 mg PO DAILY Qty: 90 RF: 6 Referrals / Follow Up: Addis Prather MD [Primary Care Provider] - David Eli MD [STAFF PHYSICIAN] - Within 1 Month (Advised coronary CTA to further evaluate congenital coronary anomaly of RCA arising from left coronary cusp. Might need prior authorization for EVOLOCUMAB, LDL not at goal, about 40% for even with high intensity statin) Disposition Disposition (needs filled in before D/C Order can be placed): Home, Self Care
--- NOTE | 2021-05-24 11:53 | DS.PCM_ITS ---
Providers Date of Admission: 05/21/21 Primary Care Physician: Dr. Addis Prather MD Consultations 05/21/21 17:29 Consult: Cardiology Routine Consulting Provider: Robert Beverly Reason for Consult: Chest pain, elevated trop, similar to prior [place] presentations. EMERGENT Consult: No MD Notified: Yes Date Notified: 05/21/21 Time Notified: 16:38 Method of Notification: called per ED. Reason For Visit: UNSTABLE ANGINA, CP, INDETERM TROPONON Diagnosis Discharge Diagnosis (1) Elevated troponin: Status: Acute Code(s): R77.8 - Other specified abnormalities of plasma proteins (2) Atherosclerosis of coronary artery of [place] heart without angina pectoris: Status: Chronic Code(s): I25.10 - Atherosclerotic heart disease of [place] coronary artery without angina pectoris Qualifiers: Coronary Disease-Associated Artery/Lesion type: [place] artery Qualified Code(s): I25.10 - Atherosclerotic heart disease of [place] coronary artery without angina pectoris (3) Paroxysmal A-fib: Status: Chronic Code(s): I48.0 - Paroxysmal atrial fibrillation (4) Hyperlipidemia: Status: Chronic Code(s): E78.5 - Hyperlipidemia, unspecified Qualifiers: Hyperlipidemia type: unspecified Qualified Code(s): E78.5 - Hyperlipidemia, unspecified (5) Essential (primary) hypertension: Status: Deleted Code(s): I10 - Essential (primary) hypertension Medications at Discharge Home Medications lisinopril 5 mg PO DAILY 02/04/16 furosemide 20 mg PO DAILY 11/10/19 amlodipine 5 mg tablet 5 mg PO DAILY #90 tab 01/29/20 aspirin 81 mg PO DAILY@0800 tab.chew 06/13/20 nitroglycerin 0.4 mg sublingual tablet 0.4 mg SUBLINGUAL Q5M PRN #25 tab 08/24/20 atorvastatin 80 mg PO DAILY 05/21/21 cholecalciferol (vitamin D3) 5,000 unit PO DAILY 05/21/21 sertraline 100 mg PO DAILY 05/21/21 Eliquis 5 mg PO BID #0 tab 05/24/21 ezetimibe 10 mg PO DAILY #30 tab 05/24/21 Hospital Course Summary of Care Provided Hospital Course: The patient is a 60 y/o F being admitted with chest pain 1. NSTEMI, unclear primary event or type II [place]: Patient is admitted in ICU. Was evaluated by margin trimmer. Plan for cardiac cath tomorrow a.m. EKG sinus rhythm with no diagnostic ST-T changes. High-sensitivity troponins are elevated. Fasting grandsons LDL 135, HDL 40. LDL not at goal therefore ezetemib added on atorvastatin 80 mg daily on aspirin, nitroglycerin and morphine. It will need outpatient ultrasound for PSKD9 inhibitor as LDL goal is more than 30%. Patient had cardiac cath and found single-vessel CAD of diagonal 1 small caliber short vessel. RCA arising from left coronary cusp, congenital coronary anomaly. Heart rate in 50s. Asymptomatic Advised coronary CTA to further evaluate congenital coronary anomaly of RCA arising from left coronary cusp. Follow-up with Dr. Eli in 1 month. 2. Chronic diastolic CHF: Chest x-ray without acute cardiopulmonary findings, compensated, will continue aspirin, holding apixaban as noted, continue l isinopril, Lasix, not on beta-litzy therapy, continue statin. Judiciously hydrate given history. 2D echo shows preserved EF with mild TR and MR. 3. Nonobstructive CAD: Prior cardiac catheterization 12/18/2018 with nonobstructive coronary disease except small diagonal vessel of the LAD with an ostial 70% proximal lesion felt too small to pursue any angioplasty at that time with medical therapy recommendation, continue medical therapy. 4. PAF: Started on metoprolol 25 mg p.o. twice daily. On Eliquis 5 mg twice daily 5. Diabetes mellitus type II: A1c 6.5. Accu-Cheks insulin coverage block s liding scale. On ADA diet 6. Hypertension: Continue home regimen including amlodipine, Lasix, lisinopril with hold parameters as needed, PRN hydralazine. 7. Hyperlipidemia: Please see above. Might need prior authorization for EVOLOCUMAB, LDL not at goal, about 40% for even with high intensity statin) 8. Anxiety and depression: We will continue patient home sertraline regimen. 9. Obesity: Weight loss and lifestyle changes encouraged. Candidal rash in between the skin folds. Nystatin ordered. The patient had umbilical surgery and liposuction during that surgery. 10. RYAN: CPAP q HS. 11. DVT prophylaxis: SCDs, Discharge medication reconciliation done. Discharge follow-up instructions completed. Discharge process discussed with the patient and all questions were answered to patient's satisfaction. Total time spent, exact 35 minutes on discharge meds reconciliation, examinati on, coordination of care with nurses and ancillary staff, review of imaging and blood test and discussion with the patient on follow-up instructions Physical Exam Narrative Seen and examined. No chest pain no shortness of breath. General: Alert, Oriented x3, Cooperative, morbid obesity BMI 37 kg/m? HEENT: Atraumatic, PERRLA, EOMI, Normocephalic Oral: No Gingival or Mucosal Lesions/ Ulcerations Neck: Supple, No JVD, Negative Carotid Bruits Lungs: Air entry diminished in bilateral lung bases. No crepitation/rhonchi Cardiovascular: Sinus rhythm, Normal S1, Normal S2, No murmurs Abdomen: Bowel Sounds Present, Soft, Non Tender, Non-Distended : No renal angle tenderness. No suprapubic tenderness. Extremities: No edema, Capillary Refill Less than 3 Seconds Skin: Mild erythematous rash, yeast in between abdominal folds. Musculoskeletal: No Tenderness to Palpation of Joints or Extremities Neurological: Cranial nerves II-XII grossly intact, DTR 2+/4 and Symmetrical, Neuro grossly intact Psych/Mental Status: Normal Affect, Appropriate. Weight / BMI Weight Weight: 246 lb 7.629 oz Body Mass Index (BMI) 37.0 ABG / Lab / Microbiology Data Result Diagrams: 05/22/21 06:20 05/24/21 06:50 Laboratory: Laboratory Results - last 24 hr 05/23/21 16:30: POC Glucose 135 H 05/23/21 21:41: POC Glucose 127 H 05/24/21 06:37: POC Glucose 126 H 05/24/21 06:50: Sodium 137, Potassium 3.9, Chloride 105, Carbon Dioxide 25.0, Anion Gap 7, BUN 23 H, Creatinine 0.76, Estim Creat Clear Calc 80.21, Est GFR (MDRD) Af Amer 100, Est GFR (MDRD) Non-Af 82, BUN/Creatinine Ratio 30.4 H, Glucose 123 H, Calcium 9.4 05/24/21 11:16: POC Glucose 163 H Microbiology: Microbiology 05/21/21 18:20 Nasal Secretion SARS-CoV-2 Antigen (Rapid) - Final D/C Instructions Discharge Diet: Low fat / Low cholesterol, 1800 Calorie Control Diet and 2000 mg Sodium Diet Weight Bearing Status: Weight bearing as tolerated Call your doctor if you observe: Fever of 101 or Higher, Coldness, Increased Pain, Numbness or Tingling, Change in Color, Inability to urinate, Inability to have a bowel movement, Using more than 1 pad per hour, Shortness of breath, Dizziness, Fainting spells, Swelling in the ankles, Chest pain, Prolonged h iccupping, Increased palpitations (irregular heartbeat) and Calf discomfort Meaningful Use Info Meaningful Use Diagnoses (Choose all that apply): None applicable Discharge Plan Admission Admit Date/Time: 05/21/21 16:32 Primary Reason for Your Visit: Atypical chest pain. Attending Provider: Jaziel Vann Primary Care Provider: Addis Prather Consulting Providers: Robert Beverly Instructions Additional Instructions / Restrictions: Patient Problems: Altered Health Status related to Hospitalization Patient Goals: *Optimal Level of Health *Keep Appointments *Medication Compliance *Remain Safe Discharge Orders/Prescriptions Prescriptions: New ezetimibe 10 mg Tablet 10 mg PO DAILY Qty: 30 RF: 0 Continued nitroglycerin 0.4 mg tablet, sublingual 0.4 mg SUBLINGUAL Q5M PRN (Reason: chest pain) Qty: 25 RF: 0 lisinopril 5 MG tablet 5 mg PO DAILY RF: 0 furosemide 20 MG tablet 20 mg PO DAILY RF: 0 aspirin 81 MG tablet,chewable 81 mg PO DAILY@0800 RF: 0 atorvastatin 80 mg tablet 80 mg PO DAILY RF: 0 sertraline 100 mg tablet 100 mg PO DAILY RF: 0 cholecalciferol (vitamin D3) 125 mcg (5,000 unit) capsule 5,000 unit PO DAILY RF: 0 Eliquis 5 mg tablet 5 mg PO BID Qty: 0 RF: 0 amlodipine 5 mg tablet 5 mg PO DAILY Qty: 90 RF: 6 Referrals / Follow Up: Addis Prather MD [Primary Care Provider] - 05/28/21 10:20 am (Apt is with Dr. Molina, Dr. Prather didn't have anything available. ) David Eli MD [STAFF PHYSICIAN] - 06/15/21 1:30 pm (Advised coronary CTA to further evaluate congenital coronary anomaly of RCA arising from left coronary cusp. Might need prior authorization for EVOLOCUMAB, LDL not at goal, about 40% for even with high intensity statin) Disposition Disposition (needs filled in before D/C Order can be placed): Home, Self Care Charges/Coding Visit Charges Inpatient E&M: 07657 Disch Hosp
[2021-05-24] MEDS: Ondansetron 4 MG/2 ML Vial IV (12:26)
--- NOTE | 2021-05-24 13:03 | CASEMGMT ---
This RN CM to room and pt states no concerns with going home at time of discharge. Pt voices no further questions/concerns/needs. SStaten RN CM
--- NOTE | 2021-05-24 14:06 | PHA.DC.MC ---
Pharmacy Service has performed discharge medication reconciliation and counseling for this patient. 1. EZETIMIBE 10MG PO DAILY The patient's discharge medication list was reviewed for discrepancies and discrepancies were resolved. Home Medications lisinopril 5 mg PO DAILY 02/04/16 furosemide 20 mg PO DAILY 11/10/19 amlodipine 5 mg tablet 5 mg PO DAILY #90 tab 01/29/20 aspirin 81 mg PO DAILY@0800 tab.chew 06/13/20 nitroglycerin 0.4 mg sublingual tablet 0.4 mg SUBLINGUAL Q5M PRN #25 tab 08/24/20 atorvastatin 80 mg PO DAILY 05/21/21 cholecalciferol (vitamin D3) 5,000 unit PO DAILY 05/21/21 sertraline 100 mg PO DAILY 05/21/21 Eliquis 5 mg PO BID #0 tab 05/24/21 ezetimibe 10 mg PO DAILY #30 tab 05/24/21 The patient was counseled on the following discharge medications and changes in medications for homegoing were reviewed. The Reason for Use, instructions for use, and potential side effects were reviewed for all new medications. The patient's questions regarding all of their medications were answered. The patient was able to verbally demonstrate an understanding of their discharge medications.
--- NOTE | 2021-05-25 15:31 | CASEMGMT ---
RN CM Discharge F/U Phone Call LACE: 12 Strata: 3 Discharge date: 05/24/21 Call date: 05/25/21 Call time: 1532 Attempted to reach pt without success and message left for pt to call this RN CM back if/when able. SStaten RN CM Admission dx: Unstable angina, CP, indeterminate troponin
== END 2021-05-24 14:17 | disposition home or self-care (01) | DRG 190 ==
LOC: ED 16:03 → PCU 17:17
PROVIDERS: Admitting Provider Family Medicine; Emergency Provider Emergency Medicine; PCP Internal Medicine; Visit Provider Internal Medicine
DX: I21.4 Non-ST elevation (NSTEMI) myocardial infarction (principal); I25.110 Atherosclerotic heart disease of native coronary artery with unstable angina pectoris; Q24.5 Malformation of coronary vessels; B37.2 Candidiasis of skin and nail; I11.0 Hypertensive heart disease with heart failure; I50.32 Chronic diastolic (congestive) heart failure; I48.0 Paroxysmal atrial fibrillation; E11.9 Type 2 diabetes mellitus without complications; E78.5 Hyperlipidemia, unspecified; G47.33 Obstructive sleep apnea (adult) (pediatric); F32.A Depression, unspecified; F41.9 Anxiety disorder, unspecified; E66.01 Morbid (severe) obesity due to excess calories; Z68.37 Body mass index [BMI] 37.0-37.9, adult; Z79.01 Long term (current) use of anticoagulants; Z79.82 Long term (current) use of aspirin; Z79.84 Long term (current) use of oral hypoglycemic drugs; Z79.899 Other long term (current) drug therapy; Z86.16 Personal history of COVID-19
CPT/HCPCS: 36415; 71045; 80048; 80053; 80061; 82962; 83036; 83735; 84484; 85025; 85610; 85730; 87426; 93005; 93306; 93458; 99152; 99153; 99251; 99285; J7030; J7040; Q9967; 90686; A4216; C1769; C1894; G0463; J2405

== ENCOUNTER 2021-06-09 12:45 | Emergency (ER) | payer MEDICAID, SELFPAY ==
[2021-06-09 12:46] VITALS: BP 165/97; PULSE 87; RESP 16; TEMP 36.6; O2SAT 98; BMI 34.9
--- NOTE | 2021-06-09 13:02 | CT_ITS ---
STUDY: CT ABDOMEN AND PELVIS WITHOUT CONTRAST REASON FOR EXAM: Female, 60 years old. Pain RADIATION DOSAGE (If Supplied By Facility): CTDIvol = ( 22.28 ) mGy, DLP = ( 1219.07 ) mGycm TECHNIQUE: Transaxial images were obtained from the dome of the diaphragm to the symphysis pubis without oral contrast, and without intravenous contrast. Sagittal and coronal images were reconstructed. Individualized dose optimization techniques were used for this CT. COMPARISON: 11/25/2020 FINDINGS: There are scattered reticular opacities involving the right lower lobe, right middle lobe and lingula. Incompletely visualized. The visualized portions of the heart are within normal limits. Normal liver. Normal gallbladder and extrahepatic biliary system. Normal spleen. Normal pancreas. Normal bilateral adrenal glands. No hydronephrosis. Left renal cortical cyst is stable. No required imaging follow-up needed given high likelihood of benign nature. Subcentimeter angiomyolipoma of the right kidney is stable. Normal visualized stomach. Normal small intestine. There are multiple colonic diverticula consistent with diverticulosis. There is non-visualization of the appendix. Atherosclerosis of the abdominal aorta. Normal inferior vena cava. Normal retroperitoneum. Normal urinary bladder. Uterus is surgically absent. Focal induration of the right anterior subcutaneous fat likely due to injection site. Normal osseous structures. CT/Abdomen/Pelvis without Cont IMPRESSION: 1. No acute inflammatory process or bowel obstruction. 2. Mild reticular densities in the bilateral lung bases could represent atelectasis versus early infectious process. 3. Stable chronic changes, as above. Electronically Signed: Reji Barcenas MD ([place]) at 14:13 EST , Service support ,
--- NOTE | 2021-06-09 13:02 | EKG12_ITS ---
Test Reason : GEN ILLNESS Blood Pressure : / mmHG Vent. Rate : 078 BPM Atrial Rate : 078 BPM P-R Int : 208 ms QRS Dur : 132 ms QT Int : 402 ms P-R-T Axes : 044 -33 120 degrees QTc Int : 458 ms Normal sinus rhythm Left axis deviation Left bundle branch block Abnormal ECG Confirmed by LALO HARMON, WILFREDO ([id number]), greeting card editor MIRI HERRERA ([id number]) on 06/11/2021 11:42:03 AM Referred By: JUDITH Confirmed By:WILFREDO MAY MD
--- NOTE | 2021-06-09 13:03 | EX.ED.DYSGE1 ---
HPI History of Present Illness Chief Complaint: General Illness Narrative Narrative: Patient presents with multiple somatic complaints. She was recently admitted to the hospital and discharged on the eighth, approximately 2 weeks ago. She states that she was admitted for a heart condition. She had had a heart attack because there is an area on her heart/coronary artery that cannot be stented according to her. While she was hospitalized, they were giving her shots in her abdomen of the blood thinner, and she experienced bruising in her bilateral lower quadrants. She presents because last evening she began having bilateral lower quadrant abdominal pain. She also began having chest pain again that only lasted a few minutes. She denies any fevers or chills. No dysuria or hematuria. No other symptoms. She takes Eliquis as a blood thinner for atrial fibrillation. Additionally, she is diabetic. She presents mainly because of the abdominal pain, but was also having the chest pain which caused her to be nauseated and vomit. Her chest pain has resolved. She states that the time that she was admitted she had a heart catheterization. [facility] Medical History Anomalous coronary artery origin Atherosclerosis of coronary artery of [place] heart without angina pectoris Chronic anticoagulation Chronic diastolic CHF (congestive heart failure) Depression Elevated troponin Essential (primary) hypertension History of lipoma Hyperlipidemia Non-STEMI (non-ST elevated myocardial infarction) (05/21/21) Obesity (BMI 30-39.9) Paroxysmal A-fib Sleep apnea Sleep disorder breathing Type 2 diabetes mellitus Home Medications lisinopril 5 mg PO DAILY 02/04/16 [History Last Taken 05/21/21] furosemide 20 mg PO DAILY 11/10/19 [History Last Taken 05/21/21] amlodipine 5 mg tablet 5 mg PO DAILY #90 tab 01/29/20 [Rx Last Taken 05/21/21] aspirin 81 mg PO DAILY@0800 tab.chew 06/13/20 [Rx Last Taken 05/20/21] nitroglycerin 0.4 mg sublingual tablet 0.4 mg SUBLINGUAL Q5M PRN #25 tab 08/24/20 [Rx Last Taken 05/19/21] atorvastatin 80 mg PO DAILY 05/21/21 [History Last Taken 05/21/21] cholecalciferol (vitamin D3) 5,000 unit PO DAILY 05/21/21 [History Last Taken 05/21/21] sertraline 100 mg PO DAILY 05/21/21 [History Last Taken 05/21/21] Eliquis 5 mg PO QHS 06/09/21 [History Last Taken Unknown] Allergy/AdvReac Type Severity Reaction Status Date / Time potassium chloride AdvReac diarrhea Verified 06/09/21 12:47 Family History Grandmother Diabetes Breast cancer Sister Breast cancer Mother Heart disease Hypertension Surgical History H/O: hysterectomy History of left heart catheterization (05/24/21) History of tonsillectomy Social History household members: spouse housing: house number of children: 4 (adults) current occupational status: disabled Smoking Status: Never smoker alcohol intake: never ROS ROS ED ROS Narrative Constitutional: No fever, no chills. HEENT: No sore throat. No neck pain. No loss of vision. No rhinorrhea. Cardiovascular: Positive chest pain-resolved. No palpitations. No pedal edema. Respiratory: No cough, no shortness of breath. Abdominal: Bilateral lower quadrant abdominal pain. Positive nausea. Positive vomiting. Genitourinary: No dysuria. No hematuria. Musculoskeletal: No myalgias. No arthralgias. Neurologic: No headaches. No dizziness. No lightheadedness. Skin: No rash. No change in color. Psychiatric: No depression. No anxiety. EXAM Physical Exam Narrative Exam Narrative: Afebrile. Vital signs noted. HEENT: Normocephalic. Atraumatic. PERRL, EOMI. Neck soft and supple. No point tenderness or step off. Cardiovascular: Regular rate and rhythm. No murmurs, rubs, or gallops appreciated. Respiratory: No tachypnea. Lungs clear to auscultation bilaterally. Gastrointestinal: Abdomen soft, obese, with minimal tenderness bilateral lower quadrants, with normoactive bowel sounds. No rebound or guarding. Positive ecchymosis bilateral lower quadrants of abdomen. Neurological: Awake. Alert. Nonfocal, nonlateralizing. Skin: No rash. Normal color. No pallor. Musculoskeletal: No pedal edema. Full range of motion extremities. Const Vital Signs: 06/09/21 12:46 06/09/21 13:10 Temperature 97.8 F Temperature Source Temporal Pulse Rate 87 Respiratory Rate 16 Respiratory Effort Normal Non-Labored Respiratory Pattern Normal Blood Pressure 165/97 H Blood Pressure Mean 119 Pulse Ox 98 Oxygen Delivery Method Room Air MDM MDM MDM Narrative Medical decision making narrative: Comprehensive work-up was pursued. EKG demonstrates normal sinus rhythm with left bundle branch block at 78 bpm without ectopy or acute ST changes. CBC is normal, with a normal white count of 9.5, hemoglobin stable at 15.3. Her electrolyte panel is grossly unremarkable except for glucose appropriately elevated at 128 with a normal anion gap of 10. Urinalysis shows no evidence of infection especially on microanalysis. Chest x-ray shows bibasilar atelectasis, and CT of her abdomen and pelvis shows no acute process. While her troponin is elevated at 148, this is coming down from her inpatient troponins. I reviewed her catheterization and cardiology note from her admission. Treatment is medical without stenting. She did have 75% stenosis of her diagonal branch, but they thought maybe her NSTEMI was secondary to her atrial fibrillation. I was able to discuss the patient with her passport support associate, Dr. Eli who agrees that the patient can be safely discharged home with medical management of her coronary artery disease. Of note, she did receive her Covid booster yesterday, and her symptoms began in the late afternoon. I do feel that her abdominal pain and all of her symptoms may be secondary to side effects of the Covid vaccination. At this point in time, I feel she can be discharged safely home with follow-up. Return instructions to the emergency department were reviewed. Disposition is discharged home in stable condition. Lab Data Attestation: I reviewed the patient's lab results. Labs: Laboratory Results - last 24 hr 06/09/21 06/09/21 06/09/21 13:16 13:16 13:16 WBC 9.5 RBC 5.21 Hgb 15.3 H Hct 46.7 MCV 89.6 MCH 29.4 MCHC 32.8 RDW Std Deviation 40.8 RDW Coeff of Shae 12.3 Plt Count 144 L MPV 13.8 H Immature Gran % (Auto) 0.300 Neut % (Auto) 85.8 H Lymph % (Auto) 8.4 L [place] % (Auto) 5.2 Eos % (Auto) 0.0 Baso % (Auto) 0.3 Absolute Neuts (auto) 8.2 H Absolute Lymphs (auto) 0.80 L Nucleated RBC % 0 Sodium 137 Potassium 3.7 Chloride 103 Carbon Dioxide 24.0 Anion Gap 10 BUN 17 Creatinine 0.67 Estim Creat Clear Calc 90.98 Est GFR (MDRD) Af Amer 115 Est GFR (MDRD) Non-Af 95 BUN/Creatinine Ratio 25.4 H Glucose 128 H Calcium 9.2 Total Bilirubin 0.70 AST 17 ALT 48 Alkaline Phosphatase 95 Troponin I High Sens 148 H* B-Natriuretic Peptide 66.4 Total Protein 7.1 Albumin 3.2 Globulin 3.9 Albumin/Globulin Ratio 0.8 L Lipase 22 L Urine Color Urine Clarity Urine pH Ur Specific [place] Urine Protein Urine Glucose (UA) Urine Ketones Urine Occult Blood Urine Nitrite Urine Bilirubin Urine Urobilinogen Ur Leukocyte Esterase Urine RBC Urine WBC Ur Squamous Epith Cells Urine Bacteria Urine Mucus 06/09/21 14:40 WBC RBC Hgb Hct MCV MCH MCHC RDW Std Deviation RDW Coeff of Shae Plt Count MPV Immature Gran % (Auto) Neut % (Auto) Lymph % (Auto) [place] % (Auto) Eos % (Auto) Baso % (Auto) Absolute Neuts (auto) Absolute Lymphs (auto) Nucleated RBC % Sodium Potassium Chloride Carbon Dioxide Anion Gap BUN Creatinine Estim Creat Clear Calc Est GFR (MDRD) Af Amer Est GFR (MDRD) Non-Af BUN/Creatinine Ratio Glucose Calcium Total Bilirubin AST ALT Alkaline Phosphatase Troponin I High Sens B-Natriuretic Peptide Total Protein Albumin Globulin Albumin/Globulin Ratio Lipase Urine Color Yellow Urine Clarity Sl. Cloudy Urine pH 7.0 Ur Specific [place] 1.010 Urine Protein Negative Urine Glucose (UA) Normal Urine Ketones 5 H Urine Occult Blood 10 H Urine Nitrite Negative Urine Bilirubin Negative Urine Urobilinogen Normal Ur Leukocyte Esterase 25 H Urine RBC 0 SEEN Urine WBC 0-5 SEEN Ur Squamous Epith Cells 0-5 SEEN Urine Bacteria 1+ Urine Mucus 0 SEEN Radiography Diagnostic Testing: Clinical Impression(s) from Imaging Studies Abdomen/Pelvis CT 06/09/21 13:02 IMPRESSION: 1. No acute inflammatory process or bowel obstruction. 2. Mild reticular densities in the bilateral lung bases could represent atelectasis versus early infectious process. 3. Stable chronic changes, as above. Electronically Signed: Reji Barcenas MD ([place]) at 14:13 EST , Service support , Chest X-Ray 06/09/21 13:40 IMPRESSION: Bibasilar atelectasis versus early pneumonia, including viral causes. Electronically Signed: Reji Barcenas MD ([place]) at 14:11 EST , Service support , Discharge Plan Triage Chief Complaint: General Illness ED Provider: Joao Jansen Dx/Rx/DC Orders Clinical Impression: Chest pain, Abdominal pain, Malaise and fatigue Instructions: ED Abdominal Pain Unkn Cause Fem, ED Chest Pain, Uncertain Cause Prescriptions: No Action nitroglycerin 0.4 mg tablet, sublingual 0.4 mg SUBLINGUAL Q5M PRN (Reason: chest pain) Qty: 25 RF: 0 lisinopril 5 MG tablet 5 mg PO DAILY RF: 0 furosemide 20 MG tablet 20 mg PO DAILY RF: 0 aspirin 81 MG tablet,chewable 81 mg PO DAILY@0800 RF: 0 atorvastatin 80 mg tablet 80 mg PO DAILY RF: 0 sertraline 100 mg tablet 100 mg PO DAILY RF: 0 cholecalciferol (vitamin D3) 125 mcg (5,000 unit) capsule 5,000 unit PO DAILY RF: 0 Eliquis 5 mg tablet 5 mg PO QHS RF: 0 amlodipine 5 mg tablet 5 mg PO DAILY Qty: 90 RF: 6 Primary Care Provider: Addis Prather Referrals: Addis Prather MD [Primary Care Provider] - 06/14/21 David Eli MD [STAFF PHYSICIAN] - 06/14/21 Disposition Disposition: Home, Self Care
[2021-06-09] MEDS: 0.9% Normal Saline 1,000 ML 1000 ML IV (13:27)
[2021-06-09 13:31] LABS: Absolute Neutrophil Count 8.2 X10^3/uL (2.0-7.7); Basophil# 0.03 X10^3/uL; Basophil% 0.3 % (0-1); Hematocrit 46.7 % (37-47); Hemoglobin 15.3 g/dL (12.0-15.0); Lymphocyte % 8.4 % (19-41); Mean Corp Hgb Conc 32.8 g/dL (32-36); Mean Corpuscular Hgb 29.4 pg (27.0-32.0); Mean Corpuscular Volume 89.6 fL (81-99); Mean Platelet Vol. 13.8 fl (6.2-12.0); Monocyte% 5.2 % (0-10); NRBC Flagged by Analyzer 0 % (0-5); Neutrophil # 8.18 X10^3/uL (2.7-7.7); Neutrophil % 85.8 % (47-70); Platelet Count 144 K/mm3 (150-450); RBC Distribution Width CV 12.3 % (11.6-14.6); RBC Distribution Width SD 40.8 fl (35.1-43.9); Red Blood Count 5.21 M/mm3 (4.2-5.4); White Blood Count 9.5 K/mm3 (4.4-11.0)
--- NOTE | 2021-06-09 13:40 | RAD_ITS ---
STUDY: X-RAY CHEST REASON FOR EXAM: Female, 60 years old. chest pain TECHNIQUE: AP COMPARISON: None. FINDINGS: There are patchy reticular opacities in the bilateral lung bases. There is no demonstrated pleural abnormality. Normal size heart. Normal mediastinum and dave. Normal visualized pulmonary arteries. There is atherosclerotic tortuosity of the aortic arch and descending thoracic aorta. Normal visualized thoracic spine. Normal visualized ribs, clavicles, and shoulders. There is no demonstrated abnormality of the visualized soft tissue structures of the upper abdomen. RAD/Chest 1 View (Portable) IMPRESSION: Bibasilar atelectasis versus early pneumonia, including viral causes. Electronically Signed: Reji Barcenas MD ([place]) at 14:11 EST , Service support ,
[2021-06-09 13:48] LABS: BNP,B-Type NATRIURETIC PEPTIDE 66.4 pg/mL (0-100)
[2021-06-09 14:00] LABS: ALB/GLOB Ratio 0.8 RATIO (0.9-2.4); AST(SGOT) 17 U/L (15-37); Alanine Aminotransfer ALT/SGPT 48 U/L (13-56); Albumin, Serum 3.2 g/dL (3.2-5.0); Alkaline Phosphatase 95 U/L (45-117); Anion Gap 10 (5-15); BUN 17 mg/dL (7-18); BUN/Creat Ratio 25.4 RATIO (10-20); Calcium,Total 9.2 mg/dL (8.5-10.1); Chloride 103 mmol/L (98-107); Creatinine, Serum 0.67 mg/dL (0.55-1.02); EST Glomerular Filtration Rate 95 mL/min (>60); Est Glom Filt Rate - Afr Amer 115 mL/min (>60); Estimated Creatinine Clearance 90.98 ml/min; Globulin 3.9 g/dL (2.2-4.2); Glucose 128 mg/dL (74-106); Lipase 22 U/L (73-393); Potassium 3.7 mmol/L (3.5-5.1); Protein, Total 7.1 g/dL (6.4-8.2); Sodium Level 137 mmol/L (136-145); Troponin-I HS 148 pg/mL (3.0-54.0)
[2021-06-09 14:54] LABS: Mucous, Urine 0 SEEN /hpf (<or=2+); Red Blood Cells-Urine 0 SEEN /hpf (0-5)
[2021-06-09 14:56] LABS: Color, Urine Yellow (Yellow); Glucose, Dipstick Normal (Normal); Ketone-Dipstick 5 mg/dl (Negative); Leukocyte Esterase-Dipstick 25 /ul (Negative); Nitrite-Dipstick Negative (Negative); Occult Blood-Urine 10 /ul (Negative); Protein-Dipstick Negative (Negative); Urine Bilirubin Dipstick Negative (Negative); Urine Clarity Sl. Cloudy (Clear); Urine Urobilinogen Normal (Normal)
[2021-06-09 15:03] LABS: Bacteria 1+ /hpf (None Seen); Squamous Epithelial Cells - UA 0-5 SEEN /hpf (5-10); White Blood Cells 0-5 SEEN /hpf (0-5)
[2021-06-09 15:26] VITALS: PULSE 84; RESP 16; O2SAT 97
== END 2021-06-09 15:29 | disposition home or self-care (01) ==
PROVIDERS: Emergency Provider Emergency Medicine; PCP Internal Medicine
DX: R10.31 Right lower quadrant pain (principal); R10.32 Left lower quadrant pain; R07.9 Chest pain, unspecified; R53.81 Other malaise; R11.2 Nausea with vomiting, unspecified; I48.0 Paroxysmal atrial fibrillation; E11.9 Type 2 diabetes mellitus without complications; Q24.5 Malformation of coronary vessels; I25.10 Atherosclerotic heart disease of native coronary artery without angina pectoris; I50.32 Chronic diastolic (congestive) heart failure; E78.5 Hyperlipidemia, unspecified; G47.30 Sleep apnea, unspecified; F32.A Depression, unspecified; E66.9 Obesity, unspecified; Z68.30 Body mass index [BMI] 30.0-30.9, adult; Z79.01 Long term (current) use of anticoagulants; Z79.82 Long term (current) use of aspirin; Z79.899 Other long term (current) drug therapy
CPT/HCPCS: 71045; 74176; 80053; 81001; 83690; 83880; 84484; 85025; 93005; 96360; 96361; 99283; J7030; A4216

== ENCOUNTER → 2021-07-01 12:42 | Outpatient (CLI) | payer MEDICARE, SELFPAY ==
--- NOTE | 2021-07-01 12:45 | CT_ITS ---
STUDY: CT CHEST WITH CONTRAST REASON FOR EXAM: Female, 60 years old. CONGENITAL CORONARY ANOMALY -- OVERREAD ONLY RADIATION DOSAGE (If Supplied By Facility): CTDIvol = ( 27.06 ) mGy, DLP = ( 1147.58 ) mGycm TECHNIQUE: Transaxial imaging was performed following intravenous administration of IV 60mL Isovue-370. Individualized dose optimization techniques were used for this CT. COMPARISON: None. FINDINGS: Mild degree of increased linear markings at the lung bases suggestive of mild linear atelectasis and/or scarring. Minimal increased linear markings with areas of confluence in the lateral aspect of the lingular segment of the left upper lobe suggestive of scarring. There is no demonstrated pleural abnormality. Coronary artery calcification. CT/Limited Chest CT w/CCTA IMPRESSION: Mild linear scarring at the lung bases as well as in the lingular segment of the left upper lobe. Electronically Signed: Jerry Bunch MD at 8:39 EST , Service support ,
[2021-07-01 12:52] VITALS: BP 149/90; PULSE 69; RESP 18; TEMP 36.8; O2SAT 98; BMI 36.0
[2021-07-01 13:15] VITALS: BP 149/90; PULSE 68
[2021-07-01] MEDS: Nitroglycerin SL (ED/IMG/CATH) 0.4 MG TABLET SL (13:15)
[2021-07-01 13:20] VITALS: BP 135/72; PULSE 74; RESP 16; O2SAT 92
--- NOTE | 2021-07-02 12:37 | CCTA.WCONT ---
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
== END ==
PROVIDERS: PCP Internal Medicine; Referring Provider Internal Medicine Cardiovascular Disease; Visit Provider Internal Medicine Cardiovascular Disease
DX: Q24.5 Malformation of coronary vessels (principal); I11.0 Hypertensive heart disease with heart failure; I50.32 Chronic diastolic (congestive) heart failure; I48.0 Paroxysmal atrial fibrillation; I25.10 Atherosclerotic heart disease of native coronary artery without angina pectoris; I25.2 Old myocardial infarction
CPT/HCPCS: 75574; 76380; Q9967

== ENCOUNTER 2021-10-11 09:57 | Observation (INO) | payer MEDICARE, MEDICAID, SELFPAY ==
[2021-10-11] VITALS (14 sets, daily range): BP systolic 115–188; BP diastolic 57–97; PULSE 51–74; RESP 14–23; TEMP 36.2–36.8; O2SAT 94–98; BMI 35.9; BMI 35.6
--- NOTE | 2021-10-11 10:02 | EKG12_ITS ---
Test Reason : CP Blood Pressure : / mmHG Vent. Rate : 068 BPM Atrial Rate : 068 BPM P-R Int : 206 ms QRS Dur : 084 ms QT Int : 398 ms P-R-T Axes : 090 -11 175 degrees QTc Int : 423 ms Normal sinus rhythm Nonspecific ST and T wave abnormality Abnormal ECG Confirmed by LALO HARMON, WILFREDO ([id number]), news videotape editor MIRI HERRERA ([id number]) on 10/12/2021 10:21:34 AM Referred By: KEEGAN/DHEERAJ Confirmed By:WILFREOD MAY MD
--- NOTE | 2021-10-11 10:07 | EDS_ITS ---
HPI History of Present Illness Chief Complaint: Chest Pain Informant: patient Onset/Context/Timing Onset: Days Activity at onset: gradual Timing: Continuous Quality: Positive for Aching Location: Left Parasternal and Left Chest Current Severity: Moderate Maximum Severity: Moderate Worsened By: Nothing Relieved By: NTG Associated Symptoms: Negative for Nausea, Vomiting, Diaphoresis, Dyspnea, Cough, Fever, Lightheadedness, Acid Reflux and Palpitations Narrative Narrative: 60-year-old female prior history of NJ, left bundle, A. fib on Eliquis and diabetes. Patient states she has had left-sided chest pain since Monday. She took 1 nitro last night which improved her pain did not resolve but enabled her to sleep. States the pain is left-sided some aching and constant. She states it does feel like her prior cardiac chest pain. She believes her last heart catheterization was either April or May of last year at this facility. She denies any nausea nor diaphoresis nor shortness of breath. She is not had any specific exertional symptoms. She has never had a DVT or PE. Prior Similar Symptoms: Yes Recent Illness/Hospitalization: No CVD Risk Factors: Positive for Hypertension and Diabetes; Negative for Smoking PE Risk Factors: Negative for Recent Travel/Surgery, Recent Immobilization, Prior DVT or PE, Cancer and OCP + Smoking + >/=35 TAD Risk Factors: Negative for Marfan's Syndrome [facility] Medical History Abdominal pain Anomalous coronary artery origin Atherosclerosis of coronary artery of [place] heart without angina pectoris Atherosclerotic heart disease [place] coronary artery w/angina pectoris Chronic anticoagulation Chronic diastolic CHF (congestive heart failure) Depression Elevated troponin Essential (primary) hypertension History of lipoma History of non-ST elevation myocardial infarction (NSTEMI) (05/21/21) Hyperlipidemia Left bundle branch block (LBBB) (06/09/21) Malaise and fatigue Obesity (BMI 30-39.9) Paroxysmal A-fib Sleep apnea Sleep disorder breathing Type 2 diabetes mellitus Home Medications lisinopril 5 mg PO DAILY 02/04/16 [History Last Taken 05/21/21] amlodipine 5 mg tablet 5 mg PO DAILY #90 tab 01/29/20 [Rx Last Taken 05/21/21] aspirin 81 mg PO DAILY@0800 tab.chew 06/13/20 [Rx Last Taken 05/20/21] nitroglycerin 0.4 mg sublingual tablet 0.4 mg SUBLINGUAL Q5M PRN #25 tab 08/24/20 [Rx Last Taken 05/19/21] atorvastatin 80 mg PO DAILY 05/21/21 [History Last Taken 05/21/21] cholecalciferol (vitamin D3) 5,000 unit PO DAILY 05/21/21 [History Last Taken 05/21/21] sertraline 100 mg PO DAILY 05/21/21 [History Last Taken 05/21/21] Eliquis 5 mg PO QHS 06/09/21 [History Last Taken Unknown] pantoprazole 20 mg PO DAILY 10/11/21 [History Last Taken Unknown] Allergy/AdvReac Type Severity Reaction Status Date / Time potassium chloride AdvReac diarrhea Verified 10/11/21 09:58 Family History Grandmother Diabetes Breast cancer Sister Breast cancer Mother Heart disease Hypertension Surgical History H/O: hysterectomy History of left heart catheterization (05/24/21) History of tonsillectomy Social History household members: spouse housing: house number of children: 4 (adults) current occupational status: disabled Smoking Status: Never smoker alcohol intake: never ROS ROS ED ROS Narrative Left chest pain Review of Systems ROS Unobtainable: Denies due to encephalopathy Constitutional Constitutional ED: Denies fever(s) Eyes Eyes: Denies none ENT ENT ED: Denies ear pain Cardiovascular Cardiovascular: Reports as per HPI and chest pain; Denies palpitations or racing heartbeat Respiratory/Chest Respiratory/Chest: Denies cough or dyspnea Gastrointestinal Gastrointestinal: Denies abdominal pain, diarrhea, nausea or vomiting Genitourinary Genitourinary ED: Denies dysuria Musculoskeletal Musculoskeletal: Denies myalgias Integumentary Denies rash Neurologic Neurologic: Denies headache(s) Psychiatric Psychiatric: Denies depression Endocrine Endocrinology: Denies polyuria Hematologic/Lymphatic Hematologic/Lymphatic: Denies easy bruising Allergic/Immunologic Allergic/Immunologic ED: Denies urticaria EXAM Physical Exam Narrative Exam Narrative: 60-year-old female vital signs are stable and afebrile. Pulse ox 97% on room air no signs of hypoxia. H EENT exam unremarkable. Neck nontender no JVD. Lungs clear to auscultation. Heart regular rate and rhythm rate about 70 no murmur. She does have some reproducible chest pain to her left chest wall. There is no ecchymosis or bruising. Abdomen soft nontender. Moving all 4 extremities. Calves are nontender without edema. Equal symmetrical radial pulses. Back nontender. Neurologically she is awake and alert with no focal motor deficits. Const Vital Signs: 10/11/21 09:58 10/11/21 10:09 10/11/21 10:15 Temperature 97.1 F L Temperature Source Oral Pulse Rate 74 67 Respiratory Rate 14 Blood Pressure 188/97 H 166/72 H Blood Pressure Mean 127 Pulse Ox 97 98 Oxygen Delivery Method Room Air Room Air 10/11/21 10:22 Temperature Temperature Source Pulse Rate 65 Respiratory Rate 17 Blood Pressure 128/71 H Blood Pressure Mean 90 Pulse Ox 94 Oxygen Delivery Method Room Air Positive well nourished, well developed and obese; Negative for cachectic, contractures or unkempt General Appearance ED: well developed and NAD; Negative for unkempt, cachectic, contractures or pallor Nutritional Appearance: obese; Negative for cachectic HEENT Reports moist mucous membranes normocephalic and atraumatic; Negative for trauma or tenderness Eyes PERRL and EOMs intact bilaterally Neck no lymphadenopathy, supple and no JVD General: Negative for tenderness Chest Wall inspection of chest normal and palpation of chest normal Chest: tenderness Resp normal respiratory effort and clear to auscultation bilaterally Effort and Inspection: respiratory distress; Negative for pain with movement Auscultation: Negative for rales, rhonchi or diminished lung sounds Cardio regular rate, regular rhythm, S1 normal heart sound, S2 normal heart sound and no murmurs Rate: Negative for bradycardia Rhythm: Negative for abnormal rhythm Peripheral Pulses: pulses 2+ throughout GI normal to inspection, nondistended, normoactive bowel sounds and soft to palpation; Negative for non-tender, non-distended or no masses Back/Spine no CVA tenderness and no thoracic nor lumbar tenderness General Back: Negative for CVA tenderness Cervical Spine: Negative for cervical spine tenderness Extremity normal to inspection General Extremety ED: Negative for edema or tenderness General Extremity: Negative for edema Neuro oriented x3 Sensorium / Orientation: awake, alert, oriented to person, oriented to place and oriented to time Motor Exam: strength 5/5 throughout Psych mental status grossly normal Appearance: Negative for unkempt Attitude: No agitated Mood & Affect: Negative for depressed, anxious or tearful Skin no rashes or lesions noted and no wounds General Skin Exam: Negative for jaundice or pallor Heart Score History: Moderately Suspicious ECG: Nonspecific Repolarization Age: >45 - <65 years Risk Factors: >/= 3 Risk Factors or History of CAD Troponin: </= Normal Limit Score: 5 MDM MDM MDM Narrative Medical decision making narrative: 60-year-old female with known cardiac disease and diabetes. Presents with 2 to 3-day history of left-sided chest pain. Improved with nitro. Undergo cardiac work-up. Expect she will be admitted for further cardiac evaluation. Repeat exam at 11 AM patient is improved she is not pain-free but nitro did improve her pain. We went over her test results. She does have an elevated troponin 92. May last year she had a troponin around 140. She will get a second nitroglycerin. She was treated with aspirin. She will be admitted for further evaluation. Lab Data Attestation: I reviewed the patient's lab results. Lab results narrative: CBC shows a white count 8. H&H of 15 and 47. Electrolytes show a gap of 6 normal BUN and creatinine. Glucose 136. Troponins elevated at 92. Labs: Laboratory Results - last 24 hr 10/11/21 10/11/21 10:10 10:10 WBC 8.5 RBC 5.15 Hgb 15.8 H Hct 47.3 H MCV 91.8 MCH 30.7 MCHC 33.4 RDW Std Deviation 44.0 H RDW Coeff of Shae 13.0 Plt Count 160 MPV 14.1 H Immature Gran % (Auto) 0.100 Neut % (Auto) 57.0 Lymph % (Auto) 33.3 [place] % (Auto) 7.8 Eos % (Auto) 1.3 Baso % (Auto) 0.5 Absolute Neuts (auto) 4.8 Absolute Lymphs (auto) 2.82 Nucleated RBC % 0 Sodium 141 Potassium 3.7 Chloride 108 H Carbon Dioxide 27.0 Anion Gap 6 BUN 15 Creatinine 0.80 Estim Creat Clear Calc 76.20 Est GFR (MDRD) Af Amer 93 Est GFR (MDRD) Non-Af 77 BUN/Creatinine Ratio 18.7 Glucose 136 H Calcium 9.5 Troponin I High Sens 92 H Radiography Chest X-Ray - ED: 1 View, Read by ED Physician, Heart, Lungs, Mediastinum, Bony Structures, No Acute Disease and Chronic Changes Diagnostic Testing: Chest x-ray, portable, single view interpreted by myself shows no acute abnormality. Normal cardiac silhouette mediastinum. Rhythm Strip Rhythm Strip: Sinus Rhythm Rate: 68 Ectopy: None EKG Initial EKG: Attestation: I personally reviewed and interpreted this EKG as follows: Interpretation: Sinus Rhythm and No Acute Injury Pattern Comments: Normal sinus rhythm rate of 68 no acute signs of NJ. There is ST-T wave flattening in V45 and 6. Compared to her prior EKG that showed a left bundle branch block last May. Prior EKG tracings: available for review Prior: Changed Discharge Plan Triage Chief Complaint: Chest Pain ED Provider: Quan Em Dx/Rx/DC Orders Clinical Impression: Chest pain, rule out acute myocardial infarction, Elevated troponin, History of coronary artery disease, History of diabetes mellitus, History of atrial fibrillation Prescriptions: No Action nitroglycerin 0.4 mg tablet, sublingual 0.4 mg SUBLINGUAL Q5M PRN (Reason: chest pain) Qty: 25 RF: 0 lisinopril 5 MG tablet 5 mg PO DAILY RF: 0 aspirin 81 MG tablet,chewable 81 mg PO DAILY@0800 RF: 0 atorvastatin 80 mg tablet 80 mg PO DAILY RF: 0 sertraline 100 mg tablet 100 mg PO DAILY RF: 0 cholecalciferol (vitamin D3) 125 mcg (5,000 unit) capsule 5,000 unit PO DAILY RF: 0 Eliquis 5 mg tablet 5 mg PO QHS RF: 0 pantoprazole 20 mg tablet,delayed release (DR/EC) 20 mg PO DAILY RF: 0 amlodipine 5 mg tablet 5 mg PO DAILY Qty: 90 RF: 6 Primary Care Provider: Addis Prather Referrals: Addis Prather MD [Primary Care Provider] - Disposition Disposition: Acute Care Hospital [facility]
[2021-10-11] MEDS: Nitroglycerin SL (ED/IMG/CATH) 0.4 MG TABLET SL ×2 (10:15→11:02)
[2021-10-11] MEDS: Aspirin 81 MG TAB.CHEW 324 MG PO (10:15)
--- NOTE | 2021-10-11 10:22 | ED.RN ---
Declines second dose of Nitroglycerin at time, states pain seems to be improving.
[2021-10-11 10:32] LABS: Absolute Lymphocyte Count 2.82 X10^3/uL (0.83-4.51); Absolute Neutrophil Count 4.8 X10^3/uL (2.0-7.7); Basophil# 0.04 X10^3/uL; Basophil% 0.5 % (0-1); Eosinophil# 0.11 X10^3/uL; Eosinophils% 1.3 % (0-5); Hematocrit 47.3 % (37-47); Hemoglobin 15.8 g/dL (12.0-15.0); Lymphocyte # 2.82 X10^3/ul (0.83-4.51); Lymphocyte % 33.3 % (19-41); Mean Corp Hgb Conc 33.4 g/dL (32-36); Mean Corpuscular Hgb 30.7 pg (27.0-32.0); Mean Corpuscular Volume 91.8 fL (81-99); Mean Platelet Vol. 14.1 fl (6.2-12.0); Monocyte# 0.66 X10^3/uL; Monocyte% 7.8 % (0-10); NRBC Flagged by Analyzer 0 % (0-5); Neutrophil # 4.82 X10^3/uL (2.7-7.7); Platelet Count 160 K/mm3 (150-450); Red Blood Count 5.15 M/mm3 (4.2-5.4); White Blood Count 8.5 K/mm3 (4.4-11.0)
--- NOTE | 2021-10-11 10:34 | RAD_ITS ---
STUDY: X-RAY CHEST REASON FOR EXAM: Female, 60 years old. Chest pain TECHNIQUE: Single AP portable view of the chest. COMPARISON: Comparison is made with prior study dated 06/09/2021. FINDINGS: EKG electrodes are seen. The lungs are clear and expanded. There is no demonstrated pleural abnormality. Normal size heart. Normal mediastinum and dave. Normal visualized pulmonary arteries. There is atherosclerotic tortuosity of the aortic arch and descending thoracic aorta. There are diffuse degenerative changes of the visualized thoracic spine. Normal visualized ribs, clavicles, and shoulders. There is no demonstrated abnormality of the visualized soft tissue structures of the upper abdomen. RAD/Chest 1 View (Portable) IMPRESSION: No acute abnormality is seen. Electronically Signed: Jerry Bunch MD at 11:01 EDT ,
[2021-10-11 10:43] LABS: Anion Gap 6 (5-15); BUN 15 mg/dL (7-18); BUN/Creat Ratio 18.7 RATIO (10-20); Calcium,Total 9.5 mg/dL (8.5-10.1); Chloride 108 mmol/L (98-107); EST Glomerular Filtration Rate 77 mL/min (>60); Est Glom Filt Rate - Afr Amer 93 mL/min (>60); Glucose 136 mg/dL (74-106); Potassium 3.7 mmol/L (3.5-5.1); Sodium Level 141 mmol/L (136-145); Troponin-I HS 92 pg/mL (3.0-54.0)
--- NOTE | 2021-10-11 11:26 | PCM.HP.STD ---
HPI - General General Date of Admission: 10/11/21 Date of Service: 10/11/21 Chief Complaint: Chest pain - 3 days HPI Narrative MATILDA MAGDALENO, is a 60 F who presents with the above. Patient had history of CAD status post cardiac cath in December 2018. Findings at the time showed a left anterior descending artery 70% stenosis. She has been having chest pain that started 3 days prior to admission. It comes and goes. Chest pain is not related to activity. Chest pain seemed to be relieved with nitro. She had associated shortness of breath with PND but no leg swelling. She also denied orthopnea. She denied any palpitation. No recent weight gain. Her vitals in the ED were stable with temperature of 90 7.1F, heart rate 74, respiratory 14, SPO2 97% on room air, blood pressure was elevated at 188/97. Admitting blood work showed WBC count 8.5, hemoglobin 15.8, platelet count of 160, CMP is unremarkable. Troponins 92, 90. EKG shows normal sinus rhythm, first-degree AV block, left bundle branch block, unchanged from previous. Admitting chest x-ray is unremarkable. [facility] Medical History Abdominal pain Anomalous coronary artery origin Atherosclerosis of coronary artery of hoh heart without angina pectoris Atherosclerotic heart disease hoh coronary artery w/angina pectoris Chronic anticoagulation Chronic diastolic CHF (congestive heart failure) Depression Elevated troponin Essential (primary) hypertension History of lipoma History of non-ST elevation myocardial infarction (NSTEMI) (05/21/21) Hyperlipidemia Left bundle branch block (LBBB) (06/09/21) Malaise and fatigue Obesity (BMI 30-39.9) Paroxysmal A-fib Sleep apnea Sleep disorder breathing Type 2 diabetes mellitus Home Medications lisinopril 5 mg PO DAILY 02/04/16 [History Last Taken 05/21/21] amlodipine 5 mg tablet 5 mg PO DAILY #90 tab 01/29/20 [Rx Last Taken 05/21/21] aspirin 81 mg PO DAILY@0800 tab.chew 06/13/20 [Rx Last Taken 05/20/21] nitroglycerin 0.4 mg sublingual tablet 0.4 mg SUBLINGUAL Q5M PRN #25 tab 08/24/20 [Rx Last Taken 05/19/21] atorvastatin 80 mg PO DAILY 05/21/21 [History Last Taken 05/21/21] cholecalciferol (vitamin D3) 5,000 unit PO DAILY 05/21/21 [History Last Taken 05/21/21] sertraline 100 mg PO DAILY 05/21/21 [History Last Taken 05/21/21] Eliquis 5 mg PO BID 06/09/21 [History Last Taken Unknown] pantoprazole 20 mg PO DAILY 10/11/21 [History Last Taken Unknown] Allergy/AdvReac Type Severity Reaction Status Date / Time potassium chloride AdvReac diarrhea Verified 10/11/21 09:58 Family History Grandmother Diabetes Breast cancer Sister Breast cancer Mother Heart disease Hypertension Surgical History H/O: hysterectomy History of left heart catheterization (05/24/21) History of tonsillectomy Social History household members: spouse housing: house number of children: 4 (adults) current occupational status: disabled Smoking Status: Never smoker alcohol intake: never ROS ROS Narrative Constitutional: Denies: Anorexia, Chills, Fever, Night Sweats, Weight Change Eyes: Denies: Blurred vision, Cataracts, Conjunctivae Inflammation, Pain, Redness, Vision Change HEENT: Denies: Difficulty Hearing, Difficulty Swallowing, Head Aches, Hearing Changes, Sinus Congestion, Sinus Drainage Cardiovascular: See HPI Respiratory: Denies: Cough, Shortness of breath at rest, Sputum production Gastrointestinal: Denies: Abdominal Pain, Nausea, Vomiting Genitourinary: Denies: Dysuria Musculoskeletal: Denies: Joint Pain, Joint stiffness, Joint swelling, Joint Tenderness Skin: Denies: Rash, Wounds Neurological: Denies: Numbness, Tingling, Focal weakness Vital Signs Vital Signs Vital Signs: 10/11/21 09:58 10/11/21 10:09 10/11/21 10:15 Temperature 97.1 F L Temperature Source Oral Pulse Rate 74 67 Respiratory Rate 14 Blood Pressure 188/97 H 166/72 H Blood Pressure Mean 127 Pulse Ox 97 98 Oxygen Delivery Method Room Air Room Air 10/11/21 10:22 10/11/21 11:02 Temperature Temperature Source Pulse Rate 65 66 Respiratory Rate 17 Blood Pressure 128/71 H 162/75 H Blood Pressure Mean 90 Pulse Ox 94 Oxygen Delivery Method Room Air Weight Weight: 110.2 kg Body Mass Index (BMI) 35.9 Physical Exam Narrative Physical exam: General: Alert, Oriented x3, Cooperative, No apparent distress, obese HEENT: Atraumatic Oral: Moist Mucosa Neck: Supple Lungs: Clear to auscultation Cardiovascular: HS I+II, regular, no murmurs Abdomen: Bowel Sounds Present, Soft, Non Tender Extremities: No edema Skin: No rashes, No breakdown Neurological: Grossly intact Psych/Mental Status: Appropriate Results Lab / Micro Data Result Diagrams: 10/11/21 10:10 10/11/21 10:10 Labs: Laboratory Results - last 24 hr 10/11/21 10:10: WBC 8.5, RBC 5.15, Hgb 15.8 H, Hct 47.3 H, MCV 91.8, MCH 30.7, MCHC 33.4, RDW Std Deviation 44.0 H, RDW Coeff of Shae 13.0, Plt Count 160, MPV 14.1 H, Immature Gran % (Auto) 0.100, Neut % (Auto) 57.0, Lymph % (Auto) 33.3, [place] % (Auto) 7.8, Eos % (Auto) 1.3, Baso % (Auto) 0.5, Absolute Neuts (auto) 4.8, Absolute Lymphs (auto) 2.82, Nucleated RBC % 0 10/11/21 10:10: Sodium 141, Potassium 3.7, Chloride 108 H, Carbon Dioxide 27.0, Anion Gap 6, BUN 15, Creatinine 0.80, Estim Creat Clear Calc 76.20, Est GFR (MDRD) Af Amer 93, Est GFR (MDRD) Non-Af 77, BUN/Creatinine Ratio 18.7, Glucose 136 H, Calcium 9.5, Troponin I High Sens 92 H Rhythm Strip Rhythm Strip: Sinus Rhythm Rate: 68 Ectopy: None Radiology Impression Chest X-Ray 10/11/21 10:34 IMPRESSION: No acute abnormality is seen. Electronically Signed: Jerry Bunch MD at 11:01 EDT , Assessment & Plan Assessment/Plan (1) Chest pain, rule out acute myocardial infarction: PLAN: 1. Acute chest pain concerning for possible unstable angina Patient with history of CAD with lesion in the LAD seen on cardiac cath in 2019 EKG is unremarkable, negative for acute ST-T changes Troponin is marginal Continue on aspirin, statin, lisinopril, not on beta-blockers We will start on Coreg, cardiology consult 2. Paroxysmal fibrillation, continue on Eliquis 3. Type II DM, diet controlled, continue monitor with insulin sliding scale 4. Hypertension, fairly uncontrolled, on amlodipine 5 mg, lisinopril 5 mg We will add Coreg 3.125 mg p.o. twice daily 5. Depression, continue Zoloft 6. DVT prophylaxis?on Eliquis Charges/Coding Visit Charges OBSV E&M: 38757 Initial observation care L3
[2021-10-11 12:56] LABS: Troponin-I HS 90 pg/mL (3.0-54.0)
--- NOTE | 2021-10-11 13:20 | EKG12_ITS ---
Test Reason : CP Blood Pressure : / mmHG Vent. Rate : 051 BPM Atrial Rate : 051 BPM P-R Int : 216 ms QRS Dur : 084 ms QT Int : 426 ms P-R-T Axes : 093 188 046 degrees QTc Int : 392 ms Suspect arm lead reversal, interpretation assumes no reversal Sinus bradycardia with 1st degree A-V block Septal infarct , age undetermined Lateral infarct , age undetermined Inferior infarct , age undetermined Abnormal ECG Confirmed by LALO HARMON, WILFREDO ([id number]), editor department MIRI HERRERA ([id number]) on 10/13/2021 1:48:03 PM Referred By: DAPHNE Confirmed By:WILFREDO MAY MD
--- NOTE | 2021-10-11 16:32 | PCM.CONS.C ---
Assessment & Plan Assessment/Plan (1) Chest pain, rule out acute myocardial infarction: PLAN: Not typical anginal chest pain. However patient had similar chest pain in number and had enzymes were higher than what it is so for this admission. She also has underlying CAD. We will add Ranexa to see if this helps with her chest pain. (2) History of coronary artery disease: HPI Consult Data Date of Consult: 10/11/21 HPI Narrative HPI Narrative: MATILDA MAGDALENO, is a 60 F who presents with left-sided sharp chest pain that radiates down the left arm. She had a coronary angiogram in May 2021 which revealed 80% stenosis in a small diagonal branch that was not amenable to PCI. Patient states that she has been under a lot of stress at home as well. Review of systems: All systems reviewed. All else is negative except as in HPI PFSH Medical History Abdominal pain Anomalous coronary artery origin Atherosclerosis of coronary artery of tel[place] heart without angina pectoris Atherosclerotic heart disease telida coronary artery w/angina pectoris Chronic anticoagulation Chronic diastolic CHF (congestive heart failure) Depression Elevated troponin Essential (primary) hypertension History of lipoma History of non-ST elevation myocardial infarction (NSTEMI) (05/21/21) Hyperlipidemia Left bundle branch block (LBBB) (06/09/21) Malaise and fatigue Obesity (BMI 30-39.9) Paroxysmal A-fib Sleep apnea Sleep disorder breathing Type 2 diabetes mellitus Home Medications lisinopril 5 mg PO DAILY 02/04/16 [History Last Taken 05/21/21] amlodipine 5 mg tablet 5 mg PO DAILY #90 tab 01/29/20 [Rx Last Taken 05/21/21] aspirin 81 mg PO DAILY@0800 tab.chew 06/13/20 [Rx Last Taken 05/20/21] nitroglycerin 0.4 mg sublingual tablet 0.4 mg SUBLINGUAL Q5M PRN #25 tab 08/24/20 [Rx Last Taken 05/19/21] atorvastatin 80 mg PO DAILY 05/21/21 [History Last Taken 05/21/21] cholecalciferol (vitamin D3) 5,000 unit PO DAILY 05/21/21 [History Last Taken 05/21/21] sertraline 100 mg PO DAILY 05/21/21 [History Last Taken 05/21/21] Eliquis 5 mg PO BID 06/09/21 [History Last Taken Unknown] pantoprazole 20 mg PO DAILY 10/11/21 [History Last Taken Unknown] Allergy/AdvReac Type Severity Reaction Status Date / Time potassium chloride AdvReac diarrhea Verified 10/11/21 09:58 Family History Grandmother Diabetes Breast cancer Sister Breast cancer Mother Heart disease Hypertension Surgical History H/O: hysterectomy History of left heart catheterization (05/24/21) History of tonsillectomy Social History household members: spouse housing: house number of children: 4 (adults) current occupational status: disabled Smoking Status: Never smoker alcohol intake: never Physical Exam Const alert and oriented x3 Orientation / Consciousness: awake HEENT normocephalic Eyes no scleral icterus Resp normal respiratory effort Risk Stratification Risk Stratification Applicable: No Charges/Coding Visit Charges Inpatient E&M: 90865 Init Hosp L2 Objective Data Vital Signs: Vital Signs Temp Pulse Resp BP Pulse Ox 97.7 F L 54 L 18 144/70 H 97 10/11/21 12:50 10/11/21 14:59 10/11/21 12:50 10/11/21 12:50 10/11/21 12:50 Oxygen Delivery Method Room Air Weight: 241 lb 2.971 oz Body Mass Index (BMI) 35.6 Lab / Micro Data Result Diagrams: 10/11/21 10:10 10/11/21 10:10 Labs: Laboratory Results - last 24 hr 10/11/21 10:10: WBC 8.5, RBC 5.15, Hgb 15.8 H, Hct 47.3 H, MCV 91.8, MCH 30.7, MCHC 33.4, RDW Std Deviation 44.0 H, RDW Coeff of Shae 13.0, Plt Count 160, MPV 14.1 H, Immature Gran % (Auto) 0.100, Neut % (Auto) 57.0, Lymph % (Auto) 33.3, [place] % (Auto) 7.8, Eos % (Auto) 1.3, Baso % (Auto) 0.5, Absolute Neuts (auto) 4.8, Absolute Lymphs (auto) 2.82, Nucleated RBC % 0 10/11/21 10:10: Sodium 141, Potassium 3.7, Chloride 108 H, Carbon Dioxide 27.0, Anion Gap 6, BUN 15, Creatinine 0.80, Estim Creat Clear Calc 76.20, Est GFR (MDRD) Af Amer 93, Est GFR (MDRD) Non-Af 77, BUN/Creatinine Ratio 18.7, Glucose 136 H, Calcium 9.5, Troponin I High Sens 92 H 10/11/21 12:25: Troponin I High Sens 90 H Rhythm Strip Rhythm Strip: Sinus Rhythm Rate: 68 Ectopy: None Cardiology Labs/Tests 10/11/21 10:10: WBC 8.5, RBC 5.15, Hgb 15.8 H, Hct 47.3 H, MCV 91.8, MCH 30.7, MCHC 33.4, Plt Count 160, MPV 14.1 H, Immature Gran % (Auto) 0.100, Neut % (Auto) 57.0, Lymph % (Auto) 33.3, [place] % (Auto) 7.8, Eos % (Auto) 1.3, Baso % (Auto) 0.5, Absolute Neuts (auto) 4.8, Nucleated RBC % 0 10/11/21 10:10: Sodium 141, Potassium 3.7, Chloride 108 H, Carbon Dioxide 27.0, Anion Gap 6, BUN 15, Creatinine 0.80, Est GFR (MDRD) Af Amer 93, Est GFR (MDRD) Non-Af 77, BUN/Creatinine Ratio 18.7, Glucose 136 H, Calcium 9.5 Rhythm: EKG: ECHO: Stress Test: Cardiac Cath: PCI: CT Surgery: Holter monitor: EPS: PPM: CXR: Chest CT Scan: Radiography Diagnostic Testing: Radiology Impression Chest X-Ray 10/11/21 10:34 IMPRESSION: No acute abnormality is seen. Electronically Signed: Jerry Bunch MD at 11:01 EDT ,
[2021-10-11 16:41] LABS: Bedside Glucose 115 mg/dL (74-106)
[2021-10-11 17:32] LABS: Troponin-I HS 90 pg/mL (3.0-54.0)
[2021-10-11] MEDS: Atorvastatin Calcium 80 MG Tablet PO (20:23)
[2021-10-11] MEDS: Carvedilol 3.125 MG TABLET PO (20:28)
[2021-10-11] MEDS: APIXABAN 5 MG TABLET PO (20:28)
[2021-10-11] MEDS: Ranolazine 500 MG Tablet PO (20:29)
--- NOTE | 2021-10-11 20:36 | NURSING ---
medication given per patient request
[2021-10-11 21:20] LABS: Bedside Glucose 130 mg/dL (74-106)
[2021-10-12 02:31] VITALS: BP 132/72; PULSE 65; RESP 18; TEMP 36.7; O2SAT 97
[2021-10-12 03:00] VITALS: PULSE 66
[2021-10-12 05:29] VITALS: BP 118/64; PULSE 65; RESP 18; TEMP 36.8; O2SAT 96
[2021-10-12 07:01] LABS: Bedside Glucose 139 mg/dL (74-106)
[2021-10-12 07:13] VITALS: PULSE 61
--- NOTE | 2021-10-12 08:49 | PN.CARD_ITS ---
Subjective Subjective Patient notes that she is still having 2-3/10 chest discomfort. This is to her left sternal border. It is not all the time. It is not brought on by anything in particular. She does not note that prior to her coming into the hospital nitroglycerin did help with her chest discomfort. She has not noticed a differ ence yet with the Ranexa. Objective Data Vital Signs: Vital Signs Temp Pulse Resp BP Pulse Ox 98.3 F 61 18 118/64 96 10/12/21 05:29 10/12/21 07:13 10/12/21 05:29 10/12/21 05:29 10/12/21 05:29 Oxygen Delivery Method Room Air Weight: 241 lb 2.971 oz Body Mass Index (BMI) 35.6 Intake & Output: Intake and Output for Last 24 Hours 10/10/21 10/11/21 10/12/21 23:59 23:59 23:59 Intake Total 760 / 760 240 / 240 Balance 760 / 760 240 / 240 Lab / Micro Data Result Diagrams: 10/11/21 10:10 10/11/21 10:10 Labs: Laboratory Results - last 24 hr 10/11/21 10:10: WBC 8.5, RBC 5.15, Hgb 15.8 H, Hct 47.3 H, MCV 91.8, MCH 30.7, MCHC 33.4, RDW Std Deviation 44.0 H, RDW Coeff of Shae 13.0, Plt Count 160, MPV 14.1 H, Immature Gran % (Auto) 0.100, Neut % (Auto) 57.0, Lymph % (Auto) 33.3, [place] % (Auto) 7.8, Eos % (Auto) 1.3, Baso % (Auto) 0.5, Absolute Neuts (auto) 4.8, Absolute Lymphs (auto) 2.82, Nucleated RBC % 0 10/11/21 10:10: Sodium 141, Potassium 3.7, Chloride 108 H, Carbon Dioxide 27.0, Anion Gap 6, BUN 15, Creatinine 0.80, Estim Creat Clear Calc 76.20, Est GFR (MDRD) Af Amer 93, Est GFR (MDRD) Non-Af 77, BUN/Creatinine Ratio 18.7, Glucose 136 H, Calcium 9.5, Troponin I High Sens 92 H 10/11/21 12:25: Troponin I High Sens 90 H 10/11/21 16:31: POC Glucose 115 H 10/11/21 16:40: Troponin I High Sens 90 H 10/11/21 20:31: POC Glucose 130 H 10/12/21 05:28: POC Glucose 139 H Rhythm Strip Rhythm Strip: Sinus Rhythm Rate: 68 Ectopy: None Cardiology Labs/Tests 10/11/21 10:10: WBC 8.5, RBC 5.15, Hgb 15.8 H, Hct 47.3 H, MCV 91.8, MCH 30.7, MCHC 33.4, Plt Count 160, MPV 14.1 H, Immature Gran % (Auto) 0.100, Neut % (Auto) 57.0, Lymph % (Auto) 33.3, [place] % (Auto) 7.8, Eos % (Auto) 1.3, Baso % (Auto) 0.5, Absolute Neuts (auto) 4.8, Nucleated RBC % 0 10/11/21 10:10: Sodium 141, Potassium 3.7, Chloride 108 H, Carbon Dioxide 27.0, Anion Gap 6, BUN 15, Creatinine 0.80, Est GFR (MDRD) Af Amer 93, Est GFR (MDRD) Non-Af 77, BUN/Creatinine Ratio 18.7, Glucose 136 H, Calcium 9.5 ECHO 06/06: Left ventricular systolic function is normal. The estimated ejection fraction is 55 %. Mild (1+) mitral valve insufficiency. Mild tricuspid valve insufficiency. Trivial pulmonic valve insufficiency. Right ventricular systolic pressure estimated to be 27 mmHg. No evidence for diastolic dysfunction. 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 The risks and benefits of the procedure as well as a full description of our services here and current unavailability of surgical backup were fully explained to the patient and/or their significant other prior to the catheterization. The Timeout was completed, verifying the correct patient and procedure. The patient's procedural site was prepped and draped in the usual fashion. Local anesthetic was given subcutaneously to right radial region with Lidocaine 2%. Using a modified Seldinger technique, arterial access was obtained via the right radial artery, a 6Fr sheath was inserted. Left Coronary Artery selective angiography was performed in multiple views using a 5 Fr. 4.0 [place] catheter. Right Coronary Artery selective angiography was then performed in multiple views using a 5 Fr. 4.0 [place] catheter. Left Ventriculography was performed in [place] projection using a 5 Fr. Pigtail catheter. LV to AO pullback pressures were then recorded.The arterial sheath was pulled and a TR Band was applied for hemostasis. 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 Electronically Signed: Jerry Bunch MD at 11:01 EDT , Physical Exam Const alert, oriented x3 and no apparent distress Orientation / Consciousness: awake HEENT normocephalic, head/scalp atraumatic and hearing grossly normal bilaterally Eyes PERRL, EOMs intact bilaterally and conjunctivae normal Neck full ROM, supple and no JVD Resp clear to auscultation bilaterally Cardio regular rate, regular rhythm, S1 normal heart sound and S2 normal heart sound GI normal to inspection, nondistended, normoactive bowel sounds Extremity no pedal edema Peripheral Pulses: Yes pulses 2+ throughout Skin no rashes or lesions noted Neuro oriented x3, no focal motor deficits and no sensory deficits noted Psych mental status grossly normal Assessment & Plan Assessment/Plan (1) Chest pain, rule out acute myocardial infarction: (2) History of coronary artery disease: (3) Elevated troponin: (4) Essential (primary) hypertension: PLAN: Pt is still having chest pain. reviewed heart cath in 06/06, she does have CAD that is not amenable with PCI. Since it was relieved by NTG prior to her admission will add Imdur in addition to the Ranexa. BP would tolerate addition of Imdur. Will continue with aggressive medical therapy with Norvasc, Atorvastatin, Coreg, Zetia, Lisinopril. She is on Eliquis for her PAF. Will add ASA. Plan would be to follow up closely in office after d/c This case was discussed with Dr. Eli. He agrees with Plan of care.
[2021-10-12 09:06] VITALS: BP 129/68; PULSE 63; RESP 16; TEMP 36.4; O2SAT 92
[2021-10-12] MEDS: Lisinopril 5 MG Tablet PO (09:10)
[2021-10-12] MEDS: Cholecalciferol (Vit D3) 125 MCG CAPSULE (5,000 UNITS) PO (09:10)
[2021-10-12] MEDS: Furosemide 20 MG Tablet PO (09:10)
[2021-10-12] MEDS: amLODIPine 5 MG Tablet PO (09:10)
[2021-10-12] MEDS: APIXABAN 5 MG TABLET PO (09:10)
[2021-10-12] MEDS: Carvedilol 3.125 MG TABLET PO (09:10)
[2021-10-12] MEDS: Ezetimibe 10 MG Tablet PO (09:10)
[2021-10-12] MEDS: Ranolazine 500 MG Tablet PO (09:10)
[2021-10-12] MEDS: Pantoprazole Sodium 20 MG Tablet PO (09:10)
[2021-10-12] MEDS: Sertraline 100 MG Tablet PO (09:10)
[2021-10-12] MEDS: Isosorbide Mononitrate 30 MG Tablet PO (09:12)
[2021-10-12 11:26] LABS: Bedside Glucose 135 mg/dL (74-106)
[2021-10-12] MEDS: Aspirin 81 MG TAB.CHEW PO (11:37)
--- NOTE | 2021-10-12 12:10 | CASEMGMT ---
This RN CM to room with DANGELO form, explanation done-pt voices understanding, and signs DANGELO at this time. Original to chart and copy to pt. Pt voices no further questions/concerns/needs. SStaten SABRINA CM
--- NOTE | 2021-10-12 12:39 | DS.PCM_ITS ---
Providers Date of Admission: 10/11/21 Date of Discharge: 10/12/21 Primary Care Physician: Dr. Addis Prather MD Consultations 10/11/21 12:39 Consult: Cardiology Routine Consulting Provider: Raheem Pink Reason for Consult: Chest pain EMERGENT Consult: No MD Notified: Yes Date Notified: 10/11/21 Time Notified: 12:48 Method of Notification: Text Reason For Visit: CHEST PAIN Diagnosis Discharge Diagnosis (1) Chest pain, rule out acute myocardial infarction: Status: Resolved Code(s): R07.9 - Chest pain, unspecified (2) History of coronary artery disease: Status: Chronic Code(s): Z86.79 - Personal history of other diseases of the circulatory system (3) Elevated troponin: Status: Acute Code(s): R77.8 - Other specified abnormalities of plasma proteins (4) Essential (primary) hypertension: Status: Chronic Code(s): I10 - Essential (primary) hypertension Medications at Discharge Home Medications lisinopril 5 mg PO DAILY 02/04/16 amlodipine 5 mg tablet 5 mg PO DAILY #90 tab 01/29/20 nitroglycerin 0.4 mg sublingual tablet 0.4 mg SUBLINGUAL Q5M PRN #25 tab 08/24/20 atorvastatin 80 mg PO DAILY 05/21/21 cholecalciferol (vitamin D3) 5,000 unit PO DAILY 05/21/21 sertraline 100 mg PO DAILY 05/21/21 Eliquis 5 mg PO BID 06/09/21 ezetimibe [Zetia] 10 mg PO DAILY 10/11/21 furosemide 20 mg PO DAILY 10/11/21 pantoprazole 20 mg PO DAILY 10/11/21 carvedilol 3.125 mg PO BID 30 Days #60 tab 10/12/21 isosorbide mononitrate 30 mg PO DAILY 30 Days #30 tab 10/12/21 ranolazine 500 mg PO BID 30 Days #60 tab 10/12/21 Hospital Course Operations None Procedures None Summary of Care Provided Minutes Spent on Discharge: 35 Hospital Course: 60-year-old female with past medical history of CAD who comes in with complaints of chest discomfort. EKG shows no acute ST-T changes. Troponins are minimally elevated at 92, 90. Patient was admitted to the PCU, troponins cycled. He was monitored on telemetry with no acute events. Cardiology was consulted, recommended medical management. Imdur and Ranexa was added to her medication. She will follow-up with cardiology in the outpatient. Physical Exam Narrative Physical exam: General: Alert, Oriented x3, Cooperative, No apparent distress, obese HEENT: Atraumatic Oral: Moist Mucosa Neck: Supple Lungs: Clear to auscultation Cardiovascular: HS I+II, regular, no murmurs Abdomen: Bowel Sounds Present, Soft, Non Tender Extremities: No edema Skin: No rashes, No breakdown Neurological: Grossly intact Psych/Mental Status: Appropriate Weight / BMI Weight Weight: 109.4 kg Body Mass Index (BMI) 35.6 ABG / Lab / Microbiology Data Result Diagrams: 10/11/21 10:10 10/11/21 10:10 Laboratory: Laboratory Results - last 24 hr 10/11/21 12:25: Troponin I High Sens 90 H 10/11/21 16:31: POC Glucose 115 H 10/11/21 16:40: Troponin I High Sens 90 H 10/11/21 20:31: POC Glucose 130 H 10/12/21 05:28: POC Glucose 139 H 10/12/21 11:17: POC Glucose 135 H D/C Instructions Discharge Diet: 1800 Calorie Control Diet and 2000 mg Sodium Diet Meaningful Use Info Meaningful Use Diagnoses (Choose all that apply): None applicable Discharge Plan Admission Admit Date/Time: 10/11/21 11:19 Primary Reason for Your Visit: Chest pain Attending Provider: Jesusita Muhammad Primary Care Provider: Addis Prather Consulting Providers: Raheem Pink Instructions Additional Instructions / Restrictions: Take note of changes to your medications. Follow-up with your primary care doctor and your on site services specialist as scheduled. Discharge Orders/Prescriptions Prescriptions: New carvedilol 3.125 mg Tablet 3.125 mg PO BID 30 Days Qty: 60 RF: 0 isosorbide mononitrate 30 mg Tablet Extended Release 24 Hr 30 mg PO DAILY 30 Days Qty: 30 RF: 0 ranolazine 500 mg Tablet Extended Release 12 Hr 500 mg PO BID 30 Days Qty: 60 RF: 0 Continued nitroglycerin 0.4 mg tablet, sublingual 0.4 mg SUBLINGUAL Q5M PRN (Reason: chest pain) Qty: 25 RF: 0 lisinopril 5 MG tablet 5 mg PO DAILY RF: 0 atorvastatin 80 mg tablet 80 mg PO DAILY RF: 0 sertraline 100 mg tablet 100 mg PO DAILY RF: 0 cholecalciferol (vitamin D3) 125 mcg (5,000 unit) capsule 5,000 unit PO DAILY RF: 0 Eliquis 5 mg tablet 5 mg PO BID RF: 0 pantoprazole 20 mg tablet,delayed release (DR/EC) 20 mg PO DAILY RF: 0 furosemide 20 mg tablet 20 mg PO DAILY RF: 0 ezetimibe [Zetia] 10 mg Tablet 10 mg PO DAILY RF: 0 amlodipine 5 mg tablet 5 mg PO DAILY Qty: 90 RF: 6 Referrals / Follow Up: Addis Prather MD [Primary Care Provider] - Alanis Danielle PA [PHYSICIAN [employer] DEVELOPER] - 11/02/21 4:00 pm Disposition Disposition (needs filled in before D/C Order can be placed): Home, Self Care Charges/Coding Visit Charges OBSV E&M: 62402 Observation care discharge
[2021-10-12 13:10] VITALS: BP 108/56; PULSE 72; RESP 12; TEMP 36.6; O2SAT 92
== END 2021-10-12 11:42 | disposition home or self-care (01) ==
LOC: ED 11:05 → PCU 11:37
PROVIDERS: Admitting Provider Internal Medicine; Emergency Provider Emergency Medicine; PCP Internal Medicine; Visit Provider Internal Medicine
DX: R07.89 Other chest pain (principal); I11.0 Hypertensive heart disease with heart failure; I50.32 Chronic diastolic (congestive) heart failure; I48.0 Paroxysmal atrial fibrillation; E11.9 Type 2 diabetes mellitus without complications; Z79.82 Long term (current) use of aspirin; I25.10 Atherosclerotic heart disease of native coronary artery without angina pectoris; E78.5 Hyperlipidemia, unspecified; Z79.01 Long term (current) use of anticoagulants; I44.0 Atrioventricular block, first degree; Z79.899 Other long term (current) drug therapy; I25.2 Old myocardial infarction; E66.9 Obesity, unspecified; Z68.35 Body mass index [BMI] 35.0-35.9, adult; R77.8 Other specified abnormalities of plasma proteins; G47.30 Sleep apnea, unspecified; F32.A Depression, unspecified
CPT/HCPCS: 36415; 71045; 80048; 82962; 84484; 85025; 93005; 97802; 99218; 99285; A4216; G0378

== ENCOUNTER 2022-09-19 17:44 | Emergency (ER) | payer MEDICARE, MEDICAID, SELFPAY ==
[2022-09-19 17:45] VITALS: BP 142/85; PULSE 73; RESP 14; TEMP 36.2; O2SAT 97; BMI 31.6
--- NOTE | 2022-09-19 19:28 | EKG12_ITS ---
Test Reason : DYSRHYTHMIA Blood Pressure : / mmHG Vent. Rate : 064 BPM Atrial Rate : 064 BPM P-R Int : 202 ms QRS Dur : 120 ms QT Int : 408 ms P-R-T Axes : 053 -19 134 degrees QTc Int : 420 ms Normal sinus rhythm Leftward axis Incomplete left bundle branch block Abnormal ECG Confirmed by PAULA HARMON, TEODORA ([id number]), newspaper copy editor MIRI HERRERA ([id number]) on 09/21/2022 10:05:03 AM Referred By: MANOLO Confirmed By:TEODORA MITCHELL MD
--- NOTE | 2022-09-19 19:29 | EX.ED.DYSGE1 ---
HPI History of Present Illness Chief Complaint: General Illness Informant: patient Narrative Narrative: Reports vomiting diarrhea 3 days ago until following day. Since resolved. Yesterday chest and back pain with muscle aches. Reports feeling sweats. Similar symptoms when she had COVID in the past. She states she has had caths by Dr. Eli in the past most recent March or April noting collaterals there is no stenting. History of diastolic heart failure. She is tolerating chicken soup. Reports abdominal discomfort. Denies any urinary symptoms. Denies cough. [facility] Medical History Abdominal pain Anomalous coronary artery origin Atherosclerosis of coronary artery of [place] heart without angina pectoris Atherosclerotic heart disease [place] coronary artery w/angina pectoris Chronic anticoagulation Chronic diastolic CHF (congestive heart failure) Depression Elevated troponin Essential (primary) hypertension History of lipoma History of non-ST elevation myocardial infarction (NSTEMI) (05/21/21) Hyperlipidemia Left bundle branch block (LBBB) (06/09/21) Malaise and fatigue Obesity (BMI 30-39.9) Paroxysmal A-fib Sleep apnea Sleep disorder breathing Type 2 diabetes mellitus Home Medications amlodipine 5 mg tablet 5 mg PO DAILY #90 tabs 01/29/20 [Rx Last Taken 05/21/21] nitroglycerin 0.4 mg sublingual tablet 0.4 mg sublingual Q5M PRN chest pain #25 tabs 08/24/20 [Rx Last Taken 05/19/21] atorvastatin 80 mg tablet 80 mg PO DAILY CHOLESTEROL 05/21/21 [History Last Taken 05/21/21] cholecalciferol (vitamin D3) 125 mcg (5,000 unit) capsule 5,000 unit PO DAILY SUPPLEMENT 05/21/21 [History Last Taken 05/21/21] sertraline 100 mg tablet 100 mg PO DAILY DEPRESSION 05/21/21 [History Last Taken 05/21/21] apixaban 5 mg tablet (Eliquis) 5 mg PO BID blood thinner 06/09/21 [History Last Taken Unknown] furosemide 20 mg tablet 20 mg PO DAILY diuretic 10/11/21 [History Last Taken Unknown] pantoprazole 20 mg tablet,delayed release 20 mg PO DAILY reflux 10/11/21 [History Last Taken Unknown] aspirin 81 mg tablet,delayed release 81 mg PO DAILY 12/02/21 [History Last Taken Unknown] carvedilol 3.125 mg tablet 3.125 mg PO BID #180 tabs 12/02/21 [Rx Last Taken Unknown] lisinopril 5 mg tablet 5 mg PO DAILY #30 tabs 07/28/22 [Rx Last Taken Unknown] ondansetron 4 mg disintegrating tablet 4 mg PO Q8H PRN PRN Nausea #10 tabs 09/19/22 [Rx Last Taken Unknown] Allergy/AdvReac Type Severity Reaction Status Date / Time potassium chloride AdvReac diarrhea Verified 09/19/22 17:46 Family History Grandmother Diabetes Breast cancer Sister Breast cancer Mother Heart disease Hypertension Surgical History H/O: hysterectomy History of left heart catheterization (05/24/21) History of tonsillectomy Social History household members: spouse housing: house number of children: 4 (adults) current occupational status: disabled Smoking Status: Never smoker alcohol intake: never ROS ROS ED Constitutional Constitutional ED: Reports fever(s) and sweats; Denies chills Eyes Eyes: Denies change in vision ENT ENT ED: Denies dysphagia or sore throat Cardiovascular Cardiovascular: Reports chest pain; Denies leg edema, palpitations or racing heartbeat Respiratory/Chest Respiratory/Chest: Denies cough, dyspnea or dyspnea on exertion Gastrointestinal Gastrointestinal: Reports abdominal pain, diarrhea, nausea and vomiting Genitourinary Genitourinary ED: Denies dysuria, hematuria or urinary frequency Musculoskeletal Musculoskeletal: Denies back pain, extremity pain or neck pain Integumentary Denies rash or wounds Neurologic Neurologic: Denies headache(s), paresthesias or weakness EXAM Physical Exam Const Vital Signs: 09/19/22 17:45 09/19/22 19:39 09/19/22 22:28 Temperature 97.2 F L Temperature Source Temporal Pulse Rate 73 79 Respiratory Rate 14 16 Respiratory Effort Normal Non-Labored Respiratory Pattern Normal Blood Pressure 142/85 H 143/78 H Blood Pressure Mean 104 Pulse Ox 97 99 Oxygen Delivery Method Room Air Positive well nourished and well developed General Appearance ED: well developed and NAD HEENT Reports moist mucous membranes normocephalic and atraumatic Eyes PERRL, EOMs intact bilaterally and conjunctivae normal General Eye ED: Yes normal appearance of both eyes Neck no lymphadenopathy and supple General: Negative for tenderness Chest Wall Chest: Negative for tenderness Resp normal respiratory effort and normal air movement Effort and Inspection: symmetric chest movement; Negative for respiratory distress Cardio regular rate, regular rhythm and no murmurs Peripheral Pulses: pulses 2+ throughout GI normal to inspection, nondistended, normoactive bowel sounds and non-tender Palpation: Negative for guarding or rebound tenderness present Back/Spine no CVA tenderness and no thoracic nor lumbar tenderness Extremity normal to inspection General Extremety ED: Negative for edema or tenderness General Extremity: Negative for edema Neuro oriented x3 and no sensory deficits noted Sensorium / Orientation: awake and alert Skin no rashes or lesions noted and no wounds MDM MDM MDM Narrative Medical decision making narrative: Interventions / MDM: Differential diagnosis: COVID, influenza, atypical chest pain, viral syndrome, vomiting diarrhea Diagnosis considered but do not suspect: No C. difficile risk factors, denies and not hypoxic for concerns for PE. My EKG interpretation: Sinus rate of 64, no ST changes, T wave inversions 1 aVL and V6. Similar to July 2022 Imaging independently reviewed and interpreted by myself: 2 view chest x-ray negative for any acute process. Chest x-ray negative. Cardiac work-up External documents reviewed: N/A Test considered but not ordered:N/A ED course: Nontoxic vital stable. Discussed myalgia's subjective fevers. Rapid COVID and negative. Chest x-ray negative. Cardiac work-up also. Abdominal labs were normal. She treated fluids and Zofran. Re-evaluation: stable improved symptoms. Has been tolerating oral fluids. Discussed viral syndrome with the patient. Prescription for Zofran to use as needed. Return precautions. All questions were answered. Disposition discussed with patient/family/significant other: Patient and significant other Case discussed with consulting clinician: N/A Lab Data Attestation: I reviewed the patient's lab results. Labs: Laboratory Results - last 24 hr 09/19/22 09/19/22 19:00 19:00 WBC 7.8 RBC 5.17 Hgb 15.7 H Hct 47.6 H MCV 92.1 MCH 30.4 MCHC 33.0 RDW Std Deviation 44.3 H RDW Coeff of Shae 12.9 Plt Count 151 MPV 14.2 H Immature Gran % (Auto) 0.300 Neut % (Auto) 54.9 Lymph % (Auto) 34.4 [place] % (Auto) 8.7 Eos % (Auto) 1.2 Baso % (Auto) 0.5 Absolute Neuts (auto) 4.3 Absolute Lymphs (auto) 2.68 Nucleated RBC % 0 Sodium 141 Potassium 3.5 Chloride 107 Carbon Dioxide 28.0 Anion Gap 6 BUN 14 Creatinine 0.80 Estim Creat Clear Calc 75.22 Est GFR (MDRD) Af Amer 93 Est GFR (MDRD) Non-Af 77 BUN/Creatinine Ratio 17.6 Glucose 124 H Calcium 9.7 Total Bilirubin 0.60 AST 17 ALT 24 Alkaline Phosphatase 96 Troponin I High Sens 54 Total Protein 6.7 Albumin 3.2 Globulin 3.5 Albumin/Globulin Ratio 0.9 Lipase 50 L Radiography Diagnostic Testing: Clinical Impression(s) from Imaging Studies Chest X-Ray 09/19/22 20:00 IMPRESSION: Degenerative changes, as described above. No demonstrated acute cardiopulmonary process. No major interval change. Electronically Signed: Ryan Hamilton DO at 20:41 EST Reading Location ID and State: [address] [place] [address] Tel [phone], Service support , Discharge Plan Triage Chief Complaint: General Illness ED Provider: Brian Barker Dx/Rx/DC Orders Clinical Impression: Chest pain, Viral syndrome, Vomiting Instructions: ED Chest Pain, Uncertain Cause, ED Viral Syndrome (Adult), ED Vomiting (Adult) Prescriptions: New ondansetron [ondansetron] 4 mg tablet,disintegrating 4 mg PO Q8H PRN PRN (Reason: Nausea) Qty: 10 0RF No Action nitroglycerin 0.4 mg tablet, sublingual 0.4 mg SUBLINGUAL Q5M PRN (Reason: chest pain) Qty: 25 0RF Rx Instructions: do not exceed 3 doses per episode carvedilol 3.125 mg tablet 3.125 mg PO BID Qty: 180 3RF aspirin 81 mg tablet,delayed release (DR/EC) 81 mg PO DAILY lisinopril 5 mg tablet 5 mg PO DAILY Qty: 30 11RF atorvastatin 80 mg tablet 80 mg PO DAILY sertraline 100 mg tablet 100 mg PO DAILY cholecalciferol (vitamin D3) 125 mcg (5,000 unit) capsule 5,000 unit PO DAILY Eliquis 5 mg tablet 5 mg PO BID Rx Instructions: Start from tomorrow, 05/25/21 evening pantoprazole 20 mg tablet,delayed release (DR/EC) 20 mg PO DAILY furosemide 20 mg tablet 20 mg PO DAILY amlodipine 5 mg tablet 5 mg PO DAILY Qty: 90 6RF Primary Care Provider: Addis Prather Referrals: Addis Prather MD [Primary Care Provider] - 3-5 Days if not improving Activity Restrictions/Additional Instructions: COVID and flu negative. Cardiac work-up negative. Abdominal labs are normal. Continue oral fluids for hydration at home. Follow-up with your doctor. Return if any worsening symptoms. Disposition Disposition: Home, Self Care Discharge Date/Time: 09/19/22 22:45
[2022-09-19] MEDS: Ondansetron 4 MG/2 ML Vial IV (19:38)
[2022-09-19] MEDS: 0.9% Normal Saline 1,000 ML 1000 ML IV (19:38)
[2022-09-19 19:50] LABS: Absolute Lymphocyte Count 2.68 X10^3/uL (0.83-4.51); Absolute Neutrophil Count 4.3 X10^3/uL (2.0-7.7); Basophil# 0.04 X10^3/uL; Basophil% 0.5 % (0-1); Eosinophil# 0.09 X10^3/uL; Eosinophils% 1.2 % (0-5); Hematocrit 47.6 % (37-47); Hemoglobin 15.7 g/dL (12.0-15.0); Lymphocyte # 2.68 X10^3/ul (0.83-4.51); Lymphocyte % 34.4 % (19-41); Mean Corpuscular Hgb 30.4 pg (27.0-32.0); Mean Corpuscular Volume 92.1 fL (81-99); Mean Platelet Vol. 14.2 fl (6.2-12.0); Monocyte# 0.68 X10^3/uL; Monocyte% 8.7 % (0-10); NRBC Flagged by Analyzer 0 % (0-5); Neutrophil # 4.27 X10^3/uL (2.7-7.7); Neutrophil % 54.9 % (47-70); Platelet Count 151 K/mm3 (150-450); RBC Distribution Width CV 12.9 % (11.6-14.6); RBC Distribution Width SD 44.3 fl (35.1-43.9); Red Blood Count 5.17 M/mm3 (4.2-5.4); White Blood Count 7.8 K/mm3 (4.4-11.0)
--- NOTE | 2022-09-19 20:00 | RAD_ITS ---
STUDY: X-RAY CHEST REASON FOR EXAM: Female, 61 years old. Chest pain. TECHNIQUE: PA and lateral views of the chest. COMPARISON: October 11, 2021. FINDINGS: Mildly improved inspiratory effort. There is no new pulmonary infiltrate or mass.. There is no demonstrated pleural abnormality. Normal size heart. Normal mediastinum and dave. Normal visualized pulmonary arteries. There is atherosclerotic calcification of the aortic arch with tortuosity. There are diffuse degenerative changes of the visualized thoracic spine. Normal visualized ribs, clavicles, and shoulders. There is no demonstrated abnormality of the visualized soft tissue structures of the upper abdomen. RAD/Chest PA and Lateral IMPRESSION: Degenerative changes, as described above. No demonstrated acute cardiopulmonary process. No major interval change. Electronically Signed: Ryan Hamilton DO at 20:41 EST ,
[2022-09-19 20:06] LABS: ALB/GLOB Ratio 0.9 RATIO (0.9-2.4); AST(SGOT) 17 U/L (15-37); Alanine Aminotransfer ALT/SGPT 24 U/L (13-56); Albumin, Serum 3.2 g/dL (3.2-5.0); Alkaline Phosphatase 96 U/L (45-117); Anion Gap 6 (5-15); BUN 14 mg/dL (7-18); BUN/Creat Ratio 17.6 RATIO (10-20); Calcium,Total 9.7 mg/dL (8.5-10.1); Chloride 107 mmol/L (98-107); EST Glomerular Filtration Rate 77 mL/min (>60); Est Glom Filt Rate - Afr Amer 93 mL/min (>60); Estimated Creatinine Clearance 75.22 ml/min; Globulin 3.5 g/dL (2.2-4.2); Glucose 124 mg/dL (74-106); Lipase 50 U/L (73-393); Potassium 3.5 mmol/L (3.5-5.1); Protein, Total 6.7 g/dL (6.4-8.2); Sodium Level 141 mmol/L (136-145); Troponin-I HS 54 pg/mL (3.0-54.0)
[2022-09-19 22:28] VITALS: BP 143/78; PULSE 79; RESP 16; O2SAT 99
== END 2022-09-19 22:45 | disposition home or self-care (01) ==
PROVIDERS: Emergency Provider Emergency Medicine; PCP Internal Medicine; Visit Provider Emergency Medicine
DX: R07.9 Chest pain, unspecified (principal); I11.0 Hypertensive heart disease with heart failure; I50.32 Chronic diastolic (congestive) heart failure; E11.9 Type 2 diabetes mellitus without complications; Z20.822 Contact with and (suspected) exposure to COVID-19; B34.9 Viral infection, unspecified; I25.10 Atherosclerotic heart disease of native coronary artery without angina pectoris; E78.5 Hyperlipidemia, unspecified
CPT/HCPCS: 71046; 80053; 83690; 84484; 85025; 87428; 93005; 96361; 96374; 99284; A4216; J2405

== ENCOUNTER 2023-08-10 14:43 | Observation (INO) | payer MEDICARE, SELFPAY ==
[2023-08-10 14:44] VITALS: BP 157/96; PULSE 69; RESP 18; TEMP 36.6; O2SAT 95; BMI 40.3
--- NOTE | 2023-08-10 15:05 | RAD_ITS ---
STUDY: X-RAY CHEST REASON FOR EXAM: Female, 62 years old. Chest pain TECHNIQUE: Single AP portable view of the chest. COMPARISON: Comparison is made with prior study dated September 19, 2022. FINDINGS: EKG electrodes are seen. The lungs are clear and expanded. There is no demonstrated pleural abnormality. Normal size heart. Normal mediastinum and dave. Normal visualized pulmonary arteries. There is atherosclerotic tortuosity of the aortic arch and descending thoracic aorta. There are diffuse degenerative changes of the visualized thoracic spine. Normal visualized ribs, clavicles, and shoulders. There is no demonstrated abnormality of the visualized soft tissue structures of the upper abdomen. RAD/Chest 1 View (Portable) IMPRESSION: No acute abnormality is seen. Electronically Signed: Jerry Bunch MD at 15:38 EST ,
[2023-08-10 15:09] VITALS: O2SAT 95
[2023-08-10 15:11] LABS: Absolute Lymphocyte Count 2.67 X10^3/uL (0.83-4.51); Absolute Neutrophil Count 5.7 X10^3/uL (2.0-7.7); Basophil# 0.05 X10^3/uL; Basophil% 0.5 % (0-1); Eosinophil# 0.09 X10^3/uL; Hemoglobin 15.5 g/dL (12.0-15.0); Lymphocyte # 2.67 X10^3/ul (0.83-4.51); Mean Corp Hgb Conc 31.6 g/dL (32-36); Mean Corpuscular Hgb 29.7 pg (27.0-32.0); Mean Corpuscular Volume 93.9 fL (81-99); Mean Platelet Vol. 12.7 fl (6.2-12.0); Monocyte# 0.67 X10^3/uL; Monocyte% 7.3 % (0-10); NRBC Flagged by Analyzer 0 % (0-5); Platelet Count 174 K/mm3 (150-450); RBC Distribution Width CV 12.8 % (11.6-14.6); RBC Distribution Width SD 44.4 fl (35.1-43.9); Red Blood Count 5.22 M/mm3 (4.2-5.4); White Blood Count 9.2 K/mm3 (4.4-11.0)
--- NOTE | 2023-08-10 15:27 | ED.VIS.CHEST ---
HPI History of Present Illness Chief Complaint: Chest Pain Detail of Chief Complaint: Midsternal chest pain intermittently last several days at rest. Informant: patient Onset/Context/Timing Onset: Today and Yesterday Activity at onset: gradual Timing: Intermittent Quality: Positive for Aching and Pain Location: Substernal and Left Parasternal Current Severity: Gone Maximum Severity: Moderate Worsened By: Nothing Relieved By: Nothing Associated Symptoms: Positive for Diaphoresis and Dyspnea; Negative for Nausea, Vomiting, Cough, Fever, Lightheadedness, Acid Reflux or Palpitations Narrative Narrative: 62-year-old female complaining intermittent chest pain the last several days. Occurs at rest. Is been going on for about a week. Its midsternal pressure. Associated shortness of breath. And diaphoresis no nausea. She had a heart cath 1 to 2 years ago she believes. No stents. History of CAD but it was mild prior OR history of A-fib with left bundle branch block and CHF for which she is on Eliquis and diabetic. Prior Similar Symptoms: Yes Recent Illness/Hospitalization: No CVD Risk Factors: Positive for Diabetes PE Risk Factors: Negative for Recent Travel/Surgery, Recent Immobilization, Prior DVT or PE, Cancer or OCP + Smoking + >/=35 TAD Risk Factors: Negative for Marfan's Syndrome [facility] Medical History Abdominal pain Anomalous coronary artery origin Atherosclerosis of coronary artery of [place] heart without angina pectoris Atherosclerotic heart disease [place] coronary artery w/angina pectoris Chronic anticoagulation Chronic diastolic CHF (congestive heart failure) Depression Elevated troponin Essential (primary) hypertension History of lipoma History of non-ST elevation myocardial infarction (NSTEMI) (05/21/21) Hyperlipidemia Left bundle branch block (LBBB) (06/09/21) Malaise and fatigue Obesity (BMI 30-39.9) Paroxysmal A-fib Sleep apnea Sleep disorder breathing Type 2 diabetes mellitus Home Medications nitroglycerin 0.4 mg sublingual tablet 0.4 mg sublingual Q5M PRN chest pain #25 tabs 08/24/20 [Rx Last Taken 05/19/21] aspirin 81 mg tablet,delayed release 81 mg PO DAILY #1 TAB 04/26/23 [Rx Last Taken Unknown] apixaban 5 mg tablet (Eliquis) 5 mg PO BID #60 tabs 06/28/23 [Rx Last Taken Unknown] atorvastatin 80 mg tablet mg PO 06/28/23 [History Last Taken Unknown] lisinopril 10 mg tablet 10 mg PO DAILY #30 tabs 06/28/23 [Rx Last Taken Unknown] Allergy/AdvReac Type Severity Reaction Status Date / Time potassium chloride AdvReac diarrhea Verified 08/10/23 14:43 Family History Grandmother Diabetes Breast cancer Sister Breast cancer Mother Heart disease Hypertension Surgical History H/O: hysterectomy History of left heart catheterization (05/24/21) History of tonsillectomy Social History household members: spouse housing: house number of children: 4 (adults) current occupational status: disabled Smoking Status: Never smoker alcohol intake: never ROS ROS ED ROS Narrative Chest pain. Shortness of breath. Review of Systems ROS Unobtainable: Denies due to encephalopathy Constitutional Constitutional ED: Denies chills or fever(s) Eyes Eyes: Reports none ENT ENT ED: Denies ear pain, rhinorrhea or sore throat Cardiovascular Cardiovascular: Reports chest pain; Denies palpitations or racing heartbeat Respiratory/Chest Respiratory/Chest: Reports dyspnea; Denies cough Gastrointestinal Gastrointestinal: Denies abdominal pain, constipation, diarrhea, melena or vomiting Genitourinary Genitourinary ED: Denies dysuria or hematuria Musculoskeletal Musculoskeletal: Denies arthralgias or back pain Integumentary Denies abscess Neurologic Neurologic: Denies headache(s) Psychiatric Psychiatric: Denies anxiety or depression Endocrine Endocrinology: Denies cold intolerance Hematologic/Lymphatic Hematologic/Lymphatic: Denies easy bleeding, easy bruising or lymphadenopathy Allergic/Immunologic Allergic/Immunologic ED: Denies mouth swelling, tongue swelling or urticaria EXAM Physical Exam Narrative Exam Narrative: Well-appearing 62-year-old female. Vital signs stable afebrile. Pulse ox 95% on room air no hypoxia. No distress. H EENT exam unremarkable. Neck nontender no JVD. Lungs clear to auscultation bilaterally. Heart regular rate and rhythm rate about 70 no murmur. Chest wall and ribs nontender. Abdomen is soft and nontender. Moving all 4 extremities. She does have 1+ pitting edema both lower extremities equal symmetrical. Calves nontender no cords. Neurologically she is awake alert no focal motor deficits. Const Vital Signs: 08/10/23 14:44 08/10/23 14:44 08/10/23 15:09 Temperature 97.8 F Temperature Source Temporal Pulse Rate 69 Respiratory Rate 18 Respiratory Effort Short of Breath Blood Pressure 157/96 H Blood Pressure Mean 116 Pulse Ox 95 95 Oxygen Delivery Method Room Air Room Air 08/10/23 16:28 Temperature Temperature Source Pulse Rate 84 Respiratory Rate 16 Respiratory Effort Blood Pressure 141/75 H Blood Pressure Mean 97 Pulse Ox 98 Oxygen Delivery Method Room Air Positive well nourished and well developed; Negative for cachectic, contractures or unkempt General Appearance ED: well developed and NAD; Negative for unkempt, cachectic, contractures or pallor Nutritional Appearance: Negative for cachectic HEENT Reports moist mucous membranes normocephalic and atraumatic; Negative for trauma or tenderness Eyes PERRL and EOMs intact bilaterally General Eye ED: Negative for pale conjunctiva, scleral icterus or other Neck no lymphadenopathy, supple and no JVD General: Negative for tenderness or other Chest Wall inspection of chest normal and palpation of chest normal Chest: Negative for tenderness Resp normal respiratory effort and clear to auscultation bilaterally Effort and Inspection: Negative for respiratory distress Auscultation: Negative for rales, rhonchi or wheezes Cardio regular rate, regular rhythm, S1 normal heart sound, S2 normal heart sound and no murmurs Rate: Negative for bradycardia or tachycardic Rhythm: Negative for abnormal rhythm Peripheral Pulses: pulses 2+ throughout GI normal to inspection, nondistended, normoactive bowel sounds, soft to palpation, non-tender, non-distended and no masses Auscultation: Negative for hyperactive bowel sounds Palpation: Negative for splenomegaly or mass Back/Spine no CVA tenderness and no thoracic nor lumbar tenderness General Back: Negative for CVA tenderness Cervical Spine: Negative for cervical spine tenderness Extremity Negative for normal to inspection General Extremety ED: Yes edema; Negative for pulses abnormal or tenderness General Extremity: edema; Negative for pulses abnormal Neuro oriented x3 and CN's II-XII intact bilaterally Sensorium / Orientation: awake, alert, oriented to person, oriented to place and oriented to time; Negative for confused, lethargic or stuporous Motor Exam: strength 5/5 throughout Psych mental status grossly normal Appearance: Negative for unkempt Attitude: No agitated Mood & Affect: Negative for depressed, anxious or tearful Skin no rashes or lesions noted and no wounds General Skin Exam: Negative for jaundice or pallor Rashes: No rashes noted Trauma: Negative for abrasion, laceration or puncture Heart Score History: Moderately Suspicious ECG: Normal Age: >45 - <65 years Risk Factors: >/= 3 Risk Factors or History of CAD Troponin: </= Normal Limit Score: 4 MDM MDM MDM Narrative Medical decision making narrative: 62-year-old complaining of chest pain history of prior OR, diabetes etc. Cardiac workup will be done. Repeat exam at 8:20 PM unchanged. Went over all the test with the patient. She has elevated cardiac enzymes 60 and 58. They been higher before in the past. She had a cardiac catheterization done 2 years ago May [address] Robert Beverly. 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 She states it feels like her prior OR I will speak to the hospitalist about admission and further evaluation. History & Record Review Discussion w/independent historian: Patient Additional record(s) reviewed:: Prior inpatient record, Prior outpatient record, Prior ED visit and Prior labs Lab Data Attestation: I reviewed the patient's lab results. Lab results narrative: CBC shows a white count 9 H&H of 15 and 49. Platelets 174. Electrolytes show gap of 5 repeat troponin was again elevated at 58 but it was actually lower not higher. Normal BUN of 13 and creatinine 0.8. Glucose 134. Troponins elevated at 60. Repeat 2-hour troponin was 58. Labs: Laboratory Results - last 24 hr 08/10/23 08/10/23 15:02 17:00 WBC 9.2 RBC 5.22 Hgb 15.5 H Hct 49.0 H MCV 93.9 MCH 29.7 MCHC 31.6 L RDW Std Deviation 44.4 H RDW Coeff of Shae 12.8 Plt Count 174 MPV 12.7 H Immature Gran % (Auto) 0.200 Neut % (Auto) 62.0 Lymph % (Auto) 29.0 [place] % (Auto) 7.3 Eos % (Auto) 1.0 Baso % (Auto) 0.5 Absolute Neuts (auto) 5.7 Absolute Lymphs (auto) 2.67 Nucleated RBC % 0 Sodium 139 Potassium 4.1 Chloride 108 H Carbon Dioxide 26.0 Anion Gap 5 BUN 13 Creatinine 0.82 Estim Creat Clear Calc 97.64 Est GFR (MDRD) Af Amer 91 Est GFR (MDRD) Non-Af 75 BUN/Creatinine Ratio 15.9 Glucose 134 H Calcium 9.4 Troponin I High Sens 60 H 58 H Radiography Chest X-Ray - ED: 1 View, Read by ED Physician, Read by Radiologist, Heart, Mediastinum, Bony Structures and Chronic Changes Diagnostic Testing: Clinical Impression(s) from Imaging Studies Chest X-Ray 08/10/23 15:05 IMPRESSION: No acute abnormality is seen. Electronically Signed: Jerry Bunch MD at 15:38 EST , Chest x-ray, portable, single view interpreted by myself and the radiologist shows no acute abnormality. Normal cardiac silhouette. Normal lung h[place] no infiltrates. No effusions. Rhythm Strip Rhythm Strip: Sinus Rhythm Rate: 66 Ectopy: None EKG Initial EKG: Attestation: I personally reviewed and interpreted this EKG as follows: Interpretation: Sinus Rhythm and No Acute Injury Pattern Comments: Normal sinus rhythm rate of 66 no acute signs of OR or ischemia. Discharge Plan Triage Chief Complaint: Chest Pain ED Provider: Quan Em Dx/Rx/DC Orders Clinical Impression: Chest pain, History of diabetes mellitus, History of atrial fibrillation, Chronic anticoagulation, History of CHF (congestive heart failure) Prescriptions: No Action nitroglycerin 0.4 mg tablet, sublingual 0.4 mg SUBLINGUAL Q5M PRN (Reason: chest pain) Qty: 25 0RF Rx Instructions: do not exceed 3 doses per episode aspirin 81 mg tablet,delayed release (DR/EC) 81 mg PO DAILY Qty: 1 0RF atorvastatin 80 mg tablet PO Patient Comments: TAKE 1 TABLET BY MOUTH ONCE DAILY AT BEDTIME FOR CHOLESTEROL Eliquis 5 mg tablet 5 mg PO BID Qty: 60 11RF lisinopril 10 mg tablet 10 mg PO DAILY Qty: 30 11RF Primary Care Provider: DILAN SOLORZANO Referrals: DILAN SOLORZANO NP-C [Primary Care Provider] - Disposition Disposition: Acute Care Hospital [facility]
[2023-08-10 15:29] LABS: Anion Gap 5 (5-15); BUN 13 mg/dL (7-18); BUN/Creat Ratio 15.9 RATIO (10-20); Calcium,Total 9.4 mg/dL (8.5-10.1); Chloride 108 mmol/L (98-107); Creatinine, Serum 0.82 mg/dL (0.55-1.02); EST Glomerular Filtration Rate 75 mL/min (>60); Est Glom Filt Rate - Afr Amer 91 mL/min (>60); Estimated Creatinine Clearance 97.64 ml/min; Glucose 134 mg/dL (74-106); Potassium 4.1 mmol/L (3.5-5.1); Sodium Level 139 mmol/L (136-145); Troponin-I HS (w/2H Reflex) 60 pg/mL (3.0-54.0)
[2023-08-10] MEDS: Aspirin 81 MG TAB.CHEW 324 MG PO (15:36)
--- OUTSIDE RECORDS SUMMARY | 2023-08-10 15:44 | XMS RPT_ITS | CCD ---
Author Name Unknown Address [address] [place] [address] Organization [facility] Care Team Providers Care Transmission Engineer Name Role Phone FILIBERTO EVERARDO E Unavailable Unavailable FILIBERTO, EVERARDO E Unavailable Unavailable FILIBERTO, EVERARDO Unavailable Unavailable FILIBERTO, EVERARDO Unavailable Unavailable [facility] Unavailable Unavailable FILIBERTO, EVERARDO Unavailable Unavailable FILIBERTO, EVERARDO Unavailable Unavailable [facility] Unavailable Unavailable GANTA, ADDIS SIMON Consulting Unavailable JAIMEE, DR VIVI Calloway Attending Unavaila ble JAIMEE, DR VIVI Calloway Primary Care Unavaila ble JAIMEE, DR VIVI Calloway Admitting Unavaila ble PROVIDER, UNKNOWN Consulting Unavailable GANTA, ADDIS SIMON Consulting Unavailable JAIMEE, DR VIVI Calloway Attending Unavaila ble JAIMEE, DR VIVI Calloway Primary Care Unavaila ble JAIMEE, DR VIVI Calloway Admitting Unavaila ble PROVIDER, UNKNOWN Consulting Unavailable Addis Gillette MD Primary Care Provider Addis Gillette MD Primary Care Provider Addis Gillette MD Primary Care Provider Addis Gillette MD Primary Care Provider OLDER, KONRAD Attending Unavailable GANTA, ADDIS Primary Care Unavailable GANTA, ADDIS Attending Unavailable GANTA, ADDIS Primary Care Unavailable LATRICE PETERS Attending Unavailable GANTA, ADDIS Primary Care Unavailable OLDER, KONRDA Referring Unavailable GANTA, ADDIS Primary Care Unavailable MICHELLEVAIBHAV BACON Attending Unavailable GANTA, ADDIS Primary Care Unavailable OLDER, KONRAD Attending Unavailable GANTA, ADDIS Primary Care Unavailable OLDER, KONRAD Referring Unavailable GANTA, ADDIS Primary Care Unavailable OLDER, KONRAD Attending Unavailable GANTA, ADDIS Primary Care Unavailable TESTLATRICE KU Attending Unavailable SELF Referring Unavailable GANTA, ADDIS Primary Care Unavailable Allergies Allergy Classification Reported Allergen(s) Allergy Type Date of Onset Reaction(s) Facility (20 sources) potassium chloride; Translations: [POTASSIUM CHLORIDE] Drug Allergy 10-26-2015 Diarrhea [facility] Other [place] [facility] Medications Current Medications Medication Drug Class(es) Dates Sig (Normalized) Sig (Original) acetaminophen 300 mg / codeine phosphate 30 mg oral tablet (2 sources) Opioid Agonist Start: 09-23-2022 End: 09-30-2022 take 1 tablet by mouth at bedtime as needed for pain acetaminophen-code ine (TYLENOL-CODEINE #3) 300-30 mg per tablet Indications: Other cough , Sore throat , Vomiting without nausea, unspecified vomiting type Take 1 tablet by mouth at bedtime as needed for pain for up to 7 days. 10 tablet 0 09/23/2022 09/30/2022 Active Completed/Discontinued Medications Medication Drug Class(es) Dates Sig (Normalized) Sig (Original) >Zippered Compression Knee High 30-40 mm custom (20 sources) Start: 02-21-2018 >Zippered Compression Knee High 30-40 mm custom Indications: Varicose veins of both lower extremities with inflammation , Localized superficial swelling, mass, or lump , Ankle swelling, unspecified laterality CUSTOM MEASURE FOR KNEE HIGH ZAK COMPRESSION STOCKINGS, 30-40 MM, WITH ZIPPERS PLEASE. IF UNABLE, PLEASE REFER TO MARCELINO AT [facility]. DX: EDEMA 1 Each 0 02/21/2018 Active Problems Active Problems Problem Classification Problem Date Documented Date Episodic/Chronic Acquired foot deformities (1 source) Talipes planus; Translations: [Flat foot [pes planus] (acquired), left foot] Episodic Administrative/social admission (1 source) Marital problems; Translations: [Problems in relationship with spouse or partner] Episodic Cardiac dysrhythmias (20 sources) Chronic atrial fibrillation; Translations: [Chronic atrial fibrillation, unspecified] Onset: 09-28-2016 Chronic Cardiac dysrhythmias (1 source) Palpitations; Translations: [Palpitations] Episodic Coronary atherosclerosis and other heart disease (20 sources) Coronary arteriosclerosis; Translations: [Atherosclerotic heart disease of [place] coronary artery without angina pectoris] Onset: 05-28-2021 Chronic Diabetes mellitus with complications (20 sources) Type 2 diabetes mellitus in obese; Translations: [Type 2 diabetes mellitus with other specified complication] Onset: 11-27-2013 Chronic Disorders of lipid metabolism (20 sources) Hyperlipidemia; Translations: [Hyperlipidemia, unspecified] Onset: 11-27-2013 Chronic Esophageal disorders (1 source) Gastroesophageal reflux disease; Translations: [Gastro-esophageal reflux disease without esophagitis] Chronic Essential hypertension (9 sources) Essential (primary) hypertension; Translations: [Essential hypertension] Onset: 11-13-2017 Chronic Mood disorders (20 sources) Depressive disorder; Translations: [Depression] Onset: 08-01-2014 08-01-2014 Chronic Mycoses (5 sources) Onychomycosis; Translations: [Tinea unguium] Onset: 07-27-2023 Episodic Nausea and vomiting (1 source) Vomiting without nausea; Translations: [Vomiting without nausea] Episodic Nonmalignant breast conditions (2 sources) Mastodynia; Translations: [Mastitis without abscess] Onset: 07-27-2023 Episodic Other and ill-defined heart disease (20 sources) Left ventricular hypertrophy; Translations: [Cardiomegaly] Onset: 12-19-2013 07-12-2021 Chronic Other connective tissue disease (4 sources) Pain of toe of left foot; Translations: [Pain in left toe(s)] Episodic Other connective tissue disease (4 sources) Pain of toe of right foot; Translations: [Pain in right toe(s)] Episodic Other female genital disorders (1 source) Other specified noninflammatory disorders of vulva and perineum; Translations: [Vulval lesion] Onset: 07-27-2023 Episodic Other lower respiratory disease (1 source) Cough; Translations: [Other cough] Episodic Other nervous system disorders (20 sources) Peripheral nerve entrapment syndrome; Translations: [Mononeuropathy, unspecified] Onset: 01-10-2014 05-21-2018 Chronic Other nervous system disorders (20 sources) Chronic pain; Translations: [Other chronic pain] Onset: 01-10-2014 01-29-2014 Chronic Other nutritional; endocrine; and metabolic disorders (6 sources) Body mass index 40+ - severely obese; Translations: [Body mass index (BMI) 40.0-44.9, adult] Onset: 01-19-2023 Chronic Other nutritional; endocrine; and metabolic disorders (1 source) Obesity, unspecified; Translations: [Diabetes mellitus type 2 in obese (HCC)] Onset: 08-01-2014 Chronic Other screening for suspected conditions (not mental disorders or infectious disease) (2 sources) Patient encounter status; Translations: [Encounter for screening mammogram for malignant neoplasm of breast] 01-18-2023 Episodic Other skin disorders (1 source) Ingrowing nail of toe of left foot; Translations: [Ingrowing nail] Episodic Other upper respiratory infections (3 sources) Sore throat symptom; Translations: [Acute pharyngitis, unspecified] Onset: 06-01-2023 Episodic Otitis media and related conditions (1 source) Non-suppurative otitis media; Translations: [Unspecified nonsuppurative otitis media, left ear] Episodic Pulmonary heart disease (20 sources) Pulmonary hypertension; Translations: [Pulmonary hypertension, unspecified] Onset: 12-19-2013 07-12-2021 Chronic Residual codes; unclassified (20 sources) Obstructive sleep apnea syndrome; Translations: [Obstructive sleep apnea (adult) (pediatric)] Onset: 03-18-2014 07-12-2021 Chronic Residual codes; unclassified (1 source) Bilateral lower limb edema; Translations: [Localized edema] Episodic Residual codes; unclassified (1 source) Chill; Translations: [Chills (without fever)] Episodic Unclassified (1 source) Edema, unspecified; Translations: [Edema, unspecified] Onset: 11-13-2017 Episodic Unclassified (1 source) Unknown / UNK(Unknown) Onset: 11-13-2017 Unclassified (1 source) Chronic atrial fibrillation, unspecified; Translations: [Chronic atrial fibrillation (HCC)] Onset: 09-28-2016 Past or Other Problems Problem Classification Problem Date Documented Da te Episodic/Chronic Abdominal pain (20 sources) Abdominal pain; Translations: [Unspecified abdominal pain] Onset: 04-24-2013 07-12-2021 Episodic Genitourinary symptoms and ill-defined conditions (3 sources) Increased frequency of urination; Translations: [Frequency of micturition] Onset: 08-10-2022 Episodic Malaise and fatigue (2 sources) Tired; Translations: [Other fatigue] Onset: 08-10-2022 Episodic Nonspecific chest pain (20 sources) Chest pain; Translations: [Chest pain, unspecified] Onset: 03-18-2014 03-18-2014 Episodic Other connective tissue disease (20 sources) Neuropathic pain; Translations: [Neuralgia and neuritis, unspecified] Onset: 01-10-2014 01-10-2014 Episodic Other gastrointestinal disorders (20 sources) Diarrhea; Translations: [Diarrhea, unspecified] Onset: 01-25-2017 01-25-2017 Episodic Other gastrointestinal disorders (7 sources) Alteration in bowel elimination; Translations: [Change in bowel habit] Onset: 01-01-2018 01-01-2018 Episodic Other gastrointestinal disorders (13 sources) Altered bowel function; Translations: [Change in bowel habit] Onset: 01-01-2018 01-01-2018 Episodic Other nutritional; endocrine; and metabolic disorders (20 sources) Weight gain; Translations: [Abnormal weight gain] Onset: 11-27-2013 07-12-2021 Episodic Residual codes; unclassified (20 sources) Edema of foot; Translations: [Localized edema] Onset: 11-27-2013 07-12-2021 Episodic Spondylosis; intervertebral disc disorders; other back problems (20 sources) Backache; Translations: [Dorsalgia, unspecified] Onset: 04-09-2014 04-09-2014 Episodic Results Test Name Value Interpretation Reference Range Facil ity Vital Signs Date Time Vital Sign Value Performing Clinician Julien persaud 06-01-2023 13:01-0500 Body weight 116.48 kg Older [employer] INSTRUCTOR.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 Work Phone: [facility] 06-01-2023 13:01-0500 Diastolic blood pressure 78 mm[Hg] Konrad Older [employer] INSTRUCTOR.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 Work Phone: [facility] 06-01-2023 13:01-0500 Heart rate 54 /min Konrad Older [employer] INSTRUCTOR.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 Work Phone: [facility] 06-01-2023 13:01-0500 Respiratory rate 16 /min Konrad Older [employer] INSTRUCTOR.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 Work Phone: [facility] 06-01-2023 13:01-0500 SaO2% (BldA) [Mass fraction] 99 % Older [employer] INSTRUCTOR.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 Work Phone: [facility] 06-01-2023 13:01-0500 Systolic blood pressure 134 mm[Hg] Konrad Older [employer] INSTRUCTOR.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 Work Phone: [facility] 05-04-2023 11:27-0400 Body weight 115.67 kg Konrad Older [employer] INSTRUCTOR.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 Work Phone: [facility] 05-04-2023 11:27-0400 Diastolic blood pressure 82 mm[Hg] Konrad Older [employer] INSTRUCTOR.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 Work Phone: [facility] 05-04-2023 11:27-0400 Heart rate 68 /min Konrad Older [employer] INSTRUCTOR.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 Work Phone: [facility] 05-04-2023 11:27-0400 Respiratory rate 16 /min Konrad Older [employer]S INSTRUCTOR.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 Work Phone: [facility] 05-04-2023 11:27-0400 Systolic blood pressure 142 mm[Hg] Konrad Older UKRA[employer]S INSTRUCTOR.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 Work Phone: [facility] 10-26-2022 15:01-0400 Body weight 110.22 kg Konrad Older [employer] INSTRUCTOR.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 Work Phone: [facility] 10-26-2022 15:01-0400 Diastolic blood pressure 80 mm[Hg] Konrad Older [employer] INSTRUCTOR.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 Work Phone: [facility] 10-26-2022 15:01-0400 Heart rate 64 /min Konrad Older [employer] INSTRUCTOR.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 Work Phone: [facility] 10-26-2022 15:01-0400 Respiratory rate 16 /min Konrad Older [employer]S INSTRUCTOR.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 Work Phone: [facility] 10-26-2022 15:01-0400 Systolic blood pressure 132 mm[Hg] Konrad Older [employer]S INSTRUCTOR.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 Work Phone: [facility] 09-23-2022 15:00-0500 Body height 167.6 cm Addis Gillette MD Work Phone: [facility] 09-23-2022 15:00-0500 Body temperature 98.49 [degF] Addis Gillette MD Work Phone: [facility] 09-23-2022 15:00-0500 Body weight 109.32 kg Addis Gillette MD Work Phone: [facility] 09-23-2022 15:00-0500 Diastolic blood pressure 78 mm[Hg] Adids Gillette MD Work Phone: [facility] 09-23-2022 15:00-0500 Heart rate 60 /min Addis Gillette MD Work Phone: [facility] 09-23-2022 15:00-0500 Respiratory rate 14 /min Addis Gillette MD Work Phone: [facility] 09-23-2022 15:00-0500 SaO2% (BldA) [Mass fraction] 97 % Addis Gilltete MD Work Phone: [facility] 09-23-2022 15:00-0500 Systolic blood pressure 138 mm[Hg] Addis Gillette MD Work Phone: [facility] 07-28-2022 14:17-0500 Body weight 109.77 kg Konrad Older UKRA[employer]S INSTRUCTOR.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 Work Phone: [facility] 07-28-2022 14:17-0500 Diastolic blood pressure 86 mm[Hg] Konrad Older [employer]S INSTRUCTOR.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 Work Phone: [facility] 07-28-2022 14:17-0500 Heart rate 60 /min Konrad Older UKRA[employer]S INSTRUCTOR.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 Work Phone: [facility] 07-28-2022 14:17-0500 Respiratory rate 16 /min Konrad Older UKRA[employer]S INSTRUCTOR.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 Work Phone: [facility] 07-28-2022 14:17-0500 Systolic blood pressure 142 mm[Hg] Konrad Older UKRA[employer] ARTS INSTRUCTOR.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 Work Phone: [facility] 07-14-2022 13:46-0500 Body weight 110.68 kg Konrad Older UKRA[employer]S INSTRUCTOR.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 Work Phone: [facility] 07-14-2022 13:46-0500 Diastolic blood pressure 90 mm[Hg] Konrad Older [employer]S INSTRUCTOR.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 Work Phone: [facility] 07-14-2022 13:46-0500 Heart rate 64 /min Konrad Older UK[employer]S INSTRUCTOR.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 Work Phone: [facility] 07-14-2022 13:46-0500 Respiratory rate 16 /min Konrad Older UK[employer]S INSTRUCTOR.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 Work Phone: [facility] 07-14-2022 13:46-0500 Systolic blood pressure 142 mm[Hg] Konrad Older UK[employer]S INSTRUCTOR.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 Work Phone: [facility] 03-25-2022 14:02-0400 Body weight 115.21 kg Konrad Older UKRA[employer]S INSTRUCTOR.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 Work Phone: [facility] 03-25-2022 14:02-0400 Diastolic blood pressure 78 mm[Hg] Konrad Older UK[employer] ARTS INSTRUCTOR.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 Work Phone: [facility] 03-25-2022 14:02-0400 Heart rate 72 /min Konrad Older UKRA[employer]S INSTRUCTOR.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 Work Phone: [facility] 03-25-2022 14:02-0400 Respiratory rate 16 /min Konrad Older UK[employer]S INSTRUCTOR.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 Work Phone: [facility] 03-25-2022 14:02-0400 Systolic blood pressure 128 mm[Hg] Konrad Older [employer] INSTRUCTOR.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 Work Phone: [facility] 12-30-2021 10:07-0400 Body weight 115.67 kg Konrad Older [employer] INSTRUCTOR.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 Work Phone: [facility] 12-30-2021 10:07-0400 Diastolic blood pressure 80 mm[Hg] Konrad Older [employer]S INSTRUCTOR.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 Work Phone: [facility] 12-30-2021 10:07-0400 Heart rate 64 /min Konrad Older [employer] INSTRUCTOR.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 Work Phone: [facility] 12-30-2021 10:07-0400 Respiratory rate 16 /min Konrad Older [employer] INSTRUCTOR.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 Work Phone: [facility] 12-30-2021 10:07-0400 Systolic blood pressure 128 mm[Hg] Konrad Older [employer] INSTRUCTOR.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 Work Phone: [facility] 12-10-2021 10:07-0400 Body weight 115.21 kg Konrad Older [employer]S INSTRUCTOR.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 Work Phone: [facility] 12-10-2021 10:07-0400 Diastolic blood pressure 78 mm[Hg] Konrad Older [employer]S INSTRUCTOR.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 Work Phone: [facility] 12-10-2021 10:07-0400 Heart rate 68 /min Konrad Older UKRA[employer] INSTRUCTOR.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 Work Phone: [facility] 12-10-2021 10:07-0400 Respiratory rate 16 /min Konrad Older UKRA[employer]S INSTRUCTOR.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 Work Phone: [facility] 12-10-2021 10:07-0400 Systolic blood pressure 122 mm[Hg] Konrad Older [employer] INSTRUCTOR.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 Work Phone: [facility] Encounters Encounter Date Encounter Type Care Provider Facility Start: 07-27-2023 End: 07-28-2023 ambulatory VAIBHAV MICHELLE Facility:[facility] Start: 06-01-2023 End: 06-02-2023 ambulatory KONRAD OLDER Facility:[facility] Start: 06-01-2023 End: 06-01-2023 Patient encounter procedure [employer] INSTRUCTOR.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 Work Phone: [facility] [place] Procedures Date Procedure Procedure Detail Performing Clinician Start: 05-04-2023 INFLUENZA VACCINE, A GE 6 MO - 64 YR, QUADRIVALENT (AFLURIA, FLULAVAL, FLUZONE) UK[employer]IAN [employer]S INSTRUCTOR.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 Work Phone: Start: 10-26-2022 Urnls dip stick/tabl et rgnt auto w/o microscopy Konrad Older [employer] INSTRUCTOR.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 Work Phone: Start: 07-30-2020 Mammography Konrad Older [employer] INSTRUCTOR.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 Work Phone: Start: 01-22-2018 Colonoscopy Konrad Older [employer] INSTRUCTOR.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 Work Phone: Plan of Treatment Date Care Activity Detail Author Start: 01-23-2028 Colonoscopy COLONOSCOPY [facility] Start: 01-23-2028 COLORECTAL CANCER SCREENING COLORECTAL CANCER SCREENING [facility] Start: 06-01-2024 Annual PCP Team Lathe Set Up Operator jah Disease Visit Annual PCP Team Chronic Disease Visit [facility] Start: 05-04-2024 Annual PCP Team Lathe Set Up Operator jah Disease Visit Annual PCP Team Chronic Disease Visit [facility] Start: 05-04-2024 Hepatitis B surface antibody level LDL Cholesterol [facility] Start: 05-04-2024 Hepatitis B Vaccine (1 of 3 - Risk 3-dose series) Hepatitis B Vaccine (1 of 3 - Risk 3-dose series) [facility] Immunizations Immunization Date Immunization Notes Care Provider Wilmer gee 05-04-2023 influenza, injectabl e, quadrivalent, contains preservative Konrad Older [employer] INSTRUCTOR.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 Work Phone: [facility] 05-22-2021 influenza virus vacc ine, unspecified formulation Addis Gillette MD Work Phone: [facility] 11-24-2020 COVID-19 vaccine, ag e 12+ yr (PFIZER-BIONTECH - PURPLE TOP) Konrad Older [employer] INSTRUCTOR.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 Work Phone: [facility] 10-19-2020 COVID-19 vaccine, ag e 12+ yr (PFIZER-BIONTECH - PURPLE TOP) Konrad Older [employer] INSTRUCTOR.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 Work Phone: [facility] 05-26-2020 influenza, injectabl e, quadrivalent, contains preservative Konrad Older [employer] INSTRUCTOR.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 Work Phone: [facility] 10-19-2015 pneumococcal polysaccharide vaccine, 23 valent Konrad Older [employer] INSTRUCTOR.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 Work Phone: [facility] Work Phone: Payers Date Payer Category Payer Medicaid MEDICAID [facility] MEDICAID [id number] 2021-Present [phone] [address] [place] [address] Medicaid [id number] 2021 Medicaid MEDICAID [facility] MEDICAID [id number] 2021-Present [phone] [address] [place] [address] Medicaid [id number] 2021 Unknown [id number] 2021 Medicare [facility] MEDICARE [facility] DUAL COMPLETE HMO SNP [id number] 2021-Present [phone] [address] [place] [address] Medicare [id number] 2021 Medicare [id number] 2021 Unknown [id number] 1960 Unknown [id number] 1960 Unknown [id number] Unknown [id number] Social History Date Type Detail Facility Start: 04-18-2013 Tobacco smoking stat [facility] Never smoked tobacco [facility] Work Phone: Start: 12-10-2021 End: 06-01-2023 Alcohol intake Current non-drinker of alcohol (finding) [facility] Start: 1960 Sex Assigned At Not on file C [facility] Start: 11-30-2021 End: 12-10-2021 Exposure to SARS-CoV-2 (event) Unable to assess [facility] Start: 12-19-2021 End: 05-11-2022 Exposure to SARS-CoV-2 (event) Not sure [facility] Start: 04-18-2013 Tobacco use and exposure Smokeless tobacco non-user [facility] Work Phone: Start: 10-29-2018 End: 01-19-2023 History of Social function [facility] Start: 10-29-2018 End: 01-19-2023 Tobacco use panel [facility] National Score (1-100), lower number is lower risk 48 [facility] Medical Equipment Procedure Code Equipment Code Equipment Origin al Text Equipment Identifier Dates Start: 10-16-2019 End: 11-16-2023 Clinical Notes 10-01-2019 to 07-27-2023 Konrad Chaudhry APRN.HIREN - 06/01/2023 1:25 PM Konrad Connor APRN.HIREN - 05/04/2023 11:31 AM EDTMattsam Rojaske - 01/19/2023 1:56 PM Delfino Gonzalez RN - 01/19/2023 1:38 PM EDTPatient Instructions Note Date & Type Note Facility 07-27-2023 Note HNO ID: [id number] Author: VAIBHAV MARTINEZ APRN.HIREN Service: ? 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 HPI: pt states that she started with left breast pain a week ago, since then the pain has increased and the breast is now swollen. She is unable to wear a bra due to how painful the breast is. She denies any fevers but states that she is having sweating episodes. Denies any trauma to the area OB History T4 L4 SAB0 IAB0 Ectopic0 Multiple0 Live Births0 Bankruptcy Processor History LMP: Hysterectomy Age at Menarche: Age at First : Age at Menopause: Bankruptcy Processor History Comments: Sexual Activity: Yes; Male; hysterectomy Contraception: No contraception data on record PAST MEDICAL HISTORY Diagnosis Date Abnormal uterine bleeding I had caner in the uterus 30 years ago. Depression Diabetes (HCC) Heart attack (HCC) 12/2018 and 06/05 Hyperlipemia Lactose intolerance in adult Sleep apnea PAST SURGICAL HISTORY Procedure Laterality Date COLONOSCOPY FLX DX W/COLLJ SPEC WHEN PFRMD 06/20/2013 Colonoscopy COLONOSCOPY FLX DX W/COLLJ SPEC WHEN PFRMD 01/22/2018 Colonoscopy 10 yr interval ESOPHAGOGASTRODUODENOSCOPY TRANSORAL DIAGNOSTIC 01/22/2018 EGD HEART CATHETERIZATION 12/2018 LEFT HEART CATH,PERCUTANEOUS 05/24/2021 PAST SURGICAL HISTORY OF JAVIER -28 yrs PAST SURGICAL HISTORY OF tumor and hernia repair PAST SURGICAL HISTORY OF abdominal scar tissue PAST SURGICAL HISTORY OF bladder tuck TONSILLECTOMY AND ADENOIDECTOMY HX FAMILY HISTORY Problem Relation Age of Onset Heart disease Mother Cancer Mother Heart Father 59 [place] Breast Cancer Sister No Known Problems Brother Breast Cancer Maternal Grandmother Diabetes Maternal Grandmother Social History Tobacco Use Smoking status: Never Passive exposure: Never Smokeless tobacco: Never Vaping Use Vaping Use: Never used Substance Use Topics Alcohol use: No Drug use: No Current Outpatient Medications Medication Sig amLODIPine (NORVASC) 5 mg tablet DAILY apixaban (ELIQUIS) 5 mg tab(s) TWICE A DAY fluticasone (FLONASE) 50 mcg/actuation nasal spray Use 2 Sprays in each nostril once daily. Rinse mouth after use. atorvastatin (LIPITOR) 80 mg tablet Take 1 tablet by mouth daily at bedtime. For cholesterol. lisinopril (ZESTRIL) 5 mg tablet Take 5 mg by mouth once daily. aspirin, enteric coated (ASPIRIN, ENTERIC COATED) 81 mg EC tablet Take 81 mg by mouth once daily. acetaminophen 650 mg CR tablet Take 650 mg by mouth every 8 hours as needed. >Zippered Compression Knee High 30-40 mm custom CUSTOM MEASURE FOR KNEE HIGH ZAK COMPRESSION STOCKINGS, 30-40 MM, WITH ZIPPERS PLEASE. IF UNABLE, PLEASE REFER TO [facility] AT [facility]. DX: EDEMA CPAP Initiate CPAP @8 cm of water with humidification. Mask (per patient preference) optional chin strap (if indicated) , filters, tubing, humidifier and lifetime supplies. dicloxacillin (DYNAPEN) 500 mg capsule Take 1 capsule by mouth four times daily for 7 days. clotrimazole-betamethasone (LOTRISONE) cream Apply 1 application to affected area two times a day for 7 days. Lancets lancets Test blood sugar(s) one times daily and as needed. Dx: Type 2 DM - Controlled E11.9 Insulin: No (Patient not taking: Reported on 06/01/2023) NITROGLYCERIN ORAL Take by mouth. (Patient not taking: Reported on 06/01/2023) Lancets lancets Test blood sugar(s) 1x daily. Dx: DM type 2. Insulin: No (Patient not taking: Reported on 06/01/2023) COMPOUNDED PRESCRIPTION Powerstep full length original (I87.2) Venous insufficiency (primary encounter diagnosis) (M72.2) Plantar fasciitis, bilateral (Patient not taking: Reported on 06/01/2023) No current facility-administered medications for this visit. Allergies As of Date: 07/27/2023 Allergen Noted Reaction POTASSIUM CHLORIDE 10/26/2015 Diarrhea Fully Assessed 07/27/2023 REVIEW OF SYSTEMS Expanded ROS: N/A Allergies and current medication updated:Yes EXAM: BP 124/80 Wt 264 lb 12.8 oz (120.1kg) GENERAL: pleasant, female in no apparent distress HEENT: Normocephalic, atraumatic, mucus membranes moist, and no lesions BREAST: soft, no dominant mass, normal nipple-areolar complex, no lymphadenopathy, no nipple discharge, and B/L skin yeast under breast. Left breast is notable larger than the right and is very painful with exam CHEST: Normal inspiratory effort PELVIC: skin tag on the upper right labia/mons area NEURO: alert and oriented x3,exam grossly non-focal EXTREMITIES: normal ASSESSMENT/PLAN: 1. Breast pain, left - ICD9: 611.71, ICD10: N64.4 (primary diagnosis) - [facility] BILATERAL - US BREAST LTD LEFT 2. Breast infection - ICD9: 611.0, ICD10: N61.0 Dicloxacillin ordered 3. Skin yeast infect (more content not included)... [facility] 06-01-2023 Note HNO ID: [id number] Author: Konrad Chaudhry APRN.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 Service: ? Author Type: Nurse Practitioner Type: Progress Notes Filed: 06/01/2023 1:59 PM Note Text: CC: Patient presents with: Medicare Wellness Exam HPI Matilda Magdaleno is a 62 year old female who presents today for blood pressure follow up and illness. Patient had taken herself off of all her medications months ago and was recently restarted on lisinopril and statin therapy. Does not want to restart any further medication HTN and HLD: Ms. Magdaleno indicates that she is feeling well and denies any symptoms referable to elevated blood pressure. Specifically denies headache, chest pain, palpitations, dyspnea, and peripheral edema. Patient denies any side effects of her medication(s) and is compliant with their regimen. She does check BP's away from this office with average BP's in the 120s/80 range. Matilda denies regular aerobic exercise. She watches her diet for sodium, low fat and low cholesterol most of the time. Last 3 Encounter BP Readings: Date: BP: 06/01/2023 134/78 05/04/2023 142/82 10/26/2022 132/80 Has been sick for 2 weeks. Started as sinus congestion and voice hoarse. Not improved at all and fatigue is worsening. Still with sinus congestion, nonproductive cough, chills, fatigue, and general malaise. Denies fever, headache, dizziness, syncope, weakness, N/V/D, wheezing, shortness of breath, chest pressure, ear pain, edema, or palpitations. DIABETES MELLITUS: Ms. Magdaleno denies excessive thirst or increased frequency of urination, chest pain or dyspnea , numbness, tingling or pain in extremities, new or unusual visual symptoms, low sugar/hypoglycemic reactions, weight loss/gain, lightheadedness/dizziness, and bowel changes/loose stools. Follows a diabetic diet most of the time. She is compliant with medication(s) and is tolerating med(s) without any side effects. She reports checking her glucose on a infrequent to not at all basis schedule. Patient's last HgA1C was Hemoglobin A1C (%) Date Value 05/04/2023 6.9 07/14/2022 6.6 08/18/2021 7.0 05/28/2021 7.0 ) REVIEW OF SYSTEMS See HPI PAST MEDICAL HISTORY Diagnosis Date Abnormal uterine bleeding I had caner in the uterus 30 years ago. Depression Diabetes (HCC) Heart attack (HCC) 12/2018 and 06/05 Hyperlipemia Lactose intolerance in adult Sleep apnea PAST SURGICAL HISTORY Procedure Laterality Date COLONOSCOPY FLX DX W/COLLJ SPEC WHEN PFRMD 06/20/2013 Colonoscopy COLONOSCOPY FLX DX W/COLLJ SPEC WHEN PFRMD 01/22/2018 Colonoscopy 10 yr interval ESOPHAGOGASTRODUODENOSCOPY TRANSORAL DIAGNOSTIC 01/22/2018 EGD HEART CATHETERIZATION 12/2018 LEFT HEART CATH,PERCUTANEOUS 05/24/2021 PAST SURGICAL HISTORY OF JAVIER -30 yrs PAST SURGICAL HISTORY OF tumor and hernia repair PAST SURGICAL HISTORY OF abdominal scar tissue PAST SURGICAL HISTORY OF bladder tuck TONSILLECTOMY AND ADENOIDECTOMY HX ALLERGIES Potassium Chloride MEDICATIONS atorvastatin (LIPITOR) 80 mg tablet Take 1 tablet by mouth daily at bedtime. For cholesterol. lisinopril (ZESTRIL) 5 mg tablet Take 5 mg by mouth once daily. aspirin, enteric coated (ASPIRIN, ENTERIC COATED) 81 mg EC tablet Take 81 mg by mouth once daily. acetaminophen 650 mg CR tablet Take 650 mg by mouth every 8 hours as needed. >Zippered Compression Knee High 30-40 mm custom CUSTOM MEASURE FOR KNEE HIGH ZAK COMPRESSION STOCKINGS, 30-40 MM, WITH ZIPPERS PLEASE. IF UNABLE, PLEASE REFER TO MARCELINO AT [facility]. DX: EDEMA Lancets lancets Test blood sugar(s) one times daily and as needed. Dx: Type 2 DM - Controlled E11.9 Insulin: No (Patient not taking: Reported on 06/01/2023) NITROGLYCERIN ORAL Take by mouth. (Patient not taking: Reported on 06/01/2023) Lancets lancets Test blood sugar(s) 1x daily. Dx: DM type 2. Insulin: No (Patient not taking: Reported on 06/01/2023) COMPOUNDED PRESCRIPTION Powerstep full length original (I87.2) Venous insufficiency (primary encounter diagnosis) (M72.2) Plantar fasciitis, bilateral (Patient not taking: Reported on 06/01/2023) CPAP Initiate CPAP @8 cm of water with humidification. Mask (per patient preference) optional chin strap (if indicated) , filters, tubing, humidifier and lifetime supplies. FAMILY HISTORY Problem Relation Age of Onset Heart disease Mother Heart Father 59 [place] No Known Problems Brother Breast Cancer Sister Breast Cancer Maternal Grandmother Diabetes Maternal Grandmother Social History Tobacco Use Smoking status: Never Smokeless tobacco: Never Vaping Use Vaping Use: Never used Substance Use Topics Alcohol use: No Drug use: No PHYSICAL EXAM BP 134/78 Pulse (!) 54 Resp 16 Wt 116.5 kg (256 lb 12.8 oz) SpO2 99% BMI 41.45 kg/m? General Appearance: well appearing, in no acute distress, alert Pysch: mood and affect broad and appropriate Skin: Skin color, texture, turgor normal for age; (more content not included)... [facility] 06-01-2023 History of Presen t illness Narrative CC: Patient presents with: Medicare Wellness Exam HPI Matilda Magdaleno is a 62 year old female who presents today for blood pressure follow up and illness. Patient had taken herself off of all her medications months ago and was recently restarted on lisinopril and statin therapy. Does not want to restart any further medication HTN and HLD: Ms. Magdaleno indicates that she is feeling well and denies any symptoms referable to elevated blood pressure. Specifically denies headache, chest pain, palpitations, dyspnea, and peripheral edema. Patient denies any side effects of her medication(s) and is compliant with their regimen. She does check BP's away from this office with average BP's in the 120s/80 range. Matilda denies regular aerobic exercise. She watches her diet for sodium, low fat and low cholesterol most of the time. Last 3 Encounter BP Readings: Date: BP: 06/01/2023 134/78 05/04/2023 142/82 10/26/2022 132/80 Has been sick for 2 weeks. Started as sinus congestion and voice hoarse. Not improved at all and fatigue is worsening. Still with sinus congestion, nonproductive cough, chills, fatigue, and general malaise. Denies fever, headache, dizziness, syncope, weakness, N/V/D, wheezing, shortness of breath, chest pressure, ear pain, edema, or palpitations. DIABETES MELLITUS: Ms. Magdaleno denies excessive thirst or increased frequency of urination, chest pain or dyspnea , numbness, tingling or pain in extremities, new or unusual visual symptoms, low sugar/hypoglycemic reactions, weight loss/gain, lightheadedness/dizziness, and bowel changes/loose stools. Follows a diabetic diet most of the time. She is compliant with medication(s) and is tolerating med(s) without any side effects. She reports checking her glucose on a infrequent to not at all basis schedule. Patient's last HgA1C was Hemoglobin A1C (%) Date Value 05/04/2023 6.9 07/14/2022 6.6 08/18/2021 7.0 05/28/2021 7.0 ) REVIEW OF SYSTEMS See HPI PAST MEDICAL HISTORY Diagnosis Date Abnormal uterine bleeding I had caner in the uterus 30 years ago. Depression Diabetes (HCC) Heart attack (HCC) 12/2018 and 06/05 Hyperlipemia Lactose intolerance in adult Sleep apnea PAST SURGICAL HISTORY Procedure Laterality Date COLONOSCOPY FLX DX W/COLLJ SPEC WHEN PFRMD 06/20/2013 Colonoscopy COLONOSCOPY FLX DX W/COLLJ SPEC WHEN PFRMD 01/22/2018 Colonoscopy 10 yr interval ESOPHAGOGASTRODUODENOSCOPY TRANSORAL DIAGNOSTIC 01/22/2018 EGD HEART CATHETERIZATION 12/2018 LEFT HEART CATH,PERCUTANEOUS 05/24/2021 PAST SURGICAL HISTORY OF JAVIER -30 yrs PAST SURGICAL HISTORY OF tumor and hernia repair PAST SURGICAL HISTORY OF abdominal scar tissue PAST SURGICAL HISTORY OF bladder tuck TONSILLECTOMY AND ADENOIDECTOMY HX ALLERGIES Potassium Chloride MEDICATIONS atorvastatin (LIPITOR) 80 mg tablet Take 1 tablet by mouth daily at bedtime. For cholesterol. lisinopril (ZESTRIL) 5 mg tablet Take 5 mg by mouth once daily. aspirin, enteric coated (ASPIRIN, ENTERIC COATED) 81 mg EC tablet Take 81 mg by mouth once daily. acetaminophen 650 mg CR tablet Take 650 mg by mouth every 8 hours as needed. >Zippered Compression Knee High 30-40 mm custom CUSTOM MEASURE FOR KNEE HIGH ZAK COMPRESSION STOCKINGS, 30-40 MM, WITH ZIPPERS PLEASE. IF UNABLE, PLEASE REFER TO MARCELINO AT [facility]. DX: EDEMA Lancets lancets Test blood sugar(s) one times daily and as needed. Dx: Type 2 DM - Controlled E11.9 Insulin: No (Patient not taking: Reported on 06/01/2023) NITROGLYCERIN ORAL Take by mouth. (Patient not taking: Reported on 06/01/2023) Lancets lancets Test blood sugar(s) 1x daily. Dx: DM type 2. Insulin: No (Patient not taking: Reported on 06/01/2023) COMPOUNDED PRESCRIPTION Powerstep full length original (I87.2) Venous insufficiency (primary encounter diagnosis) (M72.2) Plantar fasciitis, bilateral (Patient not taking: Reported on 06/01/2023) CPAP Initiate CPAP @8 cm of water with humidification. Mask (per patient preference) optional chin strap (if indicated) , filters, tubing, humidifier and lifetime supplies. FAMILY HISTORY Problem Relation Age of Onset Heart disease Mother Heart Father 59 [place] No Known Problems Brother Breast Cancer Sister Breast Cancer Maternal Grandmother Diabetes Maternal Grandmother Social History Tobacco Use Smoking status: Never Smokeless tobacco: Never Vaping Use Vaping Use: Never used Substance Use Topics Alcohol use: No Drug use: No PHYSICAL EXAM BP 134/78 Pulse (!) 54 Resp 16 Wt 116.5 kg (256 lb 12.8 oz) SpO2 99% BMI 41.45 kg/m General Appearance: well appearing, in no acute distress, alert Pysch: mood and affect broad and appropriate Skin: Skin color, texture, turgor normal for age; Eyes: conjunctiva pink and moist, no icterus, sclera white, non-injected Ears: external ears normal to inspection and palpation, canals clear, Left tympanic membrane normal. , Right tympanic membrane normal Nose/sinus: Nares normal. Septum midline. Mucosa normal. No drainage. Sinus tenderness reported to frontal sinuses. Neck: Thyroid normal size and symmetric without palpable nodules, No adenopathy Lymph nodes: No cervical lymphadenopathy and No supraclavicular lymphadenopathy Lungs: Lungs clear to auscultation. No wheezing, rhonchi, rales. Heart: RRR without murmur, gallop, or rubs. No ectopy Health maintenance reviewed with patient: Mammogram Screening due on 07/30/2021 Dilated Retinal Exam due on 06/15/2022 BP Controlled (<130/80) due on 03/25/2023 DTaP,Tdap,Td Vaccine(1 - Tdap) due on 10/27/2023 Shingrix Vaccine(1 of 2) due on 10/27/2023 Hepatitis B Vaccine(1 of 3 - Risk 3-dose series) due on 05/04/2024 RSV Vaccine(1 - 1-dose 60+ series) due on 05/04/2024 Pneumococcal Vaccine(2 - PCV) due on 05/04/2024 Urine Albumin:Creatinine Ratio due on 07/14/2023 Diabetic Foot Exam due on 10/27/2023 HbA1C due on 11/03/2023 LDL Cholesterol due on 05/04/2024 Annual PCP Team Chronic Disease Visit due on 05/04/2024 Colorectal Cancer Screening due on 01/23/2028 Influenza Vaccine Completed Hepatitis C Screening Completed Pap Testing Discontinued HPV Testing Discontinued HIV Screening Discontinued Covid-19 Vaccine Discontinued DATA REVIEWED: Most recent labs ASSESSMENT/PLAN: 1. Essential hypertension - ICD9: 401.9, ICD10: I10 (primary diagnosis) - Home blood pressure readings controlled - Continue current medications - Recommend home blood pressure monitoring, to bring results to next visit - Encouraged sodium restriction, DASH or Mediterranean diet - Recommend regular aerobic exercise 2. Hyperlipidemia with target LDL less than 70 - ICD9: 272.4, ICD10: E78.5 - Uncontrolled - just restarted statin therapy - Continue current medications - Counseled on healthy diet and regular exercise - Discussed need for and benefit of weight loss. BMI 41.45 kg/(m^2) 3. Acute non-recurrent frontal sinusitis - ICD9: 461.1, ICD10: J01.10 - Will begin treatment with as per antibiotic as written, see orders - flonase as ordered - Supportive care with plenty of fluids, rest, and analgesia prn. - Follow up in 3-5 days if symptoms persist or worsen. 4. Diabetes mellitus type 2 in obese (HCC) - ICD9: 250.00, 278.00, ICD10: E11.69, E66.9 - Worsening control - declines treatment at this time - follow up in 3 months to re-evaluate. - Blood glucose monitoring on a once daily schedule - Counseled on healthy diet and regular exercise - Discussed need for and benefit of weight loss. BMI 41.45 kg/(m^2) Prescription instructions reviewed with patient as applicable. Potential red flag symptoms discussed with the patient. Reviewed appropriate action plan to take if red flag symptoms occur. Patient agreeable to treatment plan. Konrad Chaudhry APRN.CNP documented in this encounter [facility] 05-04-2023 Note HNO ID: [id number] Author: Konrad Chaudhry APRN.CNP Service: ? Author Type: Nurse Practitioner Type: Progress Notes Filed: 05/08/2023 3:28 PM Note Text: CC: Patient presents with: Recheck: 6 month follow up HPI Matilda Magdaleno is a 62 year old female who presents today for routine follow up. HTN, A-fib, and HLD: Ms. Magdaleno indicates that she is feeling well and denies any symptoms referable to elevated blood pressure. Specifically denies headache, chest pain, palpitations, dyspnea, and peripheral edema. Patient denies any side effects of her medication(s) and is compliant with their regimen. Recently restarted on her lisinopril and aspirin by cardiology. Had taken herself off all her medications as she thought they were making her feel sick and per patient, cardiology felt lisinopril and aspirin were most important. Goes to [facility]. She does check BP's away from this office with average BP's in the 120s/70s range. Matilda denies regular aerobic exercise. She watches her diet for sodium, low fat and low cholesterol most of the time. Last 3 Encounter BP Readings: Date: BP: 05/04/2023 142/82 10/26/2022 132/80 09/23/2022 138/78 DIABETES MELLITUS: Ms. Magdaleno denies excessive thirst or increased frequency of urination, chest pain or dyspnea , numbness, tingling or pain in extremities, new or unusual visual symptoms, low sugar/hypoglycemic reactions, weight loss/gain, lightheadedness/dizziness, and bowel changes/loose stools. Follows a diabetic diet most of the time. Currently not on any medications She reports checking her glucose on a infrequent to not at all basis schedule . Patient's last HgA1C was Hemoglobin A1C (%) Date Value 07/14/2022 6.6 12/30/2021 6.5 08/18/2021 7.0 05/28/2021 7.0 ) Last Ophthalmology exam was within the past 12 months REVIEW OF SYSTEMS See HPI PAST MEDICAL HISTORY Diagnosis Date Abnormal uterine bleeding I had caner in the uterus 30 years ago. Depression Diabetes (HCC) Heart attack (HCC) 12/2018 and 06/05 Hyperlipemia Lactose intolerance in adult Sleep apnea PAST SURGICAL HISTORY Procedure Laterality Date COLONOSCOPY FLX DX W/COLLJ SPEC WHEN PFRMD 06/20/2013 Colonoscopy COLONOSCOPY FLX DX W/COLLJ SPEC WHEN PFRMD 01/22/2018 Colonoscopy 10 yr interval ESOPHAGOGASTRODUODENOSCOPY TRANSORAL DIAGNOSTIC 01/22/2018 EGD HEART CATHETERIZATION 12/2018 LEFT HEART CATH,PERCUTANEOUS 05/24/2021 PAST SURGICAL HISTORY OF JAVIER -30 yrs PAST SURGICAL HISTORY OF tumor and hernia repair PAST SURGICAL HISTORY OF abdominal scar tissue PAST SURGICAL HISTORY OF bladder tuck TONSILLECTOMY AND ADENOIDECTOMY HX ALLERGIES Potassium Chloride MEDICATIONS lisinopril (ZESTRIL) 5 mg tablet Take 5 mg by mouth once daily. aspirin, enteric coated (ASPIRIN, ENTERIC COATED) 81 mg EC tablet Take 81 mg by mouth once daily. amLODIPine (NORVASC) 5 mg tablet Take 1 tablet by mouth once daily. furosemide (LASIX) 20 mg tablet Take 1 tablet by mouth once daily. naproxen (NAPROSYN) 500 mg tablet Take 1 tablet by mouth twice daily as needed (for pain/inflammation). Take with food. pantoprazole DR (PROTONIX) 20 mg tablet Take 1 tablet by mouth once daily. atorvastatin (LIPITOR) 80 mg tablet Take 1 tablet by mouth daily at bedtime. For cholesterol. apixaban (ELIQUIS) 5 mg tab(s) Take 1 tablet by mouth twice daily. sertraline (ZOLOFT) 100 mg tablet Take 2 tablets by mouth once daily. carvedilol (COREG) 3.125 mg tablet Take 3.125 mg by mouth twice daily with meals. Lancets lancets Test blood sugar(s) one times daily and as needed. Dx: Type 2 DM - Controlled E11.9 Insulin: No cholecalciferol, Vitamin D3, (VITAMIN D3) 1,250 mcg (50,000 unit) cap capsule Take 1 capsule by mouth one time a week. NITROGLYCERIN ORAL Take by mouth. blood sugar diagnostic (BLOOD GLUCOSE TEST) test strip Test blood sugar(s) 1-2x daily. Dx: Type 2 DM . Insulin: No Lancets lancets Test blood sugar(s) 1x daily. Dx: DM type 2. Insulin: No acetaminophen 650 mg CR tablet Take 650 mg by mouth every 8 hours as needed. COMPOUNDED PRESCRIPTION Powerstep full length original (I87.2) Venous insufficiency (primary encounter diagnosis) (M72.2) Plantar fasciitis, bilateral >Zippered Compression Knee High 30-40 mm custom CUSTOM MEASURE FOR KNEE HIGH ZAK COMPRESSION STOCKINGS, 30-40 MM, WITH ZIPPERS PLEASE. IF UNABLE, PLEASE REFER TO [facility]ARCELINO AT [facility]. DX: EDEMA CPAP Initiate CPAP @8 cm of water with humidification. Mask (per patient preference) optional chin strap (if indicated) , filters, tubing, humidifier and lifetime supplies. FAMILY HISTORY Problem Relation Age of Onset Heart disease Mother Heart Father 59 [place] No Known Problems Brother Breast Cancer Sister Breast Cancer Maternal Grandmother Diabetes Maternal Grandmother Social History Tobacco Use Smoking status: Never Smokeless tobacco: Never Vaping Use Vaping Use (more content not included)... [facility] 05-04-2023 History of Presen t illness Narrative CC: Patient presents with: Recheck: 6 month follow up HPI Matilda Magdaleno is a 62 year old female who presents today for routine follow up. HTN, A-fib, and HLD: Ms. Magdaleno indicates that she is feeling well and denies any symptoms referable to elevated blood pressure. Specifically denies headache, chest pain, palpitations, dyspnea, and peripheral edema. Patient denies any side effects of her medication(s) and is compliant with their regimen. Recently restarted on her lisinopril and aspirin by cardiology. Had taken herself off all her medications as she thought they were making her feel sick and per patient, cardiology felt lisinopril and aspirin were most important. Goes to [employer]. She does check BP's away from this office with average BP's in the 120s/70s range. Matilda denies regular aerobic exercise. She watches her diet for sodium, low fat and low cholesterol most of the time. Last 3 Encounter BP Readings: Date: BP: 05/04/2023 142/82 10/26/2022 132/80 09/23/2022 138/78 DIABETES MELLITUS: Ms. Magdaleno denies excessive thirst or increased frequency of urination, chest pain or dyspnea , numbness, tingling or pain in extremities, new or unusual visual symptoms, low sugar/hypoglycemic reactions, weight loss/gain, lightheadedness/dizziness, and bowel changes/loose stools. Follows a diabetic diet most of the time. Currently not on any medications She reports checking her glucose on a infrequent to not at all basis schedule . Patient's last HgA1C was Hemoglobin A1C (%) Date Value 07/14/2022 6.6 12/30/2021 6.5 08/18/2021 7.0 05/28/2021 7.0 ) Last Ophthalmology exam was within the past 12 months REVIEW OF SYSTEMS See HPI PAST MEDICAL HISTORY Diagnosis Date Abnormal uterine bleeding I had caner in the uterus 30 years ago. Depression Diabetes (HCC) Heart attack (HCC) 12/2018 and 06/05 Hyperlipemia Lactose intolerance in adult Sleep apnea PAST SURGICAL HISTORY Procedure Laterality Date COLONOSCOPY FLX DX W/COLLJ SPEC WHEN PFRMD 06/20/2013 Colonoscopy COLONOSCOPY FLX DX W/COLLJ SPEC WHEN PFRMD 01/22/2018 Colonoscopy 10 yr interval ESOPHAGOGASTRODUODENOSCOPY TRANSORAL DIAGNOSTIC 01/22/2018 EGD HEART CATHETERIZATION 12/2018 LEFT HEART CATH,PERCUTANEOUS 05/24/2021 PAST SURGICAL HISTORY OF JAVIER -30 yrs PAST SURGICAL HISTORY OF tumor and hernia repair PAST SURGICAL HISTORY OF abdominal scar tissue PAST SURGICAL HISTORY OF bladder tuck TONSILLECTOMY AND ADENOIDECTOMY HX ALLERGIES Potassium Chloride MEDICATIONS lisinopril (ZESTRIL) 5 mg tablet Take 5 mg by mouth once daily. aspirin, enteric coated (ASPIRIN, ENTERIC COATED) 81 mg EC tablet Take 81 mg by mouth once daily. amLODIPine (NORVASC) 5 mg tablet Take 1 tablet by mouth once daily. furosemide (LASIX) 20 mg tablet Take 1 tablet by mouth once daily. naproxen (NAPROSYN) 500 mg tablet Take 1 tablet by mouth twice daily as needed (for pain/inflammation). Take with food. pantoprazole DR (PROTONIX) 20 mg tablet Take 1 tablet by mouth once daily. atorvastatin (LIPITOR) 80 mg tablet Take 1 tablet by mouth daily at bedtime. For cholesterol. apixaban (ELIQUIS) 5 mg tab(s) Take 1 tablet by mouth twice daily. sertraline (ZOLOFT) 100 mg tablet Take 2 tablets by mouth once daily. carvedilol (COREG) 3.125 mg tablet Take 3.125 mg by mouth twice daily with meals. Lancets lancets Test blood sugar(s) one times daily and as needed. Dx: Type 2 DM - Controlled E11.9 Insulin: No cholecalciferol, Vitamin D3, (VITAMIN D3) 1,250 mcg (50,000 unit) cap capsule Take 1 capsule by mouth one time a week. NITROGLYCERIN ORAL Take by mouth. blood sugar diagnostic (BLOOD GLUCOSE TEST) test strip Test blood sugar(s) 1-2x daily. Dx: Type 2 DM . Insulin: No Lancets lancets Test blood sugar(s) 1x daily. Dx: DM type 2. Insulin: No acetaminophen 650 mg CR tablet Take 650 mg by mouth every 8 hours as needed. COMPOUNDED PRESCRIPTION Powerstep full length original (I87.2) Venous insufficiency (primary encounter diagnosis) (M72.2) Plantar fasciitis, bilateral >Zippered Compression Knee High 30-40 mm custom CUSTOM MEASURE FOR KNEE HIGH ZAK COMPRESSION STOCKINGS, 30-40 MM, WITH ZIPPERS PLEASE. IF UNABLE, PLEASE REFER TO [facility] AT [facility]. DX: EDEMA CPAP Initiate CPAP @8 cm of water with humidification. Mask (per patient preference) optional chin strap (if indicated) , filters, tubing, humidifier and lifetime supplies. FAMILY HISTORY Problem Relation Age of Onset Heart disease Mother Heart Father 59 [place] No Known Problems Brother Breast Cancer Sister Breast Cancer Maternal Grandmother Diabetes Maternal Grandmother Social History Tobacco Use Smoking status: Never Smokeless tobacco: Never Vaping Use Vaping Use: Never used Substance Use Topics Alcohol use: No Drug use: No PHYSICAL EXAM BP 142/82 Pulse 68 Resp 16 Wt 115.7 kg (255 lb) BMI 41.16 kg/m General Appearance: well appearing, in no acute distress, alert Pysch: mood and affect broad and appropriate Skin: Skin color, texture, turgor normal for age; Eyes: conjunctiva pink and moist, no icterus, sclera white, non-injected Neck: Thyroid normal size and symmetric without palpable nodules, Neck supple, No adenopathy Lymph nodes: No cervical lymphadenopathy and No supraclavicular lymphadenopathy Lungs: Lungs clear to auscultation. No wheezing, rhonchi, rales. Heart: RRR without murmur, gallop, or rubs. No ectopy Health maintenance reviewed with patient: Pneumococcal Vaccine(2 - PCV) due on 10/18/2016 Hepatitis B Vaccine(1 of 3 - Risk 3-dose series) Never done RSV Vaccine(1 - 1-dose 60+ series) Never done Mammogram Screening due on 07/30/2021 Dilated Retinal Exam due on 06/15/2022 LDL Cholesterol due on 12/30/2022 HbA1C due on 01/12/2023 Influenza Vaccine(1) due on 03/17/2023 Covid-19 Vaccine(4 - 2022- season) due on 03/17/2023 BP Controlled (<130/80) due on 03/25/2023 DTaP,Tdap,Td Vaccine(1 - Tdap) due on 10/27/2023 Shingrix Vaccine(1 of 2) due on 10/27/2023 Urine Albumin:Creatinine Ratio due on 07/14/2023 Diabetic Foot Exam due on 10/27/2023 Annual PCP Team Chronic Disease Visit due on 10/27/2023 Colorectal Cancer Screening due on 01/23/2028 Hepatitis C Screening Completed Pap Testing Discontinued HPV Testing Discontinued HIV Screening Discontinued DATA REVIEWED: No new labs ASSESSMENT/PLAN: 1. Essential hypertension - ICD9: 401.9, ICD10: I10 (primary diagnosis) - Uncontrolled - Continue current medications, was just restarted on lisinopril by cardiology - follow up in 4 weeks. - Recommend home blood pressure monitoring, to bring results to next visit - Encouraged sodium restriction, DASH or Mediterranean diet - Recommend regular aerobic exercise - COMP METABOLIC PANEL - CBC 2. Hyperlipidemia with target LDL less than 70 - ICD9: 272.4, ICD10: E78.5 - Control undetermined, due for labs - Counseled on healthy diet and regular exercise - Discussed need for and benefit of weight loss. BMI 41.16 kg/(m^2) - LIPID PANEL BASIC - COMP METABOLIC PANEL 3. Chronic atrial fibrillation (HCC) - ICD9: 427.31, ICD10: I48.20 - patient self discontinued all of her medications. Continue with recommendations by cardiology. Agreeable to continue lisinopril and ASA - apical regular in appointment today. - COMP METABOLIC PANEL - CBC 4. Diabetes mellitus type 2 in obese (HCC) - ICD9: 250.00, 278.00, ICD10: E11.69, E66.9 - Control undetermined, due for labs - self-discontinued medications. - Blood glucose monitoring on a once daily schedule - Counseled on healthy diet and regular exercise - Discussed need for and benefit of weight loss. BMI 41.16 kg/(m^2) - HGB A1C - COMP METABOLIC PANEL - CBC 5. Encounter for immunization - ICD9: V03.89, ICD10: Z23 - INFLUENZA VACCINE, AGE 6 MO - 64 YR, QUADRIVALENT (AFLURIA, FLULAVAL, FLUZONE) Prescription instructions reviewed with patient as applicable. Potential red flag symptoms discussed with the patient. Reviewed appropriate action plan to take if red flag symptoms occur. Patient agreeable to treatment plan. Konrad Chaudhry APRN.CNP documented in this encounter [facility] 04-11-2023 Note Patient Outreach (IN [facility]) RASTA,MATILDA A ([id number]) 1960 F Date Time Provider Department 04/11/23 ADDIS GILLETTE During your visit today, we recorded the following information about you: Allergies As of Date: 04/11/2023 Noted Allergy Reaction POTASSIUM CHLORIDE 10/26/2015 6 - Diarrhea Comments: Dipika ER Date Reviewed: 01/19/2023 Reviewed by: Brittnee Gonzalez RN - Fully Assessed Visit Diagnoses:Diabetes mellitus type 2 in obese (HCC) [E11.69, E66.9] Hyperlipidemia with target LDL less than 70 [E78.5] Order(s):HGB A1C [TYIBG3X] Order #: [id number] FUTURE LIPID PANEL BASIC [SQLIPB] Order #: [id number] FUTURE Prescriptions as of 04/14/2023 - amLODIPine (NORVASC) 5 mg tablet Take 1 tablet by mouth once daily. - furosemide (LASIX) 20 mg tablet Take 1 tablet by mouth once daily. - naproxen (NAPROSYN) 500 mg tablet Take 1 tablet by mouth twice daily as needed (for pain/inflammation). Take with food. - pantoprazole DR (PROTONIX) 20 mg tablet Take 1 tablet by mouth once daily. - atorvastatin (LIPITOR) 80 mg tablet Take 1 tablet by mouth daily at bedtime. For cholesterol. - apixaban (ELIQUIS) 5 mg tab(s) Take 1 tablet by mouth twice daily. - sertraline (ZOLOFT) 100 mg tablet Take 2 tablets by mouth once daily. - carvedilol (COREG) 3.125 mg tablet Take 3.125 mg by mouth twice daily with meals. - Lancets lancets Test blood sugar(s) one times daily and as needed. Dx: Type 2 DM - Controlled E11.9 Insulin: No - cholecalciferol, Vitamin D3, (VITAMIN D3) 1,250 mcg (50,000 unit) cap capsule Take 1 capsule by mouth one time a week. - NITROGLYCERIN ORAL Take by mouth. - blood sugar diagnostic (BLOOD GLUCOSE TEST) test strip Test blood sugar(s) 1-2x daily. Dx: Type 2 DM . Insulin: No - Lancets lancets Test blood sugar(s) 1x daily. Dx: DM type 2. Insulin: No - acetaminophen 650 mg CR tablet Take 650 mg by mouth every 8 hours as needed. - COMPOUNDED PRESCRIPTION Powerstep full length original (I87.2) Venous insufficiency (primary encounter diagnosis) (M72.2) Plantar fasciitis, bilateral - >Zippered Compression Knee High 30-40 mm custom CUSTOM MEASURE FOR KNEE HIGH ZAK COMPRESSION STOCKINGS, 30-40 MM, WITH ZIPPERS PLEASE. IF UNABLE, PLEASE REFER TO MARCELINO AT [facility]. DX: EDEMA - CPAP Initiate CPAP @8 cm of water with humidification. Mask (per patient preference) optional chin strap (if indicated) , filters, tubing, humidifier and lifetime supplies. Meds Comments as of 01/08/2015: Patient states she is not taking Zocor or Tramadol. Patient states that Dr. Echeverria has taken her off the medications for her stomach, please clarify. 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] 01/10/2014 Neuropathic pain [M79.2] 01/10/2014 Chronic pain [G89.29] 01/10/2014 Chest pain [R07.9] 03/18/2014 RYAN (obstructive sleep apnea) [G47.33] 03/18/2014 Backache, unspecified [M54.9] 04/09/2014 Depression [F32.A] 08/01/2014 Afib (HCC) [I48.91] 09/28/2016 Diarrhea [R19.7] 01/25/2017 Periumbilical pain [R10.33] 01/01/2018 05/28/2021 Altered bowel habits [R19.4] 01/01/2018 Open wound of toe [S91.109A] 10/01/2019 05/28/2021 Pain in left foot [M79.672] 10/01/2019 05/28/2021 ASHD (arteriosclerotic heart disease) [I25.10] 05/28/2021 Body mass index (BMI) 40.0-44.9, adult (HCC) [Z*01/19/2023 Encounter Status:Closed by EPIC, PRODUSER on 04/14/23 [facility] 01-19-2023 Note HNO ID: [id number] Author: Latrice Peters Service: ? Author Type: Physician Type: Progress Notes Filed: 01/20/2023 6:32 AM Note Text: Last saw pcp: 10/26/22 Subjective: Patient presents to clinic c/o painful toenails. They state that the nails are especially painful with shoe gear and pressure. Patient states that nails 1-5 b/l are painful. Patient admits to being diabetic. No other pedal complaints at this time. Patient states no change in medications or medical history since last visit. Objective: Patient presents to clinic ambulating in [facility] Vasc: DP and PT pulses are palpable bilateral. CFT is less than 5 seconds bilateral. Skin temperature is warm to cool proximal to distal bilateral. There is no edema or varicosities noted. Neuro: Protective sensation is intact to the foot and toes when tested with the 5.07 SWM bilateral. Vibratory sensation is decreased at the hallux IPJ bilateral. The hallux is downgoing bilateral. Derm: Nails 1-5 b/l are painful, discolored-yellow, thick, crumbly, dystrophic and with subungal debris. Skin is of normal turgor, texture and hair growth is present bilateral. There are no hyperkeratosis, ulcerations, scars, verruca or other lesions noted. Ortho: Muscle strength is 5/5 for all pedal groups tested. Ankle joint DF is full with the knee extended with no pain or crepitus noted. 1st MPJ ROM is full bilateral. Assessment: (B35.1) Onychomycosis (primary encounter diagnosis) (M79.675) Pain in toe of left foot (M79.674) Pain in toe of right foot (E11.69, E66.9) Diabetes mellitus type 2 in obese (HCC) Plan: Patient was seen and evaluated. Nails 1-5 bilateral were debrided in length and thickness. Patient was instructed on the continued importance of diabetic foot care along with proper diet and keeping their blood sugar under control to prevent complications. Patient is to RTC in 3-4 months. Latrice Peters DPM [facility] 01-19-2023 Note HNO ID: [id number] Author: Brittnee Gonzalez RN Service: ? Author Type: Registered Nurse Type: Progress Notes Filed: 01/20/2023 6:32 AM Note Text: Patient presents with: Left Foot - Established Patient, Follow Up, Diabetic Foot Care Right Foot - Established Patient, Follow Up, Diabetic Foot Care Patient presents for 3 month diabetic foot care. States that it has been a bit longer so her toes are sore due to her nails being longer. [facility] 01-19-2023 History of Presen t illness Narrative Last saw pcp: 10/26/22 Subjective: Patient presents to clinic c/o painful toenails. They state that the nails are especially painful with shoe gear and pressure. Patient states that nails 1-5 b/l are painful. Patient admits to being diabetic. No other pedal complaints at this time. Patient states no change in medications or medical history since last visit. Objective: Patient presents to clinic ambulating in [facility] Vasc: DP and PT pulses are palpable bilateral. CFT is less than 5 seconds bilateral. Skin temperature is warm to cool proximal to distal bilateral. There is no edema or varicosities noted. Neuro: Protective sensation is intact to the foot and toes when tested with the 5.07 SWM bilateral. Vibratory sensation is decreased at the hallux IPJ bilateral. The hallux is downgoing bilateral. Derm: Nails 1-5 b/l are painful, discolored-yellow, thick, crumbly, dystrophic and with subungal debris. Skin is of normal turgor, texture and hair growth is present bilateral. There are no hyperkeratosis, ulcerations, scars, verruca or other lesions noted. Ortho: Muscle strength is 5/5 for all pedal groups tested. Ankle joint DF is full with the knee extended with no pain or crepitus noted. 1st MPJ ROM is full bilateral. Assessment: (B35.1) Onychomycosis (primary encounter diagnosis) (M79.675) Pain in toe of left foot (M79.674) Pain in toe of right foot (E11.69, E66.9) Diabetes mellitus type 2 in obese (HCC) Plan: Patient was seen and evaluated. Nails 1-5 bilateral were debrided in length and thickness. Patient was instructed on the continued importance of diabetic foot care along with proper diet and keeping their blood sugar under control to prevent complications. Patient is to RTC in 3-4 months. Latrice Peters DPM Patient presents with: Left Foot - Established Patient, Follow Up, Diabetic Foot Care Right Foot - Established Patient, Follow Up, Diabetic Foot Care Patient presents for 3 month diabetic foot care. States that it has been a bit longer so her toes are sore due to her nails being longer. documented in this encounter [facility] 01-18-2023 Note Patient Outreach (IN [facility]) MATILDA MAGDALENO ([id number]) 1960 F Date Time Provider Department 01/18/23 ADDIS GILLETTE During your visit today, we recorded the following information about you: Allergies As of Date: 01/18/2023 Noted Allergy Reaction POTASSIUM CHLORIDE 10/26/2015 6 - Diarrhea Comments: Dipika ER Date Reviewed: 10/26/2022 Reviewed by: Brooklyn Manning Ma - Fully Assessed Visit Diagnoses:Diabetes mellitus type 2 in obese (HCC) [E11.69, E66.9] Encounter for screening mammogram for breast cancer [Z12.31] Order(s):HGB A1C [YJUST0F] Order #: [id number] FUTURE BISHOP SCREENING [[id number]] Order #: [id number] FUTURE Prescriptions as of 01/23/2023 - amLODIPine (NORVASC) 5 mg tablet Take 1 tablet by mouth once daily. - furosemide (LASIX) 20 mg tablet Take 1 tablet by mouth once daily. - naproxen (NAPROSYN) 500 mg tablet Take 1 tablet by mouth twice daily as needed (for pain/inflammation). Take with food. - pantoprazole DR (PROTONIX) 20 mg tablet Take 1 tablet by mouth once daily. - atorvastatin (LIPITOR) 80 mg tablet Take 1 tablet by mouth daily at bedtime. For cholesterol. - apixaban (ELIQUIS) 5 mg tab(s) Take 1 tablet by mouth twice daily. - sertraline (ZOLOFT) 100 mg tablet Take 2 tablets by mouth once daily. - carvedilol (COREG) 3.125 mg tablet Take 3.125 mg by mouth twice daily with meals. - Lancets lancets Test blood sugar(s) one times daily and as needed. Dx: Type 2 DM - Controlled E11.9 Insulin: No - cholecalciferol, Vitamin D3, (VITAMIN D3) 1,250 mcg (50,000 unit) cap capsule Take 1 capsule by mouth one time a week. - NITROGLYCERIN ORAL Take by mouth. - blood sugar diagnostic (BLOOD GLUCOSE TEST) test strip Test blood sugar(s) 1-2x daily. Dx: Type 2 DM . Insulin: No - Lancets lancets Test blood sugar(s) 1x daily. Dx: DM type 2. Insulin: No - acetaminophen 650 mg CR tablet Take 650 mg by mouth every 8 hours as needed. - COMPOUNDED PRESCRIPTION Powerstep full length original (I87.2) Venous insufficiency (primary encounter diagnosis) (M72.2) Plantar fasciitis, bilateral - >Zippered Compression Knee High 30-40 mm custom CUSTOM MEASURE FOR KNEE HIGH ZAK COMPRESSION STOCKINGS, 30-40 MM, WITH ZIPPERS PLEASE. IF UNABLE, PLEASE REFER TO MARCELINO AT [facility]. DX: EDEMA - CPAP Initiate CPAP @8 cm of water with humidification. Mask (per patient preference) optional chin strap (if indicated) , filters, tubing, humidifier and lifetime supplies. Meds Comments as of 01/08/2015: Patient states she is not taking Zocor or Tramadol. Patient states that Dr. Echeverria has taken her off the medications for her stomach, please clarify. 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] 01/10/2014 Neuropathic pain [M79.2] 01/10/2014 Chronic pain [G89.29] 01/10/2014 Chest pain [R07.9] 03/18/2014 RYAN (obstructive sleep apnea) [G47.33] 03/18/2014 Backache, unspecified [M54.9] 04/09/2014 Depression [F32.A] 08/01/2014 Afib (HCC) [I48.91] 09/28/2016 Diarrhea [R19.7] 01/25/2017 Periumbilical pain [R10.33] 01/01/2018 05/28/2021 Altered bowel habits [R19.4] 01/01/2018 Open wound of toe [S91.109A] 10/01/2019 05/28/2021 Pain in left foot [M79.672] 10/01/2019 05/28/2021 ASHD (arteriosclerotic heart disease) [I25.10] 05/28/2021 Encounter Status:Closed by Gush[employer], PRODUSER on 01/23/23 [facility] 10-26-2022 Note HNO ID: [id number] Author: Konrad Chaudhry APRN.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 Service: ? Author Type: Nurse Practitioner Type: Progress Notes Filed: 10/26/2022 5:47 PM Note Text: CC: Patient presents with: Recheck: 3 month follow up HPI Matilda Magdaleno is a 62 year old female who presents today for routine follow up. HTN, HLD, paroxysmal A-fib: Sees [facility] regularly without any recent concerns. Ms. Magdaleno indicates that she is feeling well and denies any symptoms referable to elevated blood pressure. Specifically denies headache, exercise intolerance, chest pain, palpitations, dyspnea, and peripheral edema. Patient denies any side effects of her medication(s) and is compliant with their regimen. She does not check BP's generally. Matilda denies regular aerobic exercise. She watches her diet for sodium, low fat and low cholesterol most of the time. Last 3 Encounter BP Readings: Date: BP: 10/26/2022 132/80 09/23/2022 138/78 07/28/2022 142/86 Has been moving furniture at home and now has lower abdominal pulling and thinks she pulled a muscle. Movement causes the pulling sensation. Denies difficulty or pain urinating, fever, chills, nausea, vomiting, diarrhea, constipation, or dark colored urine. Depression: Feels this is well controlled at this time. Sleep: is described as normal Alcohol use: does not drink any alcohol Drug use: No Appetite: good Stresses: Denies any major stressor. Suicidal Thoughts: No suicidal ideation, intent or plan Support: Comes from multiple sources including DIABETES MELLITUS: Ms. Magdaleno denies excessive thirst or increased frequency of urination, chest pain or dyspnea , numbness, tingling or pain in extremities, new or unusual visual symptoms, low sugar/hypoglycemic reactions, weight loss/gain, lightheadedness/dizziness, and bowel changes/loose stools. Follows a diabetic diet most of the time. Controlled with diet She reports checking her glucose on a infrequent to not at all basis schedule . Patient's last HgA1C was Hemoglobin A1C (%) Date Value 07/14/2022 6.6 12/30/2021 6.5 08/18/2021 7.0 05/28/2021 7.0 ) REVIEW OF SYSTEMS General: no fevers, no chills, no night sweats, no recurrent infections, no change in appetite, no change in energy, and no significant changes in weight Respiratory: no cough, no wheezing, no shortness of breath, no hemoptysis Cardiovascular: no chest pain, no chest pressure, no palpitations, and no swelling GI: No nausea, vomiting, or diarrhea : See HPI Endocrine: no fatigue, no weight gain, no weight loss, no cold intolerance, no heat intolerance, no polyuria, no polyphagia, and no polydipsia Neurologic: No headache, weakness, numbness, tingling, dizziness, memory loss, syncope. PAST MEDICAL HISTORY Diagnosis Date Abnormal uterine bleeding I had caner in the uterus 30 years ago. Depression Diabetes (HCC) Heart attack (HCC) 12/2018 and 06/05 Hyperlipemia Lactose intolerance in adult Sleep apnea PAST SURGICAL HISTORY Procedure Laterality Date COLONOSCOPY FLX DX W/COLLJ SPEC WHEN PFRMD 06/20/2013 Colonoscopy COLONOSCOPY FLX DX W/COLLJ SPEC WHEN PFRMD 01/22/2018 Colonoscopy 10 yr interval ESOPHAGOGASTRODUODENOSCOPY TRANSORAL DIAGNOSTIC 01/22/2018 EGD HEART CATHETERIZATION 12/2018 LEFT HEART CATH,PERCUTANEOUS 05/24/2021 PAST SURGICAL HISTORY OF JAVIER -30 yrs PAST SURGICAL HISTORY OF tumor and hernia repair PAST SURGICAL HISTORY OF abdominal scar tissue PAST SURGICAL HISTORY OF bladder tuck TONSILLECTOMY AND ADENOIDECTOMY HX ALLERGIES Potassium Chloride MEDICATIONS sertraline (ZOLOFT) 100 mg tablet Take 2 tablets by mouth once daily. amLODIPine (NORVASC) 5 mg tablet Take 1 tablet by mouth once daily. pantoprazole DR (PROTONIX) 20 mg tablet Take 1 tablet by mouth once daily. apixaban (ELIQUIS) 5 mg tab(s) Take 1 tablet by mouth twice daily. furosemide (LASIX) 20 mg tablet Take 1 tablet by mouth once daily. naproxen (NAPROSYN) 500 mg tablet Take 1 tablet by mouth twice daily as needed (for pain/inflammation). Take with food. carvedilol (COREG) 3.125 mg tablet Take 3.125 mg by mouth twice daily with meals. atorvastatin (LIPITOR) 80 mg tablet Take 1 tablet by mouth daily at bedtime. For cholesterol. Lancets lancets Test blood sugar(s) one times daily and as needed. Dx: Type 2 DM - Controlled E11.9 Insulin: No cholecalciferol, Vitamin D3, (VITAMIN D3) 1,250 mcg (50,000 unit) cap capsule Take 1 capsule by mouth one time a week. NITROGLYCERIN ORAL Take by mouth. blood sugar diagnostic (BLOOD GLUCOSE TEST) test strip Test blood sugar(s) 1-2x daily. Dx: Type 2 DM . Insulin: No Lancets lancets Test blood sugar(s) 1x daily. Dx: DM type 2. Insulin: No acetaminophen 650 mg CR tablet Take 650 mg by mouth every 8 hours as needed. COMPOUNDED PRESCRIPTION Powerstep full length original (I87.2) Venous insufficiency (primary encounter diagnosis) (M72. (more content not included)... [facility] 10-26-2022 History of Presen t illness Narrative CC: Patient presents with: Recheck: 3 month follow up HPI Matilda Magdaleno is a 62 year old female who presents today for routine follow up. HTN, HLD, paroxysmal A-fib: Sees [facility] regularly without any recent concerns. Ms. Magdaleno indicates that she is feeling well and denies any symptoms referable to elevated blood pressure. Specifically denies headache, exercise intolerance, chest pain, palpitations, dyspnea, and peripheral edema. Patient denies any side effects of her medication(s) and is compliant with their regimen. She does not check BP's generally. Matilda denies regular aerobic exercise. She watches her diet for sodium, low fat and low cholesterol most of the time. Last 3 Encounter BP Readings: Date: BP: 10/26/2022 132/80 09/23/2022 138/78 07/28/2022 142/86 Has been moving furniture at home and now has lower abdominal pulling and thinks she pulled a muscle. Movement causes the pulling sensation. Denies difficulty or pain urinating, fever, chills, nausea, vomiting, diarrhea, constipation, or dark colored urine. Depression: Feels this is well controlled at this time. Sleep: is described as normal Alcohol use: does not drink any alcohol Drug use: No Appetite: good Stresses: Denies any major stressor. Suicidal Thoughts: No suicidal ideation, intent or plan Support: Comes from multiple sources including DIABETES MELLITUS: Ms. Magdaleno denies excessive thirst or increased frequency of urination, chest pain or dyspnea , numbness, tingling or pain in extremities, new or unusual visual symptoms, low sugar/hypoglycemic reactions, weight loss/gain, lightheadedness/dizziness, and bowel changes/loose stools. Follows a diabetic diet most of the time. Controlled with diet She reports checking her glucose on a infrequent to not at all basis schedule . Patient's last HgA1C was Hemoglobin A1C (%) Date Value 07/14/2022 6.6 12/30/2021 6.5 08/18/2021 7.0 05/28/2021 7.0 ) REVIEW OF SYSTEMS General: no fevers, no chills, no night sweats, no recurrent infections, no change in appetite, no change in energy, and no significant changes in weight Respiratory: no cough, no wheezing, no shortness of breath, no hemoptysis Cardiovascular: no chest pain, no chest pressure, no palpitations, and no swelling GI: No nausea, vomiting, or diarrhea : See HPI Endocrine: no fatigue, no weight gain, no weight loss, no cold intolerance, no heat intolerance, no polyuria, no polyphagia, and no polydipsia Neurologic: No headache, weakness, numbness, tingling, dizziness, memory loss, syncope. PAST MEDICAL HISTORY Diagnosis Date Abnormal uterine bleeding I had caner in the uterus 30 years ago. Depression Diabetes (HCC) Heart attack (HCC) 12/2018 and 06/05 Hyperlipemia Lactose intolerance in adult Sleep apnea PAST SURGICAL HISTORY Procedure Laterality Date COLONOSCOPY FLX DX W/COLLJ SPEC WHEN PFRMD 06/20/2013 Colonoscopy COLONOSCOPY FLX DX W/COLLJ SPEC WHEN PFRMD 01/22/2018 Colonoscopy 10 yr interval ESOPHAGOGASTRODUODENOSCOPY TRANSORAL DIAGNOSTIC 01/22/2018 EGD HEART CATHETERIZATION 12/2018 LEFT HEART CATH,PERCUTANEOUS 05/24/2021 PAST SURGICAL HISTORY OF JAVIER -30 yrs PAST SURGICAL HISTORY OF tumor and hernia repair PAST SURGICAL HISTORY OF abdominal scar tissue PAST SURGICAL HISTORY OF bladder tuck TONSILLECTOMY AND ADENOIDECTOMY HX ALLERGIES Potassium Chloride MEDICATIONS sertraline (ZOLOFT) 100 mg tablet Take 2 tablets by mouth once daily. amLODIPine (NORVASC) 5 mg tablet Take 1 tablet by mouth once daily. pantoprazole DR (PROTONIX) 20 mg tablet Take 1 tablet by mouth once daily. apixaban (ELIQUIS) 5 mg tab(s) Take 1 tablet by mouth twice daily. furosemide (LASIX) 20 mg tablet Take 1 tablet by mouth once daily. naproxen (NAPROSYN) 500 mg tablet Take 1 tablet by mouth twice daily as needed (for pain/inflammation). Take with food. carvedilol (COREG) 3.125 mg tablet Take 3.125 mg by mouth twice daily with meals. atorvastatin (LIPITOR) 80 mg tablet Take 1 tablet by mouth daily at bedtime. For cholesterol. Lancets lancets Test blood sugar(s) one times daily and as needed. Dx: Type 2 DM - Controlled E11.9 Insulin: No cholecalciferol, Vitamin D3, (VITAMIN D3) 1,250 mcg (50,000 unit) cap capsule Take 1 capsule by mouth one time a week. NITROGLYCERIN ORAL Take by mouth. blood sugar diagnostic (BLOOD GLUCOSE TEST) test strip Test blood sugar(s) 1-2x daily. Dx: Type 2 DM . Insulin: No Lancets lancets Test blood sugar(s) 1x daily. Dx: DM type 2. Insulin: No acetaminophen 650 mg CR tablet Take 650 mg by mouth every 8 hours as needed. COMPOUNDED PRESCRIPTION Powerstep full length original (I87.2) Venous insufficiency (primary encounter diagnosis) (M72.2) Plantar fasciitis, bilateral >Zippered Compression Knee High 30-40 mm custom CUSTOM MEASURE FOR KNEE HIGH ZAK COMPRESSION STOCKINGS, 30-40 MM, WITH ZIPPERS PLEASE. IF UNABLE, PLEASE REFER TO [facility] AT [facility]. DX: EDEMA CPAP Initiate CPAP @8 cm of water with humidification. Mask (per patient preference) optional chin strap (if indicated) , filters, tubing, humidifier and lifetime supplies. FAMILY HISTORY Problem Relation Age of Onset Heart disease Mother Heart Father 59 [place] No Known Problems Brother Breast Cancer Sister Breast Cancer Maternal Grandmother Diabetes Maternal Grandmother Social History Tobacco Use Smoking status: Never Smokeless tobacco: Never Substance Use Topics Alcohol use: No Drug use: No PHYSICAL EXAM BP 132/80 Pulse 64 Resp 16 Wt 110.2 kg (243 lb) BMI 39.22 kg/m General Appearance: well appearing, in no acute distress, alert Pysch: mood and affect broad and appropriate Skin: Skin color, texture, turgor normal for age; Eyes: conjunctiva pink and moist, no icterus, sclera white, non-injected Lungs: Lungs clear to auscultation. No wheezing, rhonchi, rales. Heart: Apical irregular rhythm with regular rate without murmur, gallop, or rubs. No ectopy Abdomen: Abdomen soft, Bowel sounds normal. No masses, organomegaly. Tenderness reported to mid lower abdomen without grimacing, guarding, or rebound pain. Extremities: No deformities, edema, skin discoloration, clubbing or cyanosis. Good capillary refill. Feet:Shoes and socks removed, normal distal pulses, sensitive to 10 gm monofilament, and vibratory perception normal Health maintenance reviewed with patient: DTAP,TDAP,TD(1 - Tdap) Never done SHINGRIX VACCINE(1 of 2) Never done MAMMOGRAM due on 07/30/2021 COVID-19 VACCINE(4 - Booster for Pfizer series) due on 08/03/2021 DILATED RETINAL EXAM due on 06/15/2022 DIABETIC FOOT EXAM due on 08/18/2022 PNEUMOCOCCAL(2 - PCV) due on 12/10/2022 LDL CHOLESTEROL due on 12/30/2022 HBA1C due on 01/12/2023 INFLUENZA(Season Ended) due on 03/17/2023 BP CONTROLLED (<130/80) due on 03/25/2023 URINE ALBUMIN:CREATININE RATIO due on 07/14/2023 ANNUAL PCP TEAM CHRONIC DISEASE VISIT due on 09/24/2023 COLORECTAL CANCER SCREENING due on 01/23/2028 HEPATITIS C SCREENING Completed PAP TESTING Discontinued HPV TESTING Discontinued HIV SCREENING Discontinued DATA REVIEWED: No new labs ASSESSMENT/PLAN: 1. Diabetes mellitus type 2 in obese (HCC) - ICD9: 250.00, 278.00, ICD10: E11.69, E66.9 (primary diagnosis) - Controlled - Counseled on healthy diet and regular exercise - Discussed need for and benefit of weight loss. BMI 39.22 kg/(m^2) - HGB A1C - COMP METABOLIC PANEL - CBC + DIFF - follow up in 6 months 2. Lower abdominal pain - ICD9: 789.09, ICD10: R10.30 - probable muscle strain but will evaluate urine as she had a UTI a few months ago and tenderness is at bladder area. - UA DIP, URINE (POC) - normal - probable muscle strain. Allow rest, can use tylenol as directed for pain. Do not use more than indicated on box, and can use ice or heat to tender area. 3. Essential hypertension - ICD9: 401.9, ICD10: I10 - good control - Continue current medication(s) - Recommended regular aerobic exercise. - Recommend home blood pressure monitoring, to bring results in on next visit - Goal of BP <130/80 4. Hyperlipidemia with target LDL less than 70 - ICD9: 272.4, ICD10: E78.5 - to be determined upon return of lab results - Continue current medication. - Encouraged following a low fat, low cholesterol diet. - Discussed the benefits of regular aerobic exercise and weight loss. - LIPID PANEL BASIC - COMP METABOLIC PANEL - CBC + DIFF 5. Chronic atrial fibrillation (HCC) - ICD9: 427.31, ICD10: I48.20 - asymptomatic, rate controlled and on eliquis for DVT prophylaxis - COMP METABOLIC PANEL - CBC + DIFF Prescription instructions reviewed with patient as applicable. Potential red flag symptoms discussed with the patient. Reviewed appropriate action plan to take if red flag symptoms occur. Patient agreeable to treatment plan. Konrad Chaudhry APRN.CNP documented in this encounter [facility] 10-11-2022 Miscellaneous Notes Pt notified of 's message concerning atb. Alma Mejia LPN Called and left a voicemail for the Patient to call back and ask for a nurse to receive the providers message. Brittnee Malave RN I sent her some abx to use. Regards, Addis Gillette MD Pt called in and reports she was in to see the provider on 09/23. She states she was real hoarse and her L ear was stuffed up and they still are. The provider put her on Zyrtec, and Tylenol #3, and Tessalon Perles and they were ineffective. It looks like the provider gave her Cony D after that and Pt is reporting that is ineffective. She states she is still hoarse, her L hear is plugged, dry cough, and she feels stuffed up. She denies fever, runny nose, or chest pain. Pt is asking if there is anything else the provider could give her, she is asking that it be sent to [facility] in [place]. documented in this encounter [facility] 09-27-2022 Miscellaneous Notes Pt notified of dr's message. Pt reports she doesn't have allergies that she knows of but wants to try cony d. Pt will call back in a couple of days if sx don't change or get worse. Alma Mejia LPN Called and left a voicemail for the Patient to call back and ask for a nurse to receive the providers message. Brittnee Malave RN Does she has allergies that could be causing her to have issues? Will try cony d for the patient If any of discharges are yellow or green or her sputum is yellow or green then I could sent her antibiotics else there would be no value of giving her an antibiotic, I gave the patient some cony d Regards, Addis Gillette MD Patient calls to report symptoms aren't improving since appointment 09/23/2022 including: hoarseness, sore throat, dry non-productive cough, left ear heaviness, and head congestion. Patient denies fever, chest pain, sob, chills, nausea, vomiting, diarrhea. Patient reports zyrtec, tessalon pearls, and Tylenol #3 have been ineffective. Reviewed OTC treatments with patient for symptoms. Patient hasn't tried anything OTC. Patient asking if there is anything else provider could prescribe. Please review and advise, Aydee Zelaya RN documented in this encounter [facility] 09-23-2022 Note HNO ID: [id number] Author: Addis Gillette MD Service: ? Author Type: Physician Type: Progress Notes Filed: 09/23/2022 3:49 PM Note Text: Reason for Visit Patient presents with: ED Follow-up: since last : sore throat,runny nose,coughing,chills Seen in [facility] ER- negative for covid Matilda Magdaleno is a 61 year old female who presents here today for Above Complaints.. Health Maintenance DTAP,TDAP,TD(1 - Tdap) SHINGRIX VACCINE(1 of 2) MAMMOGRAM COVID-19 VACCINE(4 - Booster for Pfizer series) DILATED RETINAL EXAM DIABETIC FOOT EXAM LETI Rios is a 61-year-old lady with a past medical history of diabetes mellitus which is fairly well controlled except recently, left ventricular hypertrophy, A-fib, hyperlipidemia, pulmonary hypertension and sleep apnea who is following up post ER visit. 8 days ago on last week she developed vomiting. She says she woke up in the night at 5 AM with vomiting and diarrhea which lasted for couple days. Along with the vomiting and diarrhea she also had chills, felt very tired and felt wasted, and began to have a cough. Went to the ER on Monday. She was taken by her spouse who said that she was not doing well and she needed to go there. She said the busy ER kept her for 6 hours but did give her some IV fluids and some medication for nausea. Since then her nausea is better and her diarrhea is somewhat subsided but for the past 2 days she has been having more cough and stuffiness of her head and she has a sore throat. She says that her left ear feels really heavy and for. She denies having fever right now or chills. Patient noted she was negative for COVID No problem-specific Assessment AND Plan notes found for this encounter. PAST MEDICAL HISTORY Diagnosis Date Abnormal uterine bleeding I had caner in the uterus 30 years ago. Depression Diabetes (HCC) Heart attack (HCC) 12/2018 and 06/05 Hyperlipemia Lactose intolerance in adult Sleep apnea PAST SURGICAL HISTORY Procedure Laterality Date COLONOSCOPY FLX DX W/COLLJ SPEC WHEN PFRMD 06/20/2013 Colonoscopy COLONOSCOPY FLX DX W/COLLJ SPEC WHEN PFRMD 01/22/2018 Colonoscopy 10 yr interval ESOPHAGOGASTRODUODENOSCOPY TRANSORAL DIAGNOSTIC 01/22/2018 EGD HEART CATHETERIZATION 12/2018 LEFT HEART CATH,PERCUTANEOUS 05/24/2021 PAST SURGICAL HISTORY OF JAVIER -30 yrs PAST SURGICAL HISTORY OF tumor and hernia repair PAST SURGICAL HISTORY OF abdominal scar tissue PAST SURGICAL HISTORY OF bladder tuck TONSILLECTOMY AND ADENOIDECTOMY HX FAMILY HISTORY Problem Relation Age of Onset Heart disease Mother Heart Father 59 [place] No Known Problems Brother Breast Cancer Sister Breast Cancer Maternal Grandmother Diabetes Maternal Grandmother Social History Tobacco Use Smoking status: Never Smokeless tobacco: Never Substance Use Topics Alcohol use: No Drug use: No Past medical history, appointments, medications, allergies reviewed. Pertinent Lab/Diagnostic Studies are reviewed and discussed today Current Outpatient Medications: sertraline (ZOLOFT) 100 mg tablet amLODIPine (NORVASC) [address] (PROTONIX) 20 mg tablet apixaban (ELIQUIS) 5 mg tab(s) furosemide (LASIX) 20 mg tablet naproxen (NAPROSYN) 500 mg tablet carvedilol (COREG) 3.125 mg tablet atorvastatin (LIPITOR) 80 mg tablet Lancets lancets cholecalciferol, Vitamin D3, (VITAMIN D3) 1,250 mcg (50,000 unit) cap capsule NITROGLYCERIN ORAL blood sugar diagnostic (BLOOD GLUCOSE TEST) test strip Lancets lancets acetaminophen 650 mg CR tablet COMPOUNDED PRESCRIPTION >Zippered Compression Knee High 30-40 mm custom CPAP Review of Systems CONSTITUTIONAL: No fevers, chills night sweats, unintended weight loss CARDIOVASCULAR: No chest pain, dyspnea, palpitations, orthopnea, PND, ankle edema. PULM: No dyspnea, unexplained cough. GI: No dysphagia/odynophagia, problematic reflux, constipation, diarrhea, changes in stool habits, hematochezia, melena. : No new urinary complaints, including dysuria, gross hematuria or pyuria. NEURO: No new balance problems, peripheral weakness/paresthesias or numbness of concern. Physical Exam BP 138/78 (BP Site: Left Arm, BP Position: Sitting, BP Cuff Size: Regular Adult) Pulse 60 Temp 36.9 ?C (98.5 ?F) Resp 14 Ht 167.6 cm (5' 6 ) Wt 109.3 kg (241 lb) SpO2 97% BMI 38.90 kg/m? General appearance: Well appearing, alert, in no acute distress, well nourished. Skin: Skin color, texture, turgor normal, no suspicious rashes or lesions Head: Normocephalic, no masses, lesions, tenderness or abnormalities Eyes: Anicteric sclera. Pupils are equally round and reactive to light. Extraocular movements are intact. Ear exam: The right external ear looks normal, the tympanic membrane looks a little dull and and scarred. The left ear externally looked normal the meatus was normal there was no wax the tympanic membr (more content not included)... [facility] 09-23-2022 History of Presen t illness Narrative Reason for Visit Patient presents with: ED Follow-up: since last : sore throat,runny nose,coughing,chills Seen in [facility] ER- negative for lesly Magdaleno is a 61 year old female who presents here today for Above Complaints.. Health Maintenance DTAP,TDAP,TD(1 - Tdap) SHINGRIX VACCINE(1 of 2) MAMMOGRAM COVID-19 VACCINE(4 - Booster for Pfizer series) DILATED RETINAL EXAM DIABETIC FOOT EXAM LETI Rios is a 61-year-old lady with a past medical history of diabetes mellitus which is fairly well controlled except recently, left ventricular hypertrophy, A-fib, hyperlipidemia, pulmonary hypertension and sleep apnea who is following up post ER visit. 8 days ago on last week she developed vomiting. She says she woke up in the night at 5 AM with vomiting and diarrhea which lasted for couple days. Along with the vomiting and diarrhea she also had chills, felt very tired and felt wasted, and began to have a cough. Went to the ER on Monday. She was taken by her spouse who said that she was not doing well and she needed to go there. She said the busy ER kept her for 6 hours but did give her some IV fluids and some medication for nausea. Since then her nausea is better and her diarrhea is somewhat subsided but for the past 2 days she has been having more cough and stuffiness of her head and she has a sore throat. She says that her left ear feels really heavy and for. She denies having fever right now or chills. Patient noted she was negative for COVID No problem-specific Assessment & Plan notes found for this encounter. PAST MEDICAL HISTORY Diagnosis Date Abnormal uterine bleeding I had caner in the uterus 30 years ago. Depression Diabetes (HCC) Heart attack (HCC) 12/2018 and 06/05 Hyperlipemia Lactose intolerance in adult Sleep apnea PAST SURGICAL HISTORY Procedure Laterality Date COLONOSCOPY FLX DX W/COLLJ SPEC WHEN PFRMD 06/20/2013 Colonoscopy COLONOSCOPY FLX DX W/COLLJ SPEC WHEN PFRMD 01/22/2018 Colonoscopy 10 yr interval ESOPHAGOGASTRODUODENOSCOPY TRANSORAL DIAGNOSTIC 01/22/2018 EGD HEART CATHETERIZATION 12/2018 LEFT HEART CATH,PERCUTANEOUS 05/24/2021 PAST SURGICAL HISTORY OF JAVIER -30 yrs PAST SURGICAL HISTORY OF tumor and hernia repair PAST SURGICAL HISTORY OF abdominal scar tissue PAST SURGICAL HISTORY OF bladder tuck TONSILLECTOMY AND ADENOIDECTOMY HX FAMILY HISTORY Problem Relation Age of Onset Heart disease Mother Heart Father 59 [place] No Known Problems Brother Breast Cancer Sister Breast Cancer Maternal Grandmother Diabetes Maternal Grandmother Social History Tobacco Use Smoking status: Never Smokeless tobacco: Never Substance Use Topics Alcohol use: No Drug use: No Past medical history, appointments, medications, allergies reviewed. Pertinent Lab/Diagnostic Studies are reviewed and discussed today Current Outpatient Medications: sertraline (ZOLOFT) 100 mg tablet amLODIPine (NORVASC) [address] (PROTONIX) 20 mg tablet apixaban (ELIQUIS) 5 mg tab(s) furosemide (LASIX) 20 mg tablet naproxen (NAPROSYN) 500 mg tablet carvedilol (COREG) 3.125 mg tablet atorvastatin (LIPITOR) 80 mg tablet Lancets lancets cholecalciferol, Vitamin D3, (VITAMIN D3) 1,250 mcg (50,000 unit) cap capsule NITROGLYCERIN ORAL blood sugar diagnostic (BLOOD GLUCOSE TEST) test strip Lancets lancets acetaminophen 650 mg CR tablet COMPOUNDED PRESCRIPTION >Zippered Compression Knee High 30-40 mm custom CPAP Review of Systems CONSTITUTIONAL: No fevers, chills night sweats, unintended weight loss CARDIOVASCULAR: No chest pain, dyspnea, palpitations, orthopnea, PND, ankle edema. PULM: No dyspnea, unexplained cough. GI: No dysphagia/odynophagia, problematic reflux, constipation, diarrhea, changes in stool habits, hematochezia, melena. : No new urinary complaints, including dysuria, gross hematuria or pyuria. NEURO: No new balance problems, peripheral weakness/paresthesias or numbness of concern. Physical Exam BP 138/78 (BP Site: Left Arm, BP Position: Sitting, BP Cuff Size: Regular Adult) Pulse 60 Temp 36.9 C (98.5 F) Resp 14 Ht 167.6 cm (5' 6 ) Wt 109.3 kg (241 lb) SpO2 97% BMI 38.90 kg/m General appearance: Well appearing, alert, in no acute distress, well nourished. Skin: Skin color, texture, turgor normal, no suspicious rashes or lesions Head: Normocephalic, no masses, lesions, tenderness or abnormalities Eyes: Anicteric sclera. Pupils are equally round and reactive to light. Extraocular movements are intact. Ear exam: The right external ear looks normal, the tympanic membrane looks a little dull and and scarred. The left ear externally looked normal the meatus was normal there was no wax the tympanic membrane had decreased of light reflex and some spots where it was a little red. There was no fluid or fluid level on exam of both the years. Throat exam showed erythematous posterior pharynx and uvula. But there was no pus points or pus anywhere in the posterior pharynx including the tonsillar areas Lungs: Lungs clear to auscultation. No wheezing, rhonchi, rales Heart: RRR without murmur, gallop, or rubs. Extremities: No deformities, edema, skin discoloration, clubbing or cyanosis. Good capillary refill. ASSESSMENT/PLAN: 1. Other cough - ICD9: 786.2, ICD10: R05.8 (primary diagnosis) I reassured her that it appears that the viral illness may be receding. She does not have any sputum production that is colored. The throat did not look concerning to me neither did the years that. I did give her thing to help her with her cough at night and in the day and some allergy medicine to help with your and had full - ACETAMINOPHEN 300 MG-CODEINE 30 MG TABLET 2. Sore throat - ICD9: 462, ICD10: J02.9 - ACETAMINOPHEN 300 MG-CODEINE 30 MG TABLET 3. Vomiting without nausea, unspecified vomiting type - ICD9: 787.03, ICD10: R11.11 - ACETAMINOPHEN 300 MG-CODEINE 30 MG TABLET 4. Diarrhea, unspecified type - ICD9: 787.91, ICD10: R19.7 5. Chills - ICD9: 780.64, ICD10: R68.83 Addis Gillette MD documented in this encounter [facility] 09-12-2022 Note HNO ID: [id number] Author: Latrice Adam Service: ? Author Type: Physician Type: Progress Notes Filed: 09/12/2022 2:25 PM Note Text: Last saw Konrad Chaudhry 07/28/22 Subjective: Patient presents to clinic c/o painful toenails. They state that the nails are especially painful with shoe gear and pressure. Patient states that nails right hallux are painful. Patient admits to being diabetic. No other pedal complaints at this time. Patient states no change in medications or medical history since last visit. Objective: Patient presents to clinic ambulating in [facility] Vasc: DP and PT pulses are palpable bilateral. CFT is less than 5 seconds bilateral. Skin temperature is warm to cool proximal to distal bilateral. There is no edema or varicosities noted. Neuro: Protective sensation is intact to the foot and toes when tested with the 5.07 SWM bilateral. Vibratory sensation is decreased at the hallux IPJ bilateral. The hallux is downgoing bilateral. Derm: Nails 1-5 b/l are painful, discolored-yellow, thick, crumbly, dystrophic and with subungal debris. Skin is of normal turgor, texture and hair growth is present bilateral. There are no hyperkeratosis, ulcerations, scars, verruca or other lesions noted. Ortho: Muscle strength is 5/5 for all pedal groups tested. Ankle joint DF is decreased with the knee extended with no pain or crepitus noted. 1st MPJ ROM is decreased bilateral. Assessment: (B35.1) Onychomycosis (primary encounter diagnosis) (M79.675) Pain in toe of left foot (M79.674) Pain in toe of right foot (E11.69, E66.9) Diabetes mellitus type 2 in obese (HCC) (M21.42) Pes planus of left foot Plan: Patient was seen and evaluated. Nails 1-5 bilateral were debrided in length and thickness. Contineu with powerstp inserts Patient was instructed on the continued importance of diabetic foot care along with proper diet and keeping their blood sugar under control to prevent complications. Patient is to RTC in 3-4 months. Latrice Peters DPM [facility] 09-12-2022 Note HNO ID: [id number] Author: Emmy Cavazos LPN Service: ? Author Type: LICENSED NURSE Type: Progress Notes Filed: 09/12/2022 2:25 PM Note Text: AMB ROOMING INTAKE FLOWSHEET DATA Patient presents with: Left Foot - Diabetic Foot Care, Established Patient, Follow Up Right Foot - Established Patient, Follow Up, Diabetic Foot Care Emmy Cavazos LPN [facility] 09-12-2022 History of Presen t illness Narrative Last saw Konrad Richa 07/28/22 Subjective: Patient presents to clinic c/o painful toenails. They state that the nails are especially painful with shoe gear and pressure. Patient states that nails right hallux are painful. Patient admits to being diabetic. No other pedal complaints at this time. Patient states no change in medications or medical history since last visit. Objective: Patient presents to clinic ambulating in [facility] Vasc: DP and PT pulses are palpable bilateral. CFT is less than 5 seconds bilateral. Skin temperature is warm to cool proximal to distal bilateral. There is no edema or varicosities noted. Neuro: Protective sensation is intact to the foot and toes when tested with the 5.07 SWM bilateral. Vibratory sensation is decreased at the hallux IPJ bilateral. The hallux is downgoing bilateral. Derm: Nails 1-5 b/l are painful, discolored-yellow, thick, crumbly, dystrophic and with subungal debris. Skin is of normal turgor, texture and hair growth is present bilateral. There are no hyperkeratosis, ulcerations, scars, verruca or other lesions noted. Ortho: Muscle strength is 5/5 for all pedal groups tested. Ankle joint DF is decreased with the knee extended with no pain or crepitus noted. 1st MPJ ROM is decreased bilateral. Assessment: (B35.1) Onychomycosis (primary encounter diagnosis) (M79.675) Pain in toe of left foot (M79.674) Pain in toe of right foot (E11.69, E66.9) Diabetes mellitus type 2 in obese (HCC) (M21.42) Pes planus of left foot Plan: Patient was seen and evaluated. Nails 1-5 bilateral were debrided in length and thickness. Contineu with powerstp inserts Patient was instructed on the continued importance of diabetic foot care along with proper diet and keeping their blood sugar under control to prevent complications. Patient is to RTC in 3-4 months. Latrice Peters DPM AMB ROOMING INTAKE FLOWSHEET DATA Patient presents with: Left Foot - Diabetic Foot Care, Established Patient, Follow Up Right Foot - Established Patient, Follow Up, Diabetic Foot Care Emmy Cavazos LPN documented in this encounter [facility] 09-12-2022 Instructions Latrice Peters - 09/12/2022 2:03 PM EST Diabetes Foot Care Instructions When you have diabetes, proper foot care is very important. Poor foot care may lead to amputation of a foot or leg. As a person with diabetes, you are more vulnerable to foot problems, because diabetes can damage your nerves and reduce blood flow to your feet. Here are some diabetes foot care tips to follow: Wash and Dry Your Feet Daily Use mild soaps Use warm water Pat your skin dry; do not rub. Thoroughly dry your feet. After washing, use lotion on your feet to prevent cracking. Do not put lotion between your toes. Examine Your Feet Each Day Check the tops and bottoms of your feet. Have someone else look at your feet if you cannot see them. Check for dry, cracked skin. Look for blisters, cuts, scratches, or other sores. Check for redness, increased warmth, or tenderness when touching any area of your feet. Check for ingrown toenails, corns, and calluses. If you get a blister or sore from your shoes, do not pop it. Apply a bandage and wear a different pair of shoes. Take Care of Your Toenails Cut toenails after bathing, when they are soft. Cut toenails straight across and smooth with a nail file. Avoid cutting into the corners of toes. Do not cut cuticles. If you have neuropathy (or decreased sensation in your feet) a training technician should always cut your toenails. Be Careful When Exercising Walk and exercise in comfortable shoes. Do not exercise when you have open sores on your feet. Protect Your Feet With Shoes and Socks Never go barefoot. Always protect your feet by wearing shoes or hard-soled slippers or footwear. Avoid shoes with high heels and pointed toes. Avoid shoes that expose your toes or heels (such as open-toed shoes or sandals). These types of shoes increase your risk for injury and potential infections. Try on new footwear with the type of socks you usually wear. Do not wear new shoes for more than an hour at a time. Change your socks daily. Look and feel inside your shoes before putting them on to make sure there are no foreign objects or rough areas. Avoid tight socks. Wear natural-fiber socks (cotton, wool, or a cotton-wool blend). Wear special shoes if your health care provider recommends them. Wear shoes/boots that will protect your feet from various weather conditions (cold, moisture, etc.). Make sure your shoes fit properly. If you have neuropathy (nerve damage), you may not notice that your shoes are too tight. Perform the footwear test described below. Footwear Test Use this simple test to see if your shoes fit correctly: Stand on a piece of paper. (Make sure you are standing and not sitting, because your foot changes shape when you stand.) Trace the outline of your foot. Trace the outline of your shoe. Compare the tracings: Is the shoe too narrow? Is your foot crammed into the shoe? The shoe should be at least 1/2 inch longer than your longest toe and as wide as your foot. Proper Shoe Choices The following types of shoes are best for people with diabetes Closed toes and heels Leather uppers without a seam inside At least 1/2 inch extra space at the end of your longest toe Inside of shoe should be soft with no rough areas Outer sole should be made of stiff material Shoes should be at least as wide as your feet Tips for Foot Care in Diabetes Don't wait to treat a minor foot problem if you have diabetes. Follow your health care provider's guidelines and first aid guidelines. Report foot injuries and infections to your health care provider immediately. Check water temperature with your elbow, not your foot. Do not use a heating pad on your feet. Do not cross your legs. Do not self-treat your corns, calluses, or other foot problems. Go to your health care provider or training technician to treat these conditions. documented in this encounter [facility] 08-12-2022 Miscellaneous Notes Left detailed message on [employer]. Please let patient know her urine is negative for infection. Take care Konrad Chaudhry APRN.HIREN documented in this encounter [facility] 07-28-2022 History of Presen t illness Narrative CC: Patient presents with: Recheck: 2 week follow up HPI Matilda Magdaleno is a 61 year old female who presents today for 2 week follow up on blood pressure. Has appointment at 3pm with scrap crane operator for further evaluatuion of blood pressure and episode of palpitations and left arm numbness a few weeks ago. Is in a hurry so she would prefer to discuss this further at cardiology appointment. Had possibly UTI with Urine culture inconclusive. Antibiotic prescribed as patient was symptomatic. Has finished antibiotic and had some improvement but still with some frequency of urination and just feels a bit more tired than usual. Denies fever chills, shortness of breath, change in urine color/smell, or abdominal pain. At last visit patient distraught over marriage and very tearful. Sleep: is described as normal Alcohol use: does not drink any alcohol Drug use: No Appetite: good Stresses: Major stressor: marriage Suicidal Thoughts: No suicidal ideation, intent or plan Support: Limited to Counseling: Yes, REVIEW OF SYSTEMS General: no fevers, no chills, no night sweats, no recurrent infections, no change in appetite, and no significant changes in weight Respiratory: no cough, no wheezing, no shortness of breath, no hemoptysis Cardiovascular: no chest pain, no chest pressure, no palpitations, and no swelling GI: No nausea, vomiting, or diarrhea : See HPI Neurologic: No headache, weakness, numbness, tingling, dizziness, memory loss, syncope. PAST MEDICAL HISTORY Diagnosis Date Abnormal uterine bleeding I had caner in the uterus 30 years ago. Depression Diabetes (HCC) Heart attack (HCC) 12/2018 and 06/05 Hyperlipemia Lactose intolerance in adult Sleep apnea PAST SURGICAL HISTORY Procedure Laterality Date COLONOSCOPY FLX DX W/COLLJ SPEC WHEN PFRMD 06/20/2013 Colonoscopy COLONOSCOPY FLX DX W/COLLJ SPEC WHEN PFRMD 01/22/2018 Colonoscopy 10 yr interval ESOPHAGOGASTRODUODENOSCOPY TRANSORAL DIAGNOSTIC 01/22/2018 EGD HEART CATHETERIZATION 12/2018 LEFT HEART CATH,PERCUTANEOUS 05/24/2021 PAST SURGICAL HISTORY OF JAVIER -30 yrs PAST SURGICAL HISTORY OF tumor and hernia repair PAST SURGICAL HISTORY OF abdominal scar tissue PAST SURGICAL HISTORY OF bladder tuck TONSILLECTOMY AND ADENOIDECTOMY HX ALLERGIES Potassium Chloride MEDICATIONS amLODIPine (NORVASC) 5 mg tablet Take 1 tablet by mouth once daily. pantoprazole DR (PROTONIX) 20 mg tablet Take 1 tablet by mouth once daily. apixaban (ELIQUIS) 5 mg tab(s) Take 1 tablet by mouth twice daily. sertraline (ZOLOFT) 100 mg tablet Take 1.5 tablets by mouth once daily. furosemide (LASIX) 20 mg tablet Take 1 tablet by mouth once daily. naproxen (NAPROSYN) 500 mg tablet Take 1 tablet by mouth twice daily as needed (for pain/inflammation). Take with food. carvedilol (COREG) 3.125 mg tablet Take 3.125 mg by mouth twice daily with meals. atorvastatin (LIPITOR) 80 mg tablet Take 1 tablet by mouth daily at bedtime. For cholesterol. Lancets lancets Test blood sugar(s) one times daily and as needed. Dx: Type 2 DM - Controlled E11.9 Insulin: No cholecalciferol, Vitamin D3, (VITAMIN D3) 1,250 mcg (50,000 unit) cap capsule Take 1 capsule by mouth one time a week. NITROGLYCERIN ORAL Take by mouth. blood sugar diagnostic (BLOOD GLUCOSE TEST) test strip Test blood sugar(s) 1-2x daily. Dx: Type 2 DM . Insulin: No Lancets lancets Test blood sugar(s) 1x daily. Dx: DM type 2. Insulin: No acetaminophen 650 mg CR tablet Take 650 mg by mouth every 8 hours as needed. COMPOUNDED PRESCRIPTION Powerstep full length original (I87.2) Venous insufficiency (primary encounter diagnosis) (M72.2) Plantar fasciitis, bilateral >Zippered Compression Knee High 30-40 mm custom CUSTOM MEASURE FOR KNEE HIGH ZAK COMPRESSION STOCKINGS, 30-40 MM, WITH ZIPPERS PLEASE. IF UNABLE, PLEASE REFER TO MARCELINO AT [facility]. DX: EDEMA CPAP Initiate CPAP @8 cm of water with humidification. Mask (per patient preference) optional chin strap (if indicated) , filters, tubing, humidifier and lifetime supplies. FAMILY HISTORY Problem Relation Age of Onset Heart disease Mother Heart Father 59 [place] No Known Problems Brother Breast Cancer Sister Breast Cancer Maternal Grandmother Diabetes Maternal Grandmother Social History Tobacco Use Smoking status: Never Smokeless tobacco: Never Substance Use Topics Alcohol use: No Drug use: No PHYSICAL EXAM BP 142/86 Pulse 60 Resp 16 Wt 109.8 kg (242 lb) BMI 39.06 kg/m General Appearance: well appearing, in no acute distress, alert Pysch: mood and affect broad and appropriate Skin: Skin color, texture, turgor normal for age; Eyes: conjunctiva pink and moist, no icterus, sclera white, non-injected Lungs: Lungs clear to auscultation. No wheezing, rhonchi, rales. Heart: RRR without murmur, gallop, or rubs. No ectopy Abdomen: Abdomen soft, non-tender. Bowel sounds normal. No masses, organomegaly Health maintenance reviewed with patient: DTAP,TDAP,TD(1 - Tdap) Never done MAMMOGRAM due on 07/30/2021 DILATED RETINAL EXAM due on 06/15/2022 DIABETIC FOOT EXAM due on 08/18/2022 SHINGRIX VACCINE(1 of 2) due on 08/18/2022 COVID-19 VACCINE(4 - Booster for Pfizer series) due on 08/18/2022 PNEUMOCOCCAL(2 - PCV) due on 12/10/2022 INFLUENZA(1) due on 01/13/2023 LDL CHOLESTEROL due on 12/30/2022 HBA1C due on 01/12/2023 BP CONTROLLED (<130/80) due on 03/25/2023 URINE ALBUMIN:CREATININE RATIO due on 07/14/2023 ANNUAL PCP TEAM CHRONIC DISEASE VISIT due on 07/14/2023 COLORECTAL CANCER SCREENING due on 01/23/2028 HEPATITIS C SCREENING Completed PAP TESTING Discontinued HPV TESTING Discontinued HIV SCREENING Discontinued DATA REVIEWED: Most recent labs ASSESSMENT/PLAN: 1. Depression, unspecified depression type - ICD9: 311, ICD10: F32.A (primary diagnosis) - uncontrolled - increased to 200mg once daily - SERTRALINE 100 MG TABLET - Reviewed concept of neurochemical imbalance wth depression/anxiety, treatment options and benefits of counseling in combination with medication. Also reviewed benefits of sleep hygeine, diet and exercise - Follow-up in 3 months or sooner as needed - Instructed patient to contact office or [id number] after-hours promptly should condition worsen or any new symptoms appear. - Counseling Center [facility] and after hours crisis line 2. Increased urinary frequency - ICD9: 788.41, ICD10: R35.0 - needs re-evaluated to see if UTI is resolved. Discussed cleanliness and how to get a clean catch urine - URINALYSIS, WITH MICROSCOPIC - URINE CULTURE 3. Feeling tired - ICD9: 780.79, ICD10: R53.83 - will recheck urine but possible also result of issues with and depression - URINALYSIS, WITH MICROSCOPIC - URINE CULTURE 4. Essential hypertension - ICD9: 401.9, ICD10: I10 - suboptimal control - Continue current medication(s) - Recommended regular aerobic exercise. - Recommend home blood pressure monitoring, to bring results in on next visit - Goal of BP <130/80 - has appointment with cardiology directly after this visit so no medication changes made at this time. Prescription instructions reviewed with patient as applicable. Potential red flag symptoms discussed with the patient. Reviewed appropriate action plan to take if red flag symptoms occur. Patient agreeable to treatment plan. Konrad Chaudhry APRN.CNP documented in this encounter [facility] 07-14-2022 History of Presen t illness Narrative CC: Patient presents with: Recheck: 3 month follow up HPI Matilda Magdaleno is a 61 year old female who presents today for routine follow up but reports an episode with palpations last night and has multiple other concerns. Has had a difficult past few months with her mother passing and a great grandchild passing away as well. Also stating she is having marital problems and cries at times during discussion of both of these things. is in room with patient during these discussions. Suicidal Thoughts: No suicidal ideation, intent or plan Support: patient feels she has none Counseling: Yes, Had an episode last night with heart palpitations and left arm went numb. Took a nitroglycerin and pain was relieved. Occurred while laying in bed without exertion. Earlier cardiac workup within the past year for chest pain and was normal. Next follow-up with cardiology is in a few weeks. Denies any chest pressure, shortness of breath, edema, or reoccurrence of symptoms. Also has noticed increase in urination over the last few weeks. Denies any pain with urinating, incontinence, foul smelling urine, dark colored urine, fever, chills, abnormal back pain, or abdominal pain. HTN: Ms. Magdaleno indicates that she is feeling well and denies any symptoms referable to elevated blood pressure. Specifically denies headache, chest pain, dyspnea, and peripheral edema. Patient denies any side effects of her medication(s) and is compliant with their regimen. She does not check BP's generally. Last 3 Encounter BP Readings: Date: BP: 07/14/2022 142/90 03/25/2022 128/78 12/30/2021 128/80 Has been out of her amlodipine and not had time to request refill from cardiology. REVIEW OF SYSTEMS General: no fevers, no chills, no night sweats, no recurrent infections, no change in appetite, no change in energy, and no significant changes in weight Respiratory: no cough, no wheezing, no shortness of breath, no hemoptysis Cardiovascular: no chest pain, no chest pressure, and no swelling GI: No nausea, vomiting, or diarrhea : See HPI PROPERTY HANDLER: Negative for abnormal vaginal bleeding, abnormal vaginal discharge Skin: Negative for lesions, rash, and itching Neurologic: No headache, weakness, numbness, tingling, dizziness, syncope. PAST MEDICAL HISTORY Diagnosis Date Abnormal uterine bleeding I had caner in the uterus 30 years ago. Depression Diabetes (HCC) Heart attack (HCC) 12/2018 and 06/05 Hyperlipemia Lactose intolerance in adult Sleep apnea PAST SURGICAL HISTORY Procedure Laterality Date COLONOSCOPY FLX DX W/COLLJ SPEC WHEN PFRMD 06/20/2013 Colonoscopy COLONOSCOPY FLX DX W/COLLJ SPEC WHEN PFRMD 01/22/2018 Colonoscopy 10 yr interval ESOPHAGOGASTRODUODENOSCOPY TRANSORAL DIAGNOSTIC 01/22/2018 EGD HEART CATHETERIZATION 12/2018 LEFT HEART CATH,PERCUTANEOUS 05/24/2021 PAST SURGICAL HISTORY OF JAVIER -30 yrs PAST SURGICAL HISTORY OF tumor and hernia repair PAST SURGICAL HISTORY OF abdominal scar tissue PAST SURGICAL HISTORY OF bladder tuck TONSILLECTOMY AND ADENOIDECTOMY HX ALLERGIES Potassium Chloride MEDICATIONS pantoprazole DR (PROTONIX) 20 mg tablet Take 1 tablet by mouth once daily. apixaban (ELIQUIS) 5 mg tab(s) Take 1 tablet by mouth twice daily. sertraline (ZOLOFT) 100 mg tablet Take 1.5 tablets by mouth once daily. furosemide (LASIX) 20 mg tablet Take 1 tablet by mouth once daily. naproxen (NAPROSYN) 500 mg tablet Take 1 tablet by mouth twice daily as needed (for pain/inflammation). Take with food. carvedilol (COREG) 3.125 mg tablet Take 3.125 mg by mouth twice daily with meals. atorvastatin (LIPITOR) 80 mg tablet Take 1 tablet by mouth daily at bedtime. For cholesterol. Lancets lancets Test blood sugar(s) one times daily and as needed. Dx: Type 2 DM - Controlled E11.9 Insulin: No cholecalciferol, Vitamin D3, (VITAMIN D3) 1,250 mcg (50,000 unit) cap capsule Take 1 capsule by mouth one time a week. NITROGLYCERIN ORAL Take by mouth. blood sugar diagnostic (BLOOD GLUCOSE TEST) test strip Test blood sugar(s) 1-2x daily. Dx: Type 2 DM . Insulin: No Lancets lancets Test blood sugar(s) 1x daily. Dx: DM type 2. Insulin: No amLODIPine (NORVASC) 5 mg tablet Take 5 mg by mouth once daily. acetaminophen 650 mg CR tablet Take 650 mg by mouth every 8 hours as needed. COMPOUNDED PRESCRIPTION Powerstep full length original (I87.2) Venous insufficiency (primary encounter diagnosis) (M72.2) Plantar fasciitis, bilateral >Zippered Compression Knee High 30-40 mm custom CUSTOM MEASURE FOR KNEE HIGH ZAK COMPRESSION STOCKINGS, 30-40 MM, WITH ZIPPERS PLEASE. IF UNABLE, PLEASE REFER TO MARCELINO AT [facility]. DX: EDEMA CPAP Initiate CPAP @8 cm of water with humidification. Mask (per patient preference) optional chin strap (if indicated) , filters, tubing, humidifier and lifetime supplies. FAMILY HISTORY Problem Relation Age of Onset Heart disease Mother Heart Father 59 [place] No Known Problems Brother Breast Cancer Sister Breast Cancer Maternal Grandmother Diabetes Maternal Grandmother Social History Tobacco Use Smoking status: Never Smokeless tobacco: Never Substance Use Topics Alcohol use: No Drug use: No PHYSICAL EXAM BP 142/90 Pulse 64 Resp 16 Wt 110.7 kg (244 lb) BMI 39.38 kg/m General Appearance: well appearing, in no acute distress, alert Pysch: appropriate but tearful at times Skin: Skin color, texture, turgor normal for age; Eyes: conjunctiva pink and moist, no icterus, sclera white, non-injected Lungs: Lungs clear to auscultation. No wheezing, rhonchi, rales. Heart: RRR without murmur, gallop, or rubs. No ectopy Abdomen: Abdomen soft, non-tender. Bowel sounds normal. No masses, organomegaly Health maintenance reviewed with patient: DTAP,TDAP,TD(1 - Tdap) Never done MAMMOGRAM due on 07/30/2021 URINE ALBUMIN:CREATININE RATIO due on 05/28/2022 HBA1C due on 07/01/2022 DILATED RETINAL EXAM due on 06/15/2022 SHINGRIX VACCINE(1 of 2) due on 08/18/2022 COVID-19 VACCINE(3 - Booster for Pfizer series) due on 08/18/2022 PNEUMOCOCCAL(2 - PCV) due on 12/10/2022 INFLUENZA(1) due on 01/13/2023 DIABETIC FOOT EXAM due on 08/18/2022 LDL CHOLESTEROL due on 12/30/2022 BP CONTROLLED (<130/80) due on 03/25/2023 ANNUAL PCP TEAM CHRONIC DISEASE VISIT due on 07/14/2023 COLORECTAL CANCER SCREENING due on 01/23/2028 HEPATITIS C SCREENING Completed PAP TESTING Discontinued HPV TESTING Discontinued HIV SCREENING Discontinued DATA REVIEWED: Most recent labs and imaging results. EKG Interpretation: RHYTHM: Normal sinus rhythm at 78 beats per minute septal infarct age undetermined INTERVALS: Normal [place] interval QRS COMPLEX: Normal ST SEGMENT: Normal ST-T segments QT INTERVAL: Normal COMPARED WITH PRIOR: changed no left axis deviation or LBBB noted on EKG today ASSESSMENT/PLAN: 1. Palpitations - ICD9: 785.1, ICD10: R00.2 (primary diagnosis) - continue with appointment to see scrap crane operator - go to ER for further palpitations, chest pain, shortness of breath or any other urgent concern - ECG COMPLETE 2. Increased urinary frequency - ICD9: 788.41, ICD10: R35.0 Acute - needs further evaluated for cause - Patient education for prevention given - URINALYSIS, WITH MICROSCOPIC - URINE CULTURE - COMP METABOLIC PANEL - CBC + DIFF 3. Essential hypertension - ICD9: 401.9, ICD10: I10 - suboptimal control - will prescribe amlodipine - Continue current medication(s) - Recommended regular aerobic exercise. - Recommend home blood pressure monitoring, to bring results in on next visit - Goal of BP <130/80 - COMP METABOLIC PANEL - ECG COMPLETE - CBC + DIFF 4. Marital problem - ICD9: V61.10, ICD10: Z63.0 - discussed marriage counseling. Patient to contact personal counselor to see if this is an option at their location 5. Diabetes mellitus type 2 in obese (HCC) - ICD9: 250.00, 278.00, ICD10: E11.69, E66.9 Not reviewed in appointment today, needs to schedule for further evaluation. - COMP METABOLIC PANEL - HGB A1C - CBC + DIFF Prescription instructions reviewed with patient as applicable. Potential red flag symptoms discussed with the patient. Reviewed appropriate action plan to take if red flag symptoms occur. Patient agreeable to treatment plan. Konrad Chaudhry APRN.CNP documented in this encounter [facility] 05-18-2022 Miscellaneous Notes OPENED IN ERROR documented in this encounter [facility] 05-18-2022 History of Presen t illness Narrative POPULATION HEALTH NAVIGATION OUTREACH Action/FYI LVM APPT 07-04-22 MAMMOGRAM due on 07/30/2021 URINE ALBUMIN:CREATININE RATIO due on 05/28/2022 DILATED RETINAL EXAM due on 06/15/2022 MYCHART Pt identified by name and : NO Outreach Outcome/Action Unable to reach patient: Left message Did you use a PCP flex slot to schedule this appointment? N/A Reason for Outreach Care Gap or Scheduling/Wellness visits Payer: Payor: [facility] MEDICARE / Plan: [facility] [facility] DUAL COMPLETE HMO SNP / Product Type: Medicare / Care Gap Reviewed:: Breast Cancer screening Diabetic Eye Exam Nephropathy (Albumin/Creatinine) Urine Reminder: Reminder note to check Health Maintenance for items below Health Maintenance items due: MAMMOGRAM due on 07/30/2021 URINE ALBUMIN:CREATININE RATIO due on 05/28/2022 DILATED RETINAL EXAM due on 06/15/2022 Message Sent to Practice: No Navigation Signature: Yasmin Cruz MA May 18, 2022 7:40 AM documented in this encounter [facility] 05-11-2022 History of Presen t illness Narrative Last saw Mary Older 03/25/22 Subjective: Patient presents to clinic c/o painful toenails. They state that the nails are especially painful with shoe gear and pressure. Patient states that nails 1-5 b/l are painful. Patient admits to being diabetic. No other pedal complaints at this time. Patient states no change in medications or medical history since last visit. Objective: Patient presents to clinic ambulating in sneakers with powerstep Vasc: DP and PT pulses are palpable bilateral. CFT is less than 5 seconds bilateral. Skin temperature is warm to cool proximal to distal bilateral. There is no edema or varicosities noted. Neuro: Protective sensation is intact to the foot and toes when tested with the 5.07 SWM bilateral. Vibratory sensation is decreased at the hallux IPJ bilateral. The hallux is downgoing bilateral. Derm: Nails 1-5 b/l are painful, discolored-yellow, thick, crumbly, dystrophic and with subungal debris. Skin is of normal turgor, texture and hair growth is present bilateral. There are no hyperkeratosis, ulcerations, scars, verruca or other lesions noted. Ortho: Muscle strength is 5/5 for all pedal groups tested. Ankle joint DF is decreased with the knee extended with no pain or crepitus noted. 1st MPJ ROM is decreased bilateral. Assessment: (B35.1) Onychomycosis (primary encounter diagnosis) (M79.675) Pain in toe of left foot (M79.674) Pain in toe of right foot (E11.69, E66.9) Diabetes mellitus type 2 in obese (HCC) Plan: Patient was seen and evaluated. Nails 1-5 bilateral were debrided in length and thickness. Patient was instructed on the continued importance of diabetic foot care along with proper diet and keeping their blood sugar under control to prevent complications. Powersteps provided Patient is to RTC in 3-4 months. Latrice Peters DPM AMB ROOMING INTAKE FLOWSHEET DATA Risk Screening Do you have concerns about personal safety or safety in the home?: No Patient presents with: Left Foot - Established Patient, Diabetic Foot Care Right Foot - Established Patient, Diabetic Foot Care documented in this encounter [facility] 05-11-2022 Instructions Latrice Peters - 05/11/2022 1:48 PM EDT Diabetes Foot Care Instructions When you have diabetes, proper foot care is very important. Poor foot care may lead to amputation of a foot or leg. As a person with diabetes, you are more vulnerable to foot problems, because diabetes can damage your nerves and reduce blood flow to your feet. Here are some diabetes foot care tips to follow: Wash and Dry Your Feet Daily Use mild soaps Use warm water Pat your skin dry; do not rub. Thoroughly dry your feet. After washing, use lotion on your feet to prevent cracking. Do not put lotion between your toes. Examine Your Feet Each Day Check the tops and bottoms of your feet. Have someone else look at your feet if you cannot see them. Check for dry, cracked skin. Look for blisters, cuts, scratches, or other sores. Check for redness, increased warmth, or tenderness when touching any area of your feet. Check for ingrown toenails, corns, and calluses. If you get a blister or sore from your shoes, do not pop it. Apply a bandage and wear a different pair of shoes. Take Care of Your Toenails Cut toenails after bathing, when they are soft. Cut toenails straight across and smooth with a nail file. Avoid cutting into the corners of toes. Do not cut cuticles. If you have neuropathy (or decreased sensation in your feet) a training technician should always cut your toenails. Be Careful When Exercising Walk and exercise in comfortable shoes. Do not exercise when you have open sores on your feet. Protect Your Feet With Shoes and Socks Never go barefoot. Always protect your feet by wearing shoes or hard-soled slippers or footwear. Avoid shoes with high heels and pointed toes. Avoid shoes that expose your toes or heels (such as open-toed shoes or sandals). These types of shoes increase your risk for injury and potential infections. Try on new footwear with the type of socks you usually wear. Do not wear new shoes for more than an hour at a time. Change your socks daily. Look and feel inside your shoes before putting them on to make sure there are no foreign objects or rough areas. Avoid tight socks. Wear natural-fiber socks (cotton, wool, or a cotton-wool blend). Wear special shoes if your health care provider recommends them. Wear shoes/boots that will protect your feet from various weather conditions (cold, moisture, etc.). Make sure your shoes fit properly. If you have neuropathy (nerve damage), you may not notice that your shoes are too tight. Perform the footwear test described below. Footwear Test Use this simple test to see if your shoes fit correctly: Stand on a piece of paper. (Make sure you are standing and not sitting, because your foot changes shape when you stand.) Trace the outline of your foot. Trace the outline of your shoe. Compare the tracings: Is the shoe too narrow? Is your foot crammed into the shoe? The shoe should be at least 1/2 inch longer than your longest toe and as wide as your foot. Proper Shoe Choices The following types of shoes are best for people with diabetes Closed toes and heels Leather uppers without a seam inside At least 1/2 inch extra space at the end of your longest toe Inside of shoe should be soft with no rough areas Outer sole should be made of stiff material Shoes should be at least as wide as your feet Tips for Foot Care in Diabetes Don't wait to treat a minor foot problem if you have diabetes. Follow your health care provider's guidelines and first aid guidelines. Report foot injuries and infections to your health care provider immediately. Check water temperature with your elbow, not your foot. Do not use a heating pad on your feet. Do not cross your legs. Do not self-treat your corns, calluses, or other foot problems. Go to your health care provider or training technician to treat these conditions. documented in this encounter [facility] 03-25-2022 History of Presen t illness Narrative CC: Patient presents with: Recheck: 3 month follow up HPI Matilda Magdaleno is a 61 year old female who presents today for routine follow up on chronic conditions. Paroxysmal A-fib, HTN and HLD: Ms. Magdaleno indicates that she is feeling well and denies any symptoms referable to elevated blood pressure. Specifically denies headache, chest pain, dyspnea, and peripheral edema. Patient denies any side effects of her medication(s) and is compliant with their regimen. She does not check BP's generally. Matilda denies regular aerobic exercise. She watches her diet for sodium, low fat and low cholesterol most of the time. Last 3 Encounter BP Readings: Date: BP: 03/25/2022 128/78 12/30/2021 128/80 12/10/2021 122/78 Has noticed she feels like her heart rate is increased at times recently and has an appointment scheduled with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 History Tobacco Use Smoking status: Never Smoker Smokeless tobacco: Never Used Substance Use Topics Alcohol use: No Drug use: No PHYSICAL EXAM BP 122/78 Pulse 68 Resp 16 Wt 115.2 kg (254 lb) BMI 41.00 kg/m General Appearance: well appearing, in no acute distress, alert Skin: Skin color, texture, turgor normal for age; Eyes: conjunctiva pink and moist, no icterus, sclera white, non-injected Lungs: Lungs clear to auscultation. No wheezing, rhonchi, rales. Heart: RRR without murmur, gallop, or rubs. No ectopy BUE Extremities: No deformities, edema, skin discoloration, clubbing or cyanosis. Good capillary refill. Health maintenance reviewed with patient: PNEUMOCOCCAL(2 - PCV) due on 10/18/2016 MAMMOGRAM due on 07/30/2021 DTAP,TDAP,TD(1 - Tdap) due on 06/30/2022 SHINGRIX VACCINE(1 of 2) due on 08/18/2022 COVID-19 VACCINE(4 - Booster for Pfizer series) due on 08/18/2022 HBA1C due on 02/15/2022 URINE ALBUMIN:CREATININE RATIO due on 05/28/2022 DILATED RETINAL EXAM due on 06/15/2022 LDL CHOLESTEROL due on 08/18/2022 DIABETIC FOOT EXAM due on 08/18/2022 ANNUAL PCP TEAM CHRONIC DISEASE VISIT due on 08/18/2022 BP CONTROLLED (<130/80) due on 08/18/2022 COLORECTAL CANCER SCREENING due on 01/23/2028 INFLUENZA Completed HEPATITIS C SCREENING Completed PAP TESTING Discontinued HPV TESTING Discontinued HIV SCREENING Discontinued DATA REVIEWED: No new labs ASSESSMENT/PLAN: 1. Diabetes mellitus type 2 in obese (HCC) - ICD9: 250.00, 278.00, ICD10: E11.69, E66.9 (primary diagnosis) Control unknown - Blood glucose monitoring on a once a day schedule - Encouraged regular aerobic exercise and weight loss - BP goal of <130/80 - LDL goal of <100 - HGB A1C - COMP METABOLIC PANEL - BLOOD-GLUCOSE METER KIT - follow up in 3 months 2. Hyperlipidemia with target LDL less than 70 - ICD9: 272.4, ICD10: E78.5 - to be determined upon return of lab results - Continue current medication. - Encouraged following a low fat, low cholesterol diet. - Discussed the benefits of regular aerobic exercise and weight loss. - COMP METABOLIC PANEL - LIPID PANEL BASIC 3. Chronic atrial fibrillation (HCC) - ICD9: 427.31, ICD10: I48.20 - stable, apical regular rhythm during exam. - continue current medications as directed by cardiology - Go to ER for chest pain, shortness of breath, palpitations, r any other urgent concerns. 4. ASHD (arteriosclerotic heart disease) - ICD9: 414.00, ICD10: I25.10 - stable - continue current medications as directed by cardiology - Go to ER for chest pain, shortness of breath, palpitations, r any other urgent concerns Prescription instructions reviewed with patient as applicable. Potential red flag symptoms discussed with the patient. Reviewed appropriate action plan to take if red flag symptoms occur. Patient agreeable to treatment plan. Konrad Chaudhry APRN.CNP documented in this encounter [facility] documented as of this encounter (statuses as of 12/10/2021) [facility]03-17-2020 History of Past illness Narrative* Problem Noted Date Resolved Date Open wound of toe 10/01/2019 05/28/2021 Pain in left foot 10/01/2019 05/28/2021 Periumbilical pain 01/01/2018 05/28/2021 Overview: Added automatically from request for surgery [id number] Inguinal pain, lower right quadrant 05/14/2013 11/27/2013 documented as of this encounter (statuses as of 12/30/2021) [facility]2020 History of Past illness Narrative* Problem Noted Date Resolved Date Open wound of toe 10/01/2019 05/28/2021 Pain in left foot 10/01/2019 05/28/2021 Periumbilical pain 01/01/2018 05/28/2021 Overview: Added automatically from request for surgery [id number] Inguinal pain, lower right quadrant 05/14/2013 11/27/2013 documented as of this encounter (statuses as of 01/06/2022) [address]17-2020 History of Past illness Narrative* Problem Noted Date Resolved Date Open wound of toe 10/01/2019 05/28/2021 Pain in left foot 10/01/2019 05/28/2021 Periumbilical pain 01/01/2018 05/28/2021 Overview: Added automatically from request for surgery [id number] Inguinal pain, lower right quadrant 05/14/2013 11/27/2013 documented as of this encounter (statuses as of 03/25/2022) [place] [id number] History of Past illness Narrative* Problem Noted Date Resolved Date Open wound of toe 10/01/2019 05/28/2021 Pain in left foot 10/01/2019 05/28/2021 Periumbilical pain 01/01/2018 05/28/2021 Overview: Added automatically from request for surgery [id number] Inguinal pain, lower right quadrant 05/14/2013 11/27/2013 documented as of this encounter (statuses as of 05/11/2022) [address]17-2020 History of Past illness Narrative* Problem Noted Date Resolved Date Open wound of toe 10/01/2019 05/28/2021 Pain in left foot 10/01/2019 05/28/2021 Periumbilical pain 01/01/2018 05/28/2021 Overview: Added automatically from request for surgery [id number] Inguinal pain, lower right quadrant 05/14/2013 11/27/2013 documented as of this encounter (statuses as of 05/18/2022) [facility] History of Past illness Narrative* Problem Noted Date Resolved Date Open wound of toe 10/01/2019 05/28/2021 Pain in left foot 10/01/2019 05/28/2021 Periumbilical pain 01/01/2018 05/28/2021 Overview: Added automatically from request for surgery [id number] Inguinal pain, lower right quadrant 05/14/2013 11/27/2013 documented as of this encounter (statuses as of 07/20/2022) [facility] History of Past illness Narrative* Problem Noted Date Resolved Date Open wound of toe 10/01/2019 05/28/2021 Pain in left foot 10/01/2019 05/28/2021 Periumbilical pain 01/01/2018 05/28/2021 Overview: Added automatically from request for surgery [id number] Inguinal pain, lower right quadrant 05/14/2013 11/27/2013 documented as of this encounter (statuses as of 07/28/2022) [facility] History of Past illness Narrative* Problem Noted Date Resolved Date Open wound of toe 10/01/2019 05/28/2021 Pain in left foot 10/01/2019 05/28/2021 Periumbilical pain 01/01/2018 05/28/2021 Overview: Added automatically from request for surgery [id number] Inguinal pain, lower right quadrant 05/14/2013 11/27/2013 documented as of this encounter (statuses as of 08/12/2022) [facility] History of Past illness Narrative* Problem Noted Date Resolved Date Open wound of toe 10/01/2019 05/28/2021 Pain in left foot 10/01/2019 05/28/2021 Periumbilical pain 01/01/2018 05/28/2021 Overview: Added automatically from request for surgery [id number] Inguinal pain, lower right quadrant 05/14/2013 11/27/2013 documented as of this encounter (statuses as of 09/12/2022) [facility] History of Past illness Narrative* Problem Noted Date Resolved Date Open wound of toe 10/01/2019 05/28/2021 Pain in left foot 10/01/2019 05/28/2021 Periumbilical pain 01/01/2018 05/28/2021 Overview: Added automatically from request for surgery [id number] Inguinal pain, lower right quadrant 05/14/2013 11/27/2013 documented as of this encounter (statuses as of 09/23/2022) [facility] History of Past illness Narrative* Problem Noted Date Resolved Date Open wound of toe 10/01/2019 05/28/2021 Pain in left foot 10/01/2019 05/28/2021 Periumbilical pain 01/01/2018 05/28/2021 Overview: Added automatically from request for surgery [id number] Inguinal pain, lower right quadrant 05/14/2013 11/27/2013 documented as of this encounter (statuses as of 09/27/2022) [facility] History of Past illness Narrative* Problem Noted Date Resolved Date Open wound of toe 10/01/2019 05/28/2021 Pain in left foot 10/01/2019 05/28/2021 Periumbilical pain 01/01/2018 05/28/2021 Overview: Added automatically from request for surgery [id number] Inguinal pain, lower right quadrant 05/14/2013 11/27/2013 documented as of this encounter (statuses as of 10/11/2022) [facility] History of Past illness Narrative* Problem Noted Date Resolved Date Open wound of toe 10/01/2019 05/28/2021 Pain in left foot 10/01/2019 05/28/2021 Periumbilical pain 01/01/2018 05/28/2021 Overview: Added automatically from request for surgery [id number] Inguinal pain, lower right quadrant 05/14/2013 11/27/2013 documented as of this encounter (statuses as of 10/27/2022) [facility] History of Past illness Narrative* Problem Noted Date Resolved Date Open wound of toe 10/01/2019 05/28/2021 Pain in left foot 10/01/2019 05/28/2021 Periumbilical pain 01/01/2018 05/28/2021 Overview: Added automatically from request for surgery [id number] Inguinal pain, lower right quadrant 05/14/2013 11/27/2013 documented as of this encounter (statuses as of 01/20/2023) [facility]2020 History of Past illness Narrative* Problem Noted Date Diagnosed Date Resolved Date Open wound of toe 10/01/2019 05/28/2021 Pain in left foot 10/01/2019 05/28/2021 Periumbilical pain 01/01/2018 Overview: Added automatically from request for surgery [id number] Inguinal pain, lower right quadrant 05/14/2013 11/27/2013 documented as of this encounter (statuses as of 01/23/2023) [facility] History of Past illness Narrative* Problem Noted Date Diagnosed Date Resolved Date Open wound of toe 10/01/2019 05/28/2021 Pain in left foot 10/01/2019 05/28/2021 Periumbilical pain 01/01/2018 Overview: Added automatically from request for surgery [id number] Inguinal pain, lower right quadrant 05/14/2013 11/27/2013 documented as of this encounter (statuses as of 04/14/2023) [facility]2020 History of Past illness Narrative* Problem Noted Date Diagnosed Date Resolved Date Open wound of toe 10/01/2019 05/28/2021 Pain in left foot 10/01/2019 05/28/2021 Periumbilical pain 01/01/2018 Overview: Added automatically from request for surgery [id number] Inguinal pain, lower right quadrant 05/14/2013 11/27/2013 documented as of this encounter (statuses as of 05/09/2023) [facility] History of Past illness Narrative* Problem Noted Date Diagnosed Date Resolved Date Open wound of toe 10/01/2019 05/28/2021 Pain in left foot 10/01/2019 05/28/2021 Periumbilical pain 01/01/2018 Overview: Added automatically from request for surgery [id number] Inguinal pain, lower right quadrant 05/14/2013 11/27/2013 documented as of this encounter (statuses as of 06/01/2023) [facility] Diagnosis Diabetes mellitus type 2 in obese (HCC)- Primary Type II or unspecified type diabetes mellitus without mention of complication, not stated as uncontrolled Hyperlipidemia with target LDL less than 70 Other and unspecified hyperlipidemia Chronic atrial fibrillation ([facility]) Atrial fibrillation ASHD (arteriosclerotic heart disease) Coronary atherosclerosis of unspecified type of vessel, [place] or graft [facility] Diagnosis Bilateral lower extremity edema- Primary Edema Acute bilateral low back pain without sciatica Chest wall tenderness Painful respiration [facility] Diagnosis Onychomycosis- Primary Dermatophytosis of nail Pain in toe of left foot Pain in limb Pain in toe of right foot Pain in limb Diabetes mellitus type 2 in obese (HCC) Type II or unspecified type diabetes mellitus without mention of complication, not stated as uncontrolled Ingrowing toenail of left foot Ingrowing nail [facility] Diagnosis Essential hypertension- Primary Unspecified essential hypertension Diabetes mellitus type 2 in obese (HCC) Type II or unspecified type diabetes mellitus without mention of complication, not stated as uncontrolled Chronic atrial fibrillation (HCC) Atrial fibrillation Depression, unspecified depression type Gastroesophageal reflux disease, unspecified whether esophagitis present Hyperlipidemia with target LDL less than 70 Other and unspecified hyperlipidemia [facility] Diagnosis Onychomycosis- Primary Dermatophytosis of nail Pain in toe of left foot Pain in limb Pain in toe of right foot Pain in limb Diabetes mellitus type 2 in obese (HCC) Type II or unspecified type diabetes mellitus without mention of complication, not stated as uncontrolled [facility] Diagnosis Palpitations- Primary Increased urinary frequency Urinary frequency Essential hypertension Unspecified essential hypertension Marital problem Counseling for marital and partner problems, unspecified Diabetes mellitus type 2 in obese (HCC) Type II or unspecified type diabetes mellitus without mention of complication, not stated as uncontrolled [facility] Diagnosis Depression, unspecified depression type- Primary Increased urinary frequency Urinary frequency Feeling tired Other malaise and fatigue Essential hypertension Unspecified essential hypertension [facility] Diagnosis Onychomycosis- Primary Dermatophytosis of nail Pain in toe of left foot Pain in limb Pain in toe of right foot Pain in limb Diabetes mellitus type 2 in obese (HCC) Type II or unspecified type diabetes mellitus without mention of complication, not stated as uncontrolled Pes planus of left foot [facility] Diagnosis Other cough- Primary Sore throat Acute pharyngitis Vomiting without nausea, unspecified vomiting type Diarrhea, unspecified type Chills Chills (without fever) [facility] Diagnosis Other nonsuppurative otitis media of left ear, unspecified chronicity- Primary [facility] Diagnosis Diabetes mellitus type 2 in obese (HCC)- Primary Type II or unspecified type diabetes mellitus without mention of complication, not stated as uncontrolled Lower abdominal pain Abdominal pain, other specified site Essential hypertension Unspecified essential hypertension Hyperlipidemia with target LDL less than 70 Other and unspecified hyperlipidemia Chronic atrial fibrillation (HCC) Atrial fibrillation [facility] Diagnosis Onychomycosis- Primary Dermatophytosis of nail Body mass index (BMI) 40.0-44.9, adult (HCC) Pain in toe of left foot Pain in limb Pain in toe of right foot Pain in limb Diabetes mellitus type 2 in obese (HCC) Type II or unspecified type diabetes mellitus without mention of complication, not stated as uncontrolled [facility] Diagnosis Diabetes mellitus type 2 in obese (HCC) Type II or unspecified type diabetes mellitus without mention of complication, not stated as uncontrolled Encounter for screening mammogram for breast cancer [facility] Diagnosis Diabetes mellitus type 2 in obese (HCC) Type II or unspecified type diabetes mellitus without mention of complication, not stated as uncontrolled Hyperlipidemia with target LDL less than 70 Other and unspecified hyperlipidemia [facility] Diagnosis Essential hypertension- Primary Unspecified essential hypertension Hyperlipidemia with target LDL less than 70 Other and unspecified hyperlipidemia Chronic atrial fibrillation (HCC) Atrial fibrillation Diabetes mellitus type 2 in obese (HCC) Type II or unspecified type diabetes mellitus without mention of complication, not stated as uncontrolled Encounter for immunization Need for other specified prophylactic vaccination against single bacterial disease [facility] Diagnosis Essential hypertension- Primary Unspecified essential hypertension Hyperlipidemia with target LDL less than 70 Other and unspecified hyperlipidemia Acute non-recurrent frontal sinusitis Diabetes mellitus type 2 in obese (HCC) Type II or unspecified type diabetes mellitus without mention of complication, not stated as uncontrolled documented in this encounter [facility] for referral (narrative)* Outpatient Procedure (Routine) - Pending Review Specialty Diagnoses / Procedures Referred By Tg camacho Referred To [facility] Diagnoses Essential hypertension Palpitations Procedures ECG COMPLETE ECG ROUTINE ECG W/LEAST 12 LDS W/I&R Konrad Chaudhry APRN.CNP [address] [place] [address] [facility] [place] [address] [place] [id number] Referral ID Status Reason Start Date Expiration Date Visits Requested Visits Authorized [id number] Pending Review Auto-Generat ed Referral 2 07/14/2023 1 1 [facility] for referral (narrative)* Diagnostic Procedure Only (Routine) - Pending Review Specialty Diagnoses / Procedures Referred By Tg t Referred To Contact [facility] Diagnoses Encounter for screening mammogram for breast cancer Procedures BISHOP SCREENING SCREENING MAMMOGRAPHY BI 2-VIEW BREAST INC Addis Ordonez MD [address] [place] [address] [facility] [address] [place] [address] Referral ID Status Reason Start Date Expiration Date Visits Requested Visits Authorized [id number] Pending Review Auto-Generat ed Referral 01/18/2023 02/17/2024 1 1 [facility] Summary Purpose Family History No Family History Records FoundNo Family History Records FoundNo Family History Records FoundNo Family History Records FoundNo Family History Records Found Advance Directives No Advanced Directives Records FoundDocuments on File 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 Advance Directive(s) 01/22/2018 10:07 AM Additional Source Comments INFORMATION SOURCE (unrecogn ized section and content) DATE CREATED AUTHOR AUTHOR'S ORGANIZ ATION 01/04/2018 [facility] DATE CREATED AUTHOR AUTHOR'S ORGANIZ ATION 01/09/2018 [facility] DATE CREATED AUTHOR AUTHOR'S ORGANIZ ATION 11/27/2020 [facility] DATE CREATED AUTHOR AUTHOR'S ORGANIZ ATION 07/31/2023 [facility] Source Comments (unrecognize d section and content) In the event this informatio n is protected by the Federal Confidentiality of Alcohol and Drug Abuse Patient Records regulations: The Federal rules restrict any use of the information to criminally investigate or prosecute any alcohol or drug abuse patient.[facility] the event this information is protected by the Federal Confidentiality of Alcohol and Drug Abuse Patient Records regulations: The Federal rules restrict any use of the information to criminally investigate or prosecute any alcohol or drug abuse patient.[facility] the event this information is protected by the Federal Confidentiality of Alcohol and Drug Abuse Patient Records regulations: The Federal rules restrict any use of the information to criminally investigate or prosecute any alcohol or drug abuse patient.[facility] the event this information is protected by the Federal Confidentiality of Alcohol and Drug Abuse Patient Records regulations: The Federal rules restrict any use of the information to criminally investigate or prosecute any alcohol or drug abuse patient.[facility] the event this information is protected by the Federal Confidentiality of Alcohol and Drug Abuse Patient Records regulations: The Federal rules restrict any use of the information to criminally investigate or prosecute any alcohol or drug abuse patient.[facility] the event this information is protected by the Federal Confidentiality of Alcohol and Drug Abuse Patient Records regulations: The Federal rules restrict any use of the information to criminally investigate or prosecute any alcohol or drug abuse patient.[facility] the event this information is protected by the Federal Confidentiality of Alcohol and Drug Abuse Patient Records regulations: The Federal rules restrict any use of the information to criminally investigate or prosecute any alcohol or drug abuse patient.[facility] the event this information is protected by the Federal Confidentiality of Alcohol and Drug Abuse Patient Records regulations: The Federal rules restrict any use of the information to criminally investigate or prosecute any alcohol or drug abuse patient.[facility] HospitalIn the event this information is protected by the Federal Confidentiality of Alcohol and Drug Abuse Patient Records regulations: The Federal rules restrict any use of the information to criminally investigate or prosecute any alcohol or drug abuse patient.[facility] HospitalIn the event this information is protected by the Federal Confidentiality of Alcohol and Drug Abuse Patient Records regulations: The Federal rules restrict any use of the information to criminally investigate or prosecute any alcohol or drug abuse patient.[facility] HospitalIn the event this information is protected by the Federal Confidentiality of Alcohol and Drug Abuse Patient Records regulations: The Federal rules restrict any use of the information to criminally investigate or prosecute any alcohol or drug abuse patient.[facility] HospitalIn the event this information is protected by the Federal Confidentiality of Alcohol and Drug Abuse Patient Records regulations: The Federal rules restrict any use of the information to criminally investigate or prosecute any alcohol or drug abuse patient.[facility] HospitalIn the event this information is protected by the Federal Confidentiality of Alcohol and Drug Abuse Patient Records regulations: The Federal rules restrict any use of the information to criminally investigate or prosecute any alcohol or drug abuse patient.[facility] HospitalIn the event this information is protected by the Federal Confidentiality of Alcohol and Drug Abuse Patient Records regulations: The Federal rules restrict any use of the information to criminally investigate or prosecute any alcohol or drug abuse patient.[facility] HospitalIn the event this information is protected by the Federal Confidentiality of Alcohol and Drug Abuse Patient Records regulations: The Federal rules restrict any use of the information to criminally investigate or prosecute any alcohol or drug abuse patient.[facility] HospitalIn the event this information is protected by the Federal Confidentiality of Alcohol and Drug Abuse Patient Records regulations: The Federal rules restrict any use of the information to criminally investigate or prosecute any alcohol or drug abuse patient.[facility] HospitalIn the event this information is protected by the Federal Confidentiality of Alcohol and Drug Abuse Patient Records regulations: The Federal rules restrict any use of the information to criminally investigate or prosecute any alcohol or drug abuse patient.[facility] HospitalIn the event this information is protected by the Federal Confidentiality of Alcohol and Drug Abuse Patient Records regulations: The Federal rules restrict any use of the information to criminally investigate or prosecute any alcohol or drug abuse patient.[facility] HospitalIn the event this information is protected by the [facility] Confidentiality of Alcohol and Drug Abuse Patient Records regulations: The Federal rules restrict any use of the information to criminally investigate or prosecute any alcohol or drug abuse patient.[facility] HospitalIn the event this information is protected by the Federal Confidentiality of Alcohol and Drug Abuse Patient Records regulations: The Federal rules restrict any use of the information to criminally investigate or prosecute any alcohol or drug abuse patient.[facility] Reason for Visit (unrecogniz ed section and content) Specialty Diagnoses / Procedures Referred By Contac t Referred To Contact Internal Medicine / INTERNAL MEDICINE Diagnoses Follow-up examination 3 month follow up Procedures OFFICE/OUTPATIENT ESTABLISHED MOD MDM 30-39 MIN 4C Konrad Rea APRN.HIREN [address] [place] [address] Addis Gillette MD [address] [place] [address] Referral ID Status Reason Start Date Expiration Date V isits Requested Visits Authorized [id number] Closed Financial Clearance Required - OON Payor Patient Cleared INN/SMCP Payor Auth Obtained 11/15/2021 07/16/2022 1 1 Reason Comments Edema B/L leg swelling Specialty Diagnoses / Procedures Referred By Tg t Referred To Contact Internal Medicine / INTERNAL MEDICINE Diagnoses Leg edema--see Triage note Procedures 4C EST Self Older, Konrad, [employer] IN[employer].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 [address] [place] [address] Referral ID Status Reason Start Date Expiration Date Visits Re quested Visits Authorized [id number] Closed 12/30/2021 07/16/2022 1 1 Reason Comments Established Patient Diabetic Foot Care Reason Comments Opened In Error Reason Onset Date Comments Population Health Navigation Outreach 05/18/2022 [facility] CARE GAPS Reason Comments Recheck 3 month follow up Reason Comments Recheck 2 week follow up Reason Comments Results Reason Comments Diabetic Foot Care Established Patient Follow Up Reason Comments ED Follow-up since last : sore throat,runny nose,coughing,chillsSeen in [facility] ER- negative for covid Reason Comments Patient Update Reason Comments Patient Update Medication Request Reason Comments Recheck 3 month follow up Reason Comments Established Patient Follow Up Diabetic Foot Care Reason Comments Recheck 6 month follow up Reason Comments Medicare Wellness Exam Care Teams (unrecognized sec tion and content) Transmission Engineer Relationship Specialty Start Date End Date Addis Gillette MD [address] [place] [address] PCP - General Internal Medicine 04/24/13 Transmission Engineer Relationship Specialty Start Date End Date Addis Gillette MD [address] [place] [address] PCP - General Internal Medicine 04/24/13 Transmission Engineer Relationship Specialty Start Date End Date Addis Gillette MD [address] [place] [address] PCP - General Internal Medicine 04/24/13 Transmission Engineer Relationship Specialty Start Date End Date Addis Gillette MD [address] [place] [address] PCP - General Internal Medicine 04/24/13 Transmission Engineer Relationship Specialty Start Date End Date Addis Gillette MD [address] [place] [address] PCP - General Internal Medicine 04/24/13 Transmission Engineer Relationship Specialty Start Date End Date Addis Gillette MD [address] [place] [address] PCP - General Internal Medicine 04/24/13 Transmission Engineer Relationship Specialty Start Date End Date Addis Gillette MD [address] [place] [address] PCP - General Internal Medicine 04/24/13 Transmission Engineer Relationship Specialty Start Date End Date Addis Gillette MD [address] [place] [address] PCP - General Internal Medicine 04/24/13 Transmission Engineer Relationship Specialty Start Date End Date Addis Gillette MD [address] [place] [address] PCP - General Internal Medicine 04/24/13 Transmission Engineer Relationship Specialty Start Date End Date Addis Gillette MD [address] [place] [address] PCP - General Internal Medicine 04/24/13 Transmission Engineer Relationship Specialty Start Date End Date Addis Gillette MD [address] [place] [address] PCP - General Internal Medicine 04/24/13 Transmission Engineer Relationship Specialty Start Date End Date Addis Gillette MD [address] [place] [address] PCP - General Internal Medicine 04/24/13 FOR RECORDS PERTAINING TO PATIENTS WHO ARE OR HAVE BEEN ENROLLED IN A CHEMICAL DEPENDENCY/SUBSTANCEABUSE PROGRAM, SOME INFORMATION MAY BE OMITTED. This clinical summary was aggregated from multiple sources. Caution should be exercised in using it in the provision of clinical care. This summary normalizes information from multiple sources, and as a consequence, information in this document may materially change the coding, format and clinical context of patient data. In addition, data may be omitted in some cases. CLINICAL DECISIONS SHOULD BE BASED ON THE PRIMARY CLINICAL RECORDS. [email or web address] provides no warranty or guarantee of the accuracy or completeness of information in this document.
[2023-08-10 16:28] VITALS: BP 141/75; PULSE 84; RESP 16; O2SAT 98
[2023-08-10 17:07] LABS: Reflex Troponin-HS? (from REC) Y
[2023-08-10 17:50] LABS: Troponin-I HS 58 pg/mL (3.0-54.0)
--- NOTE | 2023-08-10 20:43 | PCM.HP.STD ---
HPI - General General Date of Admission: 08/10/23 Date of Service: 08/10/23 Chief Complaint: Chest pain. HPI Narrative The patient is a 62 y/o F w/ PMHx: Morbid obesity, CAD, HFpEF, PAF, RYAN, Diabetes mellitus type II, Depression and Anxiety who presents to the [facility] ED on 08/10/23 with history of midsternal chest discomfort noted to be intermittent over the last several days/approximately 1 week occurring even at rest described as an aching in the substernal left parasternal region with diaphoresis and dyspnea associated with no nausea or emesis prompting eventual ED evaluation. She notes at its worst, which was last evening she rated the discomfort 10/10; however, she did not come in as her does not drive at night. She did not notify her Cardiology office of her discomfort. She does report recent L breast infection and is on an abx for this and almost has completed the therapy. She notes upcoming mammogram and US in early August. Most recent cardiology visit 06/28/2023 with most recent cardiac cath reported 2020 with nonobstructive coronaries at that time aside from a small diagonal vessel of the LAD with an ostial 70% proximal lesion however it was felt too small to pursue any angioplasty with medical therapy recommended at that time. Patient did have admission 09/2021 secondary to chest discomfort with cardiology consult at that time with noted unremarkable EKGs and troponins minimally elevated in the 90s with recommended medical management with Imdur and Ranexa added to her medications at that time. Workup in the ED included T97.8, heart rate 69, BP initially 157/96 with repeat 141/75, respiratory rate 16, 98% on room air, CBC with WBC 9.2, hemoglobin 15.5, platelet 174 without marked shift, BMP with chloride 108, glucose 134, initial troponin 60 with repeat delta 58 with per review prior elevated troponins however most recently 09/19/2022 troponin 54, chest x-ray with no acute cardiopulmonary findings, EKG with sinus rhythm with no acute evidence of ischemia. In the ED patient ministered full-strength aspirin therapy. [facility] Medical History (Updated 08/10/23 @ 20:[address] Paulina Ludwig MD) Anomalous coronary artery origin Atherosclerotic heart disease grayling coronary artery w/angina pectoris Chronic anticoagulation Chronic diastolic CHF (congestive heart failure) Depression Essential (primary) hypertension History of lipoma History of non-ST elevation myocardial infarction (NSTEMI) (05/21/21) Hyperlipidemia Left bundle branch block (LBBB) (06/09/21) Morbid obesity Paroxysmal A-fib Sleep apnea Type 2 diabetes mellitus Home Medications nitroglycerin 0.4 mg sublingual tablet 0.4 mg sublingual Q5M PRN chest pain #25 tabs 08/24/20 [Rx Last Taken 05/19/21] aspirin 81 mg tablet,delayed release 81 mg PO DAILY #1 TAB 04/26/23 [Rx Last Taken Unknown] apixaban 5 mg tablet (Eliquis) 5 mg PO BID #60 tabs 06/28/23 [Rx Last Taken Unknown] atorvastatin 80 mg tablet mg PO 06/28/23 [History Last Taken Unknown] lisinopril 10 mg tablet 10 mg PO DAILY #30 tabs 06/28/23 [Rx Last Taken Unknown] amoxicillin 875 mg-potassium clavulanate 125 mg tablet 1 tab PO Q12H 08/10/23 [History Last Taken Unknown] Allergy/AdvReac Type Severity Reaction Status Date / Time potassium chloride AdvReac diarrhea Verified 08/10/23 14:43 Family History Grandmother Diabetes Breast cancer Sister Breast cancer Mother Heart disease Hypertension Surgical History H/O: hysterectomy History of left heart catheterization (05/24/21) History of tonsillectomy Social History household members: spouse housing: house number of children: 4 (adults) current occupational status: disabled Smoking Status: Never smoker alcohol intake: never ROS ROS Narrative Admission Review of Systems: CONSTITUTIONAL: No weight loss, fever, chills, + weakness or fatigue. HEENT: Eyes: No visual loss, blurred vision, double vision or yellow sclerae. Ears, Nose, Throat: No hearing loss, sneezing, congestion, runny nose or sore throat. SKIN: No rash or itching, lesions, wounds except + recent history L breast cellulitis, resolving as well as intertrigo. CARDIOVASCULAR: + Chest pain, mild chronic peripheral edema. No palpitations, edema, orthopnea, syncopal events. RESPIRATORY: + Shortness of breath. No cough or sputum, wheezing, hemoptysis. GASTROINTESTINAL: No anorexia, nausea, vomiting or diarrhea, abdominal pain, melena, BRBPR. GENITOURINARY: No dysuria, frequency, urgency or retention. NEUROLOGICAL: No headache, dizziness, syncope, paralysis, ataxia, numbness or tingling in the extremities, focal weakness, change in bowel or bladder control, seizure. MUSCULOSKELETAL: + muscle, back pain, joint pain or stiffness. HEMATOLOGIC: No anemia. + Easy bleeding/bruising. LYMPHATICS: No enlarged nodes. No history of splenectomy. PSYCHIATRIC: No history of depression or anxiety. ENDOCRINOLOGIC: + reports of sweating. No cold or heat intolerance. No polyuria or polydipsia. ALLERGIES: No history of asthma, hives, eczema or rhinitis. Vital Signs Vital Signs Vital Signs: 08/10/23 14:44 08/10/23 14:44 08/10/23 15:09 Temperature 97.8 F Temperature Source Temporal Pulse Rate 69 Respiratory Rate 18 Respiratory Effort Short of Breath Blood Pressure 157/96 H Blood Pressure Mean 116 Pulse Ox 95 95 Oxygen Delivery Method Room Air Room Air 08/10/23 16:28 Temperature Temperature Source Pulse Rate 84 Respiratory Rate 16 Respiratory Effort Blood Pressure 141/75 H Blood Pressure Mean 97 Pulse Ox 98 Oxygen Delivery Method Room Air Weight Weight: 272 lb 14.916 oz Body Mass Index (BMI) 40.3 Physical Exam Narrative Physical Examination: General: Awake, alert, oriented x 3 and cooperative, seated upright in the ED bed in no apparent distress, denies any current chest discomfort. Skin: Normal color, normal turgor, no icterus, no cyanosis except mild bilateral lower extremity venous stasis skin changes, occasional staged ecchymoses, recent complaint of left breast cellulitis with no obvious cellulitic change although she does report she is at the end of her antibiotic therapy, no palpable ballotable region. HEENT: AT/NC, EOMI, PERRLA, MMM, no carotid bruits or JVD noted; however, thickened neck makes evaluation difficult. Lungs: Diminished, greater bases, appropriate effort, distant given habitus, no rales, ronchi or wheezing. Heart: Regular rate and rhythm; no gallop, rub audible. Abdomen: Soft, morbidly obese, NTTP, mildly hyperactive BS, no obvious distention or HSM however habitus makes evaluation difficult. Extremities: No cyanosis, no clubbing, mild 1+ pitting peripheral distal chronic edema. Neurological: Patient awake, alert, oriented as noted, cognitive function intact; pupils equally reactive to light and accommodation, cranial nerves II-XII grossly normal, moving all 4 extremities, no focal deficits, strength mildly globally decreased, no current chest pain reported. Psychiatric: Affect appears fatigued otherwise normal, no acute evidence of depressive or anxiety feelings. Results Lab / Micro Data 08/10/23 15:02 08/10/23 15:02 Labs: Laboratory Results - last 24 hr 08/10/23 15:02: WBC 9.2, RBC 5.22, Hgb 15.5 H, Hct 49.0 H, MCV 93.9, MCH 29.7, MCHC 31.6 L, RDW Std Deviation 44.4 H, RDW Coeff of Shae 12.8, Plt Count 174, MPV 12.7 H, Immature Gran % (Auto) 0.200, Neut % (Auto) 62.0, Lymph % (Auto) 29.0, [place] % (Auto) 7.3, Eos % (Auto) 1.0, Baso % (Auto) 0.5, Absolute Neuts (auto) 5.7, Absolute Lymphs (auto) 2.67, Nucleated RBC % 0, Sodium 139, Potassium 4.1, Chloride 108 H, Carbon Dioxide 26.0, Anion Gap 5, BUN 13, Creatinine 0.82, Estim Creat Clear Calc 97.64, Est GFR (MDRD) Af Amer 91, Est GFR (MDRD) Non-Af 75, BUN/Creatinine Ratio 15.9, Glucose 134 H, Calcium 9.4, Troponin I High Sens 60 H 08/10/23 17:00: Troponin I High Sens 58 H Rhythm Strip Rhythm Strip: Sinus Rhythm Rate: 66 Ectopy: None Imagaing Radiology Impression Chest X-Ray 08/10/23 15:05 IMPRESSION: No acute abnormality is seen. Electronically Signed: Jerry Bunch MD at 15:38 EST , Assessment & Plan Assessment/Plan (1) Chest pain: PLAN: Plan The patient is a 62 y/o F w/ PMHx: Morbid obesity, CAD, HFpEF, PAF, RYAN, Diabetes mellitus type II, Depression and Anxiety who presents to the [facility] ED on 08/10/23 with history of midsternal chest discomfort noted to be intermittent over the last several days/approximately 1 week occurring even at rest described as an aching in the substernal left parasternal region with diaphoresis and dyspnea associated with no nausea or emesis prompting eventual ED evaluation. #1. Chest Pain: EKG in ED with sinus rhythm with no acute evidence of ischemia, CXR w/ no acute cardiopulmonary findings, initial trop 60 with repeat delta 58. Will admit to the PCU, place on a monitored bed to assure no acute myocardial infarction with serial cardiac enzymes and EKGs. If repeat serial cardiac enzymes remain similar and there is no EKG changes we will pursue a.m. cardiac stress testing. Magnesium level requested. FLP in AM. VANNESSA MERAZ. #2. CAD: Most recent cardiology visit 06/28/2023 with most recent cardiac cath reported 2020 with nonobstructive coronaries at that time aside from a small diagonal vessel of the LAD with an ostial 70% proximal lesion however it was felt too small to pursue any angioplasty with medical therapy recommended at that time. Patient did have admission 09/2021 secondary to chest discomfort with cardiology consult at that time with noted unremarkable EKGs and troponins minimally elevated in the 90s with recommended medical management with Imdur and Ranexa added to her medications at that time. Will continue aspirin, Eliquis, statin, lisinopril therapy, not on beta-litzy therapy. Clarifying if she is still on Imdur and Ranexa. #3. HFpEF: Most recent echocardiogram noted 05/22/2021 with normal LV systolic function, EF 55%, mild MVI, mild TVI, trivial PVI, RVSP 27 mmHg with no evidence of diastolic dysfunction at that time. For now as noted we will continue patient home aspirin, apixaban, statin therapy, lisinopril, not on beta-litzy with no allergy listed but clarifying to be cautious. #4. Diabetes mellitus type II: Noted chart history, not on any regimen but clarifying, glucose 134, most recent noted hemoglobin A1c remote 05/22/2021 6.5%, will repeat hemoglobin A1c and in the interim will maintain on ADA diet, accu checks w/ ISS. #5. PAF: We will continue patient home apixaban regimen, clarifying but does not appear to be on any rate or rhythm agents. #6. Depression and anxiety: Noted chart history, not on any chronic regimen currently but clarifying, encourage continued outpatient follow-up and assessment. #7. Hypertension: Continue home regimen including lisinopril, PRN hydralazine. #8. Hyperlipidemia: Continue home statin regimen. AM FLP. #9. Morbid Obesity: Weight loss and lifestyle changes encouraged. #10. Recent left breast infection, possibly cellulitis: She denies any overt abscess or drainage but from discussion suspect cellulitis, will continue antibiotic therapy once clarified, currently appears completely resolved on evaluation. Encouraged plan follow-up with PCP as well as upcoming early August mammogram and ultrasound. #11. Intertrigo: Will place patient on nystatin topical powder. #12. RYAN: CPAP nightly. #13. DVT prophylaxis: We will continue patient home apixaban regimen given enzymes near similar to what they had been most recently and not increasing however low threshold to hold. Charges/Coding Visit Charges Inpatient E&M: 63209 Init Hosp L2
[2023-08-10 21:01] VITALS: BP 188/97; PULSE 75; PULSE 81; RESP 16; RESP 22; O2SAT 96
--- OUTSIDE RECORDS SUMMARY | 2023-08-10 21:03 | XMS RPT_ITS | CCD ---
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 CC: Patient presents with: Recheck: 3 month follow up HPI Matilda Magdaleno is a 61 year old female who presents today for 3 month follow up. Was admitted to [facility] for chest pain October 11 with medication [...] was within the past 3 months by [facility] HTN: Ms. Magdaleno indicates that she [...] IF UNABLE, PLEASE REFER TO MARCELINO AT [facility]. DX: EDEMA CPAP Initiate CPAP @8 cm of water with humidification. Mask (per patient preference) optional chin strap (if indicated) , filters, tubing, humidifier and lifetime supplies. FAMILY HISTORY Problem Relation Age of Onset Heart disease Mother Heart Father 59 [place] No Known Problems Brother Breast Cancer Sister [...] Konrad Chaudhry APRN.CNP documented in this encounter [facility] documented as of this encounter (statuses as of 12/10/2021) [facility] History of Past illness Narrative* Problem Noted Date Resolved Date Open wound of toe 10/01/2019 05/28/2021 Pain in left foot 10/01/2019 05/28/2021 Periumbilical pain 01/01/2018 05/28/2021 Overview: Added automatically from request for surgery [id number] Inguinal pain, lower right quadrant 05/14/2013 11/27/2013 documented as of this encounter (statuses as of 12/30/2021) [facility] History of Past illness Narrative* Problem Noted Date Resolved Date Open wound of toe 10/01/2019 05/28/2021 Pain in left foot 10/01/2019 05/28/2021 Periumbilical pain 01/01/2018 05/28/2021 Overview: Added automatically from request for surgery [id number] Inguinal pain, lower right quadrant 05/14/2013 11/27/2013 documented as of this encounter (statuses as of 01/06/2022) [address]17-2020 History of Past illness Narrative* Problem Noted Date Resolved Date Open wound of toe 10/01/2019 05/28/2021 Pain in left foot 10/01/2019 05/28/2021 Periumbilical pain 01/01/2018 05/28/2021 Overview: Added automatically from request for surgery [id number] Inguinal pain, lower right quadrant 05/14/2013 11/27/2013 documented as of this encounter (statuses as of 03/25/2022) [place] [address]17-2020 History of Past illness Narrative* Problem Noted Date Resolved Date Open wound of toe 10/01/2019 05/28/2021 Pain in left foot 10/01/2019 05/28/2021 Periumbilical pain 01/01/2018 05/28/2021 Overview: Added automatically from request for surgery [id number] Inguinal pain, lower right quadrant 05/14/2013 11/27/2013 documented as of this encounter (statuses as of 05/11/2022) [address]17-2020 History of Past illness Narrative* Problem Noted Date Resolved Date Open wound of toe 10/01/2019 05/28/2021 Pain in left foot 10/01/2019 05/28/2021 Periumbilical pain 01/01/2018 05/28/2021 Overview: Added automatically from request for surgery [id number] Inguinal pain, lower right quadrant 05/14/2013 11/27/2013 documented as of this encounter (statuses as of 05/18/2022) [facility] History of Past illness Narrative* Problem Noted Date Resolved Date Open wound of toe 10/01/2019 05/28/2021 Pain in left foot 10/01/2019 05/28/2021 Periumbilical pain 01/01/2018 05/28/2021 Overview: Added automatically from request for surgery [id number] Inguinal pain, lower right quadrant 05/14/2013 11/27/2013 documented as of this encounter (statuses as of 07/20/2022) [facility] History of Past illness Narrative* Problem Noted Date Resolved Date Open wound of toe 10/01/2019 05/28/2021 Pain in left foot 10/01/2019 05/28/2021 Periumbilical pain 01/01/2018 05/28/2021 Overview: Added automatically from request for surgery [id number] Inguinal pain, lower right quadrant 05/14/2013 11/27/2013 documented as of this encounter (statuses as of 07/28/2022) [facility] History of Past illness Narrative* Problem Noted Date Resolved Date Open wound of toe 10/01/2019 05/28/2021 Pain in left foot 10/01/2019 05/28/2021 Periumbilical pain 01/01/2018 05/28/2021 Overview: Added automatically from request for surgery [id number] Inguinal pain, lower right quadrant 05/14/2013 11/27/2013 documented as of this encounter (statuses as of 08/12/2022) [facility] History of Past illness Narrative* Problem Noted Date Resolved Date Open wound of toe 10/01/2019 05/28/2021 Pain in left foot 10/01/2019 05/28/2021 Periumbilical pain 01/01/2018 05/28/2021 Overview: Added automatically from request for surgery [id number] Inguinal pain, lower right quadrant 05/14/2013 11/27/2013 documented as of this encounter (statuses as of 09/12/2022) [facility] History of Past illness Narrative* Problem Noted Date Resolved Date Open wound of toe 10/01/2019 05/28/2021 Pain in left foot 10/01/2019 05/28/2021 Periumbilical pain 01/01/2018 05/28/2021 Overview: Added automatically from request for surgery [id number] Inguinal pain, lower right quadrant 05/14/2013 11/27/2013 documented as of this encounter (statuses as of 09/23/2022) [facility] History of Past illness Narrative* Problem Noted Date Resolved Date Open wound of toe 10/01/2019 05/28/2021 Pain in left foot 10/01/2019 05/28/2021 Periumbilical pain 01/01/2018 05/28/2021 Overview: Added automatically from request for surgery [id number] Inguinal pain, lower right quadrant 05/14/2013 11/27/2013 documented as of this encounter (statuses as of 09/27/2022) [facility] History of Past illness Narrative* Problem Noted Date Resolved Date Open wound of toe 10/01/2019 05/28/2021 Pain in left foot 10/01/2019 05/28/2021 Periumbilical pain 01/01/2018 05/28/2021 Overview: Added automatically from request for surgery [id number] Inguinal pain, lower right quadrant 05/14/2013 11/27/2013 documented as of this encounter (statuses as of 10/11/2022) [facility] History of Past illness Narrative* Problem Noted Date Resolved Date Open wound of toe 10/01/2019 05/28/2021 Pain in left foot 10/01/2019 05/28/2021 Periumbilical pain 01/01/2018 05/28/2021 Overview: Added automatically from request for surgery [id number] Inguinal pain, lower right quadrant 05/14/2013 11/27/2013 documented as of this encounter (statuses as of 10/27/2022) [facility] History of Past illness Narrative* Problem Noted Date Resolved Date Open wound of toe 10/01/2019 05/28/2021 Pain in left foot 10/01/2019 05/28/2021 Periumbilical pain 01/01/2018 05/28/2021 Overview: Added automatically from request for surgery [id number] Inguinal pain, lower right quadrant 05/14/2013 11/27/2013 documented as of this encounter (statuses as of 01/20/2023) [facility] History of Past illness Narrative* Problem Noted Date Diagnosed Date Resolved Date Open wound of toe 10/01/2019 05/28/2021 Pain in left foot 10/01/2019 05/28/2021 Periumbilical pain 01/01/2018 Overview: Added automatically from request for surgery [id number] Inguinal pain, lower right quadrant 05/14/2013 11/27/2013 documented as of this encounter (statuses as of 01/23/2023) [facility] History of Past illness Narrative* Problem Noted Date Diagnosed Date Resolved Date Open wound of toe 10/01/2019 05/28/2021 Pain in left foot 10/01/2019 05/28/2021 Periumbilical pain 01/01/2018 Overview: Added automatically from request for surgery [id number] Inguinal pain, lower right quadrant 05/14/2013 11/27/2013 documented as of this encounter (statuses as of 04/14/2023) [facility] History of Past illness Narrative* Problem Noted Date Diagnosed Date Resolved Date Open wound of toe 10/01/2019 05/28/2021 Pain in left foot 10/01/2019 05/28/2021 Periumbilical pain 01/01/2018 Overview: Added automatically from request for surgery [id number] Inguinal pain, lower right quadrant 05/14/2013 11/27/2013 documented as of this encounter (statuses as of 05/09/2023) [facility] History of Past illness Narrative* Problem Noted Date Diagnosed Date Resolved Date Open wound of toe 10/01/2019 05/28/2021 Pain in left foot 10/01/2019 05/28/2021 Periumbilical pain 01/01/2018 Overview: Added automatically from request for surgery [id number] Inguinal pain, lower right quadrant 05/14/2013 11/27/2013 documented as of this encounter (statuses as of 06/01/2023) [facility] Diagnosis Diabetes mellitus type 2 in obese (HCC)- Primary Type II or unspecified type diabetes mellitus without mention of complication, not stated as uncontrolled Hyperlipidemia with target LDL less than 70 Other and unspecified hyperlipidemia Chronic atrial fibrillation ([facility]) Atrial fibrillation ASHD (arteriosclerotic heart disease) Coronary atherosclerosis of unspecified type of vessel, grand traverse or graft [facility] Diagnosis Bilateral lower extremity edema- Primary Edema Acute bilateral low back pain without sciatica Chest wall tenderness Painful respiration [facility] Diagnosis Onychomycosis- Primary Dermatophytosis of nail Pain in toe of left foot Pain in limb Pain in toe of right foot Pain in limb Diabetes mellitus type 2 in obese (HCC) Type II or unspecified type diabetes mellitus without mention of complication, not stated as uncontrolled Ingrowing toenail of left foot Ingrowing nail [facility] Diagnosis Essential hypertension- Primary Unspecified essential hypertension Diabetes mellitus type 2 in obese (HCC) Type II or unspecified type diabetes mellitus without mention of complication, not stated as uncontrolled Chronic atrial fibrillation (HCC) Atrial fibrillation Depression, unspecified depression type Gastroesophageal reflux disease, unspecified whether esophagitis present Hyperlipidemia with target LDL less than 70 Other and unspecified hyperlipidemia [facility] Diagnosis Onychomycosis- Primary Dermatophytosis of nail Pain in toe of left foot Pain in limb Pain in toe of right foot Pain in limb Diabetes mellitus type 2 in obese (HCC) Type II or unspecified type diabetes mellitus without mention of complication, not stated as uncontrolled [facility] Diagnosis Palpitations- Primary Increased urinary frequency Urinary frequency Essential hypertension Unspecified essential hypertension Marital problem Counseling for marital and partner problems, unspecified Diabetes mellitus type 2 in obese (HCC) Type II or unspecified type diabetes mellitus without mention of complication, not stated as uncontrolled [facility] Diagnosis Depression, unspecified depression type- Primary Increased urinary frequency Urinary frequency Feeling tired Other malaise and fatigue Essential hypertension Unspecified essential hypertension [facility] Diagnosis Onychomycosis- Primary Dermatophytosis of nail Pain in toe of left foot Pain in limb Pain in toe of right foot Pain in limb Diabetes mellitus type 2 in obese (HCC) Type II or unspecified type diabetes mellitus without mention of complication, not stated as uncontrolled Pes planus of left foot [facility] Diagnosis Other cough- Primary Sore throat Acute pharyngitis Vomiting without nausea, unspecified vomiting type Diarrhea, unspecified type Chills Chills (without fever) [facility] Diagnosis Other nonsuppurative otitis media of left ear, unspecified chronicity- Primary [facility] Diagnosis Diabetes mellitus type 2 in obese (HCC)- Primary Type II or unspecified type diabetes mellitus without mention of complication, not stated as uncontrolled Lower abdominal pain Abdominal pain, other specified site Essential hypertension Unspecified essential hypertension Hyperlipidemia with target LDL less than 70 Other and unspecified hyperlipidemia Chronic atrial fibrillation (HCC) Atrial fibrillation [facility] Diagnosis Onychomycosis- Primary Dermatophytosis of nail Body mass index (BMI) 40.0-44.9, adult (HCC) Pain in toe of left foot Pain in limb Pain in toe of right foot Pain in limb Diabetes mellitus type 2 in obese (HCC) Type II or unspecified type diabetes mellitus without mention of complication, not stated as uncontrolled [facility] Diagnosis Diabetes mellitus type 2 in obese (HCC) Type II or unspecified type diabetes mellitus without mention of complication, not stated as uncontrolled Encounter for screening mammogram for breast cancer [facility] Diagnosis Diabetes mellitus type 2 in obese (HCC) Type II or unspecified type diabetes mellitus without mention of complication, not stated as uncontrolled Hyperlipidemia with target LDL less than 70 Other and unspecified hyperlipidemia [facility] Diagnosis Essential hypertension- Primary Unspecified essential [...] single bacterial disease [facility] Diagnosis Essential hypertension- Primary Unspecified essential hypertension Hyperlipidemia with target LDL less than 70 Other and unspecified hyperlipidemia Acute non-recurrent frontal sinusitis Diabetes mellitus type 2 in obese (HCC) Type II or unspecified type diabetes mellitus without mention of complication, not stated as uncontrolled documented in this encounter [facility] for referral (narrative)* Outpatient Procedure (Routine) - Pending Review Specialty Diagnoses / Procedures Referred By Tg camacho Ref[facility] Diagnoses Essential hypertension Palpitations Procedures ECG COMPLETE ECG ROUTINE ECG W/LEAST 12 LDS W/I&R Konrad Chaudhry APRN.CNP [address] [place] [address] [facility] [place] [address] [place] [id number] Referral ID Status Reason Start Date Expiration Date Visits Requested Visits Authorized [id number] Pending Review Auto-Generat ed Referral 2 07/14/2023 1 1 [facility] for referral (narrative)* Diagnostic Procedure Only (Routine) - Pending Review Specialty Diagnoses / Procedures Referred By Tg t Referred To Contact [facility] Diagnoses Encounter for screening mammogram for breast cancer Procedures BISHOP SCREENING SCREENING MAMMOGRAPHY BI 2-VIEW BREAST INC Addis Ordonez MD [address] [place] [address] [facility] [address] [place] [address] Referral ID Status Reason Start Date Expiration Date Visits Requested Visits Authorized [id number] Pending Review Auto-Generat ed Referral 01/18/2023 02/17/2024 1 1 [facility] Summary Purpose Family History No Family History Records FoundNo Family History Records FoundNo Family History Records FoundNo Family History Records FoundNo Family History Records Found Advance Directives No Advanced Directives Records FoundDocuments on File 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 Date 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 Advance Directive(s) 01/22/2018 10:07 AM Additional Source Comments INFORMATION SOURCE (unrecogn ized section and content) DATE CREATED AUTHOR AUTHOR'S ORGANIZ ATION 01/04/2018 [facility] DATE CREATED AUTHOR AUTHOR'S ORGANIZ ATION 01/09/2018 [facility] DATE CREATED AUTHOR AUTHOR'S ORGANIZ ATION 11/27/2020 [facility] DATE CREATED AUTHOR AUTHOR'S ORGANIZ ATION 07/31/2023 [facility] Source Comments (unrecognize d section and content) In the event this informatio n is protected by the Federal Confidentiality of Alcohol and Drug Abuse Patient Records regulations: The Federal rules restrict any use of the information to criminally investigate or prosecute any alcohol or drug abuse patient.[facility] the event this information is protected by the Federal Confidentiality of Alcohol and Drug Abuse Patient Records regulations: The Federal rules restrict any use of the information to criminally investigate or prosecute any alcohol or drug abuse patient.[facility] HospitalIn the event this information is protected by the Federal Confidentiality of Alcohol and Drug Abuse Patient Records regulations: The Federal rules restrict any use of the information to criminally investigate or prosecute any alcohol or drug abuse patient.[facility] the event this information is protected by the Federal Confidentiality of Alcohol and Drug Abuse Patient Records regulations: The Federal rules restrict any use of the information to criminally investigate or prosecute any alcohol or drug abuse patient.[facility] HospitalIn the event this information is protected by the Federal Confidentiality of Alcohol and Drug Abuse Patient Records regulations: The Federal rules restrict any use of the information to criminally investigate or prosecute any alcohol or drug abuse patient.[facility] HospitalIn the event this information is protected [...] or prosecute any alcohol or drug abuse patient.[facility] HospitalIn the event this information is protected by the Federal Confidentiality of Alcohol and Drug Abuse Patient Records regulations: The Federal rules restrict any use of the information to criminally investigate or prosecute any alcohol or drug abuse patient.[facility] HospitalIn the event this information is protected by the Federal Confidentiality of Alcohol and Drug Abuse Patient Records regulations: The Federal rules restrict any use of the information to criminally investigate or prosecute any alcohol or drug abuse patient.[facility] HospitalIn the event this information is protected by the Federal Confidentiality of Alcohol and Drug Abuse Patient Records regulations: The Federal rules restrict any use of the information to criminally investigate or prosecute any alcohol or drug abuse patient.[facility] HospitalIn the event this information is protected by the Federal Confidentiality of Alcohol and Drug Abuse Patient Records regulations: The Federal rules restrict any use of the information to criminally investigate or prosecute any alcohol or drug abuse patient.[facility] HospitalIn the event this information is protected by the Federal Confidentiality of Alcohol and Drug Abuse Patient Records regulations: The Federal rules restrict any use of the information to criminally investigate or prosecute any alcohol or drug abuse patient.[facility] HospitalIn the event this information is protected by the Federal Confidentiality of Alcohol and Drug Abuse Patient Records regulations: The Federal rules restrict any use of the information to criminally investigate or prosecute any alcohol or drug abuse patient.[facility] HospitalIn the event this information is protected by the Federal Confidentiality of Alcohol and Drug Abuse Patient Records regulations: The Federal rules restrict any use of the information to criminally investigate or prosecute any alcohol or drug abuse patient.[facility] HospitalIn the event this information is protected by the Federal Confidentiality of Alcohol and Drug Abuse Patient Records regulations: The Federal rules restrict any use of the information to criminally investigate or prosecute any alcohol or drug abuse patient.[facility] HospitalIn the event this information is protected by the Federal Confidentiality of Alcohol and Drug Abuse Patient Records regulations: The Federal rules restrict any use of the information to criminally investigate or prosecute any alcohol or drug abuse patient.[facility] HospitalIn the event this information is protected by the Federal Confidentiality of Alcohol and Drug Abuse Patient Records regulations: The Federal rules restrict any use of the information to criminally investigate or prosecute any alcohol or drug abuse patient.[facility] HospitalIn the event this information is protected by the Federal Confidentiality of Alcohol and Drug Abuse Patient Records regulations: The Federal rules restrict any use of the information to criminally investigate or prosecute any alcohol or drug abuse patient.[facility] HospitalIn the event this information is protected by the [facility] Confidentiality of Alcohol and Drug Abuse Patient Records regulations: The Federal rules restrict any use of the information to criminally investigate or prosecute any alcohol or drug abuse patient.[facility] HospitalIn the event this information is protected by the Federal Confidentiality of Alcohol and Drug Abuse Patient Records regulations: The Federal rules restrict any use of the information to criminally investigate or prosecute any alcohol or drug abuse patient.[facility] Reason for Visit (unrecogniz ed section and content) Specialty Diagnoses / Procedures Referred By Contac t Referred To Contact Internal Medicine / INTERNAL MEDICINE Diagnoses Follow-up examination 3 month follow up Procedures OFFICE/OUTPATIENT ESTABLISHED MOD MDM 30-39 MIN 4C Konrad Rea APRN.HIREN [address] [place], [place] [address] Addis Gillette MD [address] [place] [address] Referral ID Status Reason Start Date Expiration Date V isits Requested Visits Authorized [id number] Closed Financial Clearance Required - OON Payor Patient Cleared INN/SMCP Payor Auth Obtained 11/15/2021 07/16/2022 1 1 Reason Comments Edema B/L leg swelling Specialty Diagnoses / Procedures Referred By Tg t Referred To Contact Internal Medicine / INTERNAL MEDICINE Diagnoses Leg edema--see Triage note Procedures 4C EST Self 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, 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, 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[employer].LEATHER TANNER [address] [place] [address] Referral ID Status Reason Start Date Expiration Date Visits Re quested Visits Authorized [id number] Closed 12/30/2021 07/16/2022 1 1 Reason Comments Established Patient Diabetic Foot Care Reason Comments Opened In Error Reason Onset Date Comments Population Health Navigation Outreach 05/18/2022 [facility] C[facility] GAPS Reason Comments Recheck 3 month [...] Care Teams (unrecognized sec tion and content) 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 [employer] Relationship Specialty Start Date End Date Addis Gillette MD [address] [place] [address] PCP - General Internal Medicine 04/24/13 Supervisor [employer] Relationship Specialty Start Date End Date Addis Gillette MD [address] [place] [address] PCP - General Internal Medicine 04/24/13 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 [employer] Relationship Specialty Start Date End Date Addis Gillette MD [address] [place] [address] PCP - General Internal Medicine 04/24/13 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 [employer] Relationship Specialty Start Date End Date Addis Gillette MD [address] [place] [address] PCP - General Internal Medicine 04/24/13 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 [employer] Relationship Specialty Start Date End Date Addis Gillette MD [address] [place] [address] PCP - General Internal Medicine 04/24/13 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 [employer] Relationship Specialty Start Date End Date Addis Gillette MD [address] [place] [address] PCP - General Internal Medicine 04/24/13 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 [employer] Relationship Specialty Start Date End Date Addis Gillette MD [address] [place] [address] PCP - General Internal Medicine 04/24/13 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 [employer] Relationship Specialty Start Date End Date Addis Gillette MD [address] [place] [address] PCP - General Internal Medicine 04/24/13 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 [employer] Relationship Specialty Start Date End Date Addis Gillette MD [address] [place] [address] PCP - General Internal Medicine 04/24/13 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 [employer] provides no warranty or guarantee of the accuracy or completeness of information in this document.
[2023-08-10 21:11] LABS: Magnesium 2.4 mg/dL (1.6-2.6)
[2023-08-10 21:47] VITALS: BMI 38.9
[2023-08-10 22:00] VITALS: BP 176/92; PULSE 65; RESP 16; TEMP 36.6; O2SAT 95
[2023-08-10 22:40] VITALS: O2SAT 95
[2023-08-10 22:40] LABS: Troponin-I HS 62 pg/mL (3.0-54.0)
[2023-08-10] MEDS: Nystatin Powder 15gm Bottle 1 APPLIC TOPICAL (22:58)
[2023-08-10] MEDS: Atorvastatin Calcium 80 MG Tablet PO (22:58)
[2023-08-10] MEDS: APIXABAN 5 MG TABLET PO (22:58)
[2023-08-10 23:27] LABS: Bedside Glucose 122 mg/dL (74-106)
--- NOTE | 2023-08-11 01:01 | CPS ---
pt does not wear cpap at home. not interested in wearing at the hospital
[2023-08-11 04:22] VITALS: BP 142/70; PULSE 66; RESP 18; TEMP 36.7; O2SAT 97
[2023-08-11 06:00] VITALS: BMI 38.9
[2023-08-11 06:22] VITALS: BP 154/95; PULSE 79; RESP 18; TEMP 36.5; O2SAT 95
[2023-08-11] MEDS: Lisinopril 10 MG Tablet PO (06:23)
[2023-08-11] MEDS: Aspirin E.C. 81 MG Tablet PO (06:23)
[2023-08-11] MEDS: 0.9% Saline Lock 10 ML Syringe IV (06:23)
[2023-08-11] MEDS: Nystatin Powder 15gm Bottle 1 APPLIC TOPICAL ×2 (06:24→15:17)
[2023-08-11 06:29] LABS: Absolute Neutrophil Count 4.7 X10^3/uL (2.0-7.7); Basophil# 0.05 X10^3/uL; Basophil% 0.6 % (0-1); Eosinophil# 0.12 X10^3/uL; Eosinophils% 1.5 % (0-5); Hematocrit 48.9 % (37-47); Hemoglobin 15.4 g/dL (12.0-15.0); Lymphocyte % 31.8 % (19-41); Mean Corp Hgb Conc 31.5 g/dL (32-36); Mean Corpuscular Hgb 29.5 pg (27.0-32.0); Mean Corpuscular Volume 93.7 fL (81-99); Monocyte# 0.68 X10^3/uL; Monocyte% 8.3 % (0-10); NRBC Flagged by Analyzer 0 % (0-5); Neutrophil # 4.71 X10^3/uL (2.7-7.7); Neutrophil % 57.7 % (47-70); Platelet Count 168 K/mm3 (150-450); RBC Distribution Width CV 12.7 % (11.6-14.6); RBC Distribution Width SD 44.3 fl (35.1-43.9); Red Blood Count 5.22 M/mm3 (4.2-5.4); White Blood Count 8.2 K/mm3 (4.4-11.0)
[2023-08-11 06:58] LABS: ALB/GLOB Ratio 0.9 RATIO (0.9-2.4); AST(SGOT) 13 U/L (15-37); Alanine Aminotransfer ALT/SGPT 26 U/L (13-56); Alkaline Phosphatase 104 U/L (45-117); Anion Gap 2 (5-15); BUN 14 mg/dL (7-18); BUN/Creat Ratio 17.7 RATIO (10-20); Calcium,Total 9.4 mg/dL (8.5-10.1); Chloride 109 mmol/L (98-107); Cholesterol 227 mg/dL (200); Creatinine, Serum 0.79 mg/dL (0.55-1.02); EST Glomerular Filtration Rate 78 mL/min (>60); Est Glom Filt Rate - Afr Amer 94 mL/min (>60); Estimated Creatinine Clearance 99.44 ml/min; Globulin 3.5 g/dL (2.2-4.2); Glucose 136 mg/dL (74-106); High Density Lipoprotein 41 mg/dL; Potassium 3.9 mmol/L (3.5-5.1); Protein, Total 6.5 g/dL (6.4-8.2); Sodium Level 137 mmol/L (136-145); Triglycerides 144 mg/dL; Very Low Density Lipoprotein 29 mg/dL (5-40)
[2023-08-11 07:02] LABS: Bedside Glucose 125 mg/dL (74-106)
[2023-08-11 07:48] LABS: Hemoglobin A1c 6.5 % (3.8-5.6)
[2023-08-11 08:21] VITALS: BP 142/70; PULSE 66; RESP 18; TEMP 36.7; O2SAT 97
[2023-08-11 11:15] VITALS: BP 140/80; PULSE 70; RESP 18; TEMP 36.4; O2SAT 97
[2023-08-11 11:45] LABS: Bedside Glucose 137 mg/dL (74-106)
--- NOTE | 2023-08-11 13:43 | STRESSREP ---
Stress Test Report Date: 08/11/2023 Procedure: Pharmacologic stress nuclear imaging study Indications: Chest pain Consent: Per the patient Procedure: The patient underwent pharmacologic (Regadenoson) evaluation with a peak heart rate of 85 beats per minute (54%predicted maximal heart rate) and a peak blood pressure of 172/82 mmHg. The baseline ECG demonstrated normal sinus rhythm poor R wave progression in the anterior leads, nonspecific ST-T changes. EKG during lexiscan infusion revealed no significant ischemic changes. EKG post infusion revealed no significant ischemic changes [There were no cardiac dysrhythmias pretest, during pharmacologic infusion, or recovery]. [There was no complaint of chest discomfort during pharmacologic infusion or recovery]. The examination was discontinued secondary to completion of protocol. Impression: 1. Lexiscan stress test test is negative for Lexiscan infusion induced EKG changes of ischemia. 2. Lexiscan stress test test is negative for Lexiscan infusion induced chest pain. 3. Results of the nuclear portion of the test is as below Myocardial perfusion imaging study: Technique: The patient was injected with 14.7 millicuries of technetium 99m Cardiolite and subsequently rest SPECT Cardiolite nuclear imaging was obtained in the horizontal long, vertical long, and short axis views. The patient underwent pharmacologic [Regadenoson 0.4mg] evaluation. Please see above for details. The patient was injected with 45 millicuries of technetium 99m Cardiolite and subsequently stress SPECT Cardiolite nuclear imaging was obtained in the horizontal long, vertical long, and short axis views. A gated Cardiolite study at peak stress was obtained. Interpretation: Rest and stress SPECT Cardiolite nuclear imaging status post realignment, normalization, and attenuation correction demonstrate no evidence of significant ischemia or infarction. Gated images reveal no significant regional wall motion abnormalities. The reported LVEF is greater than 70%. Impression: 1. There is no evidence of significant ischemia or infarction. 2. Estimated ejection fraction is greater than 70%. This note was generated with [employer] software. It may contain incorrect words, spelling, and punctuation that were not noted in checking the note before signing.
--- NOTE | 2023-08-11 14:37 | DCINST_ITS ---
Discharge Instructions Diet Discharge Diet: Low fat / Low cholesterol Activity Discharge Activity: Return to Normal Activity Weight Bearing Status: Weight bearing as tolerated Dressing / Incision Call your doctor if you observe: Fever of 101 or Higher, Shortness of breath, Dizziness, Swelling in the ankles and Chest pain Follow Up Care Test Results: Test results from this visit will be discussed in further detail at your follow- up appointment, if applicable. Discharge Plan Admission Admit Date/Time: 08/10/23 20:45 Primary Reason for Your Visit: chest pain Attending Provider: Santa Monaco Primary Care Provider: DILAN SOLORZANO Consulting Providers: Paulina Ludwig Instructions Patient Instructions: ED Angina, Stable Discharge Orders/Prescriptions Prescriptions: Continued nitroglycerin 0.4 mg tablet, sublingual 0.4 mg SUBLINGUAL Q5M PRN (Reason: chest pain) Qty: 25 0RF Rx Instructions: do not exceed 3 doses per episode aspirin 81 mg tablet,delayed release (DR/EC) 81 mg PO DAILY Qty: 1 0RF atorvastatin 80 mg tablet 80 mg PO QHS Patient Comments: TAKE 1 TABLET BY MOUTH ONCE DAILY AT BEDTIME FOR CHOLESTEROL Eliquis 5 mg tablet 5 mg PO BID Qty: 60 11RF lisinopril 10 mg tablet 10 mg PO DAILY Qty: 30 11RF No Action amoxicillin-pot clavulanate 875-125 mg tablet 1 tab PO Q12H Patient Comments: TAKE 1 TABLET BY MOUTH TWICE DAILY FOR 10 DAYS Referrals / Follow Up: DILAN SOLORZANO NP-C [Primary Care Provider] - Within 2 Weeks Disposition Disposition (needs filled in before D/C Order can be placed): Home, Self Care
--- NOTE | 2023-08-11 14:37 | PCM.DC.SUM ---
Providers Date of Admission: 08/10/23 Date of Discharge: 08/11/23 Primary Care Physician: DILAN SOLORZANO, [employer] FABRICATOR-C Reason For Visit: CHEST PAIN Diagnosis Discharge Diagnosis (1) Chest pain: Status: Acute Code(s): R07.9 - Chest pain, unspecified Medications at Discharge Home Medications nitroglycerin 0.4 mg sublingual tablet 0.4 mg sublingual Q5M PRN chest pain #25 tabs 08/24/20 aspirin 81 mg tablet,delayed release 81 mg PO DAILY #1 TAB 04/26/23 apixaban 5 mg tablet (Eliquis) 5 mg PO BID #60 tabs 06/28/23 atorvastatin 80 mg tablet 80 mg PO QHS 06/28/23 lisinopril 10 mg tablet 10 mg PO DAILY #30 tabs 06/28/23 amoxicillin 875 mg-potassium clavulanate 125 mg tablet 1 tab PO Q12H 08/10/23 Hospital Course Operations None Procedures Stress test Summary of Care Provided Minutes Spent on Discharge: 45 Hospital Course: Patient is a 62-year-old female with past medical history as outlined was admitted to the ED on 08/10/2023 with a complaint of chest pain have been going on for about a week prior to admission. She had associated diaphoresis and shortness of breath but had not nausea or vomiting. Review of symptoms otherwise negative. She had had a recent left breast infection and was on antibiotics for this and had almost completed therapy and states that on upcoming mammogram and ultrasound in August. Review of symptoms otherwise negative. Troponins x 3 were Only marginally elevated with initial troponin being 60 and the repeat being 5. patient was admitted to be managed for chest pain rule out ACS. Chest pain did know her care on admission and she felt well. She had a stress test on 08/11/2023 which showed no evidence of significant ischemia or infarct and she had an EF of 70%. She remained stable and was discharged home on 08/11/2023. She is follow-up with her primary care doctor within 1 to 2 weeks. Patient seen and examined prior to discharge. She had no active complaints and had an uneventful night. Review of systems otherwise negative. Labs and vitals reviewed. Home medication reviewed and reconciled. Physical Exam Const alert, oriented x3 and no apparent distress General Appearance: cooperative, comfortable, well kempt and well developed Orientation / Consciousness: awake Exam Limitations: no limitations HEENT normocephalic, head/scalp atraumatic, hearing grossly normal bilaterally, moist oral mucous membranes and oropharynx normal Mouth: oral and palatal mucosa normal Eyes PERRL, EOMs intact bilaterally and conjunctivae normal Neck no lymphadenopathy, supple and no JVD Resp normal respiratory effort, no retractions, no use of accessory muscles and clear to auscultation bilaterally Cardio regular rate, regular rhythm, S1 normal heart sound, S2 normal heart sound and no murmurs GI normal to inspection, nondistended, normoactive bowel sounds, soft to palpation, non-tender and non-distended Extremity normal to inspection, full ROM and no clubbing, cyanosis or edema Skin no rashes or lesions noted, no wounds and skin turgor normal Neuro oriented x3, CN's II-XII intact bilaterally, moves all extremities, no focal motor deficits and no sensory deficits noted Sensorium / Orientation: awake and alert Motor Exam: strength 5/5 throughout Psych affect normal Weight / BMI Weight Weight: 263 lb 10.766 oz Body Mass Index (BMI) 38.9 ABG / Lab / Microbiology Data 08/11/23 05:25 08/11/23 05:25 Laboratory: Laboratory Results - last 24 hr 08/10/23 15:02: WBC 9.2, RBC 5.22, Hgb 15.5 H, Hct 49.0 H, MCV 93.9, MCH 29.7, MCHC 31.6 L, RDW Std Deviation 44.4 H, RDW Coeff of Shae 12.8, Plt Count 174, MPV 12.7 H, Immature Gran % (Auto) 0.200, Neut % (Auto) 62.0, Lymph % (Auto) 29.0, [place] % (Auto) 7.3, Eos % (Auto) 1.0, Baso % (Auto) 0.5, Absolute Neuts (auto) 5.7, Absolute Lymphs (auto) 2.67, Nucleated RBC % 0, Sodium 139, Potassium 4.1, Chloride 108 H, Carbon Dioxide 26.0, Anion Gap 5, BUN 13, Creatinine 0.82, Estim Creat Clear Calc 97.64, Est GFR (MDRD) Af Amer 91, Est GFR (MDRD) Non-Af 75, BUN/Creatinine Ratio 15.9, Glucose 134 H, Calcium 9.4, Troponin I High Sens 60 H 08/10/23 17:00: Magnesium 2.4, Troponin I High Sens 58 H 08/10/23 22:08: Troponin I High Sens 62 H 08/10/23 22:21: POC Glucose 122 H 08/11/23 05:25: WBC 8.2, RBC 5.22, Hgb 15.4 H, Hct 48.9 H, MCV 93.7, MCH 29.5, MCHC 31.5 L, RDW Std Deviation 44.3 H, RDW Coeff of Shae 12.7, Plt Count 168, MPV 13.0 H, Immature Gran % (Auto) 0.100, Neut % (Auto) 57.7, Lymph % (Auto) 31.8, [place] % (Auto) 8.3, Eos % (Auto) 1.5, Baso % (Auto) 0.6, Absolute Neuts (auto) 4.7, Absolute Lymphs (auto) 2.60, Nucleated RBC % 0, Sodium 137, Potassium 3.9, Chloride 109 H, Carbon Dioxide 26.0, Anion Gap 2 L, BUN 14, Creatinine 0.79, Estim Creat Clear Calc 99.44, Est GFR (MDRD) Af Amer 94, Est GFR (MDRD) Non-Af 78, BUN/Creatinine Ratio 17.7, Glucose 136 H, Hemoglobin A1c 6.5 H, Calcium 9.4, Total Bilirubin 0.60, AST 13 L, ALT 26, Alkaline Phosphatase 104, Total Protein 6.5, Albumin 3.0 L, Globulin 3.5, Albumin/Globulin Ratio 0.9, Triglycerides 144, Cholesterol 227 H, LDL Cholesterol 157 H, VLDL Cholesterol 29, HDL Cholesterol 41 08/11/23 06:11: POC Glucose 125 H 08/11/23 11:17: POC Glucose 137 H Radiography Diagnostic Testing: Radiology Impression Chest X-Ray 08/10/23 15:05 IMPRESSION: No acute abnormality is seen. Electronically Signed: Jerry Bunch MD at 15:38 EST , D/C Instructions Discharge Diet: Low fat / Low cholesterol Discharge Activity: Return to Normal Activity Weight Bearing Status: Weight bearing as tolerated Call your doctor if you observe: Fever of 101 or Higher, Shortness of breath, Dizziness, Swelling in the ankles and Chest pain Meaningful Use Info Meaningful Use Diagnoses (Choose all that apply): None applicable Discharge Plan Admission Admit Date/Time: 08/10/23 20:45 Primary Reason for Your Visit: chest pain Attending Provider: Santa Monaco Primary Care Provider: DILAN SOLORZANO Consulting Providers: Paulina Ludwig Instructions Patient Instructions: ED Angina, Stable Discharge Orders/Prescriptions Prescriptions: Continued nitroglycerin 0.4 mg tablet, sublingual 0.4 mg SUBLINGUAL Q5M PRN (Reason: chest pain) Qty: 25 0RF Rx Instructions: do not exceed 3 doses per episode aspirin 81 mg tablet,delayed release (DR/EC) 81 mg PO DAILY Qty: 1 0RF atorvastatin 80 mg tablet 80 mg PO QHS Patient Comments: TAKE 1 TABLET BY MOUTH ONCE DAILY AT BEDTIME FOR CHOLESTEROL Eliquis 5 mg tablet 5 mg PO BID Qty: 60 11RF lisinopril 10 mg tablet 10 mg PO DAILY Qty: 30 11RF amoxicillin-pot clavulanate 875-125 mg tablet 1 tab PO Q12H Patient Comments: TAKE 1 TABLET BY MOUTH TWICE DAILY FOR 10 DAYS Referrals / Follow Up: DILAN SOLORZANO, [employer] FABRICATOR-C [Primary Care Provider] - Within 2 Weeks Disposition Disposition (needs filled in before D/C Order can be placed): Home, Self Care Charges/Coding Visit Charges Inpatient E&M: 53344 Disch Hosp >30min
--- NOTE | 2023-08-11 14:46 | PHA.DC.MR.R ---
Pharmacy [place] Med Reconciliation Pharmacy Service has performed discharge medication reconciliation for this patient. The patient's discharge medication list was reviewed for discrepancies and discrepancies were resolved. Medications at Discharge Home Medications nitroglycerin 0.4 mg sublingual tablet 0.4 mg sublingual Q5M PRN chest pain #25 tabs 08/24/20 aspirin 81 mg tablet,delayed release 81 mg PO DAILY #1 TAB 04/26/23 apixaban 5 mg tablet (Eliquis) 5 mg PO BID #60 tabs 06/28/23 atorvastatin 80 mg tablet 80 mg PO QHS 06/28/23 lisinopril 10 mg tablet 10 mg PO DAILY #30 tabs 06/28/23 amoxicillin 875 mg-potassium clavulanate 125 mg tablet 1 tab PO Q12H 08/10/23
--- NOTE | 2023-08-11 14:46 | CASEMGMT ---
Patient has order for discharge. RN CM in to discuss needs at discharge, family at bedside. Patient denies needs or help at discharge. Patient had no further questions or concerns.
[2023-08-11 15:09] VITALS: BP 140/80; PULSE 70; RESP 18; TEMP 36.4; O2SAT 97
[2023-08-11] MEDS: APIXABAN 5 MG TABLET PO (15:16)
== END 2023-08-11 14:36 | disposition home or self-care (01) ==
LOC: ED 20:38 → PCU 20:54
PROVIDERS: Admitting Provider Family Medicine; Emergency Provider Emergency Medicine; PCP Nurse Practitioner; Visit Provider Student in an Organized Health Care Education/Training Program
DX: R07.89 Other chest pain (principal); I11.0 Hypertensive heart disease with heart failure; I50.32 Chronic diastolic (congestive) heart failure; I48.0 Paroxysmal atrial fibrillation; E66.01 Morbid (severe) obesity due to excess calories; Z68.41 Body mass index [BMI] 40.0-44.9, adult; E11.9 Type 2 diabetes mellitus without complications; I25.10 Atherosclerotic heart disease of native coronary artery without angina pectoris; E78.5 Hyperlipidemia, unspecified; Z79.82 Long term (current) use of aspirin; Z79.01 Long term (current) use of anticoagulants; G47.33 Obstructive sleep apnea (adult) (pediatric); R06.00 Dyspnea, unspecified; Z79.899 Other long term (current) drug therapy; L30.4 Erythema intertrigo; N61.0 Mastitis without abscess
CPT/HCPCS: 36415; 71045; 78452; 80048; 80053; 80061; 82962; 83036; 83735; 84484; 85025; 93005; 93017; 99221; 99285; A9500; A4216; G0378; J2785

== ENCOUNTER → 2024-02-12 | Outpatient (CLI) | payer MEDICARE, SELFPAY ==
[2024-02-12 16:53] LABS: Anion Gap 4 (5-15); BUN 15 mg/dL (7-18); BUN/Creat Ratio 16.1 RATIO (10-20); Calcium,Total 10.1 mg/dL (8.5-10.1); Chloride 105 mmol/L (98-107); Creatinine, Serum 0.93 mg/dL (0.55-1.02); EST Glomerular Filtration Rate 64 mL/min (>60); Est Glom Filt Rate - Afr Amer 78 mL/min (>60); Glucose 113 mg/dL (74-106); Potassium 3.7 mmol/L (3.5-5.1); Sodium Level 136 mmol/L (136-145)
== END | disposition home or self-care (01) ==
PROVIDERS: PCP Nurse Practitioner; Referring Provider Physician Assistant Medical; Visit Provider Physician Assistant Medical
DX: I10 Essential (primary) hypertension (principal)
CPT/HCPCS: 36415; 80048

== ENCOUNTER → 2024-07-01 | Outpatient (CLI) | payer MEDICARE, SELFPAY ==
--- NOTE | 2024-07-01 06:47 | CDU_ITS ---
Reason For Study: Syncope Rt. Velocities/BP Lt. Velocities/BP Prox CCA 95.3/17.9 cm/sec. Prox CCA 101.4/13.0 cm/sec. Mid CCA 110.0/24.1 cm/sec. Mid CCA 103.9/17.9 cm/sec. Dist CCA 91.9/14.9 cm/sec. Dist CCA 100.2/17.9 cm/sec. Prox ICA 47.9/12.7 cm/sec. Prox ICA 69.3/14.9 cm/sec. Mid ICA 49.0/16.0 cm/sec. Mid ICA 78.1/19.0 cm/sec. Dist ICA 51.2/12.7 cm/sec. Dist ICA 55.6/19.8 cm/sec. Rt. ICA/CCA = 0.5. Lt. ICA/CCA = 0.8. Prox ECA 103.6/12.4 cm/sec. Prox ECA 89.1/9.3 cm/sec. Rt. Vert. 42.5/13.0 cm/sec. Lt. Vert. 41.3/10.6 cm/sec. Right Extracranial There is intimal thickening but no significant atherosclerotic plaque noted in the right common carotid artery. There is intimal thickening but no significant atherosclerotic plaque noted in the right internal carotid artery. There is intimal thickening but no significant atherosclerotic plaque noted in the right external carotid artery. Antegrade flow is noted in the right vertebral artery. Left Extracranial There is intimal thickening but no significant atherosclerotic plaque noted in the left common carotid artery. There is heterogeneous, irregular atherosclerotic plaque noted in the left internal carotid artery. There is intimal thickening but no significant atherosclerotic plaque noted in the left external carotid artery. Antegrade flow is noted in the left vertebral artery. Procedure Carotid Duplex 95106. This is a Carotid Duplex examination using B-mode, color flow and specral Doppler. The exam was diagnostic. Exam performed in department. VL/Carotid Duplex Ultrasound Interpretation Summary Normal right extracranial internal carotid. Mild (<50%) stenosis left extracranial internal carotid. Patent and antegrade vertebrals bilaterally. Ordering Physician: Addis Prather Referring Physician: Alanis Danielle Performed By: Aquiles Hager RVT
--- NOTE | 2024-07-01 11:40 | STRESSREP ---
Stress Test Report Pharmacologic myocardial perfusion stress test. 63-year-old lady with a history of chest pain Resting EKG demonstrates normal sinus rhythm with a rate of 69 bpm. Resting blood pressure is 142/80 mmHg. 0.4 mg of regadenoson was infused per usual protocol followed by rapid intravenous saline flush injection. Continuous EKG monitoring was performed. The maximum heart rate was 86 bpm which was 55% of max impacted heart rate the maximum workload was 1 metabolic equivalent. At rest there were no ST or T wave changes noted to suggest ischemia and at peak infusion nonspecific ST changes were noted which did not meet the criteria for ischemia. No clinical angina is noted. The final blood pressure was 138/82 mmHg. Myocardial perfusion protocol. 15 mCi of technetium 99m sestamibi was injected at rest. 0.4 mg of regadenoson was infused per usual protocol. At peak infusion 45 mCi of technetium 99m sestamibi was injected stress images were obtained stress and rest images were reconstructed and compared in the short axis vertical long and horizontal long axis. Gated images were also obtained. Perfusion SPECT analysis: Review of the stress images demonstrate normal uptake of tracer noted in all areas of the myocardium. The resting images similar demonstrated normal uptake of tracer noted in all areas of the myocardium. No areas of reversibility are noted to suggest ischemia and no previous infarct is noted. Gated SPECT analysis: The gated ejection fraction is 52%. Conclusion: Normal pharmacologic myocardial perfusion stress test. Preserved ejection fraction.
== END | disposition home or self-care (01) ==
LOC: CVS 06:47
PROVIDERS: PCP Internal Medicine; Referring Provider Physician Assistant Medical; Visit Provider Physician Assistant Medical
DX: R55 Syncope and collapse (principal); I25.119 Atherosclerotic heart disease of native coronary artery with unspecified angina pectoris; Q24.5 Malformation of coronary vessels
CPT/HCPCS: 78452; 93017; 93880; A9500; A4216; J2785

== ENCOUNTER → 2024-10-31 | Outpatient (CLI) | payer MEDICARE, SELFPAY ==
[2024-10-31 15:48] LABS: Absolute Lymphocyte Count 4.33 X10^3/uL (0.83-4.51); Absolute Neutrophil Count 4.7 X10^3/uL (2.0-7.7); Basophil# 0.05 X10^3/uL; Basophil% 0.5 % (0-1); Hemoglobin 16.2 g/dL (12.0-15.0); Lymphocyte # 4.33 X10^3/ul (0.83-4.51); Lymphocyte % 44.2 % (19-41); Mean Corp Hgb Conc 33.1 g/dL (32-36); Mean Corpuscular Hgb 30.3 pg (27.0-32.0); Mean Corpuscular Volume 91.8 fL (81-99); Mean Platelet Vol. 13.9 fl (6.2-12.0); Monocyte# 0.59 X10^3/uL; NRBC Flagged by Analyzer 0 % (0-5); Neutrophil # 4.72 X10^3/uL (2.7-7.7); Neutrophil % 48.2 % (47-70); Platelet Count 138 K/mm3 (150-450); RBC Distribution Width CV 13.3 % (11.6-14.6); RBC Distribution Width SD 45.2 fl (35.1-43.9); Red Blood Count 5.34 M/mm3 (4.2-5.4); White Blood Count 9.8 K/mm3 (4.4-11.0)
[2024-10-31 16:20] LABS: Hemoglobin A1c 6.8 % (<=5.6)
[2024-10-31 17:13] LABS: ALB/GLOB Ratio 1.3 RATIO (0.9-2.4); AST(SGOT) 21 U/L (<=31); Alanine Aminotransfer ALT/SGPT 28 U/L (<=34); Albumin, Serum 4.1 g/dL (3.4-4.8); Alkaline Phosphatase 127 U/L (35-104); Anion Gap 12 (5-15); BUN 12 mg/dL (4-19); BUN/Creat Ratio 14.1 RATIO (10-20); Calcium,Total 9.6 mg/dL (7.6-11.0); Carbon Dioxide 24.4 mmol/L (21.0-32.0); Chloride 104 mmol/L (98-108); Creatinine, Serum 0.84 mg/dL (0.70-1.20); EST Glomerular Filtration Rate 77 (>60); Globulin 3.1 g/dL (2.2-4.2); Glucose 115 mg/dL (70-99); Magnesium 2.2 mg/dL (1.5-2.2); Potassium 4.3 mmol/L (3.3-5.1); Protein, Total 7.1 g/dL (5.9-8.4); Sodium Level 140 mmol/L (133-145); Total Bilirubin 0.55 mg/dL (0.00-1.30)
== END | disposition home or self-care (01) ==
LOC: LAB 14:40
PROVIDERS: PCP Internal Medicine; Referring Provider Nurse Practitioner Family; Visit Provider Nurse Practitioner Family
DX: I48.0 Paroxysmal atrial fibrillation (principal); I50.32 Chronic diastolic (congestive) heart failure; I11.0 Hypertensive heart disease with heart failure; E11.9 Type 2 diabetes mellitus without complications; I25.119 Atherosclerotic heart disease of native coronary artery with unspecified angina pectoris; R00.2 Palpitations
CPT/HCPCS: 36415; 80053; 83036; 83735; 84439; 84443; 85025

== ENCOUNTER → 2025-02-10 | Outpatient (CLI) | payer MEDICARE, SELFPAY ==
[2025-02-10 15:01] LABS: Hematocrit 50.0 % (37-47); Hemoglobin 16.4 g/dL (12.0-15.0); Immature Granulocytes Count 0.010 X10^3/uL (0.0-0.0); Mean Corp Hgb Conc 32.8 g/dL (32-36); Mean Corpuscular Volume 93.1 fL (81-99); Mean Platelet Vol. 14.0 fl (6.2-12.0); NRBC Flagged by Analyzer 0 % (0-5); Platelet Count 148 K/mm3 (150-450); RBC Distribution Width CV 13.6 % (11.6-14.6); RBC Distribution Width SD 46.2 fl (35.1-43.9); Red Blood Count 5.37 M/mm3 (4.2-5.4); White Blood Count 10.3 K/mm3 (4.4-11.0)
[2025-02-10 16:11] LABS: AST(SGOT) 19 U/L (<=31); Alanine Aminotransfer ALT/SGPT 18 U/L (<=34); Albumin, Serum 3.9 g/dL (3.4-4.8); Alkaline Phosphatase 125 U/L (35-104); Anion Gap 12 (5-15); BUN 12 mg/dL (4-19); BUN/Creat Ratio 13.8 RATIO (10-20); Calcium,Total 9.8 mg/dL (7.6-11.0); Carbon Dioxide 23.5 mmol/L (21.0-32.0); Chloride 106 mmol/L (98-108); Globulin 3.1 g/dL (2.2-4.2); Glucose 186 mg/dL (70-99); Potassium 4.0 mmol/L (3.3-5.1)
[2025-02-10 16:12] LABS: CRP < 3.00 mg/L (0.0-3.0)
[2025-02-16 03:09] LABS: ANTINUCLEAR ANTIBODIES DIRECT Negative (Negative); Egg, Whole <0.10 kU/L (Class 0); Mussels <0.10 kU/L (Class 0)
== END | disposition home or self-care (01) ==
LOC: LAB 13:38
PROVIDERS: PCP Internal Medicine
DX: R10.9 Unspecified abdominal pain (principal); R19.7 Diarrhea, unspecified; R15.9 Full incontinence of feces; R14.0 Abdominal distension (gaseous)
CPT/HCPCS: 36415; 80053; 82784; 83516; 85025; 86003; 86005; 86036; 86038; 86140; 86225; 86235; 86255; 86671

== ENCOUNTER → 2025-02-20 | Outpatient (CLI) | payer MEDICARE, SELFPAY ==
[2025-02-24 08:08] LABS: Calprotectin, Stool 13 ug/g (0-120)
== END | disposition home or self-care (01) ==
LOC: LABSPEC 13:18
PROVIDERS: PCP Internal Medicine
DX: R19.7 Diarrhea, unspecified (principal); K58.9 Irritable bowel syndrome, unspecified; R10.9 Unspecified abdominal pain; R15.9 Full incontinence of feces; R14.0 Abdominal distension (gaseous)
CPT/HCPCS: 83993

== ENCOUNTER 2025-05-20 11:06 | Day surgery (SDC) | payer MEDICARE, SELFPAY ==
--- NOTE | 2025-05-16 12:48 | PAT.ANE_ITS ---
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 When Was Last Pacemaker Check QUESTION #4 FULL TEXT: You/Your Family Experience fever (hyperthermia) with Anesthesia Last Oral Intake Last Oral intake: Last Oral Intake NPO since Meds taken in AM with sips of water? Meds patient instructed to take am of surgery PONV PONV - balance staff inspector: PONV - balance staff inspector Female Yes 05/16/25 10:44 HX of Motion Sickness No 05/16/25 10:44 HX of N/V After Surgery No 05/16/25 10:44 Non-Smoker Yes 05/16/25 10:44 Duration of Surgery greater No 05/16/25 10:44 than 60 minutes Number of Risk Factors 2 05/16/25 10:44 PONV Score Moderate Risk 05/16/25 10:44 Height & Weight Height & Weight: Anesthesia: Height & Weight Height 5 ft 9 in 10/31/24 13:54 Respiratory Assessment Respiratory Assessment - balance staff inspector: Respiratory Tract Infection Hx - balance staff inspector Hx Respiratory Tract Infection No 05/16/25 10:44 STOP Sleep Apnea STOP Sleep Apnea - balance staff inspector: STOP Sleep Apnea - balance staff inspector Hx Hypertension Yes 05/16/25 10:44 Hx Sleep Apnea Yes 05/16/25 10:44 CPAP Yes: non compliant 05/16/25 10:44 BIPAP No 05/16/25 10:44 Do you snore loudly (louder than talking or can be heard Do you often feel tired/ fatigued/ sleepy during daytime? Has anyone observed you stop breathing during sleep? STOP Results Positive 05/16/25 10:44 QUESTION #5 FULL TEXT : Do you snore loudly (louder than talking or can be heard through closed doors)? 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 Specify any problems Hx of Preganancy in last 3 No 05/16/25 10:44 Months Nurse Filling Out Transfusion JZOLLINGE 05/16/25 10:44 & Questions: Date: 05/16/25 05/16/25 10:44 Time: 10:46 05/16/25 10:44 Patient unable to answer at this time (ie. confused, unrespo /Reproduction History /Reproductive History - balance staff inspector: /Reproductive Hx- balance staff inspector Hx Now No 05/16/25 10:44 Gestational Age (in weeks): EDC: Hx Hx Para Hx Section SAB No 05/16/25 10:44 [facility] Medical History (Updated 05/16/25 @ 10:44 by Karla Galicia) Wears glasses Cancer Depression Easy bruising Dietary restriction Gastric reflux Non-smoker CPAP (continuous positive airway pressure) dependence History of echocardiogram History of stress test Cardiology follow-up encounter Morbid obesity History of CHF (congestive heart failure) Chronic anticoagulation History of atrial fibrillation History of diabetes mellitus Left bundle branch block (LBBB) (06/09/21) Atherosclerotic heart disease [place] coronary artery w/angina pectoris History of non-ST elevation myocardial infarction (NSTEMI) (05/21/21) Hyperlipidemia Essential (primary) hypertension Sleep apnea History of lipoma Depression Type 2 diabetes mellitus Chronic diastolic CHF (congestive heart failure) Chronic anticoagulation Paroxysmal A-fib Anomalous coronary artery origin Home Medications Medication Instructions Recorded Last Taken Type nitroglycerin 0.4 mg sublingual 0.4 mg sublingual Q5M PRN chest 08/24/20 05/19/21 Rx tablet pain #25 tabs apixaban 5 mg tablet (Eliquis) 5 mg PO BID #60 tabs Unknown Rx atorvastatin 80 mg tablet 80 mg PO QHS 06/28/23 Unknow n History lisinopril 10 mg tablet 10 mg PO DAILY #30 tabs 06/16 10/06 Unknown Rx hydrochlorothiazide 25 mg tablet 25 mg PO DAILY #90 ta bs 01/15/24 Unknown Rx sertraline 100 mg tablet 100 mg PO BID 01/15/24 Unkno wn History carvedilol 6.25 mg tablet (Coreg) 6.25 mg PO BID #60 t abs 10/31/24 Unknown Rx pantoprazole 40 mg tablet,delayed 40 mg PO QDAY Unknown History release glipizide 5 mg tablet 5 mg PO QDAY 02/10/25 Unknow n History dicyclomine 10 mg capsule 10 mg PO BID PRN abdominal p ain 05/08/25 Unknown Rx #20 caps Allergy/AdvReac Type Severity Reaction Status Date / Time potassium chloride AdvReac diarrhea Verified 05/16/25 10:33 Family History Grandmother Diabetes Breast cancer Sister Breast cancer Mother Heart disease Hypertension Surgical History History of left heart catheterization (05/24/21) History of tonsillectomy H/O: hysterectomy Social History household members: spouse housing: house number of children: 4 (adults) current occupational status: disabled Smoking Status: Never smoker alcohol intake: never Audit: Pertinent Findings Pertinent Findings EKG Perinent findings: 08/11/2023. Sinus rhythm with first-degree AV block. 64 bpm. Cannot rule out anterior infarct, age undetermined. Consult pertinent findings: Cardiology 10/31/2024. Coronary artery disease without angina. Stress test 2023 was negative for ischemia. Continue current medical therapy. Proximal atrial fibrillation. Chronic. Echocardiogram 05/21/2021 EF 55% with normal left and right atrium size. Heart rate is: Controlled with Coreg 6.25 mg p.o. twice daily. On Eliquis for anticoagulation. Hypertension chronic. History of syncope. Chronic. Event monitor May 2024 showed heart rate 70 bpm predominant sinus rhythm. No changes. Recommendation Anesthesia Recommendation Anesthesia recommendation: OPTIMIZED for anesthesia
[2025-05-20] VITALS (8 sets, daily range): BP systolic 111–155; BP diastolic 57–80; PULSE 58–64; RESP 16–18; TEMP 36.2–36.6; O2SAT 94–97; BMI 39.6
[2025-05-20] MEDS: Lactated Ringers 1,000 ML 15 ML IV (11:48)
--- NOTE | 2025-05-20 12:02 | PRE.ANES_ITS ---
ASA Classification* ASA Classification ASA Classification: 3 Assessment & Plan Anesthesia* Anesthesia Assessment Anesthesia Assessment: Discussed sedation and/or anesthesia options, risks, benefits, and alternatives with patient/parents/legal guardian/POA. Questions invited. The patient/parents/legal guardian/POA seems to understand and agrees to proceed with anesthesia plan. Reviewed the physical assessment, medical history, allergy history and patient home medications list prior to surgery/procedure/anesthetic and documented any changes. Performed airway and anesthesia risk assessments. Anesthesia Type Anesthesia Type: MAC History Source History Obtained from:: Patient and Chart Anesthesia Focused Assessment* Temperature: 97.8 F Pulse Rate: 64 Blood Pressure: 155/80 Respiratory Rate: 18 Pulse Ox: 97 Oxygen Delivery Method: Room Air Airway Assessment Mouth opens: 2 cm Mallampati Score: IV Teeth Condition: Intact Neck Range of motion (ROM): Limited ROM (Somewhat Decreased) Labs Anesthesia Preop lab: CBC WBC, (4.4-11.0) 10.3 K/mm3 02/10/25, 13:41 RBC, (4.2-5.4) 5.37 M/mm3 02/10/25, 13:41 Hgb, (12.0-15.0) 16.4 g/dL H 02/10/25, 13:41 Hct, (37-47) 50.0 % H 02/10/25, 13:41 Plt Count, (150-450) 148 K/mm3 L 02/10/25, 13:41 CHEMISTRY Potassium, (3.3-5.1) 4.0 mmol/L 02/10/25, 13:41 Sodium, (133-145) 141 mmol/L 02/10/25, 13:41 Magnesium, (1.5-2.2) 2.2 mg/dL 10/31/24, 14:42 BUN, (4-19) 12 mg/dL 02/10/25, 13:41 Creatinine, (0.70-1.20) 0.87 mg/dL 02/10/25, 13:41 Glucose, (70-99) 186 mg/dL H 02/10/25, 13:41 POC Glucose, (74-106) 137 mg/dL H 08/11/23, 11:17 TSH, (0.300-4.200) 2.420 uIU/mL 10/31/24, 14:42 COAG PT, (11.7-14.9) 13.0 SECONDS 05/22/21, 06:20 Pre-Assessment Diagnosis/Proposed Procedure Planned Operative Procedure(s): Colonoscopy Anesthesia History 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 When Was Last Pacemaker Check QUESTION #4 FULL TEXT: You/Your Family Experience fever (hyperthermia) with Anesthesia Last Oral Intake Last Oral intake: Last Oral Intake NPO since 20:00 05/20/25 11:45 Meds taken in AM with sips of No 05/20/25 11:45 water? Meds patient instructed to take am of surgery Any additional information?: Yes NPO since: 08:00 (Patient finished her prep at 8 AM.) PONV PONV - construction quality control manager: PONV - construction quality control manager Female Yes 05/16/25 10:44 HX of Motion Sickness No 05/16/25 10:44 HX of N/V After Surgery No 05/16/25 10:44 Non-Smoker Yes 05/16/25 10:44 Duration of Surgery greater No 05/16/25 10:44 than 60 minutes Number of Risk Factors 2 05/16/25 10:44 PONV Score Moderate Risk 05/16/25 10:44 Height & Weight Height & Weight: Anesthesia: Height & Weight Height 5 ft 9 in 05/20/25 11:45 Weight: 122 kg 05/20/25 11:45 Body Mass Index (BMI) 39.6 05/20/25 11:45 Respiratory Assessment Respiratory Assessment - construction quality control manager: Respiratory Tract Infection Hx - construction quality control manager Hx Respiratory Tract Infection No 05/16/25 10:44 STOP Sleep Apnea STOP Sleep Apnea - construction quality control manager: STOP Sleep Apnea - construction quality control manager Hx Hypertension Yes 05/16/25 10:44 Hx Sleep Apnea Yes 05/16/25 10:44 CPAP Yes: non compliant 05/16/25 10:44 BIPAP No 05/16/25 10:44 Do you snore loudly (louder than talking or can be heard Do you often feel tired/ fatigued/ sleepy during daytime? Has anyone observed you stop breathing during sleep? STOP Results Positive 05/16/25 10:44 QUESTION #5 FULL TEXT : Do you snore loudly (louder than talking or can be heard through closed doors)? Tobacco Use History Tobacco Use History - construction quality control manager: Tobacco Use History - construction quality control manager Tobacco Use Non-smoker 11/25/20 12:04 Smoking Status Never smoker 05/16/25 10:44 Hx Tobacco Use No 05/16/25 10:44 Years Smoking Packs Smoked per Day Smoking Cessation Date was within the last 15 years Hx Smoking Cessation Date Hx Smoking Cessation Counseling Hematologic Medial History Hematologic Hx - construction quality control manager: Hematologic Medical Hx - retirement consultant Hx of Blood Transfusion No 05/16/25 10:44 Hx of Transfusion in last 3 No 05/16/25 10:44 Months Date of Last Transfusion (if within last 3 months) Ever experience any problems No 05/16/25 10:44 with transfusion(s)? Specify any problems Hx of Preganancy in last 3 No 05/16/25 10:44 Months Nurse Filling Out Transfusion [email or web address] 05/16/25 10:44 & Questions: Date: 05/16/25 05/16/25 10:44 Time: 10:46 05/16/25 10:44 Patient unable to answer at this time (ie. confused, unrespo /Reproduction History /Reproductive History - construction quality control manager: /Reproductive Hx- construction quality control manager Hx Now No 05/16/25 10:44 Gestational Age (in weeks): EDC: Hx Hx Para Hx Section SAB No 05/16/25 10:44 Active Medications Active Medications: Current Medications Generic Name Dose Route Start Last Admin Trade Name Freq PRN Reason Stop Dose Admin Lactated Ringer's 1,000 mls @ 15 mls/hr 05/20/25 11:15 05/20/25 11:48 IV 15 mls/hr .Q48H CYRIL Administration PFSH Medical History (Updated 05/16/25 @ 10:44 by Karla Galicia) Wears glasses Cancer Depression Easy bruising Dietary restriction Gastric reflux Non-smoker CPAP (continuous positive airway pressure) dependence History of echocardiogram History of stress test Cardiology follow-up encounter Morbid obesity History of CHF (congestive heart failure) Chronic anticoagulation History of atrial fibrillation History of diabetes mellitus Left bundle branch block (LBBB) (06/09/21) Atherosclerotic heart disease [place] coronary artery w/angina pectoris History of non-ST elevation myocardial infarction (NSTEMI) (05/21/21) Hyperlipidemia Essential (primary) hypertension Sleep apnea History of lipoma Depression Type 2 diabetes mellitus Chronic diastolic CHF (congestive heart failure) Chronic anticoagulation Paroxysmal A-fib Anomalous coronary artery origin Home Medications Medication Instructions Recorded Last Taken Type nitroglycerin 0.4 mg sublingual 0.4 mg sublingual Q5M PRN chest 08/24/20 05/19/21 Rx tablet pain #25 tabs apixaban 5 mg tablet (Eliquis) 5 mg PO BID #60 tabs 05/15/25 Rx atorvastatin 80 mg tablet 80 mg PO QHS 06/28/23 Unknow n History lisinopril 10 mg tablet 10 mg PO DAILY #30 tabs 06/16 10/06 Unknown Rx hydrochlorothiazide 25 mg tablet 25 mg PO DAILY #90 ta bs 01/15/24 Unknown Rx sertraline 100 mg tablet 100 mg PO BID 01/15/24 Unkno wn History carvedilol 6.25 mg tablet (Coreg) 6.25 mg PO BID #60 t abs 10/31/24 Unknown Rx pantoprazole 40 mg tablet,delayed 40 mg PO QDAY Unknown History release glipizide 5 mg tablet 5 mg PO QDAY 02/10/25 Unknow n History dicyclomine 10 mg capsule 10 mg PO BID PRN abdominal p ain 05/08/25 Unknown Rx #20 caps Allergy/AdvReac Type Severity Reaction Status Date / Time potassium chloride AdvReac diarrhea Verified 05/20/25 11:44 Family History Grandmother Diabetes Breast cancer Sister Breast cancer Mother Heart disease Hypertension Surgical History History of left heart catheterization (05/24/21) History of tonsillectomy H/O: hysterectomy Social History household members: spouse housing: house number of children: 4 (adults) current occupational status: disabled Smoking Status: Never smoker alcohol intake: never Review of Systems (Anesthesia) ROS Narrative System reviewed and no additional complaints, except as documented.
--- NOTE | 2025-05-20 12:30 | COLBX_PTH ---
PATIENT: MATILDA MAGDALENO LOC: EN U#:[id number] AGE/SX: 64/F ROOM: RE05/20/[address]: Dr. Gallo Patiño DO : 1960 BED: DIS: 05/20/2025 SPEC #: [id number] RECD: 05/20/25 14:38 STATUS: JOSÉ REQ #: [id number] ALEJANDRO: 05/20/25 12:[address]: Gallo Patiño DEPT: SURGICAL PATHOLOGY RECD BY: Maxi Mclean ENTERED: 05/20/25 14:53 SP TYPE: COLON BX SHEYLA DR: Dr. Addis Prather MD Tissues: A - COLON BIOPSY B - COLON BIOPSY C - Sigmoid colon biopsy Procedures: Surgery Specimen Level IV HEADER OPERATION: Colonoscopy, biopsy PRE-OP DIAGNOSIS: Abdominal bloating, fecal incontinence, diarrhea TISSUE SUBMITTED: A- Hepatic flexure polyp biopsy, B- Random colon biopsy, C- Sigmoid polyp biopsy MICROSCOPIC DIAGNOSIS A. Hepatic flexure, polyp, biopsy: - Inflammatory polyp. B. Colon, random, biopsy: - No specific pathologic change. C. Sigmoid colon, polyp, biopsy: - Hyperplastic polyp. MICROSCOPIC DESCRIPTION Slides are reviewed. GROSS DESCRIPTION A. Received in fixative is one container labeled with the patient's name and designated "Hepatic flexure polyp biopsy." The specimen consists of three irregular fragments of castro tissue that measure 0.3 to 0.5 cm. The specimen is totally submitted in one cassette. B. Received in fixative is one container labeled with the patient's name and designated "Random colon biopsy." The specimen consists of multiple irregular fragments of castro tissue that in aggregate measure 1.5 x 0.6 x 0.1 cm. The specimen is totally submitted in one cassette. C. Received in fixative is one container labeled with the patient's name and designated "Sigmoid polyp biopsy." The specimen consists of two irregular fragments of castro tissue, each measuring 0.3 cm. The specimen is totally submitted in one cassette. DE 05/20/2025 CPT:94212p9
--- NOTE | 2025-05-20 13:04 | HP.PCM_ITS ---
HPI - General General Date of Admission: 05/20/25 Date of Service: 05/20/25 Chief Complaint: diarrhea HPI Narrative BLANCA MAGDALENO, is a 64 F who presents [ Chief Complaint: Diarrhea BGI Established 7..25 for worsening diarrhea x 2 months. Stool; calprotectin 13, Biochemical work up; celiac negative, IBD panel negative, food allergy negative OV 8. patient continues to have diarrhea. She has had at least 1 episode of incontinence per week. She has about 1-2 formed stools per week otherwise it is all loose stool. She has not tried any antidiarrheals at this point. Recommended Imodium as needed. Stool: Not completed OV 05/08/2025 patient having less episodes of diarrhea. She is having diarrhea 1-2 times per week with normal stools in between. She is now having right sided abdominal pain and lower and upper quadrants. This is unrelated to oral intake. There are no alleviating or exacerbating factors. She has never experienced this pain before. Pain can last anywhere from 1/2-hour to an hour. COUNT INCLUDES THE [facility] Medical History Wears glasses Cancer Depression Easy bruising Dietary restriction Gastric reflux Non-smoker CPAP (continuous positive airway pressure) dependence History of echocardiogram History of stress test Cardiology follow-up encounter Morbid obesity History of CHF (congestive heart failure) Chronic anticoagulation History of atrial fibrillation History of diabetes mellitus Left bundle branch block (LBBB) (06/09/21) Atherosclerotic heart disease [place] coronary artery w/angina pectoris History of non-ST elevation myocardial infarction (NSTEMI) (05/21/21) Hyperlipidemia Essential (primary) hypertension Sleep apnea History of lipoma Depression Type 2 diabetes mellitus Chronic diastolic CHF (congestive heart failure) Chronic anticoagulation Paroxysmal A-fib Anomalous coronary artery origin Home Medications Medication Instructions Recorded Last Taken Type nitroglycerin 0.4 mg sublingual 0.4 mg sublingual Q5M PRN chest 08/24/20 05/19/21 Rx tablet pain #25 tabs apixaban 5 mg tablet (Eliquis) 5 mg PO BID #60 tabs 05/15/25 Rx atorvastatin 80 mg tablet 80 mg PO QHS 06/28/23 Unknow n History lisinopril 10 mg tablet 10 mg PO DAILY #30 tabs 06/16 10/06 Unknown Rx hydrochlorothiazide 25 mg tablet 25 mg PO DAILY #90 ta bs 01/15/24 Unknown Rx sertraline 100 mg tablet 100 mg PO BID 01/15/24 Unkno wn History carvedilol 6.25 mg tablet (Coreg) 6.25 mg PO BID #60 t abs 10/31/24 Unknown Rx pantoprazole 40 mg tablet,delayed 40 mg PO QDAY Unknown History release glipizide 5 mg tablet 5 mg PO QDAY 02/10/25 Unknow n History dicyclomine 10 mg capsule 10 mg PO BID PRN abdominal p ain 05/08/25 Unknown Rx #20 caps Allergy/AdvReac Type Severity Reaction Status Date / Time potassium chloride AdvReac diarrhea Verified 05/20/25 11:44 Family History Grandmother Diabetes Breast cancer Sister Breast cancer Mother Heart disease Hypertension Surgical History History of left heart catheterization (05/24/21) History of tonsillectomy H/O: hysterectomy Social History household members: spouse housing: house number of children: 4 (adults) current occupational status: disabled Smoking Status: Never smoker alcohol intake: never ROS Constitutional Constitutional: Denies fatigue, fever(s), poor appetite, weight gain or weight loss Gastrointestinal Gastrointestinal: Denies belching, bloating, change in bowel habits, change in stool character, chewing difficulty, coffee ground emesis, constipation, cramping, diarrhea, dyspepsia, dysphagia, early satiety, excessive flatus, fecal incontinence, heartburn, hematemesis, hematochezia, hemorrhoids, loose stools, melena, nausea, odynophagia, rectal bleeding, tenesmus, vomiting or weight ch anges Vital Signs Vital Signs Vital Signs: 05/20/25 11:45 05/20/25 11:45 05/20/25 12:08 Temperature 97.8 F 97.8 F Temperature Source Temporal Pulse Rate 64 64 Respiratory Rate 18 18 Respiratory Pattern Normal Blood Pressure 155/80 H 155/80 H Blood Pressure Mean 105 Blood Pressure Source Monitor Blood Pressure Position Sitting Blood Pressure Location Right Arm Pulse Ox 97 97 Oxygen Delivery Method Room Air Room Air Weight Weight: 268 lb 15.423 oz Body Mass Index (BMI) 39.6 Physical Exam Const alert, oriented x3, no apparent distress and healthy appearing General Appearance: cooperative GI normal to inspection, nondistended, normoactive bowel sounds, soft to palpation, non-tender and non-distended Percussion: normal to percussion Rectal Exam: deferred Results Lab / Micro Data Labs: Laboratory Results - last 24 hr 05/20/25 11:40: POC Glucose 123 H Assessment & Plan Assessment/Plan (1) Abdominal bloating: (2) Fecal incontinence: QUALIFIERS: Fecal incontinence type: full incontinence of feces Qualified Code(s): R15.9 - Full incontinence of feces (3) Diarrhea: QUALIFIERS: Diarrhea type: unspecified type Qualified Code(s): R19.7 - Diarrhea, unspecified PLAN: Plan Assessment and Plan Assessment and Plan (1) Abdominal pain: Status: Acute Qualifiers: Abdominal location: lower abdomen, unspecified Qualified Code(s): R10.30 - Lower abdominal pain, unspecified Plan: Blanca is a 64-year-old female patient with a past medical history of hyperlipidemia, coronary artery disease, diabetes, A-fib, hypertension and sleep apnea here today for evaluation. Patient continues to have intermittent diarrhea 1-2 times per week. She was not able to complete the stool testing that was ordered at her prior appointment. She also had to cancel her colonoscopy due to illness. She is rescheduled for this in May 2025. I encouraged her to have this done. Patient also having new right sided abdominal pain. Patient was prescribed dicyclomine 10 mg as needed and CT abdomen pelvis was ordered for evaluation of this new pain. She will follow-up after colonoscopy. - Colonoscopy - Stool testing - CT abdomen pelvis - Dicyclomine 10 mg as needed (2) Diarrhea: Status: Acute Qualifiers: Diarrhea type: unspecified type Qualified Code(s): R19.7 - Diarrhea, unspecified Orders: Orders Abdomen/Pelvis WITH Contrast Today R10.30 - Lower abdominal pain, unspecified Medications: New dicyclomine 10 mg PO BID PRN 20 caps 1RF abdominal pain ]
--- NOTE | 2025-05-20 13:53 | OP.PROVAT_ITS ---
05/20/2025 Addis Prather [address] [place] [address] Re : Colonoscopy procedure for Blanca Garza Dear Dr. Prather This procedure was performed on Tuesday, May 20, 2025. My impressions and recommendations are as follows: Impressions : - Diverticulosis in the recto-sigmoid colon, in the sigmoid colon and in the descending colon. - Two 7 mm polyps in the sigmoid colon and at the hepatic flexure, removed with a cold biopsy forceps. Resected and retrieved. - Congested mucosa in the sigmoid colon, in the transverse colon and in the ascending colon. Biopsied. Recommendations : - Discharge patient to home. - Resume previous diet. - Repeat colonoscopy in 5 years for surveillance. - Continue present medications. My findings are described in the full procedure note, which is enclosed. If I can be of further assistance, please feel free to contact me at . Sincerely, Gallo Patiño, 05/20/2025 1:52:54 PM This report has been signed electronically.
--- NOTE | 2025-05-20 13:53 | OP.COLON_ITS ---
Patient Name: Blanca Garza Procedure Date: 05/20/2025 1:10 PM Date of : 1960 Age: 64 Procedure: Colonoscopy Indications: Chronic diarrhea Providers: Gallo Patiño DO Referring MD: Addis Prather Medicines: Monitored Anesthesia Care Patient Profile: This is a 64 year old female. Refer to note in patient chart for documentation of history and physical. Last Colonoscopy: several years ago. Complications: No immediate complications. Procedure: Pre-Anesthesia Assessment: - Prior to the procedure, a History and Physical was performed, and patient medications and allergies were reviewed. The patient is competent. The risks and benefits of the procedure and the sedation options and risks were discussed with the patient. All questions were answered and informed consent was obtained. Patient identification and proposed procedure were verified by the physician in the pre-procedure area. Mental Status Examination: alert and oriented. Respiratory Examination: clear to auscultation. CV Examination: normal. Prophylactic Antibiotics: The patient does not require prophylactic antibiotics. Prior Anticoagulants: The patient has taken no anticoagulant or antiplatelet agents except for NSAID medication. ASA Grade Assessment: II - A patient with mild systemic disease. After reviewing the risks and benefits, the patient was deemed in satisfactory condition to undergo the procedure. The anesthesia plan was to use monitored anesthesia care (MAC). Immediately prior to administration of medications, the patient was re-assessed for adequacy to receive sedatives. The heart rate, respiratory rate, oxygen saturations, blood pressure, adequacy of pulmonary ventilation, and response to care were monitored throughout the procedure. The physical status of the patient was re-assessed after the procedure. After I obtained informed consent, the scope was passed under direct vision. Throughout the procedure, the patient's blood pressure, pulse, and oxygen saturations were monitored continuously. The Colonoscope was introduced through the anus and advanced to the cecum, identified by appendiceal orifice and ileocecal valve. The colonoscopy was performed without difficulty. The patient tolerated the procedure well. The quality of the bowel preparation was adequate. The colonoscopy was performed without difficulty. The patient tolerated the procedure well. The quality of the bowel preparation was adequate. The ileocecal valve, appendiceal orifice, and rectum were photographed. Scope In: 1:24:11 PM Scope Withdrawal Time 0 hours 13 minutes 27 seconds Scope Out: 1:42:18 PM Total Procedure Duration Time 0 hours 18 minutes 7 seconds Findings: The perianal and digital rectal examinations were normal. Multiple small and large-mouthed diverticula were found in the recto-sigmoid colon, sigmoid colon and descending colon. Two sessile polyps were found in the sigmoid colon and hepatic flexure. The polyps were 7 mm in size. These polyps were removed with a cold biopsy forceps. Resection and retrieval were complete. Verification of patient identification for the specimen was done. Estimated blood loss was minimal. An area of mildly congested mucosa was found in the sigmoid colon, in the transverse colon and in the ascending colon. Biopsies were taken with a cold forceps for histology. Verification of patient identification for the specimen was done. Estimated blood loss was minimal. Non-bleeding internal hemorrhoids were found during retroflexion. The hemorrhoids were Grade II (internal hemorrhoids that prolapse but reduce spontaneously). Impression: - Diverticulosis in the recto-sigmoid colon, in the sigmoid colon and in the descending colon. - Two 7 mm polyps in the sigmoid colon and at the hepatic flexure, removed with a cold biopsy forceps. Resected and retrieved. - Congested mucosa in the sigmoid colon, in the transverse colon and in the ascending colon. Biopsied. Recommendation: - Discharge patient to home. - Resume previous diet. - Repeat colonoscopy in 5 years for surveillance. - Continue present medications. Procedure Code(s): --- Professional --- 74868, Colonoscopy, flexible; with biopsy, single or multiple CPT copyright 2021 [employer]. All rights reserved. The codes documented in this report are preliminary and upon mid wife review may be revised to meet current compliance requirements. Gallo Patiño DO 05/20/2025 1:52:54 PM This report has been signed electronically. Number of Addenda: 0 Note Initiated On: 05/20/2025 1:10 PM
--- NOTE | 2025-05-20 13:53 | PCM.POST.ANE ---
Anesthesia: Postop Eval I Current Vital Signs Temperature: 97.1 F Pulse Rate: 60 Blood Pressure: 116/59 Respiratory Rate: 16 Pulse Ox: 96 Oxygen Delivery Method: Room Air Assessment Airway patent: Yes Spontaneous unlabored respirations: Yes Mental status: Awake and Calm nausea: No Vomiting: No Anesthesia Complication: No Fluid Hydration Crystalloid volume administer (ml): 400 Total IV fluid infused: 400 Progress Note Anesthesia document: Postop Eval 1 completed: Yes
--- NOTE | 2025-05-20 15:58 | PCM.POSTANE2 ---
Anesthesia Postop Eval I Sum Postop Eval Completion status Anesthesia document: Postop Eval 1 completed: Yes Anesthesia Postop Eval I Summary Anesthesia Postop Eval I Summary: Anesthesia Postop Eval I: Assessment Summary Airway patent Yes 05/20/25 13:54 [email or web address] Spontaneous unlabored Yes 05/20/25 13:54 [email or web address] respirations Mental status Awake,Calm 05/20/25 13:54 [email or web address] nausea No 05/20/25 13:54 [email or web address] Vomiting No 05/20/25 13:54 [email or web address] Anesthesia Postop Eval I: Fluid Summary Crystalloid volume administer 400 05/20/25 13:54 [email or web address] (ml) Colloids volume administered ( ml) Blood Product volume administered (ml) Total IV fluid infused 400 05/20/25 13:54 [email or web address] Anesthesia Postop Eval I: Summary Notes Anesthesia Complication No 05/20/25 13:54 [email or web address] Anesthesia Complication Comment: Post-operative progress note Anesthesia: Postop Eval II Evaluation Mental status: Awake and Calm Pain Level: 0 nausea: No Vomiting: No Complications Anesthesia Complication: No
== END 2025-05-20 14:23 | disposition home or self-care (01) ==
LOC: EN 11:08 → AC 11:09
PROVIDERS: PCP Internal Medicine; Referring Provider Internal Medicine; Visit Provider Internal Medicine Gastroenterology
DX: K63.5 Polyp of colon (principal); I11.0 Hypertensive heart disease with heart failure; I50.32 Chronic diastolic (congestive) heart failure; I48.0 Paroxysmal atrial fibrillation; E11.9 Type 2 diabetes mellitus without complications; R15.9 Full incontinence of feces; E78.5 Hyperlipidemia, unspecified; Z79.01 Long term (current) use of anticoagulants; K57.30 Diverticulosis of large intestine without perforation or abscess without bleeding; K64.1 Second degree hemorrhoids; I25.10 Atherosclerotic heart disease of native coronary artery without angina pectoris; K21.9 Gastro-esophageal reflux disease without esophagitis
CPT/HCPCS: 45380; 82962; 88305; J2405

== ENCOUNTER → 2025-07-02 | Outpatient (CLI) | payer MEDICARE, SELFPAY ==
--- NOTE | 2025-07-02 14:29 | CT_ITS ---
PROCEDURE: ABDOMEN/PELVIS WITH CONTRAST 07/02/2025 REASON FOR EXAM: ABD PAIN TECHNIQUE: Procedure Code: [id number] Modality: CT Procedure: ABDOMEN/PELVIS WITH CONTRAST CT abdomen and pelvis was performed with IV contrast. Coronal and Sagittal reformats series were generated. CONTRAST: Isovue-300 VOLUME: 97 mL. Unspecified oral contrast also administered. One or more dose reduction techniques were used (e.g., Automated exposure control, adjustment of the mA and/or kV according to patient size, use of iterative reconstruction technique. RADIATION DOSE SUMMARY: CTDlvol: 9.97+ 24.14 mGy DLP: 1367.94 mGycm COMPARISON: 06/09/2021 ; note that images only are available for review, the report is not available at the time of the dictation. FINDINGS: Lung bases: Mild atelectasis/scarring. At least trace coronary calcific atherosclerosis suspected, limitation due to cardiac motion. Liver: Unremarkable. Spleen: Unremarkable. Gallbladder/biliary: Unremarkable. Pancreas: Unremarkable. Adrenals: Unremarkable. 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 Small cyst on the LEFT. Additional punctate hypodensities too small to characterize. Bowel: Unremarkable. Appendix not identified. Lymph nodes: Borderline LEFT para-aortic node, 10 mm short axis. Borderline RIGHT common iliac node, 10 mm short axis.. Borderline RIGHT external iliac node, 10 mm short axis. Prominent but subcentimeter short axis mesenteric nodes. Vasculature: Mild atherosclerosis.. Peritoneum: Unremarkable. Bladder: Underdistended and suboptimally evaluated, grossly unremarkable. Reproductive Organs: Hysterectomy. Body Wall: Mild rectus diastasis. Bones: New mild superior L4 endplate compression deformity from prior, however appears chronic. Mild degenerative findings. CT/Abdomen/Pelvis WITH Contrast IMPRESSION: 1. No acute findings. 2. Few borderline retroperitoneal and RIGHT pelvic lymph nodes, nonspecific and potentially reactive in the absence of known malignancy. Correlate with medical history and follow-up as indicated. 3. Additional description as above. Reading Location: [facility]
[2025-07-02 15:03] LABS: CREATININE FINGERSTICK 1.1 mg/dL (0.55-1.02); EGFR FINGERSTICK 55.0000 mL/min (>60)
== END | disposition home or self-care (01) ==
LOC: CT 14:28
PROVIDERS: PCP Internal Medicine; Referring Provider Student in an Organized Health Care Education/Training Program; Visit Provider Student in an Organized Health Care Education/Training Program
DX: R10.30 Lower abdominal pain, unspecified (principal)
CPT/HCPCS: 74177; Q9967